=== PATIENT | male | born 1955 | race Caucasian/White ===

== ENCOUNTER 2019-09-15 07:30 | Outpatient (CLI) | payer MEDICARE, OTHER, SELFPAY ==
--- NOTE | 2019-09-15 07:45 | XR_ITS ---
WS: [id number] XR KUB [id number] REASON FOR EXAM: urolithiasis FINDINGS: Stones in both kidneys are again noted unchanged since previous exam of 03/31/2019. The ureters show no definite areas suggestive of stones in the bladder was normal. XR/XR KUB [id number] IMPRESSION: Unchanged renal calculus bilaterally.
== END 2019-09-15 07:31 | disposition home or self-care (01) ==
PROVIDERS: Family Provider Registered Nurse; PCP Registered Nurse; Visit Provider Urology
DX: N20.1 Calculus of ureter (principal); N13.8 Other obstructive and reflux uropathy; N20.9 Urinary calculus, unspecified; N40.1 Benign prostatic hyperplasia with lower urinary tract symptoms; R86.9 Unspecified abnormal finding in specimens from male genital organs
CPT/HCPCS: 74018; 81001

== ENCOUNTER 2019-10-07 10:08 | Outpatient (CLI) | payer MEDICARE, OTHER, SELFPAY ==
--- NOTE | 2019-10-07 10:17 | XR_ITS ---
WS: [id number] ABDOMEN 1 VIEW(S) HISTORY: ureterolithiasis COMPARISON: Radiograph 09/15/2019 Normal bowel gas pattern. Bilateral renal calcifications are identified. Lobulated calcification upper pole RIGHT kidney measur es 5 mm. Additional 5 mm calcification lower pole LEFT kidney. No ureteral calcifications. Lumbar spondylosis. XR/XR KUB [id number] IMPRESSION: Bilateral nephrolithiasis. Similar to 09/15/2019.
== END 2019-10-07 10:09 | disposition home or self-care (01) ==
LOC: RAD 10:15
PROVIDERS: PCP Registered Nurse; Visit Provider Urology
DX: N20.1 Calculus of ureter (principal); N20.0 Calculus of kidney
CPT/HCPCS: 74018; 81001

== ENCOUNTER → 2019-11-11 07:44 | Outpatient (BNVA) | payer MEDICARE, OTHER, SELFPAY | PROVIDERS: PCP Registered Nurse; Visit Provider Nurse Practitioner | DX: G62.9 Polyneuropathy, unspecified (principal) | CPT/HCPCS: 99213 ==

== ENCOUNTER 2020-01-12 13:10 | Outpatient (CLI) | payer MEDICARE, OTHER, SELFPAY ==
--- NOTE | 2020-01-12 13:18 | XRR_ITS ---
PROCEDURE INFORMATION: Exam: XR Right Hip with Pelvis when Performed Exam date and time: 01/12/2020 1:40 PM Age: 64 years old Clinical indication: Hip pain; Right hip TECHNIQUE: Imaging protocol: XR Right hip with pelvis when performed. Views: 1 view. COMPARISON: CT Abdomen/Pelvis Renal [id number] 12/04/2018 7:12 AM FINDINGS: Bones/joints: Unremarkable. No acute fracture. Soft tissues: Unremarkable. XR/XR hip RT 2-3V wo/w pel* [id number] IMPRESSION: No acute findings.
== END 2020-01-12 13:11 | disposition home or self-care (01) ==
LOC: RAD 13:15
PROVIDERS: PCP Registered Nurse; Visit Provider Nurse Practitioner
DX: M25.551 Pain in right hip (principal)
CPT/HCPCS: 73502

== ENCOUNTER 2020-04-06 12:37 | Outpatient (CLI) | payer MEDICARE, OTHER, SELFPAY ==
--- NOTE | 2020-04-06 13:30 | XR_ITS ---
WS: [id number] XR KUB [id number] REASON FOR EXAM: UROLITHIASIS FINDINGS: Compared to the previous examination of 09/15/2019, the calculi in both kidneys are unchanged in size a nd location. Bowel gas pattern is unremarkable with no free air or retroperitoneal air. No new finding compared to the previous examination. XR/XR KUB [id number] IMPRESSION: Stable bilateral renal calculi.
== END 2020-04-06 12:38 | disposition home or self-care (01) ==
LOC: RAD 12:45
PROVIDERS: PCP Registered Nurse; Visit Provider Urology
DX: N20.9 Urinary calculus, unspecified (principal)
CPT/HCPCS: 74018; 81003

== ENCOUNTER 2020-05-27 19:22 | Emergency (ER) | payer MEDICARE, OTHER, SELFPAY ==
[2020-05-27 19:31] VITALS: BP 212/98; PULSE 61; RESP 18; TEMP 36.4; O2SAT 97; BMI 29.2
--- NOTE | 2020-05-27 19:55 | XRR_ITS ---
PROCEDURE INFORMATION: Exam: XR Chest, 1 View Exam date and time: 05/27/2020 8:08 PM Age: 65 years old Clinical indication: Chest pain; Radiating TECHNIQUE: Imaging protocol: XR of the chest Views: 1 view. COMPARISON: CR Chest 1 [place] [id number] 12/01/2017 7:08 PM FINDINGS: Lungs: The lungs are clear. Pleural space: Unremarkable. No pleural effusion. No pneumothorax. Heart/Mediastinum: Unremarkable. No cardiomegaly. Bones/joints: Unremarkable. XR/XR chest 1V portable [id number] IMPRESSION: No acute abnormality.
--- NOTE | 2020-05-27 20:01 | W.ED.CHESTPA ---
HPI - Chest Pain General: Chief Complaint: Chest Pain Stated Complaint: high bp & pulse, left arm pain, spiked around 5pm, Time Seen by Provider: 05/27/20 19:39 History of Present Illness: HPI narrative: This patient is a 65-year-old male presents today with pain in his left arm. This started around 5:00 while he was having a pleasant conversation with his daughter on the phone. Because of the pain in his arm he went and checked his blood pressure. It was quite elevated. He took several repeat measurements that were all over 200 systolic and over 100 diastolic. He was here one time before with that and tells me that he went into V. tach. He also has had a TIA. This high blood pressure frightened him and so he came to the ER. He still having some discomfort in his left arm but it is mostly resolved. He never had chest pain. He did have nausea and perhaps a slight headache with it. He never had any neurologic symptoms. He has never had a heart attack. He is followed by Dr. Perez for his blood pressure. He says that he was on amlodipine and metoprolol until about a month ago. Dr. Perez stopped the amlodipine. He denies any other unusual events in the past few days. He has not been ill. No changes in his diet. No other medication changes. MD complaint: other (Left arm and axillary pain) Onset (ago): hour(s) (3) Timing of current episode: constant Prior episodes: No Onset: during rest Pain radiation: left arm Severity: moderate Quality: aching Relieving factors: nothing Exacerbating factors: nothing Associated symptoms: Deny abdominal pain, dyspnea, fever(s), nausea or vomiting Review of Systems General: Reports: 10 or more systems reviewed and unremarkable except in HPI and below Const: Denies: fever(s), chills, fatigue or malaise Eyes: Denies: change in vision ENMT: Denies: odynophagia Card: Denies: chest pain or swelling of feet/ankles Resp: Denies: dyspnea, productive cough or non-productive cough GI: Denies: abdominal pain, nausea or vomiting : Denies: flank pain Musc: Denies: neck pain or back pain Skin/Breast: Denies: rash Neuro: Denies: headache(s), numbness in extremities or weakness in extremities Flaco/Lymph: Denies: easy bruising or easy bleeding PFSH ED PFSH: Medical History Bradycardia Erectile dysfunction Hypertension, accelerated Hypertrophy of prostate with urinary obstruction Memory loss Palpitation Peripheral neuropathy TIA (transient ischemic attack) Urolithiasis Surgical History History of ureter stent Hx of brain surgery Hx of cholecystectomy Hx of hernia repair Hx of lithotripsy Family History Mother , bone Cancer Hypertension Social History Smoking and tobacco status: never smoked Alcohol intake: unknown Adopted: No Caregiver/support person: No Lives independently: No Marital status: Current occupational status: retired History of recent travel: No Current gender identity: Male Physical Exam Const: COMMON NORMALS: no acute distress, patient oriented x3, no limitations and alert GENERAL APPEARANCE: cooperative and comfortable HENMT: HEAD & SCALP: normal to inspection FACE & SINUS: normal facial exam Eye: GENERAL EYE: appearance normal, both eyes and all related structures Neck/C-Spine: COMMON NORMALS: supple, no meningeal signs and no JVD Chest: COMMONS NORMALS: normal inspection of the chest Resp: COMMON NORMALS: normal respiratory effort, No use of accessory muscles and clear to auscultation bilaterally AUSCULTATION: clear to auscultation bilaterally Cardio: COMMON NORMALS: no JVD, regular rate, regular rhythm and No murmurs present (Cardio) RATE: regular rate RHYTHM: regular rhythm GI: COMMON NORMALS: Normal to inspection, nondistended, normoactive bowel sounds present, Soft to palpation and non-tender INSPECTION: Yes normal to inspection AUSCULTATION: Yes normoactive bowel sounds PALPATION: Yes Soft to palpation Back/Pelvis: COMMON NORMALS: thoracic and lumbar spine normal to inspection Extremity: COMMON NORMALS: normal to inspection Neuro: COMMON NORMALS: patient oriented x3, moves all extremities, no focal motor deficits and no sensory deficits noted SENSORIUM/ORIENTATION: Yes alert MENINGEAL SIGNS: Yes no meningeal signs Psych: COMMON NORMALS: mental status grossly normal, cooperative and normal affect Skin: COMMON NORMALS: no rashes or lesions noted and turgor normal GENERAL SKIN EXAM: no rashes or lesions noted and turgor normal Course ED course: Patient was comfortable while in the ER. I gave him a dose of labetalol and his blood pressure came down to 150s over 80s. He thinks that they took him off the amlodipine in the past because his blood pressure was getting too low. On my review of the notes it looks like maybe he was having some ankle swelling as well. He is comfortable with going back on the amlodipine until he is able to follow-up with Dr. Nathan. Troponin was negative. EKGs were negative. Exam and other labs are benign. I think he safe for discharge and outpatient follow-up. Vital Signs: Vital signs: Vital Signs Temperature 97.6 F 05/27/20 19:31 Pulse Rate 56 L 05/27/20 22:59 Respiratory Rate 18 05/27/20 22:59 Blood Pressure 158/87 05/27/20 22:59 Pulse Oximetry 97 05/27/20 22:59 MDM - Chest Pain Lab Data: Labs: Lab Results 05/27/20 05/27/20 05/27/20 Range/Units 20:07 20:07 20:07 WBC 7.9 (4.0-10.0) 10^3/ uL RBC 4.78 (4.1-5.3) 10^6/u L Hgb 14.6 (11.7-16.6) g/dL Hct 44.4 (42.0-52.0) % MCV 92.9 (80-94) fL MCH 30.5 (28.0-34.0) pg MCHC 32.9 (30.0-36.0) g/dL RDW 12.6 (12.1-15.1) % Plt Count 167 (130-400) 10^3/c mm MPV 10.0 (7.4-10.4) fL Neut % (Auto) 65.5 % Lymph % (Auto) 24.4 % Alcorn % (Auto) 7.0 % Eos % (Auto) 2.4 % Baso % (Auto) 0.4 % Neut # (Auto) 5.17 (1.8-7.7) 10^3/u L Lymph # (Auto) 1.9 (0.8-4.8) 10^3/u L Alcorn # (Auto) 0.6 (0.2-0.9) 10^3/u L Eos # (Auto) 0.2 (0.0-0.8) 10^3/u L Baso # (Auto) 0.0 (0.0-0.1) 10^3/u L Nucleated RBC % (a uto) 0 % Nucleated RBCs # 0.0 /100WBC Sodium 139 (136-145) mmol/L Potassium 4.2 (3.5-5.1) mmol/L Chloride 103 (98-107) mmol/L Carbon Dioxide 29 (22-29) mmol/L Anion Gap 11.2 (5-19) BUN 13 (8-23) mg/dL Creatinine 1.1 (0.7-1.2) mg/dL GFR Calculation 67.4 L (90-130) mL/min Glucose 125 H (65-115) mg/dL Calculated Osmolal ity 290 (285-295) mOsm/k g Calcium 9.8 (8.5-10.5) mg/dL Total Bilirubin 0.4 (0.15-1.2) mg/dL AST 16 (0-40) U/L ALT 24 (0-41) U/L Alkaline Phosphata se 115 (40-130) IU/L Troponin T Baselin e 6 (0-15) ng/L Troponin T 120 Min [place] (0-15) ng/L Delta Troponin T (0-10) ABS# NT-Pro-B Natriuret Pep 70 (0-125) pg/mL Total Protein 6.0 L (6.6-8.7) g/dL Albumin 3.9 (3.5-5.2) g/dL Globulin 2.1 (1.3-4.6) g/dL Urine Color (Yellow) Urine Appearance (CLEAR) Urine pH (5-7) Ur Specific Gravit y (1.005-1.030) Urine Protein (Negative) Urine Glucose (UA) (Normal) Urine Ketones (Negative) Urine Blood (Negative) Urine Nitrate (Negative) Urine Bilirubin (Negative) Urine Urobilinogen (Negative) mg/dL Ur Leukocyte Shu ase (Negative) Urine RBC (0-2) /hpf Urine WBC (0-5) /hpf Ur Squamous Epith Cells (0-5) /hpf Amorphous Sediment /hpf Urine Bacteria (NONE) /hpf 05/27/20 05/27/20 Range/Units 21:00 21:55 WBC (4.0-10.0) 10^3/ uL RBC (4.1-5.3) 10^6/u L Hgb (11.7-16.6) g/dL Hct (42.0-52.0) % MCV (80-94) fL MCH (28.0-34.0) pg MCHC (30.0-36.0) g/dL RDW (12.1-15.1) % Plt Count (130-400) 10^3/c mm MPV (7.4-10.4) fL Neut % (Auto) % Lymph % (Auto) % Alcorn % (Auto) % Eos % (Auto) % Baso % (Auto) % Neut # (Auto) (1.8-7.7) 10^3/u L Lymph # (Auto) (0.8-4.8) 10^3/u L Alcorn # (Auto) (0.2-0.9) 10^3/u L Eos # (Auto) (0.0-0.8) 10^3/u L Baso # (Auto) (0.0-0.1) 10^3/u L Nucleated RBC % (a uto) % Nucleated RBCs # /100WBC Sodium (136-145) mmol/L Potassium (3.5-5.1) mmol/L Chloride (98-107) mmol/L Carbon Dioxide (22-29) mmol/L Anion Gap (5-19) BUN (8-23) mg/dL Creatinine (0.7-1.2) mg/dL GFR Calculation (90-130) mL/min Glucose (65-115) mg/dL Calculated Osmolal ity (285-295) mOsm/k g Calcium (8.5-10.5) mg/dL Total Bilirubin (0.15-1.2) mg/dL AST (0-40) U/L ALT (0-41) U/L Alkaline Phosphata se (40-130) IU/L Troponin T Baselin e (0-15) ng/L Troponin T 120 Min [place] 6.20 (0-15) ng/L Delta Troponin T 0.20 (0-10) ABS# NT-Pro-B Natriuret Pep (0-125) pg/mL Total Protein (6.6-8.7) g/dL Albumin (3.5-5.2) g/dL Globulin (1.3-4.6) g/dL Urine Color Yellow (Yellow) Urine Appearance Sl cloudy A (CLEAR) Urine pH 7 (5-7) Ur Specific Gravit y 1.010 (1.005-1.030) Urine Protein Neg (Negative) Urine Glucose (UA) Norm (Normal) Urine Ketones Negative (Negative) Urine Blood Trace H (Negative) Urine Nitrate Negative (Negative) Urine Bilirubin Neg (Negative) Urine Urobilinogen Norm (Negative) mg/dL Ur Leukocyte Shu ase Negative (Negative) Urine RBC 0-4 H (0-2) /hpf Urine WBC 0-4 H (0-5) /hpf Ur Squamous Epith Cells 0-4 H (0-5) /hpf Amorphous Sediment 2+ /hpf Urine Bacteria 1+ H (NONE) /hpf Discharge Plan Discharge Patient Disposition: Home Clinical Impression: Hypertension, accelerated, Atypical chest pain Condition: Stable Prescriptions: New amlodipine 5 mg tablet 5 mg PO BID Qty: 60 RF: 0 No Action magnesium oxide 400 mg magnesium capsule 400 mg PO DAILY Qty: 90 RF: 3 atorvastatin 20 mg tablet 20 mg PO DAILY Qty: 90 RF: 3 Myrbetriq 25 mg tablet extended release 24 hr 25 mg PO DAILY Qty: 30 RF: 12 gabapentin 300 mg capsule 600 mg PO TID Qty: 180 RF: 11 naproxen 375 mg tablet 375 mg PO BID PRN (Reason: pain) Qty: 14 RF: 0 aspirin 325 mg tablet 325 mg PO DAILY 90 Days Qty: 90 RF: 3 metoprolol succinate 25 mg tablet extended release 24 hr 12.5 mg PO DAILY 90 Days Qty: 45 RF: 3 potassium citrate 10 mEq (1,080 mg) tablet extended release 10 meq PO BID Qty: 60 RF: 12 tamsulosin 0.4 mg capsule 0.4 mg PO BID Qty: 180 RF: 3 finasteride 5 mg tablet 5 mg PO DAILY Qty: 90 RF: 3 sildenafil 100 mg tablet See Rx Instructions .ROUTE .COMPLEX Qty: 20 RF: 3 allopurinol 100 mg tablet See Rx Instructions .ROUTE .COMPLEX Qty: 90 RF: 0 Discharge Orders: Discharge ED (Routine); Ordered 05/27/20 Ordered By: Marlin Kent Referrals: Vonda Perez MD [Physician] - Adelita Rod FNP [Primary Care Provider] - Discharge Diet: Usual diet Discharge Activity: Resume usual activity Patient Instructions: Hypertension (ED) Activity Restrictions/Additional Instructions: Start taking the amlodipine again as prescribed. Call Dr. Perez's office to let them know you were seen in the ED and given the new prescription. Return if chest pain, SOB, vomiting or any other new or concerning symptoms. Coding Level of Care Code ED Paleontological Helper for Chg Fwd Exam Comprehensive
[2020-05-27] MEDS: labetalol 5 mg/mL SDV 20mL 20 MG IVP (20:06)
[2020-05-27 20:20] LABS: Basophils % 0.4 %; Eosinophils # 0.2 10^3/uL (0.0-0.8); Eosinophils % 2.4 %; Hematocrit 44.4 % (42.0-52.0); Hemoglobin 14.6 g/dL (11.7-16.6); Lymphocytes # 1.9 10^3/uL (0.8-4.8); Lymphocytes % 24.4 %; Mean Corpuscular HGB Conc 32.9 g/dL (30.0-36.0); Mean Corpuscular Hemoglobin 30.5 pg (28.0-34.0); Mean Corpuscular Volume 92.9 fL (80-94); Monocytes # 0.6 10^3/uL (0.2-0.9); Neutrophils # 5.17 10^3/uL (1.8-7.7); Neutrophils % 65.5 %; Nucleated Red Blood Cells % 0 %; Platelet Count 167 10^3/cmm (130-400); Red Blood Count 4.78 10^6/uL (4.1-5.3); Red Cell Distribution Width 12.6 % (12.1-15.1); White Blood Count 7.9 10^3/uL (4.0-10.0)
[2020-05-27 20:22] VITALS: BP 152/99; PULSE 55; RESP 18; O2SAT 96
[2020-05-27 20:40] LABS: Troponin(5th) Baseline 6 ng/L (0-15)
[2020-05-27 20:49] LABS: Alanine Aminotransferase 24 U/L (0-41); Albumin Level 3.9 g/dL (3.5-5.2); Alkaline Phosphatase 115 IU/L (40-130); Aspartate Amino Transferase 16 U/L (0-40); Blood Urea Nitrogen 13 mg/dL (8-23); Calcium 9.8 mg/dL (8.5-10.5); Carbon Dioxide 29 mmol/L (22-29); Chloride 103 mmol/L (98-107); Globulin 2.1 g/dL (1.3-4.6); Glomerular Filtration Rate 67.4 mL/min (90-130); Glucose 125 mg/dL (65-115); NT Pro B Type Natriuretic Pept 70 pg/mL (0-125); Osmolality Calculated 290 mOsm/kg (285-295); Sodium 139 mmol/L (136-145); Total Bilirubin 0.4 mg/dL (0.15-1.2)
[2020-05-27 20:53] LABS: Anion Gap 11.2 (5-19); Potassium 4.2 mmol/L (3.5-5.1)
[2020-05-27 21:04] VITALS: BP 147/86; PULSE 57; RESP 17; O2SAT 97
[2020-05-27 21:27] LABS: Add Urine Microscopic? YES; Bilirubin Urine Neg (Negative); Blood Urine Trace (Negative); Glucose Urine UA Norm (Normal); Ketones Urine Negative (Negative); Leukocyte Esterase Urine Negative (Negative); Nitrate Urine Negative (Negative); Protein Urine Neg (Negative); Urine Color Yellow (Yellow); Urobilinogen Urine Norm (Negative); pH Urine 7 (5-7)
[2020-05-27 21:36] LABS: Add Urine Culture? No; Amorphous Sediment Urine 2+ /hpf; Bacteria Urine 1+ /hpf; RBC Urine 0-4 /hpf (0-2); Squamous Epithelial Cell Urine 0-4 /hpf (0-5); WBC Urine 0-4 /hpf (0-5)
--- NOTE | 2020-05-27 21:55 | ECG_ITS ---
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 Measurements Intervals [place] Rate: 52 P: 27 [place]: 198 QRS: 0 QRSD: 103 T: 8 QT: 427 QTc: 400 Interpretive Statements SINUS BRADYCARDIA MODERATE VOLTAGE CRITERIA FOR LVH, CONSIDER NORMAL VARIANT [MEETS CRITERIA IN ONE OF: R(aVL), S(V1), R(V5), R(V5/V6)+S(V1)] Compared to ECG 12/01/2017 19:32:57 No significant changes Electronically Signed On 05-29-2020 9:24:06 LEAD WELDER by Kobi Hassan M.D. [id number]
[2020-05-27 22:15] VITALS: BP 175/92; PULSE 51; RESP 17; O2SAT 96
[2020-05-27 22:59] VITALS: BP 158/87; PULSE 56; RESP 18; O2SAT 97
== END 2020-05-27 23:00 | disposition home or self-care (01) ==
PROVIDERS: Emergency Provider Emergency Medicine; PCP Registered Nurse
DX: I10 Essential (primary) hypertension (principal); R07.89 Other chest pain; Z79.82 Long term (current) use of aspirin; Z86.73 Personal history of transient ischemic attack (TIA), and cerebral infarction without residual deficits
CPT/HCPCS: 12345; 36415; 71045; 80053; 81001; 83880; 84484; 85025; 93005; 96374; 99282; 99284; J3490

== ENCOUNTER 2020-05-28 11:57 | Emergency (ER) | payer MEDICARE, OTHER, SELFPAY ==
[2020-05-28 12:01] VITALS: BP 152/88; PULSE 77; RESP 18; TEMP 36.5; O2SAT 95; BMI 29.2
--- NOTE | 2020-05-28 13:38 | XRR_ITS ---
PROCEDURE INFORMATION: Exam: XR Chest, 2 Views Exam date and time: 05/28/2020 1:39 PM Age: 65 years old Clinical indication: Dyspnea; Additional info: Cchest pain TECHNIQUE: Imaging protocol: XR of the chest Views: 2 views. COMPARISON: CR XR chest 1V portable [id number] 05/27/2020 8:05 PM FINDINGS: Lungs: Unremarkable. No consolidation. Pleural space: Unremarkable. No pleural effusion. No pneumothorax. Heart/Mediastinum: Unremarkable. No cardiomegaly. Bones/joints: Unremarkable. XR/XR chest 2V* [id number] IMPRESSION: No acute findings.
--- NOTE | 2020-05-28 13:38 | ECG_ITS ---
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 Measurements Intervals [place] Rate: 59 P: 6 [place]: 198 QRS: -6 QRSD: 114 T: -6 QT: 410 QTc: 407 Interpretive Statements SINUS BRADYCARDIA MODERATE INTRAVENTRICULAR CONDUCTION DELAY [110+ ms QRS DURATION] VOLTAGE CRITERIA FOR LVH [MEETS CRITERIA IN ONE OF: R(aVL), S(V1), R(V5), R(V5/V6)+S(V1)] Compared to ECG 05/27/2020 21:48:00 Intraventricular conduction delay now present Electronically Signed On 05-29-2020 9:18:01 BLADDER CHANGER by Kobi Hassan M.D. [id number]
--- NOTE | 2020-05-28 13:47 | CTR_ITS ---
PROCEDURE INFORMATION: Exam: CT Head Without Contrast Exam date and time: 05/28/2020 2:17 PM Age: 65 years old Clinical indication: Pain; Headache not specified; Prior surgery; Surgery date: 6+ months; Additional info: Headache, hypertensive urgency TECHNIQUE: Imaging protocol: Computed tomography of the head without contrast. Radiation optimization: All CT scans at this facility use at least one of these dose optimization techniques: automated exposure control; mA and/or kV adjustment per patient size (includes targeted exams where dose is matched to clinical indication); or iterative reconstruction. COMPARISON: CT head wo con* [id number] 12/08/2018 2:08 PM RADIATION DOSE METRICS: Total DLP (mGy-cm): 905.37 FINDINGS: Brain: Moderate white matter disease and volume loss are identified. There is no acute infarct or edema. No hemorrhage. Cerebral ventricles: No ventriculomegaly. Bones/joints: There has been a left frontal craniotomy. Paranasal sinuses: Visualized sinuses are unremarkable. No fluid levels. Mastoid air cells: Visualized mastoid air cells are well aerated. Soft tissues: Unremarkable. CT/CT head wo con* [id number] IMPRESSION: There are no acute concerning abnormalities. Radiation Dose CTDIVOL = (mGy): DLP = 905.37 (mGy-cm)
--- NOTE | 2020-05-28 13:51 | W.ED.GENADLT ---
HPI - General Adult General: Chief complaint: Headache Stated complaint: HIGH BP, HEADACHE, WAS HERE LAST NIGHT Time Seen by Provider: 05/28/20 12:12 Source: patient Mode of arrival: ambulatory Limitations: no limitations History of Present Illness: HPI narrative: The patient is a 65-year-old male who presents to the emergency department with complaints of elevated blood pressure. He was seen in this emergency department yesterday for similar things and was given intravenous labetalol to help control his blood pressure. When he woke up this morning the patient checked his blood pressure several times and he has ranged from 150s to 170s systolic and he was worried about this. He was started on amlodipine in addition to his prior blood pressure medicine last night. He endorses a headache and mild chest pain. No dizziness. He is worried about his blood pressure and so he is here for that. Associated symptoms: Reports chest pain and headache(s); Deny dyspnea, nausea, rash, palpitations or vomiting Review of Systems General: Reports: 10 or more systems reviewed and unremarkable except in HPI and below Const: Denies: fever(s), chills or body aches Eyes: Denies: change in vision or blurry vision ENMT: Denies: throat pain, enlarged tonsils, odynophagia, hoarseness, mouth pain or swelling of lips/tongue Card: Reports: chest pain; Denies: palpitations, irregular heart rhythm, edema or swelling of feet/ankles Resp: Denies: dyspnea, productive cough or non-productive cough GI: Denies: abdominal pain, nausea or vomiting : Denies: flank pain, dysuria, urinary frequency, urinary urgency or urinary hesitancy Musc: Denies: neck pain, back pain or extremity swelling Skin/Breast: Denies: rash, pruritus or erythema Neuro: Reports: headache(s); Denies: numbness in extremities or weakness in extremities Endo: Denies: polyuria, polydipsia or tired all the time PFSH ED PFSH: Medical History (Reviewed 05/28/20 @ 14:17 by Dick Anderson MD, [facility] – [place]) Bradycardia Erectile dysfunction Hypertension, accelerated Hypertrophy of prostate with urinary obstruction Memory loss Palpitation Peripheral neuropathy TIA (transient ischemic attack) Urolithiasis Surgical History (Reviewed 05/28/20 @ 14:17 by Dick Anderson MD, [facility] – [place]) History of ureter stent Hx of brain surgery Hx of cholecystectomy Hx of hernia repair Hx of lithotripsy Family History (Reviewed 05/28/20 @ 14:17 by Dick Anderson MD, [facility] – [place]) Mother , bone Cancer Hypertension Social History (Reviewed 05/28/20 @ 14:17 by Dick Anderson MD, [facility] – [place]) Smoking and tobacco status: never smoked Alcohol intake: unknown Adopted: No Caregiver/support person: No Lives independently: No Marital status: Current occupational status: retired History of recent travel: No Current gender identity: Male Physical Exam Const: COMMON NORMALS: no acute distress, average body habitus, patient oriented x3, no limitations, healthy appearing, alert and well nourished HENMT: COMMON NORMALS: normocephalic, atraumatic and moist oral mucous membranes HEAD & SCALP: normocephalic and atraumatic Neck/C-Spine: COMMON NORMALS: no meningeal signs and no JVD Resp: COMMON NORMALS: normal respiratory effort, No retractions, No use of accessory muscles, clear to auscultation bilaterally and percussion normal AUSCULTATION: clear to auscultation bilaterally PERCUSSION: percussion normal Cardio: COMMON NORMALS: no JVD, regular rate, regular rhythm, S1 normal heart sound present, S2 normal heart sound present, No gallops present (Cardio), No clicks present (Cardio), No murmurs present (Cardio), No rub (Cardio) and Peripheral pulses 2+ throughout RATE: regular rate RHYTHM: regular rhythm HEART SOUNDS: S1 normal heart sound present and S2 normal heart sound present PERIPHERAL PULSES: Peripheral pulses 2+ throughout GI: COMMON NORMALS: Normal to inspection, nondistended, normoactive bowel sounds present, Soft to palpation, non-tender, No hepatosplenomegaly present, no masses and no bruits PALPATION: Yes Soft to palpation and Yes No hepatosplenomegaly present Extremity: COMMON NORMALS: normal to inspection, full ROM, capillary refill normal, no calf tenderness and no pedal edema Neuro: COMMON NORMALS: patient oriented x3 SENSORIUM/ORIENTATION: Yes alert MENINGEAL SIGNS: Yes no meningeal signs Skin: COMMON NORMALS: no rashes or lesions noted, no wounds, turgor normal, no jaundice, no petechiae and no mottling GENERAL SKIN EXAM: no rashes or lesions noted and turgor normal Course Reevaluation(s): Reevaluation #1: Discussed his lab and imaging findings with him. Negative for acute findings. Blood pressure is 138/96 without intervention. I counseled him that unless his blood pressure is severely elevated we do not give medicines in the emergency department to bring down the blood pressure. He only restarted amlodipine last night so we will not make any medication changes. We will discharge him home with no new orders. He voiced understanding and is in agreement with the plan Time: 16:13 Vital Signs: Vital signs: Vital Signs Temperature 97.7 F 05/28/20 12:01 Pulse Rate 67 05/28/20 16:34 Respiratory Rate 20 H 05/28/20 15:15 Blood Pressure 138/96 05/28/20 15:15 Pulse Oximetry 97 05/28/20 15:15 MDM - General Adult MDM Narrative: Medical decision making narrative: 65-year-old male who came to the emergency department because of concerns for elevated blood pressure. His blood pressure was elevated here but only mildly so. There is no indication for acute lowering of his blood pressure as there is no evidence of endorgan damage, his blood pressure is not high enough on its own to warrant reduction in the emergency department. He was started on amlodipine yesterday in addition to other blood pressure medications that he was previously on. He is advised to check his blood pressure and to follow-up with his primary care provider. Medical Records: Attestation: I reviewed the patient's medical records. Lab Data: Attestation: I reviewed the patient's lab results. Labs: Lab Results 05/28/20 05/28/20 05/28/20 Range/Units 14:00 14:10 14:10 WBC 8.5 (4.0-10.0) 10^3/ uL RBC 4.88 (4.1-5.3) 10^6/u L Hgb 15.0 (11.7-16.6) g/dL Hct 45.7 (42.0-52.0) % MCV 93.6 (80-94) fL MCH 30.7 (28.0-34.0) pg MCHC 32.8 (30.0-36.0) g/dL RDW 12.7 (12.1-15.1) % Plt Count 172 (130-400) 10^3/c mm MPV 10.1 (7.4-10.4) fL Neut % (Auto) 68.8 % Lymph % (Auto) 21.7 % [place] % (Auto) 7.1 % Eos % (Auto) 1.5 % Baso % (Auto) 0.5 % Neut # (Auto) 5.82 (1.8-7.7) 10^3/u L Lymph # (Auto) 1.8 (0.8-4.8) 10^3/u L [place] # (Auto) 0.6 (0.2-0.9) 10^3/u L Eos # (Auto) 0.1 (0.0-0.8) 10^3/u L Baso # (Auto) 0.0 (0.0-0.1) 10^3/u L Nucleated RBC % (a uto) 0 % Nucleated RBCs # 0.0 /100WBC Sodium 140 (136-145) mmol/L Potassium 4.2 (3.5-5.1) mmol/L Chloride 104 (98-107) mmol/L Carbon Dioxide 29 (22-29) mmol/L Anion Gap 11.2 (5-19) BUN 10 (8-23) mg/dL Creatinine 1.0 (0.7-1.2) mg/dL GFR Calculation 75.2 L (90-130) mL/min Glucose 111 (65-115) mg/dL Calculated Osmolal ity 290 (285-295) mOsm/k g Calcium 9.5 (8.5-10.5) mg/dL Total Bilirubin 0.5 (0.15-1.2) mg/dL AST 15 (0-40) U/L ALT 24 (0-41) U/L Alkaline Phosphata se 121 (40-130) IU/L Troponin T Baselin e (0-15) ng/L C-Reactive Protein 2.9 (0.0-4.9) mg/L NT-Pro-B Natriuret Pep 60 (0-125) pg/mL Total Protein 6.3 L (6.6-8.7) g/dL Albumin 4.1 (3.5-5.2) g/dL Globulin 2.2 (1.3-4.6) g/dL Procalcitonin 0.09 (0-0.5) ng/mL TSH 1.73 (0.27-4.20) uIU/ mL Urine Color Yellow (Yellow) Urine Appearance Hazy A (CLEAR) Urine pH 8 H (5-7) Ur Specific Gravit y 1.010 (1.005-1.030) Urine Protein Neg (Negative) Urine Glucose (UA) Norm (Normal) Urine Ketones Negative (Negative) Urine Blood Neg (Negative) Urine Nitrate Negative (Negative) Urine Bilirubin Neg (Negative) Prot Sulfosalicyli c Acd Negative (Negative) Urine Urobilinogen Norm (Negative) mg/dL Ur Leukocyte Shu ase Negative (Negative) Urine RBC None (0-2) /hpf Urine WBC 0-4 H (0-5) /hpf Ur Squamous Epith Cells None (0-5) /hpf Amorphous Sediment 2+ /hpf Urine Bacteria Trace (NONE) /hpf Urine Mucus Trace /hpf 05/28/20 Range/Units 14:10 WBC (4.0-10.0) 10^3/ uL RBC (4.1-5.3) 10^6/u L Hgb (11.7-16.6) g/dL Hct (42.0-52.0) % MCV (80-94) fL MCH (28.0-34.0) pg MCHC (30.0-36.0) g/dL RDW (12.1-15.1) % Plt Count (130-400) 10^3/c mm MPV (7.4-10.4) fL Neut % (Auto) % Lymph % (Auto) % [place] % (Auto) % Eos % (Auto) % Baso % (Auto) % Neut # (Auto) (1.8-7.7) 10^3/u L Lymph # (Auto) (0.8-4.8) 10^3/u L [place] # (Auto) (0.2-0.9) 10^3/u L Eos # (Auto) (0.0-0.8) 10^3/u L Baso # (Auto) (0.0-0.1) 10^3/u L Nucleated RBC % (a uto) % Nucleated RBCs # /100WBC Sodium (136-145) mmol/L Potassium (3.5-5.1) mmol/L Chloride (98-107) mmol/L Carbon Dioxide (22-29) mmol/L Anion Gap (5-19) BUN (8-23) mg/dL Creatinine (0.7-1.2) mg/dL GFR Calculation (90-130) mL/min Glucose (65-115) mg/dL Calculated Osmolal ity (285-295) mOsm/k g Calcium (8.5-10.5) mg/dL Total Bilirubin (0.15-1.2) mg/dL AST (0-40) U/L ALT (0-41) U/L Alkaline Phosphata se (40-130) IU/L Troponin T Baselin e 7 (0-15) ng/L C-Reactive Protein (0.0-4.9) mg/L NT-Pro-B Natriuret Pep (0-125) pg/mL Total Protein (6.6-8.7) g/dL Albumin (3.5-5.2) g/dL Globulin (1.3-4.6) g/dL Procalcitonin (0-0.5) ng/mL TSH (0.27-4.20) uIU/ mL Urine Color (Yellow) Urine Appearance (CLEAR) Urine pH (5-7) Ur Specific Gravit y (1.005-1.030) Urine Protein (Negative) Urine Glucose (UA) (Normal) Urine Ketones (Negative) Urine Blood (Negative) Urine Nitrate (Negative) Urine Bilirubin (Negative) Prot Sulfosalicyli c Acd (Negative) Urine Urobilinogen (Negative) mg/dL Ur Leukocyte Shu ase (Negative) Urine RBC (0-2) /hpf Urine WBC (0-5) /hpf Ur Squamous Epith Cells (0-5) /hpf Amorphous Sediment /hpf Urine Bacteria (NONE) /hpf Urine Mucus /hpf Imaging Data^: CXR: Attestation: I personally reviewed and interpreted this imaging study as follows: Radiologist's impression: [address] [address] XRay Report Signed Patient: Henrry Lopes #: [id number] : 7Acct#:[id number] Age/Sex: 65 / MADM Date: 05/28/20 Loc: ERRoom/Bed: Attending Dr: Ordering Provider/Ordering MD: Dick Anderson MD, [facility] – [place] Date of Service: 05/28/20 Procedure(s): XR chest 2V* [id number] Accession Number(s): [id number] Report Number: [id number] PROCEDURE INFORMATION: Exam: XR Chest, 2 Views Exam date and time: 05/28/2020 1:39 PM Age: 65 years old Clinical indication: Dyspnea; Additional info: Cchest pain TECHNIQUE: Imaging protocol: XR of the chest Views: 2 views. COMPARISON: CR XR chest 1V portable [id number] 05/27/2020 8:05 PM FINDINGS: Lungs: Unremarkable. No consolidation. Pleural space: Unremarkable. No pleural effusion. No pneumothorax. Heart/Mediastinum: Unremarkable. No cardiomegaly. Bones/joints: Unremarkable. XR/XR chest 2V* [id number] IMPRESSION: No acute findings. Dictated By:Kala Inman MD Signed By:Kala Inman MDSigned Date/Time:05/28/20 1445 DD/ 1444 CT Head: Attestation: I personally reviewed and interpreted this imaging study as follows: Radiologist's impression: [address] [address] [address] Scan Report Signed Patient: Henrry Lopes #: [id number] : 1955cct#:[id number] Age/Sex: 65 / MADM Date: 05/28/20 Loc: ERRoom/Bed: Attending Dr: Ordering Provider/Ordering MD: Dick Anderson MD, [facility] – [place] Date of Service: 05/28/20 Procedure(s): CT head wo con* [id number] Accession Number(s): [id number] Report Number: [id number] PROCEDURE INFORMATION: Exam: CT Head Without Contrast Exam date and time: 05/28/2020 2:17 PM Age: 65 years old Clinical indication: Pain; Headache not specified; Prior surgery; Surgery date: 6+ months; Additional info: Headache, hypertensive urgency TECHNIQUE: Imaging protocol: Computed tomography of the head without contrast. Radiation optimization: All CT scans at this facility use at least one of these dose optimization techniques: automated exposure control; mA and/or kV adjustment per patient size (includes targeted exams where dose is matched to clinical indication); or iterative reconstruction. COMPARISON: CT head wo con* [id number] 12/08/2018 2:08 PM RADIATION DOSE METRICS: Total DLP (mGy-cm): 905.37 FINDINGS: Brain: Moderate white matter disease and volume loss are identified. There is no acute infarct or edema. No hemorrhage. Cerebral ventricles: No ventriculomegaly. Bones/joints: There has been a left frontal craniotomy. Paranasal sinuses: Visualized sinuses are unremarkable. No fluid levels. Mastoid air cells: Visualized mastoid air cells are well aerated. Soft tissues: Unremarkable. CT/CT head wo con* [id number] IMPRESSION: There are no acute concerning abnormalities. Radiation Dose CTDIVOL = (mGy): DLP = 905.37 (mGy-cm) Dictated By:Kala Inman MD Signed By:Kala Inmanigned Date/Time:05/28/201445 DD/ 1445 EKG Data^: EKG 1: Attestation: I personally reviewed and interpreted this EKG as follows: EKG interpretation date: 05/28/20 EKG interpretation time: 13:49 Prior EKG tracings: not available for review Interpretation: Sinus bradycardia. Heart rates 59 bpm. Q waves in lead I and aVL No ST change Computer generated interpretation: Chest X-Ray 05/28/20 13:38 IMPRESSION: No acute findings. Head CT 05/28/20 13:47 IMPRESSION: There are no acute concerning abnormalities. Radiation Dose CTDIVOL = (mGy): DLP = 905.37 (mGy-cm) EKG 2: Attestation: I personally reviewed and interpreted this EKG as follows: EKG interpretation date: 05/28/20 EKG interpretation time: 16:00 Prior EKG tracings: available for review Interpretation: Sinus rhythm. Heart rate 62 bpm. Q wave in leads I and aVL. No ST changes. Computer generated interpretation: Chest X-Ray 05/28/20 13:38 IMPRESSION: No acute findings. Head CT 05/28/20 13:47 IMPRESSION: There are no acute concerning abnormalities. Radiation Dose CTDIVOL = (mGy): DLP = 905.37 (mGy-cm) Discharge Plan Discharge Patient Disposition: Home Clinical Impression: Hypertension Qualifiers: Hypertension type: essential hypertension Qualified Code(s): I10 - Essential (primary) hypertension Condition: Stable Prescriptions: Continued naproxen 375 mg tablet 375 mg PO BID PRN (Reason: pain) Qty: 14 RF: 0 sildenafil 100 mg tablet See Rx Instructions .ROUTE .COMPLEX Qty: 20 RF: 3 atorvastatin 20 mg tablet 20 mg PO DAILY@0800 RF: 0 aspirin 325 mg tablet 325 mg PO DAILY@0800 RF: 0 amlodipine 5 mg tablet 5 mg PO BID@0800,2200 RF: 0 allopurinol 100 mg tablet 100 mg PO DAILY@0800 RF: 0 tamsulosin 0.4 mg capsule 0.4 mg PO BID@0800,2200 RF: 0 potassium citrate 10 mEq (1,080 mg) tablet extended release 10 meq PO BID@0800,2200 RF: 0 gabapentin 300 mg capsule 600 mg PO TID@08,12,22 RF: 0 metoprolol succinate 25 mg tablet extended release 24 hr 12.5 mg PO DAILY@0800 RF: 0 finasteride 5 mg tablet 5 mg PO DAILY@0800 RF: 0 magnesium oxide 400 mg magnesium capsule 400 mg PO DAILY@0800 RF: 0 olopatadine 0.1 % drops See Rx Instructions .ROUTE .COMPLEX RF: 0 Discharge Orders: Discharge ED (Routine); Ordered 05/28/20 Ordered By: Dick Anderson Referrals: Adelita Rod FNP [Primary Care Provider] - 1-3 days Discharge Diet: Low Salt and Low Cholesterol Discharge Activity: Increase activity as tolerated Patient Instructions: Heart Healthy Diet (ED), DASH Eating Plan (ED), Hypertension (ED) Activity Restrictions/Additional Instructions: Return for any new or worsening symptoms. Follow-up with your primary care provider within 3 days. Check your blood pressure 1-3 times every day and record it so your doctor can use this to monitor your control. Consume a low salt diet. Coding Level of Care Code ED Continuous Dryout Operator Helper for Chg Fwd Exam Comprehensive
[2020-05-28 14:15] VITALS: BP 188/111; PULSE 77; RESP 18; O2SAT 98
[2020-05-28 14:42] LABS: Basophils % 0.5 %; Eosinophils # 0.1 10^3/uL (0.0-0.8); Eosinophils % 1.5 %; Hematocrit 45.7 % (42.0-52.0); Lymphocytes # 1.8 10^3/uL (0.8-4.8); Lymphocytes % 21.7 %; Mean Corpuscular HGB Conc 32.8 g/dL (30.0-36.0); Mean Corpuscular Hemoglobin 30.7 pg (28.0-34.0); Mean Corpuscular Volume 93.6 fL (80-94); Mean Platelet Volume 10.1 fL (7.4-10.4); Monocytes # 0.6 10^3/uL (0.2-0.9); Monocytes % 7.1 %; Neutrophils # 5.82 10^3/uL (1.8-7.7); Neutrophils % 68.8 %; Nucleated Red Blood Cells % 0 %; Platelet Count 172 10^3/cmm (130-400); Red Blood Count 4.88 10^6/uL (4.1-5.3); Red Cell Distribution Width 12.7 % (12.1-15.1); White Blood Count 8.5 10^3/uL (4.0-10.0)
[2020-05-28 15:11] LABS: Troponin(5th) Baseline 7 ng/L (0-15)
[2020-05-28 15:12] LABS: Urine Appearance Hazy (CLEAR); Urine Color Yellow (Yellow); pH Urine 8 (5-7)
[2020-05-28 15:13] LABS: Add Urine Microscopic? YES; Bilirubin Urine Neg (Negative); Blood Urine Neg (Negative); Glucose Urine UA Norm (Normal); Ketones Urine Negative (Negative); Leukocyte Esterase Urine Negative (Negative); Nitrate Urine Negative (Negative); Protein Urine Neg (Negative); Sulfosalicylic Acid Urine Negative (Negative); Urobilinogen Urine Norm (Negative)
[2020-05-28 15:15] VITALS: BP 138/96; PULSE 67; RESP 20; O2SAT 97
[2020-05-28 15:18] LABS: NT Pro B Type Natriuretic Pept 60 pg/mL (0-125); Procalcitonin 0.09 ng/mL (0-0.5); Thyroid Stimulating Hormone 1.73 uIU/mL (0.27-4.20)
[2020-05-28 15:23] LABS: Amorphous Sediment Urine 2+ /hpf; Bacteria Urine TRACE /hpf; Mucus Urine TRACE /hpf; WBC Urine 0-4 /hpf (0-5)
[2020-05-28 15:24] LABS: Add Urine Culture? No
[2020-05-28 15:29] LABS: Alanine Aminotransferase 24 U/L (0-41); Albumin Level 4.1 g/dL (3.5-5.2); Alkaline Phosphatase 121 IU/L (40-130); Anion Gap 11.2 (5-19); Aspartate Amino Transferase 15 U/L (0-40); Blood Urea Nitrogen 10 mg/dL (8-23); C Reactive Protein 2.9 mg/L (0.0-4.9); Calcium 9.5 mg/dL (8.5-10.5); Carbon Dioxide 29 mmol/L (22-29); Chloride 104 mmol/L (98-107); Globulin 2.2 g/dL (1.3-4.6); Glomerular Filtration Rate 75.2 mL/min (90-130); Glucose 111 mg/dL (65-115); Osmolality Calculated 290 mOsm/kg (285-295); Potassium 4.2 mmol/L (3.5-5.1); Sodium 140 mmol/L (136-145); Total Bilirubin 0.5 mg/dL (0.15-1.2); Total Protein 6.3 g/dL (6.6-8.7)
--- NOTE | 2020-05-28 15:38 | ECG_ITS ---
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 Measurements Intervals [place] Rate: 62 P: 28 WA: 197 QRS: -2 QRSD: 100 T: 1 QT: 404 QTc: 412 Interpretive Statements SINUS RHYTHM VOLTAGE CRITERIA FOR LVH [MEETS CRITERIA IN ONE OF: R(aVL), S(V1), R(V5), R(V5/V6)+S(V1)] Compared to ECG 05/28/2020 13:48:37 Sinus bradycardia no longer present Intraventricular conduction delay no longer present Electronically Signed On 05-29-2020 20:29:33 LEGAL COMPLIANCE OFFICER by Kobi Hassan M.D. [id number]
[2020-05-28 16:00] VITALS: PULSE 67
[2020-05-28 16:34] VITALS: PULSE 67
== END 2020-05-28 16:35 | disposition home or self-care (01) ==
PROVIDERS: Emergency Provider Family Medicine; PCP Registered Nurse
DX: I10 Essential (primary) hypertension (principal); Z79.82 Long term (current) use of aspirin; Z86.73 Personal history of transient ischemic attack (TIA), and cerebral infarction without residual deficits
CPT/HCPCS: 12345; 70450; 71046; 80053; 81001; 83880; 84145; 84443; 84484; 85025; 86140; 93005; 99283; 99284

== ENCOUNTER → 2020-07-11 07:50 | Outpatient (BNVA) | payer MEDICARE, OTHER, SELFPAY | PROVIDERS: PCP Registered Nurse; Visit Provider Urology | DX: N39.41 Urge incontinence (principal) | CPT/HCPCS: 81003 ==

== ENCOUNTER 2020-07-22 11:10 | Outpatient (CLI) | payer MEDICARE, OTHER, SELFPAY ==
--- NOTE | 2020-07-22 11:16 | XR_ITS ---
WS: [id number] Left knee, 3 views, 07/22/2020 Clinical Data: M17.12 - Unilateral primary osteoarthritis, left knee Comparison: None. Findings: No fractures or dislocations are seen. The joint spaces are normal. The patella is intact. The soft t issues are unremarkable. XR/XR knee LT 3V* [id number] Impression: Negative left knee.
== END 2020-07-22 11:11 | disposition home or self-care (01) ==
PROVIDERS: PCP Registered Nurse; Visit Provider Registered Nurse
DX: M17.12 Unilateral primary osteoarthritis, left knee (principal)
CPT/HCPCS: 73562

== ENCOUNTER 2020-08-08 07:44 | Outpatient (RCR) | payer MEDICARE, OTHER, SELFPAY | END 2020-08-10 23:59 | disposition home or self-care (01) | LOC: SPT 07:44 | PROVIDERS: PCP Registered Nurse; Referring Provider Registered Nurse; Visit Provider Registered Nurse | DX: M76.52 Patellar tendinitis, left knee (principal) | CPT/HCPCS: 97110; 97161 ==

== ENCOUNTER 2020-08-11 06:00 | Outpatient (RCR) | payer MEDICARE, OTHER, SELFPAY | END 2020-09-09 23:59 | disposition home or self-care (01) | LOC: SPT 06:00 | PROVIDERS: PCP Registered Nurse; Referring Provider Registered Nurse; Visit Provider Registered Nurse | DX: M76.52 Patellar tendinitis, left knee (principal) | CPT/HCPCS: 97110 ==

== ENCOUNTER → 2020-09-06 08:26 | Outpatient (BNVA) | payer MEDICARE, OTHER, SELFPAY | PROVIDERS: PCP Registered Nurse; Visit Provider Specialist | DX: G62.9 Polyneuropathy, unspecified (principal); R20.0 Anesthesia of skin; R20.2 Paresthesia of skin | CPT/HCPCS: 36415; 82607; 82746; 84155; 84165; 84260; 84443; 85651; 86140; 86431; 99214 ==

== ENCOUNTER 2020-09-06 10:25 | Outpatient (CLI) | payer MEDICARE, OTHER, SELFPAY ==
[2020-09-06 12:15] LABS: C Reactive Protein 2.1 mg/L (0.0-4.9); Thyroid Stimulating Hormone 1.74 uIU/mL (0.27-4.20); Vitamin B12 878 pg/mL (232-1245)
[2020-09-06 12:30] LABS: Erythrocyte Sedimentation Rate 6 mm/hr (0-10)
[2020-09-06 13:22] LABS: Folate Level > 20.0 ng/mL (4.5-32.2)
[2020-09-07 09:03] LABS: PROTEIN, TOTAL 6.1 g/dL (6.1-8.1)
[2020-09-07 15:02] LABS: ALBUMIN 3.6 g/dL (3.8-4.8); ALPHA 1 GLOBULIN 0.3 g/dL (0.2-0.3); ALPHA 2 GLOBULIN 0.7 g/dL (0.5-0.9); BETA 1 GLOBULIN 0.4 g/dL (0.4-0.6); BETA 2 GLOBULIN 0.3 g/dL (0.2-0.5); GAMMA GLOBULIN 0.8 g/dL (0.8-1.7)
== END 2020-09-06 10:26 | disposition home or self-care (01) ==
PROVIDERS: Visit Provider Specialist
DX: G62.9 Polyneuropathy, unspecified (principal)
CPT/HCPCS: 36415; 82607; 82746; 84155; 84165; 84260; 84443; 85651; 86140; 86431

== ENCOUNTER → 2020-10-27 09:10 | Outpatient (BNVA) | payer MEDICARE, OTHER, SELFPAY | PROVIDERS: PCP Registered Nurse; Visit Provider Podiatrist Foot & Ankle Surgery | DX: L81.9 Disorder of pigmentation, unspecified (principal) | CPT/HCPCS: 88304 ==

== ENCOUNTER 2020-11-19 13:16 | Emergency (ER) | payer MEDICARE, OTHER, SELFPAY ==
[2020-11-19 13:33] VITALS: BP 137/71; PULSE 54; RESP 21; TEMP 36.9; O2SAT 98; BMI 29.2
--- NOTE | 2020-11-19 13:40 | ECG_ITS ---
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 Measurements Intervals [place] Rate: 63 P: 82 RI: 199 QRS: -5 QRSD: 100 T: 28 QT: 361 QTc: 371 Interpretive Statements SINUS RHYTHM WITH FREQUENT VENTRICULAR PREMATURE COMPLEXES Compared to ECG 05/28/2020 16:00:44 Ventricular premature complex(es) now present Left ventricular hypertrophy no longer present Electronically Signed On 11-20-2020 17:09:18 CDT by Zechariah Loza M.D. [id number]
--- NOTE | 2020-11-19 13:40 | XRR_ITS ---
PROCEDURE INFORMATION: Exam: XR Chest Exam date and time: 11/19/2020 1:40 PM Age: 65 years old Clinical indication: Pain; Chest pressure; Additional info: Chest pain TECHNIQUE: Imaging protocol: XR of the chest. Views: 1 view. COMPARISON: CR XR chest 2V* [id number] 05/28/2020 1:45 PM FINDINGS: Lungs: Unremarkable. No consolidation. Pleural spaces: Unremarkable. No pleural effusion. No pneumothorax. Heart/Mediastinum: Unremarkable. No cardiomegaly. Bones/joints: Unremarkable. XR/XR chest 1V portable [id number] IMPRESSION: No acute findings.
--- NOTE | 2020-11-19 13:52 | ED_ITS ---
HPI - Chest Pain General: Chief Complaint: Chest Pain Stated Complaint: slight CP, heart flutter, pulse abnormal Time Seen by Provider: 11/19/20 13:29 History of Present Illness: HPI narrative: 65-year-old male presents emergency room complaining of slight chest discomfort and irregular heartbeat. He has had this in the past as well. Is not been particularly short of breath did not have any chest discomfort now. Patient has had evaluation in the past for A. fib echo after he had a stroke that did not find any A. fib he is not currently on any anticoagulation. MD complaint: chest discomfort Onset (ago): day(s) Timing of current episode: episodic Onset: during rest Pain location: left chest Pain radiation: none Severity: mild Quality: tightness Relieving factors: nothing Exacerbating factors: nothing Associated symptoms: Deny abdominal pain, dyspnea, fever(s), nausea or vomiting Review of Systems Const: Denies: fever(s), chills, body aches, change in appetite, fatigue or malaise ENMT: Denies: throat pain, ear or mastoid pain, nasal discharge or nasal congestion Card: Denies: chest pain, edema, dyspnea on exertion or orthopnea Resp: Denies: dyspnea, productive cough or non-productive cough GI: Denies: abdominal pain, nausea, vomiting, hematemesis, coffee ground emesis, diarrhea, constipation, bloating, hematochezia or melena : Denies: flank pain, dysuria, urinary frequency or urinary urgency Skin/Breast: Denies: rash or pruritus PFSH ED PFSH: Medical History Bradycardia Erectile dysfunction Gastroesophageal reflux disease with esophagitis Hypertension, accelerated Hypertrophy of prostate with urinary obstruction Memory loss Obstructive sleep apnea Palpitation Peripheral neuropathy Polyneuropathy, peripheral sensorimotor axonal PTSD (post-traumatic stress disorder) TIA (transient ischemic attack) Urolithiasis Surgical History History of ureter stent Hx of brain surgery Hx of cholecystectomy Hx of hernia repair Hx of lithotripsy Family History Mother , bone Cancer Hypertension Social History (Reviewed 11/19/20 @ 14:01 by CODY Clemens Smoking and tobacco status: never smoked Alcohol intake: never Adopted: No Caregiver/support person: No Lives independently: No Marital status: Current occupational status: retired History of recent travel: No Current gender identity: Male Physical Exam Const: COMMON NORMALS: no acute distress GENERAL APPEARANCE: cooperative and comfortable ORIENTATION/CONSCIOUSNESS: Yes awake, Yes oriented to person, Yes oriented to place and Yes oriented to time HENMT: COMMON NORMALS: normocephalic, atraumatic and hearing grossly normal bilaterally HEAD & SCALP: normocephalic and atraumatic Neck/C-Spine: COMMON NORMALS: no JVD Resp: COMMON NORMALS: normal respiratory effort, No retractions, No use of accessory muscles and clear to auscultation bilaterally AUSCULTATION: clear to auscultation bilaterally Cardio: COMMON NORMALS: no JVD, regular rate, regular rhythm and No murmurs present (Cardio) RATE: regular rate RHYTHM: regular rhythm GI: COMMON NORMALS: Soft to palpation and No hepatosplenomegaly present AUSCULTATION: Yes normoactive bowel sounds PALPATION: Yes Soft to palpation, No Tenderness to palpation present (GI), No Guarding due to palpation present (GI) and Yes No hepatosplenomegaly present Extremity: COMMON NORMALS: normal to inspection, capillary refill normal, no clubbing, cyanosis or edema, no calf tenderness and no pedal edema Neuro: SENSORIUM/ORIENTATION: Yes oriented to person, Yes oriented to place and Yes oriented to time Skin: COMMON NORMALS: no rashes or lesions noted GENERAL SKIN EXAM: no rashes or lesions noted Course Vital Signs: Vital signs: Vital Signs Temperature 98.4 F 11/19/20 13:33 Pulse Rate 61 11/19/20 17:26 Respiratory Rate 18 11/19/20 17:26 Blood Pressure 112/78 11/19/20 17:26 Pulse Oximetry 97 11/19/20 17:26 MDM - Chest Pain MDM Narrative: Medical decision making narrative: Discussed at the bedside for an extended period of time discussing the work-up with the patient. He mentrussell lopez having several of these episodes while we were talking. These all corresponded with PVCs and noted at the bedside monitor there were some compensatory pauses as well that he had described a very seated. Reassurance given he is already taking aspirin. follow-up with Jac later this week. Lab Data: Labs: Lab Results 11/19/20 11/19/20 11/19/20 Range/Units 13:49 13:49 13:49 WBC Cancelled Corrected WBC Cancelled RBC Cancelled Hgb Cancelled Hct Cancelled MCV Cancelled MCH Cancelled MCHC Cancelled RDW Cancelled Plt Count Cancelled MPV Cancelled Gran % Cancelled Neut % (Auto) Cancelled Lymph % (Auto) Cancelled Cannon % (Auto) Cancelled Eos % (Auto) Cancelled Baso % (Auto) Cancelled Neut # (Auto) Cancelled Lymph # (Auto) Cancelled Cannon # (Auto) Cancelled Eos # (Auto) Cancelled Baso # (Auto) Cancelled Absolute Gran (aut o) Cancelled Nucleated RBC % (a uto) Cancelled Nucleated RBCs # Cancelled Sodium 141 (136-145) mmol/L Potassium 4.3 (3.5-5.1) mmol/L Chloride 104 (98-107) mmol/L Carbon Dioxide 26 (22-29) mmol/L Anion Gap 15.3 (5-19) BUN 9 (8-23) mg/dL Creatinine 1.1 (0.7-1.2) mg/dL GFR Calculation 67.4 L (90-130) mL/min Glucose 150 H (65-115) mg/dL Calculated Osmolal ity 294 (285-295) mOsm/k g Calcium 9.4 (8.5-10.5) mg/dL Total Bilirubin 0.5 (0.15-1.2) mg/dL AST 18 (0-40) U/L ALT 34 (0-41) U/L Alkaline Phosphata se 116 (40-130) IU/L Creatine Kinase 49 (39-308) U/L Troponin T Baselin e 6 (0-15) ng/L Troponin T 120 Min [place] (0-15) ng/L Delta Troponin T (0-10) ABS# Total Protein 6.1 L (6.6-8.7) g/dL Albumin 4.1 (3.5-5.2) g/dL Globulin 2.0 (1.3-4.6) g/dL Lipase 25 (13-60) U/L 11/19/20 11/19/20 Range/Units 14:39 15:52 WBC 8.3 Corrected WBC RBC 4.36 Hgb 13.6 Hct 40.8 L MCV 93.6 MCH 31.2 MCHC 33.3 RDW 12.5 Plt Count 160 MPV 9.5 Gran % Neut % (Auto) 69.4 Lymph % (Auto) 21.2 Cannon % (Auto) 6.8 Eos % (Auto) 1.9 Baso % (Auto) 0.5 Neut # (Auto) 5.75 Lymph # (Auto) 1.8 Cannon # (Auto) 0.6 Eos # (Auto) 0.2 Baso # (Auto) 0.0 Absolute Gran (aut o) Nucleated RBC % (a uto) 0 Nucleated RBCs # 0.0 Sodium (136-145) mmol/L Potassium (3.5-5.1) mmol/L Chloride (98-107) mmol/L Carbon Dioxide (22-29) mmol/L Anion Gap (5-19) BUN (8-23) mg/dL Creatinine (0.7-1.2) mg/dL GFR Calculation (90-130) mL/min Glucose (65-115) mg/dL Calculated Osmolal ity (285-295) mOsm/k g Calcium (8.5-10.5) mg/dL Total Bilirubin (0.15-1.2) mg/dL AST (0-40) U/L ALT (0-41) U/L Alkaline Phosphata se (40-130) IU/L Creatine Kinase (39-308) U/L Troponin T Baselin e (0-15) ng/L Troponin T 120 Min [place] 7.27 (0-15) ng/L Delta Troponin T 1.27 (0-10) ABS# Total Protein (6.6-8.7) g/dL Albumin (3.5-5.2) g/dL Globulin (1.3-4.6) g/dL Lipase (13-60) U/L Discharge Plan Discharge Patient Disposition: Home Clinical Impression: Palpitations Condition: Stable Prescriptions: No Action naproxen 375 mg tablet 375 mg PO BID PRN (Reason: pain) Qty: 14 RF: 0 (DME) custom molded accomadative orthotic See Rx Instructions .Route .MEDSUPPLY Qty: 1 RF: 0 (DME) Custom Molded Sole Supports See Rx Instructions .Route .MEDSUPPLY Qty: 1 RF: 0 sildenafil 100 mg tablet See Rx Instructions .ROUTE .COMPLEX Qty: 20 RF: 3 atorvastatin 20 mg tablet 20 mg PO BEDTIME RF: 0 aspirin 325 mg tablet 325 mg PO DAILY@0800 RF: 0 amlodipine 5 mg tablet See Rx Instructions .ROUTE .COMPLEX RF: 0 allopurinol 100 mg tablet 100 mg PO DAILY@0800 RF: 0 tamsulosin 0.4 mg capsule 0.4 mg PO BID@0800,2200 RF: 0 potassium citrate 10 mEq (1,080 mg) tablet extended release 10 meq PO BID@0800,2200 RF: 0 gabapentin 300 mg capsule 300 mg PO TID@08,, RF: 0 metoprolol succinate 25 mg tablet extended release 24 hr 12.5 mg PO DAILY@0800 RF: 0 finasteride 5 mg tablet 5 mg PO DAILY@0800 RF: 0 magnesium oxide 400 mg magnesium capsule 400 mg PO DAILY@0800 RF: 0 olopatadine 0.1 % drops See Rx Instructions .ROUTE .COMPLEX RF: 0 multivitamin Tablet 1 tab PO DAILY RF: 0 Tylenol Extra Strength 500 mg Tablet 1,000 mg PO PRN RF: 0 oxybutynin chloride 5 mg tablet extended release 24hr 5 mg PO QAM RF: 0 Refresh Classic (PF) 1.4-0.6 % dropperette 1 drp ophthalmic (eye) . 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
[2020-11-19 14:43] LABS: Basophils % 0.5 %; Eosinophils # 0.2 10^3/uL (0.0-0.8); Eosinophils % 1.9 %; Hematocrit 40.8 % (42.0-52.0); Hemoglobin 13.6 g/dL (11.7-16.6); Lymphocytes # 1.8 10^3/uL (0.8-4.8); Lymphocytes % 21.2 %; Mean Corpuscular HGB Conc 33.3 g/dL (30.0-36.0); Mean Corpuscular Hemoglobin 31.2 pg (28.0-34.0); Mean Corpuscular Volume 93.6 fL (80-94); Mean Platelet Volume 9.5 fL (7.4-10.4); Monocytes # 0.6 10^3/uL (0.2-0.9); Monocytes % 6.8 %; Neutrophils # 5.75 10^3/uL (1.8-7.7); Neutrophils % 69.4 %; Nucleated Red Blood Cells % 0 %; Platelet Count 160 10^3/cmm (130-400); Red Blood Count 4.36 10^6/uL (4.1-5.3); Red Cell Distribution Width 12.5 % (12.1-15.1); White Blood Count 8.3 10^3/uL (4.0-10.0)
--- NOTE | 2020-11-19 14:44 | PC.PHAR ---
pt states he takes care of his own medications-waiting for [facility] to [facility] list
[2020-11-19 14:45] VITALS: BP 107/67; PULSE 67; RESP 18; O2SAT 99
[2020-11-19 14:48] LABS: Alanine Aminotransferase 34 U/L (0-41); Albumin Level 4.1 g/dL (3.5-5.2); Alkaline Phosphatase 116 IU/L (40-130); Anion Gap 15.3 (5-19); Aspartate Amino Transferase 18 U/L (0-40); Blood Urea Nitrogen 9 mg/dL (8-23); Calcium 9.4 mg/dL (8.5-10.5); Carbon Dioxide 26 mmol/L (22-29); Chloride 104 mmol/L (98-107); Creatine Phosphokinase 49 U/L (39-308); Glomerular Filtration Rate 67.4 mL/min (90-130); Glucose 150 mg/dL (65-115); Lipase 25 U/L (13-60); Osmolality Calculated 294 mOsm/kg (285-295); Potassium 4.3 mmol/L (3.5-5.1); Sodium 141 mmol/L (136-145); Total Bilirubin 0.5 mg/dL (0.15-1.2); Total Protein 6.1 g/dL (6.6-8.7)
[2020-11-19 14:50] LABS: Troponin(5th) Baseline 6 ng/L (0-15)
--- NOTE | 2020-11-19 15:40 | ECG_ITS ---
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 Measurements Intervals [place] Rate: 56 P: 17 AK: 203 QRS: -5 QRSD: 92 T: 4 QT: 394 QTc: 381 Interpretive Statements SINUS BRADYCARDIA LOW QRS VOLTAGE IN PRECORDIAL LEADS [QRS DEFLECTION < 1.0 mV IN CHEST LEADS] Compared to ECG 11/19/2020 13:27:59 Low QRS voltage now present Sinus rhythm no longer present Ventricular premature complex(es) no longer present Electronically Signed On 11-20-2020 17:22:57 CDT by Zechariah Loza M.D. [id number]
[2020-11-19 16:13] LABS: Troponin 5 2HR 7.27 ng/L (0-15); Troponin 5 2HR Delta 1.27 ABS# (0-10)
[2020-11-19 17:25] VITALS: BP 113/76; PULSE 61; RESP 18; O2SAT 96
[2020-11-19 17:26] VITALS: BP 112/78; PULSE 61; RESP 18; O2SAT 97
== END 2020-11-19 18:24 | disposition home or self-care (01) ==
PROVIDERS: Emergency Provider Family Medicine; PCP Registered Nurse
DX: R00.2 Palpitations (principal)
CPT/HCPCS: 36415; 71045; 80053; 82550; 83690; 84484; 85025; 93005; 99283

== ENCOUNTER 2020-12-26 13:52 | Outpatient (CLI) | payer MEDICARE, OTHER, SELFPAY | END 2020-12-26 13:53 | disposition home or self-care (01) | LOC: SPT 13:53 | PROVIDERS: PCP Registered Nurse; Visit Provider Podiatrist Foot & Ankle Surgery | DX: Z46.89 Encounter for fitting and adjustment of other specified devices (principal); G62.9 Polyneuropathy, unspecified; M79.673 Pain in unspecified foot | CPT/HCPCS: L3030 ==

== ENCOUNTER 2021-01-10 09:45 | Outpatient (CLI) | payer MEDICARE, OTHER, SELFPAY ==
--- NOTE | 2021-01-10 10:15 | USCV_ITS ---
Brock Lopes Age: 65 Gender: M : 1955 Exam Date: 01/10/2021 10:10 Ordering Phys: Marisabel Jim Technologist: TIFFANY Exam Location: [facility] [place] Indication: CP BP: 132 / 74 HR: 55 Rhythm: Sinus Technical Quality: Adequate MEASUREMENTS (Male / Female) Normal Values 2D ECHO LV Diastolic Diameter PLAX 4.1 cm 4.2 - 5.9 / 3.9 - 5.3 cm LV Systolic Diameter PLAX 2.9 cm IVS Diastolic Thickness 0.9 cm 0.6 - 1.0 / 0.6 - 0.9 cm IVS Systolic Thickness 1.5 cm LVPW Diastolic Thickness 1.0 cm 0.6 - 1.0 / 0.6 - 0.9 cm LVPW Systolic Thickness 1.6 cm LVOT Diameter 2.1 cm LV Ejection Fraction 2D Teich 56.1 % LV Ejection Fraction MOD 2C 59.6 % LV Ejection Fraction 2C AL 59.7 % LA Diameter 4.0 cm LA Width 4.0 cm LA Height 5.0 cm RA Width 3.8 cm RA Height 5.1 cm Aorta at Sinotubular Diameter 3.4 cm DOPPLER AV Peak Velocity 141.0 cm/s LVOT Peak Velocity 93.0 cm/s AV Area Cont Eq vti 2.6 cm squared AV Area Cont Eq pk 2.3 cm squared MV Area PHT 5.0 cm squared Mitral E to A Ratio 1.1 MV E' Velocity 44.5 cm/s Mitral E to MV E' Ratio 9.2 Mitral E to LV E' Lateral Ratio 8.0 Mitral E to LV E' Septal Ratio 11.0 TR Peak Velocity 270.3 cm/s TR Peak Gradient 29.2 mmHg TV Peak E Velocity 80.0 cm/s Right Atrial Pressure 3.0 mmHg Pulmonary Artery Systolic Pressu 32.2 mmHg FINDINGS Left Ventricle Normal left ventricular size and systolic function, EF 60 %. No regional wall motion abnormalities. Right Ventricle The right ventricle is normal in size and function. Right Atrium The right atrium is normal in size. Left Atrium Left atrium, preserved with normal size Mitral Valve No gross abnormalities noted Aortic Valve Thickened aortic valve. Tricuspid Valve Trace tricuspid valve regurgitation. Pulmonic Valve Pulmonic valve not well visualized. Pericardium Normal pericardium without effusion. Aorta Normal ascending aorta dimension. CONCLUSIONS Normal left ventricular size and systolic function, EF 60 %. Thickened aortic valve. Trace tricuspid valve regurgitation. No regional wall motion abnormalities. Left atrium, upper limit of normal size. There is no pericardial effusion. There is no pericardial effusion. There are no intracardiac masses. Compared to the previous study from 12/09/2018, there may not be a significant change Dr Kobi Hassan MD FACC (Electronically Signed) Final Date: 10 January 2021 18:23 S
== END 2021-01-10 09:46 | disposition home or self-care (01) ==
PROVIDERS: PCP Registered Nurse; Visit Provider Nurse Practitioner Family
DX: R00.2 Palpitations (principal); R60.0 Localized edema; R07.9 Chest pain, unspecified; I08.2 Rheumatic disorders of both aortic and tricuspid valves
CPT/HCPCS: 93306

== ENCOUNTER 2021-01-11 07:31 | Outpatient (CLI) | payer MEDICARE, OTHER, SELFPAY ==
--- NOTE | 2021-01-11 09:15 | XR_ITS ---
WS: [id number] KUB, AP view, 01/11/2021 Clinical Data: UROLITHIASIS Comparison: KUB, 04/06/2020. Findings: No abnormal intraabdominal masses are seen. There is no dilatated small bowel or evidence of obstruct ion. There are small bilateral calcifications overlying both kidneys. There is a large amount of fecal mat erial in the sigmoid colon and rectum. XR/XR KUB [id number] Impression: No change in bilateral renal calculi.
== END 2021-01-11 07:32 | disposition home or self-care (01) ==
PROVIDERS: PCP Registered Nurse; Visit Provider Urology
DX: N20.0 Calculus of kidney (principal); N40.1 Benign prostatic hyperplasia with lower urinary tract symptoms; N13.8 Other obstructive and reflux uropathy
CPT/HCPCS: 74018; 81003

== ENCOUNTER 2021-01-20 06:45 | Outpatient (CLI) | payer MEDICARE, OTHER, SELFPAY ==
--- NOTE | 2021-01-20 07:00 | CTR_ITS ---
PROCEDURE INFORMATION: Exam: CT Abdomen And Pelvis Without Contrast Exam date and time: 01/20/2021 7:00 AM Age: 65 years old Clinical indication: Abdominal pain; Prior surgery; Additional info: Urolithiasis, CT protocol @ [facility] on 01/20/21 @ 0700. Appt to follow TECHNIQUE: Imaging protocol: Computed tomography of the abdomen and pelvis without contrast. Total images: 347 Radiation optimization: All CT scans at this facility use at least one of these dose optimization techniques: automated exposure control; mA and/or kV adjustment per patient size (includes targeted exams where dose is matched to clinical indication); or iterative reconstruction. COMPARISON: CT Abdomen/Pelvis Renal [id number] 12/04/2018 7:12 AM RADIATION DOSE METRICS: Total DLP (mGy-cm): 1805.27 FINDINGS: Liver: Normal. No mass. Gallbladder and bile ducts: Prior cholecystectomy noted. Pancreas: Normal. No ductal dilation. Spleen: Normal. No splenomegaly. Adrenal glands: Normal. No mass. Kidneys and ureters: Nonobstructive bilateral kidney stones measure as large as 8 mm. 3 cm Largest cyst within kidneys that have multiple renal cysts. These are incompletely evaluated due to no IV contrast. This finding is stable when compared to the prior exam. Stomach and bowel: Colonic diverticulosis is present without diverticulitis. Appendix: The appendix has a normal size and configuration. No periappendiceal inflammatory changes are detected. No appendicolith is seen. Intraperitoneal space: Unremarkable. No free air. No significant fluid collection. Vasculature: Mild atherosclerotic disease is evident. Incidental phleboliths noted. Lymph nodes: Unremarkable. No enlarged lymph nodes. Urinary bladder: No ureteral nor bladder calculi. Reproductive: Prostatomegaly noted. Bones/joints: Spinal degenerative changes are evident. Soft tissues: Unremarkable. CT/CT kidney stone 92440 IMPRESSION: 1. Nonobstructive bilateral kidney stones measure as large as 8 mm. 2. No ureteral nor bladder calculi. 3. No acute process identified. COMMENTS: Consistent with the [employer]'s Incidental Findings Committee white paper (J Am Rachana Radiol 2018): Any incidental renal lesion less than 1 cm or classified as too small to characterize, or any incidental cystic renal lesion characterized as simple-appearing, is likely benign. No follow-up imaging is recommended for these lesions per consensus recommendations based on imaging criteria. Radiation Dose CTDIVOL = (mGy): DLP = 1805.27 (mGy-cm)
== END 2021-01-20 06:46 | disposition home or self-care (01) ==
LOC: RAD 06:48
PROVIDERS: PCP Registered Nurse; Visit Provider Urology
DX: N20.0 Calculus of kidney (principal); R10.9 Unspecified abdominal pain
CPT/HCPCS: 74176; 81003

== ENCOUNTER → 2021-03-24 08:35 | Outpatient (BNVA) | payer MEDICARE, OTHER, SELFPAY | PROVIDERS: PCP Registered Nurse; Visit Provider Surgery | DX: Z20.822 Contact with and (suspected) exposure to COVID-19 (principal); Z11.52 Encounter for screening for COVID-19 | CPT/HCPCS: 87635 ==

== ENCOUNTER 2021-03-30 07:29 | Day surgery (SDC) | payer OTHER, SELFPAY ==
[2021-03-29 09:18] VITALS: BMI 29.2
--- NOTE | 2021-03-30 07:44 | ANES.PREANE2 ---
Pre-Anesthetic Assessment Pre-Anesthetic Assessment: Height/Weight: Height 1.8 m Weight 95.254 kg Preop Diagnosis: screening colonoscopy Proposed Procedure: Operation Date: 03/30/21 09:00 Proposed Procedures p Colonoscopy 08604 Z86.010(Not Applicable) - Doc Anaya MD Was Beta Viktor taken within 24 hours: Yes Was Clonidine taken within 24 hours: N/A Social: Social History: No alcohol and No tobacco Exam: Pre-Anes Outpt Exam: alert, oriented x 3, clear to auscultation bilaterally and regular rate & rhythm Airway: Submandibular: WNL Cervical ROM: WNL MP: 2 Dentition: Full CV/HEM: CV/HEM: Arrythmia (PVC's) and HTN Metabolic: Metabolic: Hyperlipidemia and Morbid obesity Musc/skel: Musc/skel: OA/DJD Neuropsych: Neuropsych: TIA Anesthetic Plan: ASA status: 3 Anesthesia: MAC Other: h/o aspiration with anesthesia Risk of > 500 ml blood loss (7ml/kg in children): No PFSH Anesthesia PFSH: Medical History Bradycardia Erectile dysfunction Gastroesophageal reflux disease with esophagitis Hypertension, accelerated Hypertrophy of prostate with urinary obstruction Memory loss Obstructive sleep apnea Polyneuropathy, peripheral sensorimotor axonal Psychiatric care PTSD (post-traumatic stress disorder) PVCs (premature ventricular contractions) TIA (transient ischemic attack) Urolithiasis Surgical History History of colonoscopy with polypectomy 10+yrs History of ureter stent Hx of brain surgery Hx of cholecystectomy Hx of hernia repair Hx of lithotripsy Family History Mother , bone Cancer Hypertension Social History Alcohol intake: never Adopted: No Caregiver/support person: No Lives independently: No Marital status: Current occupational status: retired History of recent travel: No Current gender identity: Male Data Anesthesia Cardiac Studies: Echocardiogram 01/10/21 Holter Monitor 06/07/20
[2021-03-30 07:50] VITALS: BP 112/87; PULSE 85; RESP 18; TEMP 36.4; O2SAT 97
[2021-03-30] MEDS: sodium chloride 0.9% 1,000 ML 30 ML IV (08:10)
--- NOTE | 2021-03-30 09:02 | W.PM.OPSFHP ---
Same Day Surgery H&P Indication for Procedure/HPI DATE OF PROCEDURE: March 30, 2021 CHIEF COMPLAINT/INDICATIONFOR SURGICAL PROCEDURE: colon polyps PREOP DIAGNOSIS: screening colonoscopy PLANNED PROCEDRUE: Operation Date: 03/30/21 09:00 Proposed Procedures p Colonoscopy 35284 Z86.010(Not Applicable) - Doc Anaya MD Medications/Allergies* Home Medications Medication Instructions Recorded Confirmed Type allopurinol 100 mg PO DAILY@0800 05/28/20 03/30/21 History amlodipine 5 mg PO QAM 05/28/20 03/30/21 History aspirin 325 mg PO DAILY@0800 05/28/20 03/30/21 History atorvastatin 20 mg PO BEDTIME 05/28/20 03/30/21 History finasteride 5 mg PO DAILY@0800 05/28/20 03/30/21 History magnesium oxide 400 mg PO DAILY@0800 05/28/20 03/30/21 History metoprolol succinate 12.5 mg PO DAILY@0800 05/28/20 03/30/21 History olopatadine 1 drp OPHTHALMIC (EYE) PRN PRN 05/28/20 03/30/21 History potassium citrate 10 meq PO BID@0800,2200 05/28/20 03/30/21 History tamsulosin 0.4 mg PO BID@0800,2200 05/28/20 03/30/21 History acetaminophen [Tylenol Extra 1,000 mg PO PRN 11/19/20 03/30/21 History Strength] carboxymethylcellulose sodium 1 drp OPHTHALMIC (EYE) BEDTIME 11/19/20 03/30/21 History [Refresh Celluvisc] multivitamin 1 tab PO DAILY 11/19/20 03/30/21 History oxybutynin chloride 5 mg PO QAM 11/19/20 03/30/21 History polyvinyl alcohol-povidon(PF) 1 drp OPHTHALMIC (EYE) . DIRECTED 11/19/20 03/29/21 History [Refresh Classic (PF)] gabapentin 300 mg capsule 600 mg PO TID@08,12,22 cap 12/20/20 03/30/21 History amlodipine 10 mg PO BEDTIME 03/29/21 03/30/21 History sildenafil 100 mg PO PRN PRN 03/30/21 03/30/21 History Allergies/Adverse Reactions Allergy/AdvReac Type Severity Reaction Status Date / Time morphine Allergy Unknown psychotic Verified 03/30/21 07:55 reaction Current Medications: Generic Name Dose Route Start Last Admin Trade Name Freq PRN Reason Stop Dose Admin Sodium Chloride 1,000 mls @ 30 mls/hr 03/30/21 07:45 03/30/21 08:10 Sodium Chloride 0.9% IV 03/31/21 07:44 30 mls/hr .Q24H CORNELL Administration Pertinent History/Comorbid Conditions* Medical History (Updated 01/31/21 @ 16:54 by Beryl Birmingham) Bradycardia Erectile dysfunction Gastroesophageal reflux disease with esophagitis Hypertension, accelerated Hypertrophy of prostate with urinary obstruction Memory loss Obstructive sleep apnea Polyneuropathy, peripheral sensorimotor axonal Psychiatric care PTSD (post-traumatic stress disorder) PVCs (premature ventricular contractions) TIA (transient ischemic attack) Urolithiasis Surgical History (Updated 12/20/20 @ 10:39 by Doc Anaya MD) History of colonoscopy with polypectomy 10+yrs History of ureter stent Hx of brain surgery Hx of cholecystectomy Hx of hernia repair Hx of lithotripsy Family History (Updated 06/25/19 @ 14:15 by Kathy Livingston RN) Mother, bone Cancer Mother Hypertension Mother Social History Alcohol intake: never Adopted: No Caregiver/support person: No Lives independently: No Marital status: Current occupational status: retired History of recent travel: No Current gender identity: Male Pertinent Exam Findings alert, oriented x 3 and regular rate & rhythm Recommendations Surgery/Procedure today Coding Level of Care Code 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
[2021-03-30 09:31] VITALS: BP 96/69; PULSE 56; RESP 16; TEMP 36.2; O2SAT 96
[2021-03-30 09:56] VITALS: BP 117/73; PULSE 51; RESP 18; O2SAT 96
--- NOTE | 2021-03-30 13:38 | ANE.PACU2 ---
Inpatient post-anesthesia follow up: Airway intact: Yes Vital signs: Temperature 97.2 F Pulse Rate 51 Respiratory Rate 18 Blood Pressure 117/73 Pulse Oximetry 96 Oxygen Delivery Me thod Room Air Oxygen Flow Rate Fraction of Inspir ed Oxygen Hydration adequate: Yes Nausea and vomiting: No Pain level: 1 Mental status: Baseline
== END 2021-03-30 10:10 | disposition home or self-care (01) ==
PROVIDERS: PCP Registered Nurse; Visit Provider Surgery
PROC: 0DJD8ZZ Inspection of Lower Intestinal Tract, Via Natural or Artificial Opening Endoscopic (ICD-10-PCS; CPT 45378; principal; 2021-03-30 09:00)
DX: Z12.11 Encounter for screening for malignant neoplasm of colon (principal); K57.30 Diverticulosis of large intestine without perforation or abscess without bleeding; D12.2 Benign neoplasm of ascending colon; K64.8 Other hemorrhoids; K21.00 Gastro-esophageal reflux disease with esophagitis, without bleeding; I10 Essential (primary) hypertension; Z79.82 Long term (current) use of aspirin; Z88.5 Allergy status to narcotic agent; Z86.73 Personal history of transient ischemic attack (TIA), and cerebral infarction without residual deficits; Z90.49 Acquired absence of other specified parts of digestive tract
CPT/HCPCS: 45380; 88305; 96360; 96361; J2704; J7030

== ENCOUNTER 2021-07-25 07:05 | Outpatient (CLI) | payer MEDICARE, OTHER, SELFPAY ==
--- NOTE | 2021-07-25 07:00 | XR_ITS ---
WS: [id number] KUB, AP view, 07/25/2021 Clinical Data: CALCULUS OF UPPER URINARY TRACT Comparison: KUB, 01/11/2021. Findings: No abnormal intraabdominal masses are seen. There is no dilatated small bowel or evidence of obstruct ion. There are bilateral renal calcifications unchanged. There are vascular calcifications in the pelvis. There is moderate degenerative change of the lumbar vertebral bodies. XR/XR KUB [id number] Impression: No change in bilateral renal calculi.
== END 2021-07-25 07:06 | disposition home or self-care (01) ==
LOC: RAD 07:06
PROVIDERS: PCP Registered Nurse; Visit Provider Urology
DX: N20.0 Calculus of kidney (principal)
CPT/HCPCS: 74018; 81003

== ENCOUNTER → 2021-09-05 07:51 | Outpatient (BNVA) | payer MEDICARE, OTHER, SELFPAY | PROVIDERS: PCP Registered Nurse; Visit Provider Specialist | DX: G62.9 Polyneuropathy, unspecified (principal) | CPT/HCPCS: 99213; 99214 ==

== ENCOUNTER → 2021-12-21 08:52 | Outpatient (BNVA) | payer MEDICARE, OTHER, SELFPAY | PROVIDERS: PCP Registered Nurse; Visit Provider Registered Nurse | DX: N39.0 Urinary tract infection, site not specified (principal); R10.13 Epigastric pain; N41.9 Inflammatory disease of prostate, unspecified; Z71.3 Dietary counseling and surveillance | CPT/HCPCS: 81000 ==

== ENCOUNTER 2022-01-03 09:47 | Outpatient (CLI) | payer MEDICARE, OTHER, SELFPAY ==
[2022-01-03 10:50] LABS: Prostate Specific AG Urology 1.88 ng/mL (0-4)
== END 2022-01-03 09:48 | disposition home or self-care (01) ==
LOC: LAB 09:51
PROVIDERS: PCP Registered Nurse; Visit Provider Urology
DX: R97.20 Elevated prostate specific antigen [PSA] (principal)
CPT/HCPCS: 84153

== ENCOUNTER 2022-01-09 11:42 | Outpatient (CLI) | payer OTHER, MEDICARE, SELFPAY ==
--- NOTE | 2022-01-09 12:00 | XR_ITS ---
WS: [id number] Exam: XR KUB [id number] Date/Time of Exam: 01/09/2022 12:08 PM Reason For Exam: STONES Comparison 07/25/2021. No bowel obstruction or free air. Multiple calcifications superimpose both kidneys and apparently rep resent known renal stones. No sign of organ enlargement. Degenerative changes and spondylosis the lum bar spine. XR/XR KUB [id number] IMPRESSION: 1. No acute abdominal process. 2. Multiple calcifications superimpose both kidneys and apparently represent kn own renal stones.
== END 2022-01-09 11:43 | disposition home or self-care (01) ==
LOC: RAD 11:45
PROVIDERS: PCP Registered Nurse; Visit Provider Urology
DX: N40.1 Benign prostatic hyperplasia with lower urinary tract symptoms (principal); N13.8 Other obstructive and reflux uropathy; N52.9 Male erectile dysfunction, unspecified
CPT/HCPCS: 74018; 81003; 99213

== ENCOUNTER → 2022-01-10 14:08 | Outpatient (BNVA) | payer OTHER, MEDICARE, SELFPAY | PROVIDERS: PCP Registered Nurse; Visit Provider Surgery | DX: R13.10 Dysphagia, unspecified (principal) | CPT/HCPCS: 99203; 99213 ==

== ENCOUNTER → 2022-01-23 07:56 | Outpatient (BNVA) | payer OTHER, SELFPAY | PROVIDERS: PCP Registered Nurse; Visit Provider Urology | DX: N40.1 Benign prostatic hyperplasia with lower urinary tract symptoms (principal); N13.8 Other obstructive and reflux uropathy; N52.9 Male erectile dysfunction, unspecified; N20.9 Urinary calculus, unspecified | CPT/HCPCS: 51741; 51798; 81003; 99213 ==

== ENCOUNTER 2022-01-26 09:18 | Outpatient (CLI) | payer OTHER, SELFPAY ==
--- NOTE | 2022-01-26 11:00 | FL_ITS ---
WS: [id number] Air-contrast upper GI series, 01/26/2022 Clinical Data: Hiatal hernia sticks in lower esophagus for 1 month, Comparison: None. Fluoroscopy time: 1min [id number] # of spot films: 13 Findings: The air and barium mixture flowed from the oropharynx into the hypopharynx. No aspiration or penetrat ion could be seen. Esophageal motility was normal and the upper two thirds. There was dysmotility in the lower third of the esophagus with minimal surface irregularity. There was minimal reflux present. The barium passed into the stomach which was well distended and showed no abnormalities. The fundus, body and right lower a normal. No extrinsic defects could be seen. The rugal pattern was normal. The re were no polyps, masses or erosions. The barium passed into the duodenal bulb which is free of ulce r. The duodenum filled normally. FL/FL upper GI series [id number] Impression: 1. Dysmotility of the of the distal third of the esophagus with minimal reflux. 2. Normal stomach and duodenal bulb.
== END 2022-01-26 09:19 | disposition home or self-care (01) ==
LOC: RAD 09:19
PROVIDERS: PCP Registered Nurse; Visit Provider Surgery
DX: R13.10 Dysphagia, unspecified (principal)
CPT/HCPCS: 74240

== ENCOUNTER → 2022-02-05 10:31 | Outpatient (BNVA) | payer OTHER, SELFPAY | PROVIDERS: PCP Registered Nurse; Visit Provider Urology | DX: N40.1 Benign prostatic hyperplasia with lower urinary tract symptoms (principal); N13.8 Other obstructive and reflux uropathy; N52.9 Male erectile dysfunction, unspecified; N20.9 Urinary calculus, unspecified | CPT/HCPCS: 81003 ==

== ENCOUNTER 2022-02-23 07:47 | Day surgery (SDC) | payer OTHER, MEDICARE, SELFPAY ==
[2022-02-22 08:43] VITALS: BMI 27.8
[2022-02-23 08:13] VITALS: BP 116/74; PULSE 63; RESP 18; TEMP 36.5; O2SAT 98
[2022-02-23] MEDS: sodium chloride 0.9% 1,000 ML 30 ML IV (08:32)
--- NOTE | 2022-02-23 09:28 | ANES.PREANE2 ---
Pre-Anesthetic Assessment Height/Weight: Height 1.8 m Weight 90.718 kg Temp Pulse Resp BP Pulse Ox O2 Del Method 97.7 F 63 18 116/74 98 02/23/22 08:13 02/23/22 08:13 02/23/22 08:13 02/23/22 08:13 02/23/22 08:13 02/23/22 08:13 Preop Diagnosis: Dysphagia Operation Date: 02/23/22 09:30 Proposed Procedures p EGD 29129,R13.10(Not Applicable) - Luis Bo MD Familial anesthetic complications: Aspirated and had TIA during a lithotripsy Was Beta Viktor taken within 24 hours: Yes Was Clonidine taken within 24 hours: N/A Last intake: Intake Last Liquid Date 02/22/22 Last Liquid Time 19:00 Last Solid Date 02/22/22 Last Solid Time 18:00 Social No alcohol and No tobacco Exam alert, oriented x 3, clear to auscultation bilaterally and regular rate & rhythm Airway Mallampati: Class II Dentition: full Pulmonary None reported moderate pulmonary HTN CV/HEM Arrythmia and Hypertension GI Gastroesophageal Reflux Disease Metabolic Hyperlipidemia Anesthetic Plan ASA status: 3 Anesthesia: MAC Risk of > 500 ml blood loss (7ml/kg in children): No Medications/Allergies Home Medications Medication Instructions Recorded Confirmed Last Taken Type naproxen 375 mg tablet 375 mg PO BID PRN pain #14 tabs 01/12/20 02/22/22 02/22/22 Rx allopurinol 100 mg tablet 100 mg PO DAILY@0800 05/28/20 02/22/22 03/29/21 History amlodipine 5 mg tablet 5 mg PO QAM 05/28/20 02/22/22 03/30/21 History 0500 atorvastatin 20 mg tablet 20 mg PO BEDTIME 05/28/20 02/22/22 02/22/22 History finasteride 5 mg tablet 5 mg PO DAILY@0800 05/28/20 02/22/22 02/22/22 History magnesium oxide 400 mg PO DAILY@0800 05/28/20 02/22/22 02/22/22 History metoprolol succinate 25 mg 12.5 mg PO DAILY@0800 05/28/20 02/22/22 02/23/22 05:00 History tablet,extended release 24 hr olopatadine 0.1 % eye drops 1 drp ophthalmic (eye) PRN PRN Dry 05/28/20 02/22/22 02/22/22 History Eye(S) potassium citrate 10 mEq (1,080 10 meq PO BID@0800,2200 05/28/20 02/22/22 02/22/22 History mg) tablet,extended release tamsulosin 0.4 mg capsule 0.4 mg PO BID@0800,2200 05/28/20 02/22/22 02/22/22 History custom molded accomadative #1 ea 10/19/20 01/23/22 Unknown Rx orthotic carboxymethylcellulose sodium 1 % 1 drp ophthalmic (eye) BEDTIME 11/19/20 02/22/22 02/22/22 History eye gel in a dropperette (Refresh Celluvisc) multivitamin 1 tab PO DAILY 11/19/20 02/22/22 02/22/22 History oxybutynin chloride 5 mg 5 mg PO QAM 11/19/20 02/22/22 02/22/22 History tablet,extended release 24 hr polyvinyl alcohol-povidone (PF) 1 drp ophthalmic (eye) . DIRECTED 11/19/20 02/22/22 02/22/22 History 1.4 %-0.6 % eye drops in a dropperette (Refresh Classic (PF)) Custom Molded Sole Supports #1 ea 12/01/20 01/23/22 Unknown Rx gabapentin 300 mg capsule 600 mg PO TID@08,12,22 12/20/20 02/22/22 02/22/22 History mirtazapine 15 mg tablet 7.5 mg PO .at bedtime #30 tabs 01/25/21 02/22/22 02/22/22 Rx amlodipine 5 mg tablet 10 mg PO BEDTIME 03/29/21 02/22/22 02/23/22 05:00 History pantoprazole 20 mg tablet,delayed 20 mg PO DAILY 90 days #180 tabs 12/21/21 02/22/22 02/22/22 Rx release sildenafil 100 mg tablet 100 mg PO PRN PRN Erectile 01/09/22 02/22/22 02/22/22 Rx Dysfunction #20 tabs alprostadil 10 mcg intracavernosal 10 mcg intra-cavernosal .prn #10 ea 01/24/22 02/22/22 Unknown Rx kit Allergies Allergy/AdvReac Type Severity Reaction Status Date / Time morphine Allergy Unknown psychotic Verified 01/23/22 08:04 reaction Current Medications Generic Name Dose Route Start Last Admin Trade Name Giselle PRN Reason Stop Dose Admin Sodium Chloride 1,000 mls @ 30 mls/hr 02/23/22 08:15 02/23/22 08:32 Sodium Chloride 0.9% IV 02/24/22 08:14 30 mls/hr .Q24H CORNELL Administration PFSH Anesthesia Medical History Bradycardia Erectile dysfunction Gastroesophageal reflux disease with esophagitis Hypertension, accelerated Hypertrophy of prostate with urinary obstruction Memory loss Obstructive sleep apnea Polyneuropathy, peripheral sensorimotor axonal Psychiatric care PTSD (post-traumatic stress disorder) PVCs (premature ventricular contractions) TIA (transient ischemic attack) Urolithiasis Surgical History History of colonoscopy with polypectomy (03/30/21) ascending colon polyp, diverticulosis History of ureter stent Hx of brain surgery Hx of cholecystectomy Hx of hernia repair Hx of lithotripsy Family History Mother , at age 82 Cancer bone Hypertension Father , at age 84 Lung disease Social History Smoking and tobacco status: never smoked Alcohol intake: never Adopted: No Caregiver/support person: No Lives independently: No Marital status: Current occupational status: retired History of recent travel: No Current gender identity: Male Data Anesthesia Cardiac Studies: Echocardiogram 01/10/21 Holter Monitor 06/07/20
--- NOTE | 2022-02-23 09:38 | P.HP_ITS ---
Same Day Surgery H&P Indication for Procedure/HPI DATE OF PROCEDURE: February 23, 2022 CHIEF COMPLAINT/INDICATIONFOR SURGICAL PROCEDURE: Difficulty in swallowing PREOP DIAGNOSIS: Dysphagia PLANNED PROCEDURE: Operation Date: 02/23/22 09:30 Proposed Procedures p EGD 63763,R13.10(Not Applicable) - Luis Bo MD 01/10/2022 This is a pleasant 66 years old gentleman with history of worsening dysphagia particularly to solid food Patient is referred to my practice with history of dysphagia.? Has been progressive in nature, history of stroke TIA which the patient attributed to aspiration during one of the anesthesia encounters for his kidney stones and subsequently got complicated with a stroke per his description, no history of esophageal trauma or neck radiation or neck cancer.? No history of dentures, personal or family history of esophageal cancer No associated symptoms pain, nausea, vomiting, hemoptysis or hematemesis. No previous speech pathology evaluation or endoscopies except back in 2017 undergone an EGD that showed small hiatal hernia otherwise unremarkable or swallow studies or previous esophageal dilations or esophageal surgery. 02/23/2022 Patient comes today for diagnostic EGD because history of dysphagia, he did undergo an upper GI study that did show: ? 1. Dysmotility of the of the distal third of the esophagus with minimal reflux. 2. Normal stomach and duodenal bulb. ROS All systems have been reviewed negative except as for the above or per problem list. Medications/Allergies* Home Medications Medication Instructions Recorded Confirmed Type allopurinol 100 mg tablet 100 mg PO DAILY@0800 05/28/20 02/22/22 History amlodipine 5 mg tablet 5 mg PO QAM 05/28/20 02/22/22 History atorvastatin 20 mg tablet 20 mg PO BEDTIME 05/28/20 02/22/22 History finasteride 5 mg tablet 5 mg PO DAILY@0800 05/28/20 02/22/22 History magnesium oxide 400 mg PO DAILY@0800 05/28/20 02/22/22 History metoprolol succinate 25 mg 12.5 mg PO DAILY@0800 05/28/20 02/22/22 History tablet,extended release 24 hr olopatadine 0.1 % eye drops 1 drp ophthalmic (eye) PRN PRN Dry 05/28/20 02/22/22 History Eye(S) potassium citrate 10 mEq (1,080 10 meq PO BID@0800,2200 05/28/20 02/22/22 History mg) tablet,extended release tamsulosin 0.4 mg capsule 0.4 mg PO BID@0800,2200 05/28/20 02/22/22 History carboxymethylcellulose sodium 1 % 1 drp ophthalmic (eye) BEDTIME 11/19/20 02/22/22 History eye gel in a dropperette (Refresh Celluvisc) multivitamin 1 tab PO DAILY 11/19/20 02/22/22 History oxybutynin chloride 5 mg 5 mg PO QAM 11/19/20 02/22/22 History tablet,extended release 24 hr polyvinyl alcohol-povidone (PF) 1 drp ophthalmic (eye) . DIRECTED 11/19/20 02/22/22 History 1.4 %-0.6 % eye drops in a dropperette (Refresh Classic (PF)) gabapentin 300 mg capsule 600 mg PO TID@08,,12/20/20 02/22/22 History amlodipine 5 mg tablet 10 mg PO BEDTIME 03/29/21 02/22/22 History Allergies/Adverse Reactions Allergy/AdvReac Type Severity Reaction Status Date / Time morphine Allergy Unknown psychotic Verified 02/23/22 09:40 reaction Current Medications: Generic Name Dose Route Start Last Admin Trade Name Freq PRN Reason Stop Dose Admin Sodium Chloride 1,000 mls @ 30 mls/hr 02/23/22 08:15 02/23/22 08:32 Sodium Chloride 0.9% IV 02/24/22 08:14 30 mls/hr .Q24H CORNELL Administration Pertinent History/Comorbid Conditions* Medical History (Updated 02/14/22 @ 06:00 by Daniel Ledezma MD) Bradycardia Erectile dysfunction Gastroesophageal reflux disease with esophagitis Hypertension, accelerated Hypertrophy of prostate with urinary obstruction Memory loss Obstructive sleep apnea Polyneuropathy, peripheral sensorimotor axonal Psychiatric care PTSD (post-traumatic stress disorder) PVCs (premature ventricular contractions) TIA (transient ischemic attack) Urolithiasis Surgical History (Updated 03/30/21 @ 09:34 by Doc Anaya MD) History of colonoscopy with polypectomy (03/30/21) ascending colon polyp, diverticulosis History of ureter stent Hx of brain surgery Hx of cholecystectomy Hx of hernia repair Hx of lithotripsy Family History (Updated 08/30/22 @ 13:14 by Marisabel Gomes LPN) Father, at age 84 Mother, at age 82 Lung disease Father Cancer Mother bone Hypertension Mother Social History Smoking and tobacco status: never smoked Alcohol intake: never Adopted: No Caregiver/support person: No Lives independently: No Marital status: Current occupational status: retired History of recent travel: No Current gender identity: Male Pertinent Exam Findings alert, oriented x 3, regular rate & rhythm and procedure specific exam findings (Abdominal exam nontender nondistended soft) Recommendations Surgery/Procedure today (EGD with possible biopsy) Coding Level of Care Code Acute Currency Examiner for [place]
[2022-02-23 10:33] VITALS: BP 104/73; PULSE 57; RESP 16; TEMP 36.2; O2SAT 94
[2022-02-23 10:38] VITALS: BP 107/70; PULSE 54; RESP 16; O2SAT 95
[2022-02-23 10:48] VITALS: BP 114/74; PULSE 57; RESP 18; O2SAT 95
--- NOTE | 2022-02-23 13:30 | ANE.PACU2 ---
Inpatient post-anesthesia follow up: Airway intact: Yes Vital signs: Temperature 97.2 F Pulse Rate 57 Respiratory Rate 18 Blood Pressure 114/74 Pulse Oximetry 95 Oxygen Delivery Me thod Room Air Oxygen Flow Rate 3 Fraction of Inspir ed Oxygen Hydration adequate: Yes Nausea and vomiting: No Pain level: 1 Mental status: Baseline
== END 2022-02-23 11:10 | disposition home or self-care (01) ==
PROVIDERS: PCP Registered Nurse; Visit Provider Surgery
PROC: 0DJ08ZZ Inspection of Upper Intestinal Tract, Via Natural or Artificial Opening Endoscopic (ICD-10-PCS; CPT 43235; principal; 2022-02-23 09:30)
DX: R13.10 Dysphagia, unspecified (principal); Z86.73 Personal history of transient ischemic attack (TIA), and cerebral infarction without residual deficits; K44.9 Diaphragmatic hernia without obstruction or gangrene; I10 Essential (primary) hypertension; G47.33 Obstructive sleep apnea (adult) (pediatric); K21.00 Gastro-esophageal reflux disease with esophagitis, without bleeding; K29.80 Duodenitis without bleeding; K29.70 Gastritis, unspecified, without bleeding; K21.9 Gastro-esophageal reflux disease without esophagitis
CPT/HCPCS: 43239; 88305; J2704; J7030

== ENCOUNTER → 2022-03-14 14:29 | Outpatient (BNVA) | payer MEDICARE, OTHER, SELFPAY | PROVIDERS: PCP Registered Nurse; Visit Provider Surgery | DX: Z09 Encounter for follow-up examination after completed treatment for conditions other than malignant neoplasm (principal); K20.90 Esophagitis, unspecified without bleeding; K29.90 Gastroduodenitis, unspecified, without bleeding | CPT/HCPCS: 99213 ==

== ENCOUNTER → 2022-03-22 07:09 | Outpatient (BNVA) | payer MEDICARE, OTHER, SELFPAY | PROVIDERS: PCP Registered Nurse; Visit Provider Urology | DX: N13.8 Other obstructive and reflux uropathy (principal); N40.1 Benign prostatic hyperplasia with lower urinary tract symptoms; N52.9 Male erectile dysfunction, unspecified | CPT/HCPCS: 99213 ==

== ENCOUNTER → 2022-04-12 13:33 | Outpatient (BNVA) | payer MEDICARE, OTHER, SELFPAY | PROVIDERS: PCP Registered Nurse; Visit Provider Nurse Practitioner Family | DX: N39.0 Urinary tract infection, site not specified (principal) | CPT/HCPCS: 81000 ==

== ENCOUNTER 2022-05-05 22:53 | Emergency (ER) | payer MEDICARE, OTHER, SELFPAY ==
--- NOTE | 2022-05-05 23:06 | XRR_ITS ---
PROCEDURE INFORMATION: Exam: XR Chest Exam date and time: 05/06/2022 12:38 AM Age: 66 years old Clinical indication: Shortness of breath; Additional info: SOB TECHNIQUE: Imaging protocol: Radiologic exam of the chest. Views: 1 view. COMPARISON: CR XR chest 1V portable [id number] 11/19/2020 2:01 PM FINDINGS: Lungs: Right lower lobe atelectasis versus minimal infiltrate. Pleural spaces: Unremarkable. No pleural effusion. No pneumothorax. Heart/Mediastinum: Cardiomegaly. Bones/joints: Unremarkable. XR/XR chest 1V portable [id number] IMPRESSION: 1. Right lower lobe atelectasis versus minimal infiltrate. 2. Cardiomegaly.
[2022-05-05 23:12] VITALS: BP 122/74; PULSE 73; RESP 18; TEMP 38.1; O2SAT 97; BMI 27.8
--- NOTE | 2022-05-05 23:56 | W.ED.GENADLT ---
HPI - General Adult General: Chief complaint: General Medical Stated complaint: + home covid test, SOB Time Seen by Provider: 05/05/22 23:39 History of Present Illness: 66-year-old male patient comes in today with complaints of fever and illness for the last 3 days. Patient took a home COVID test and was positive. Patient appears unwell but not toxic. Patient has had a history of prior COVID infections. Patient also has a history of hypertension, hyperlipidemia, BPH. Review of Systems Const: Reports: fever(s) Resp: Reports: non-productive cough PFSH ED PFSH: Medical History Bradycardia Erectile dysfunction Gastroesophageal reflux disease with esophagitis Hypertension, accelerated Hypertrophy of prostate with urinary obstruction Memory loss Obstructive sleep apnea Polyneuropathy, peripheral sensorimotor axonal Psychiatric care PTSD (post-traumatic stress disorder) PVCs (premature ventricular contractions) TIA (transient ischemic attack) Urolithiasis Surgical History History of colonoscopy with polypectomy (03/30/21) ascending colon polyp, diverticulosis History of ureter stent Hx of brain surgery Hx of cholecystectomy Hx of hernia repair Hx of lithotripsy Family History Mother , at age 82 Cancer bone Hypertension Father , at age 84 Lung disease Social History Smoking and tobacco status: never smoked Alcohol intake: never Adopted: No Caregiver/support person: No Lives independently: No Marital status: Current occupational status: retired History of recent travel: No Current gender identity: Male Physical Exam Const: COMMON NORMALS: alert HENMT: COMMON NORMALS: normocephalic and TM's normal bilaterally HEAD & SCALP: normocephalic TYMPANIC MEMBRANE: TM's normal bilaterally THROAT: posterior oropharynx normal Neck/C-Spine: COMMON NORMALS: full ROM Resp: COMMON NORMALS: normal respiratory effort and clear to auscultation bilaterally AUSCULTATION: clear to auscultation bilaterally Cardio: COMMON NORMALS: regular rate RATE: regular rate Extremity: COMMON NORMALS: full ROM Neuro: SENSORIUM/ORIENTATION: Yes alert Skin: COMMON NORMALS: turgor normal GENERAL SKIN EXAM: turgor normal Course Vital Signs: Vital signs: Vital Signs Temperature 100.6 F H 05/05/22 23:12 Pulse Rate 73 05/05/22 23:12 Respiratory Rate 18 05/05/22 23:12 Blood Pressure 122/74 05/05/22 23:12 Pulse Oximetry 97 05/05/22 23:12 Oxygen Delivery Me thod 05/05/22 23:12 MDM - General Adult Medical Decision Making 66-year-old male patient comes in today for complaints of cough and congestion. Lungs are clear. No edema is in the extremities. Vital signs note temperature of 100.6 but otherwise normal. Differential diagnosis COVID-19, pneumonia, dehydration. No signs of serious illness noted. Chest x-ray noted some mild atelectasis in the right middle lobe no definitive infiltrates. Reviewed recommendations for treatment for COVID-19 infection at this time. Discussed with the use of Paxlovid in which patient wanted treatment. Follow-up with primary care was recommended and red flags were discussed for need to return to the ER. Patient stated understanding agreed to plan. Discharge Plan Discharge Patient Disposition: Home Clinical Impression: COVID-19 Condition: Stable Prescriptions: New Paxlovid (EUA) 150-100 mg tablets,dose pack See Rx Instructions .ROUTE .COMPLEX Qty: 1 0RF Rx Instructions: take ONE 150 mg tablet of nirmatrelvir with ONE 100 mg tablet of ritonavir twice daily for 5 days, renal No Action alprostadil 10 mcg kit 10 mcg intra-cavernosal .prn Qty: 10 3RF Rx Instructions: Before injection must be trained by Dr. Ledezma ([facility]) custom molded accomadative orthotic See Rx Instructions .Route .MEDSUPPLY Qty: 1 0RF Rx Instructions: As directed mirtazapine 15 mg tablet 7.5 mg PO .at bedtime Qty: 30 0RF sildenafil 100 mg tablet 100 mg PO PRN PRN (Reason: Erectile Dysfunction) Qty: 20 12RF Rx Instructions: 1 TABLET, 1 hour before intercourse, take on empty stomach, no nitroglycerin.; gabapentin 300 mg capsule 600 mg PO TID@08,, Qty: 30 0RF ([facility]) Custom Molded Sole Supports See Rx Instructions .Route .MEDSUPPLY Qty: 1 0RF Rx Instructions: As directed atorvastatin 20 mg tablet 20 mg PO BEDTIME amlodipine 5 mg tablet 5 mg PO QAM Rx Instructions: 5mg po qam and 10mg po bedtime allopurinol 100 mg tablet 100 mg PO DAILY@0800 tamsulosin 0.4 mg capsule 0.4 mg PO BID@0800,2200 potassium citrate 10 mEq (1,080 mg) tablet extended release 10 meq PO BID@0800,2200 metoprolol succinate 25 mg tablet extended release 24 hr 12.5 mg PO DAILY@0800 finasteride 5 mg tablet 5 mg PO DAILY@0800 magnesium oxide 400 mg magnesium capsule 400 mg PO DAILY@0800 olopatadine 0.1 % drops 1 drp ophthalmic (eye) PRN PRN (Reason: Dry Eye(S)) Rx Instructions: use as directed prn multivitamin Tablet 1 tab PO DAILY oxybutynin chloride 5 mg tablet extended release 24hr 5 mg PO QAM Refresh Classic (PF) 1.4-0.6 % dropperette 1 drp ophthalmic (eye) . DIRECTED carboxymethylcellulose sodium [Refresh Celluvisc] 1 % dropperette,gel 1 drp ophthalmic (eye) BEDTIME amlodipine 5 mg tablet 10 mg PO BEDTIME Protonix 40 mg tablet,delayed release (DR/EC) 40 mg PO DAILY 30 Days Qty: 30 3RF Carafate 1 gram tablet 1 g PO TID 84 Days Qty: 252 2RF Discharge Orders: Discharge ED (Routine); Ordered 05/06/22 Ordered By: Nick Ferraro Referrals: Adelita Rod FNP [Primary Care Provider] - Discharge Diet: Usual diet Discharge Activity: Increase activity as tolerated Patient Instructions: COVID-19 (Coronavirus Disease 2019) (ED) Activity Restrictions/Additional Instructions: Home and rest. Drink plenty of fluids. Use acetaminophen and ibuprofen for pain or fever. Try to drink plenty of fluids in order to maintain hydration. Follow-up with primary care as needed. Return to ER for worsening symptoms such as inability to hold fluids down, increasing shortness of breath, severe chest pain, or new concerns. Coding Level of Care Code ED Pain Medicine Physician for [place] Fwd Exam Detailed
[2022-05-06] MEDS: acetaminophen 500 mg Tablet 1000 MG PO (01:11)
[2022-05-06] MEDS: dexamethasone 4 mg Tablet 10 MG PO (01:11)
== END 2022-05-06 01:13 | disposition home or self-care (01) ==
PROVIDERS: Emergency Provider Nurse Practitioner Family; PCP Registered Nurse
DX: U07.1 COVID-19 (principal); I10 Essential (primary) hypertension; Z86.73 Personal history of transient ischemic attack (TIA), and cerebral infarction without residual deficits
CPT/HCPCS: 71045; 99283; J8540

== ENCOUNTER → 2022-07-02 12:54 | Outpatient (BNVA) | payer MEDICARE, OTHER, SELFPAY | PROVIDERS: PCP Registered Nurse; Visit Provider Urology | DX: N40.1 Benign prostatic hyperplasia with lower urinary tract symptoms (principal); N13.8 Other obstructive and reflux uropathy; N52.9 Male erectile dysfunction, unspecified; N20.9 Urinary calculus, unspecified | CPT/HCPCS: 99213 ==

== ENCOUNTER 2022-08-29 13:17 | Outpatient (CLI) | payer MEDICARE, OTHER, SELFPAY ==
--- NOTE | 2022-08-29 13:20 | XR_ITS ---
WS: [id number] Right forearm, AP and lateral views, 08/29/2022 Clinical Data: right forearm pain Comparison: None. Findings: No fractures or dislocations are seen. The soft tissues are normal. The visualized right wrist and el bow show no obvious abnormalities. XR/XR forearm RT 2V [id number] Impression: Negative for fracture.
== END 2022-08-29 13:18 | disposition home or self-care (01) ==
LOC: RAD 13:20
PROVIDERS: PCP Registered Nurse; Visit Provider Emergency Medicine
DX: M79.631 Pain in right forearm (principal)
CPT/HCPCS: 73090

== ENCOUNTER → 2022-09-04 08:48 | Outpatient (BNVA) | payer MEDICARE, OTHER, SELFPAY | PROVIDERS: PCP Registered Nurse; Visit Provider Specialist | DX: G62.9 Polyneuropathy, unspecified (principal) | CPT/HCPCS: 99213 ==

== ENCOUNTER 2022-11-07 12:53 | Outpatient (CLI) | payer MEDICARE, OTHER, SELFPAY ==
--- NOTE | 2022-11-07 12:54 | XR_ITS ---
WS: [id number] Exam: XR KUB [id number] Date/Time of Exam: 11/07/2022 1:06 PM Reason For Exam: Urolithiasis No bowel obstruction or free air. No sign of organ enlargement. Regional bony elements are intact. Ca lcifications superimpose both kidneys and apparently represent known renal stones. Nonspecific bilate ral pelvic calcifications. Degenerative changes of the lumbar spine and mild dextroscoliosis. XR/XR KUB [id number] IMPRESSION: 1. No acute abdominal process. 2. Bilateral renal calculi.
== END 2022-11-07 12:54 | disposition home or self-care (01) ==
PROVIDERS: PCP Registered Nurse; Visit Provider Urology
DX: N20.0 Calculus of kidney (principal)
CPT/HCPCS: 74018

== ENCOUNTER 2022-11-12 15:58 | Emergency (ER) | payer OTHER, SELFPAY ==
[2022-11-12 16:16] VITALS: BP 109/73; PULSE 68; RESP 14; TEMP 36.4; O2SAT 96; BMI 30.7
--- NOTE | 2022-11-12 16:31 | ED_ITS ---
HPI - Extremity Problem General: Chief complaint: Extremity Injury, Upper Stated complaint: [facility] + bottom of [facility]ured lac is oozing Time Seen by Provider: 11/12/22 16:14 Source: patient Mode of arrival: ambulatory Limitations: no limitations History of Present Illness: 67-year-old male states that he had a laceration to his left index finger last Saturday [facility] states he had some slight erythema and oozing from the wound today [facility] not have a [facility] so he came here he denies any pain he denies any fevers he states he is just concerned it may be infected. Associated symptoms: Deny chest pain, fever(s) or rash Review of Systems Const: Denies: fever(s) or chills Eyes: Denies: eye discomfort ENMT: Denies: throat pain or dental pain Card: Denies: chest pain Resp: Denies: dyspnea GI: Denies: abdominal pain, nausea or vomiting Musc: Denies: neck pain or back pain Skin/Breast: Reports: erythema; Denies: rash Neuro: Denies: headache(s) PFSH ED PFSH: Medical History Bradycardia Erectile dysfunction Gastroesophageal reflux disease with esophagitis Hypertension, accelerated Hypertrophy of prostate with urinary obstruction Memory loss Obstructive sleep apnea Polyneuropathy, peripheral sensorimotor axonal PTSD (post-traumatic stress disorder) PVCs (premature ventricular contractions) TIA (transient ischemic attack) Urolithiasis Surgical History History of colonoscopy with polypectomy (03/30/21) ascending colon polyp, diverticulosis History of ureter stent Hx of brain surgery Hx of cholecystectomy Hx of hernia repair Hx of lithotripsy Family History Mother , at age 82 Cancer bone Hypertension Father , at age 84 Lung disease Social History Smoking and tobacco status: never smoked Alcohol intake: never Substance/Drug Use: unknown Adopted: No Caregiver/support person: No Lives independently: No Marital status: Current occupational status: retired Current gender identity: Male Physical Exam Const: COMMON NORMALS: no acute distress and patient oriented x3 HENMT: COMMON NORMALS: normocephalic and atraumatic HEAD & SCALP: normocephalic and atraumatic Eye: COMMON NORMALS: conjunctivae normal CONJUNCTIVA: Yes conjunctivae normal Neck/C-Spine: COMMON NORMALS: supple Chest: COMMONS NORMALS: normal inspection of the chest Resp: COMMON NORMALS: normal respiratory effort Cardio: COMMON NORMALS: regular rate and regular rhythm RATE: regular rate RHYTHM: regular rhythm GI: INSPECTION: Yes normal to inspection Extremity: OTHER: Sutures in place to left index finger of the dorsum of the finger no drainage at this time very minimal erythema he has full range of motion with no pain Neuro: COMMON NORMALS: patient oriented x3 Psych: COMMON NORMALS: mental status grossly normal Skin: COMMON NORMALS: no rashes or lesions noted GENERAL SKIN EXAM: no rashes or lesions noted Course Vital Signs: Vital signs: Vital Signs Temperature 97.5 F L 11/12/22 16:16 Pulse Rate 68 11/12/22 16:16 Respiratory Rate 14 11/12/22 16:16 Blood Pressure 109/73 11/12/22 16:16 Pulse Oximetry 96 11/12/22 16:16 Oxygen Delivery Me thod Room Air 11/12/22 16:16 MDM - Extremity (Nontraumatic) Medical Decision Making Patient presents with concerns of drainage from the laceration to his left index finger I do not see any drainage currently has some very mild erythema we will give him a dose of Rocephin and prescribe him Keflex he is to follow-up as scheduled Saturday for his suture removal return if worsening Discharge Plan Discharge Patient Disposition: Home Clinical Impression: Cellulitis Condition: Stable Prescriptions: New cephalexin 500 mg capsule 500 mg PO TID 7 Days Qty: 21 0RF No Action (DME) custom molded accomadative orthotic See Rx Instructions .Route .MEDSUPPLY Qty: 1 0RF Rx Instructions: As directed mirtazapine 15 mg tablet 7.5 mg PO .at bedtime Qty: 30 0RF sildenafil 100 mg tablet 100 mg PO PRN PRN (Reason: Erectile Dysfunction) Qty: 20 12RF Rx Instructions: 1 TABLET, 1 hour before intercourse, take on empty stomach, no nitroglycerin.; hydrocodone-acetaminophen 5-325 mg tablet 1 tab PO Q6H PRN (Reason: pain) 7 Days Qty: 28 0RF ibuprofen 600 mg tablet 600 mg PO Q8H PRN (Reason: pain) Qty: 60 0RF hydrocodone-acetaminophen 5-325 mg tablet 1 tab PO Q6H PRN ibuprofen 600 mg tablet 600 mg PO Q8H PRN prednisone 20 mg tablet 20 mg PO BID 5 Days Qty: 10 0RF albuterol sulfate 90 mcg/actuation HFA aerosol inhaler 2 inh inhalation Q4H PRN (Reason: shortness of breath or wheezing) Qty: 6.7 0RF (DME) Custom Molded Sole Supports See Rx Instructions .Route .MEDSUPPLY Qty: 1 0RF Rx Instructions: As directed gabapentin 300 mg capsule 600 mg PO QID 90 Days Qty: 720 3RF Rx Instructions: Take 2 caps four times daily. atorvastatin 20 mg tablet 20 mg PO BEDTIME amlodipine 5 mg tablet 5 mg PO QAM Rx Instructions: 5mg po qam and 10mg po bedtime allopurinol 100 mg tablet 100 mg PO DAILY@0800 tamsulosin 0.4 mg capsule 0.4 mg PO BID@0800,2200 potassium citrate 10 mEq (1,080 mg) tablet extended release 10 meq PO BID@0800,2200 metoprolol succinate 25 mg tablet extended release 24 hr 12.5 mg PO DAILY@0800 finasteride 5 mg tablet 5 mg PO DAILY@0800 magnesium oxide 400 mg magnesium capsule 400 mg PO DAILY@0800 olopatadine 0.1 % drops 1 drp ophthalmic (eye) PRN PRN (Reason: Dry Eye(S)) Rx Instructions: use as directed prn multivitamin Tablet 1 tab PO DAILY oxybutynin chloride 5 mg tablet extended release 24hr 5 mg PO QAM Refresh Classic (PF) 1.4-0.6 % dropperette 1 drp ophthalmic (eye) . DIRECTED carboxymethylcellulose sodium [Refresh Celluvisc] 1 % dropperette,gel 1 drp ophthalmic (eye) BEDTIME amlodipine 5 mg tablet 10 mg PO BEDTIME Protonix 40 mg tablet,delayed release (DR/EC) 40 mg PO DAILY 30 Days Qty: 30 3RF Carafate 1 gram tablet 1 g PO TID 84 Days Qty: 252 2RF Paxlovid (EUA) 150-100 mg tablets,dose pack See Rx Instructions .ROUTE .COMPLEX Qty: 1 0RF Rx Instructions: take ONE 150 mg tablet of nirmatrelvir with ONE 100 mg tablet of ritonavir twice daily for 5 days, renal Discharge Orders: Discharge ED (Routine); Ordered 11/12/22 Ordered By: Sonal Tenorio Referrals: Adelita Rod FNP [Primary Care Provider] - Discharge Diet: Advance as tolerated Discharge Activity: Resume usual activity Patient Instructions: Cellulitis (ED) Coding Level of Care Code ED Security Installer for [place]
[2022-11-12] MEDS: cefTRIAXone 1,000 MG in water for injection-sterile 2.1 ML 2.1 MG IM (16:43)
[2022-11-12 16:48] VITALS: BP 139/75; PULSE 51; RESP 16; O2SAT 96
== END 2022-11-12 17:20 | disposition home or self-care (01) ==
PROVIDERS: Emergency Provider Emergency Medicine; PCP Registered Nurse
DX: L03.012 Cellulitis of left finger (principal)
CPT/HCPCS: 96372; 99284; J0696

== ENCOUNTER 2022-12-12 11:45 | Outpatient (CLI) | payer OTHER, SELFPAY ==
--- NOTE | 2022-12-12 12:05 | MR_ITS ---
WS: [id number] MRI HEAD WITH CONTRAST TECHNIQUE: Sagittal T1, T2 axial, T2 axial FLAIR, axial susceptibility weighted imaging, axial diffus ion weighted images, and coronal T2 images were obtained. Pre and post-T1 axial and post T1 coronal i mages. ADC and FSPGR images. CLINICAL INFORMATION: TIA VS CVA/MEMORY LOSS COMPARISON: CT head May 28, 2020 FINDINGS: No evidence of restricted diffusion to suggest acute ischemia. Ventricular system and basal cisterns are patent. Susceptibly artifact overlying the LEFT frontal calvarium. Normal posterior fossa. Normal vascular flow voids at the skull base. No extra-axial fluid collections. No evidence of mass or mass effect. Mild polypoid mucosal thickening in the paranasal sinuses. Mild small vessel changes. Mild p arenchymal volume loss. No hemosiderin on susceptibly weighted images. Normal optic chiasm and pituitary infundibulum. Normal cavernous sinuses and Meckel's cave. Temporal lobes and hippocampal formations are normal in appeara nce. Normal posterior nasopharynx and parapharyngeal fat. Normal dural venous sinuses. No abnormal gadolinium enhancement. MR/MR head wo/w con [id number] IMPRESSION: 1. No evidence of restricted diffusion to suggest acute ischemia. 2. Mild small vessel changes with mild parenchymal volume loss. 3. Temporal lobes and hippocampal formations are normal in appearance. 4. No abnormal gadolinium enhancement. 5. No hemosiderin on the susceptibility images. 6. Mild polypoid mucosal thickening in the maxillary sinuses.
--- NOTE | 2022-12-12 12:05 | MR_ITS ---
WS: [id number] MRI LUMBAR SPINE NONCONTRAST TECHNIQUE: Sagittal T1, T2 and STIR imaging. Axial T1 and T2 imaging. CLINICAL INFORMATION: LUMBAR RADICULOPATHY COMPARISON: None. FINDINGS: Mild lumbar curve. No acute compression. No high-grade central canal stenosis. Disc space narrowing w orse L4-L5 and L5-S1. Endplate degenerative change at these levels. L1-L2: Normal. L2-L3: Mild annular bulging. Mild facet arthropathy. Spinal canal and foramen are patent. L3-L4: Mild annular bulging with slight narrowing of the LEFT subarticular recess. Mild LEFT foramina l narrowing. RIGHT foramen is patent. Mild facet arthropathy. Tiny annular fissure. L4-L5: Mild disc osteophyte complex with endplate ridging. Slight narrowing of the subarticular reces s bilaterally. Narrowing of the subarticular recess bilaterally with mild central canal stenosis. Mil d RIGHT foraminal narrowing. Mild facet arthropathy. L5-S1: Mild disc bulging with osteophytic ridging. Mild RIGHT and no significant LEFT foraminal narro wing. Mild facet arthropathy. Visualized pelvic bony structures: Normal. Paravertebral soft tissues: Normal. Incidental Tarlov cyst in the sacrum. Partially visualized enlarged prostate. MR/MR lumbar spine wo con* [id number] IMPRESSION: 1. Mild lumbar curve. No acute compression. No high-grade central canal stenos is. 2. Mild disc bulging L4-L5 with mild central canal stenosis and slight impinge ment on the subarticular recess bilaterally. Mild RIGHT L4-L5 foraminal narrowi ng. 3. Mild RIGHT L5-S1 foraminal narrowing. 4. Mild annular bulging L3-L4 with a small annular fissure and slight narrowin g of the LEFT greater than RIGHT subarticular recess. 5. Mild to moderate facet arthropathy L3-L4 and L4-L5.
--- NOTE | 2022-12-12 13:00 | USCV_ITS ---
Brock Lopes Age: 67 Gender: M : 1955 Exam Date: 12/12/2022 14:34 Ordering Phys: Aruna Pittman MD Technologist: EDEN Exam Location: [facility] [place] Indication: Stenosis Risk Factors: Previous Vascular Surgery: Right Brachial BP: / Left Brachial BP: / Right Left Velocity (cm/s) Spectral Plaque Velocity (cm/s) Spectral Plaque Syst/Diast Broadening Syst/Diast Broadening 55.90/ 17.10 Prox CCA 75.00 / 12.10 68.40/ 13.80 Mid CCA 79.70 / 17.80 60.50/ 21.00 Distal CCA 60.00 / 16.90 39.20/ 8.90 Prox ICA 48.60 / 15.10 63.60/ 26.90 Mid ICA 56.80 / 17.70 61.90/ 23.50 Distal ICA 25.20 / 10.40 85.40 ECA 88.40 0.93 ICA/CCA 0.71 Antegrade Vertebral Antegrade 47.00/ 16.20 cm/s 50.70/ 16.00 cm/s Tri Subclavian Tri 78.80 77.60 FINDINGS Comparison:. 12/09/18 No significant elevation of systolic or diastolic velocities. Waveforms are normal. Mild carotid atherosclerosis at the bifurcations. Antegrade vertebral arteries. CONCLUSIONS Bilateral ICA stenosis less than 50%. Dr. Perlita Fernandez DO (Electronically Signed) Final Date: 12 December 2022 15:00 S
[2022-12-12] MEDS: gadobenate dimeglumine 20 mL vial IV (14:19)
== END 2022-12-12 11:46 | disposition home or self-care (01) ==
PROVIDERS: PCP Registered Nurse; Visit Provider Family Medicine
DX: R41.3 Other amnesia (principal); M54.16 Radiculopathy, lumbar region; M51.37 Other intervertebral disc degeneration, lumbosacral region; M47.817 Spondylosis without myelopathy or radiculopathy, lumbosacral region; M48.07 Spinal stenosis, lumbosacral region; I65.23 Occlusion and stenosis of bilateral carotid arteries
CPT/HCPCS: 70553; 72148; 93880; A9577

== ENCOUNTER 2023-03-05 10:11 | Outpatient (CLI) | payer MEDICARE, OTHER, SELFPAY ==
--- NOTE | 2023-03-05 10:20 | XR_ITS ---
WS: [id number] Exam: XR KUB [id number] Date/Time of Exam: 03/05/2023 10:21 AM Reason For Exam: kidney stones Comparison 11/07/2022. No bowel obstruction or free air. Calcifications superimpose both kidneys and apparently represent kn own renal stones. No sign of organ enlargement. Degenerative change and mild dextroscoliosis of the l umbar spine. IMPRESSION: 1. No acute abdominal finding. 2. Bilateral renal calculi.
== END 2023-03-05 10:12 | disposition home or self-care (01) ==
PROVIDERS: PCP Registered Nurse; Visit Provider Nurse Practitioner Family
DX: N20.0 Calculus of kidney (principal)
CPT/HCPCS: 74018; 81000; J1885

== ENCOUNTER 2023-03-12 06:06 | Outpatient (CLI) | payer MEDICARE, OTHER, SELFPAY ==
--- NOTE | 2023-03-12 06:30 | CT_ITS ---
WS: [id number] CT ABDOMEN AND PELVIS NONCONTRAST HISTORY: N20.0 - Calculus of kidney, LEFT flank pain for 4 weeks. TECHNIQUE: Imaging performed through the abdomen and pelvis. Coronal and sagittal reformats are submi tted. All CT scans at [facility] use at least one of these dose optimization techniques: auto mated exposure control; mA and/or kV adjustment per patient size (includes targeted exams where dose is matched to clinical indication); or iterative reconstruction. DLP: 753.24 mGy.cm COMPARISON: 01/20/2021 Lower thorax: Lung bases are clear. Visualized heart is normal. No hiatal hernia. Liver: Liver is normal size. 10 mm low-attenuation mass in the LEFT lobe of the liver is most consist ent with a cyst. This was also noted on 01/20/2021. No bile duct dilatation. Gallbladder: Prior cholecystectomy. Pancreas: Normal size and attenuation. Normal pancreatic duct. No pancreatitis or mass. Spleen: Normal. Adrenal glands: Normal. No mass. Right kidney: Normal size kidney. Mild perinephric stranding. There are multiple nonobstructing renal calcifications. The largest calcification in the mid kidney measures 6.7 mm. No renal obstruction. N o ureteral obstruction. Exophytic mass from the lower pole measures 1.6 x 1.0 cm. Probably representi ng a cyst. This was also present on the prior study from 2020 without significant increase. Left kidney: Mild perinephric stranding. Very mild atrophy. Cortical medullary low-attenuation mass m id to upper kidney measures 2.2 x 2.4 cm. This is also been present on prior studies with only minima l increase in size. Hounsfield units are low. Several nonobstructing renal calcifications. The larges t in the lower pole measures 9 mm. No ureteral obstruction or calcification. Aorta: Mild atherosclerosis abdominal aorta with no aneurysm. No free fluid, intraperitoneal air or significant lymphadenopathy. GI tract: Stomach is distended with fluid. I dense material in the stomach is probably medicinal. No small bowel obstruction. There is moderate diffuse scattered diverticula throughout the colon. Increa sing diverticular burden towards the sigmoid. No evidence for acute diverticulitis. The appendix is n ormal. Abdominal wall: Negative. No hernia. Pelvis: No adenopathy. Small amount of free fluid in the pelvis. Moderately distended urinary bladder . There is diffuse wall thickening of the urinary bladder which may be due to chronic outlet obstruct ion. Prostate is enlarged and heterogeneous. Bladder wall thickening is similar to the prior study. Osseous structures: Moderate degenerative changes in the lower lumbar spine. IMPRESSION: 1. Bilateral nonobstructing renal calcifications. 2. Diffuse colonic diverticulosis without acute diverticulitis. 3. Stable cyst LEFT lobe of the liver. 4. Bilateral low-attenuation renal masses are most likely cysts. Present on the prior study from without significant increase in size. 5. Prior prior cholecystectomy. 6. Diffuse bladder wall thickening is probably due to outlet obstruction from the prostate gland issac ng enlarged. 7. No free fluid or adenopathy.
== END 2023-03-12 06:07 | disposition home or self-care (01) ==
LOC: RAD 06:06
PROVIDERS: PCP Registered Nurse; Visit Provider Registered Nurse
DX: N20.0 Calculus of kidney (principal); K57.90 Diverticulosis of intestine, part unspecified, without perforation or abscess without bleeding
CPT/HCPCS: 74176

== ENCOUNTER 2023-04-09 09:20 | Emergency (ER) | payer MEDICARE, OTHER, SELFPAY ==
[2023-04-09 09:33] VITALS: BP 116/75; PULSE 54; RESP 16; TEMP 36.4; O2SAT 97; BMI 33.0
--- NOTE | 2023-04-09 12:14 | ED_ITS ---
HPI - Eye Problem General: Chief complaint: Eye Problems Stated complaint: right eye irritation, pain Time Seen by Provider: 04/09/23 09:40 Source: patient Mode of arrival: ambulatory Limitations: no limitations History of Present Illness: Patient is a 67-year-old male who presents to ED today with a complaint of a red eye. He states this morning after he awoke he began noticing a scratchy/foreign body sensation to his eye. When he looked in the mirror he noticed his eye was red. He denies any known injury or trauma. Patient states he is having some minor discomfort but no severe pain. No headache, nausea, vomiting. He denies visual changes. chief complaint: eye pain and eye redness Onset (ago): hour(s) Onset description: awoke with symptoms Location: left eye Eye Symptoms: redness, pain and foreign body sensation Place: home Mechanism: none Severity: mild Associated symptoms: Reports no associated symptoms Related Data: Patient tetanus UTD: Yes Review of Systems Eyes: Reports: eye discomfort and eye redness; Denies: change in vision, blurry vision, blind spots, photophobia, eye discharge, yellow eyes, floaters or seeing flashes PFS ED PFSH: Medical History PVCs (premature ventricular contractions) Polyneuropathy, peripheral sensorimotor axonal PTSD (post-traumatic stress disorder) Gastroesophageal reflux disease with esophagitis Obstructive sleep apnea Bradycardia Memory loss Erectile dysfunction Hypertrophy of prostate with urinary obstruction Urolithiasis TIA (transient ischemic attack) Hypertension, accelerated Surgical History History of colonoscopy with polypectomy (03/30/21) ascending colon polyp, diverticulosis Hx of brain surgery History of ureter stent Hx of lithotripsy Hx of cholecystectomy Hx of hernia repair Family History Mother , at age 82 Cancer bone Hypertension Father , at age 84 Lung disease Social History Smoking and tobacco/nicotine status: never used tobacco/nicotine Alcohol intake: never Substance/Drug Use: unknown Adopted: No Caregiver/support person: No Lives independently: No Marital status: Current occupational status: retired Current gender identity: Male Physical Exam Const: COMMON NORMALS: no acute distress, patient oriented x3, no limitations, alert and well nourished Eye: COMMON NORMALS: Equal, round and reactive pupils present and EOMs intact bilaterally GENERAL EYE: normal light reflex VISUAL ACUITY: Yes acuity normal VISUAL MA: Yes other (no visual loss noted) ALIGNMENT: Yes alignment normal PERIORBITAL: periorbital findings normal EYELID: eyelids normal CONJUNCTIVA: Yes conjunctival abnormal positive left conjunctival injection SCLERA: sclerae normal CORNEA: Yes fluorescein used (very small linear abrasion around 5-6 o'clock) PUPIL: Yes Equal, round and reactive pupils present DIRECT OPHTHALMOSCOPY: Yes normal light reflex OTHER: small amount of mucopurulent drainage noted eye pressures-R eye 10, L eye 15 Neuro: COMMON NORMALS: patient oriented x3 SENSORIUM/ORIENTATION: Yes alert Course Vital Signs: Vital signs: Vital Signs Temperature 97.5 F L 04/09/23 09:33 Pulse Rate 54 L 04/09/23 09:33 Respiratory Rate 16 04/09/23 09:33 Blood Pressure 116/75 04/09/23 09:33 Pulse Oximetry 97 04/09/23 09:33 Oxygen Delivery Me thod Room Air 04/09/23 09:33 MDM - Eye Problem Medical Decision Making Patient will be treated with erythromycin ointment and recommend follow up with eye doctor if symptoms do not improve. Strict return to ED precautions given. Medical Records I reviewed the patient's medical records. No radiology studies performed this visit Discharge Plan Discharge Patient Disposition: Home Clinical Impression: Corneal abrasion Qualifiers: Encounter type: initial encounter Laterality: left Qualified Code(s): S05.02XA - Injury of conjunctiva and corneal abrasion without foreign body, left eye, initial encounter Condition: Stable Prescriptions: New erythromycin 5 mg/gram (0.5 %) ointment 1 applic ophthalmic (eye) Q4H 7 Days Qty: 1 0RF No Action (DME) custom molded accomadative orthotic See Rx Instructions .Route .MEDSUPPLY Qty: 1 0RF Rx Instructions: As directed mirtazapine 15 mg tablet 7.5 mg PO .at bedtime Qty: 30 0RF ibuprofen 600 mg tablet 600 mg PO Q8H PRN (Reason: pain) Qty: 60 0RF ibuprofen 600 mg tablet 600 mg PO Q8H PRN albuterol sulfate 90 mcg/actuation HFA aerosol inhaler 2 inh inhalation Q4H PRN (Reason: shortness of breath or wheezing) Qty: 6.7 0RF (DME) Custom Molded Sole Supports See Rx Instructions .Route .MEDSUPPLY Qty: 1 0RF Rx Instructions: As directed gabapentin 300 mg capsule 600 mg PO QID 90 Days Qty: 720 3RF Rx Instructions: Take 2 caps four times daily. sildenafil 100 mg tablet 100 mg PO PRN PRN (Reason: Erectile Dysfunction) Qty: 20 1RF Rx Instructions: 1 TABLET, 1 hour before intercourse, take on empty stomach, no n itroglycerin.; atorvastatin 20 mg tablet 20 mg PO BEDTIME amlodipine 5 mg tablet 5 mg PO QAM Rx Instructions: 5mg po qam and 10mg po bedtime allopurinol 100 mg tablet 100 mg PO DAILY@0800 tamsulosin 0.4 mg capsule 0.4 mg PO BID@0800,2200 potassium citrate 10 mEq (1,080 mg) tablet extended release 10 meq PO BID@0800,2200 metoprolol succinate 25 mg tablet extended release 24 hr 12.5 mg PO DAILY@0800 finasteride 5 mg tablet 5 mg PO DAILY@0800 magnesium oxide 400 mg magnesium capsule 400 mg PO DAILY@0800 olopatadine 0.1 % drops 1 drp ophthalmic (eye) PRN PRN (Reason: Dry Eye(S)) Rx Instructions: use as directed prn multivitamin Tablet 1 tab PO DAILY oxybutynin chloride 5 mg tablet extended release 24hr 5 mg PO QAM Refresh Classic (PF) 1.4-0.6 % dropperette 1 drp ophthalmic (eye) . DIRECTED carboxymethylcellulose sodium [Refresh Celluvisc] 1 % dropperette,gel 1 drp ophthalmic (eye) BEDTIME amlodipine 5 mg tablet 10 mg PO BEDTIME Protonix 40 mg tablet,delayed release (DR/EC) 40 mg PO DAILY 30 Days Qty: 30 3RF Carafate 1 gram tablet 1 g PO TID 84 Days Qty: 252 2RF Discharge Orders: Discharge ED (Routine); Ordered 04/09/23 Ordered By: Padmini Suarez Referrals: Adelita Rod, CONSTRUCTION SITE MANAGER [Primary Care Provider] - Activity Restrictions/Additional Instructions: As we discussed you need to follow-up with your eye doctor if symptoms do not begin improving over the next 48 hours. You need to return the emergency department for worsening eye pain, severe headache, visual change/visual loss, or any other concerns you may have. Coding Level of Care Code ED [employer]
[2023-04-09] MEDS: eye irrigation 30 mL Btl EYE-LEFT (12:44)
[2023-04-09] MEDS: fluorescein 1 mg Strip EYE-LEFT (12:44)
[2023-04-09] MEDS: tetracaine 0.5% Op Soln 4 mL Btl 1 DROP EYE-LEFT (12:44)
== END 2023-04-09 13:13 | disposition home or self-care (01) ==
PROVIDERS: Emergency Provider Physician Assistant; PCP Registered Nurse
DX: S05.02XA Injury of conjunctiva and corneal abrasion without foreign body, left eye, initial encounter (principal); Z86.73 Personal history of transient ischemic attack (TIA), and cerebral infarction without residual deficits; I10 Essential (primary) hypertension; X58.XXXA Exposure to other specified factors, initial encounter
CPT/HCPCS: 99283

== ENCOUNTER → 2023-09-01 19:03 | Outpatient (BNVA) | payer MEDICARE, OTHER, SELFPAY | PROVIDERS: PCP Registered Nurse; Visit Provider Nurse Practitioner | DX: R39.9 Unspecified symptoms and signs involving the genitourinary system (principal) | CPT/HCPCS: 81000 ==

== ENCOUNTER → 2023-09-03 09:26 | Outpatient (BNVA) | payer MEDICARE, OTHER, SELFPAY | PROVIDERS: PCP Registered Nurse; Visit Provider Specialist | DX: R11.0 Nausea (principal); M54.12 Radiculopathy, cervical region; G60.3 Idiopathic progressive neuropathy | CPT/HCPCS: 96372; 99214; 99215; J2405 ==

== ENCOUNTER 2023-09-17 06:50 | Outpatient (CLI) | payer MEDICARE, OTHER, SELFPAY ==
--- NOTE | 2023-09-17 07:15 | MR_ITS ---
WS: [id number] MR CERVICAL SPINE WO/W COMPARISON: None. HISTORY: M54.12 - Radiculopathy, cervical region TECHNIQUE: Sagittal T1, T2 and T2 inversion recovery; axial T2, T2 gradient and fiesta. Post gadolini um imaging with fat saturation technique. FINDINGS:Straightening of the normal cervical lordosis. No high grade central canal narrowing. Cord s ignal is normal. Moderate spondylitic changes. No abnormal gadolinium enhancement. C2-3: Mild facet arthropathy. Spinal canal and foramen are patent. C3-4: Mild disc osteophytic ridging. Moderate RIGHT and mild LEFT bony foraminal narrowing. Mild face t arthropathy. C4-5: Disc osteophyte complex with endplate ridging. Moderate bilateral bony foraminal narrowing. Mod erate facet arthropathy. Uncovertebral joint hypertrophy. C5-6: Disc osteophyte complex with endplate ridging. Moderate to severe LEFT bony foraminal narrowing . Mild facet arthropathy. C6-7: Mild disc bulging with slight effacement of the ventral thecal sac. Mild LEFT foraminal narrowi ng. C7-T1: Mild LEFT and no significant RIGHT foraminal narrowing. Spinal canal is patent. Incidental prominent paravertebral venous varicosities MR/MR cervical spine wo/w [id number] IMPRESSION: 1. Straightening of the normal cervical lordosis. No high-grade central canal narrowing. Cord signal is normal. 2. No abnormal gadolinium enhancement. 3. Moderate to severe LEFT C5-6 bony foraminal narrowing. 4. Otherwise moderate bony foraminal narrowing worse at RIGHT C3-4 and bilater al C4-5
[2023-09-17] MEDS: gadobenate dimeglumine 20 mL vial IV (07:41)
== END 2023-09-17 06:51 | disposition home or self-care (01) ==
LOC: RAD 06:50
PROVIDERS: PCP Registered Nurse; Visit Provider Specialist
DX: M54.12 Radiculopathy, cervical region (principal); M48.02 Spinal stenosis, cervical region
CPT/HCPCS: 72156; A9577

== ENCOUNTER → 2023-09-24 14:58 | Outpatient (BNVA) | payer OTHER, SELFPAY | PROVIDERS: PCP Registered Nurse; Referring Provider Family Medicine; Visit Provider Dermatology | DX: L82.1 Other seborrheic keratosis (principal); D22.5 Melanocytic nevi of trunk; L73.8 Other specified follicular disorders; L81.4 Other melanin hyperpigmentation; L72.0 Epidermal cyst; Z85.820 Personal history of malignant melanoma of skin | CPT/HCPCS: 11102; 99203 ==

== ENCOUNTER → 2023-10-16 12:46 | Outpatient (BNVA) | payer OTHER, SELFPAY | PROVIDERS: PCP Registered Nurse; Visit Provider Dermatology | DX: D03.59 Melanoma in situ of other part of trunk (principal) | CPT/HCPCS: 11603; 13101 ==

== ENCOUNTER → 2023-10-30 10:32 | Outpatient (BNVA) | payer OTHER, SELFPAY | PROVIDERS: PCP Registered Nurse; Visit Provider Dermatology | DX: L28.0 Lichen simplex chronicus (principal) | CPT/HCPCS: 99214 ==

== ENCOUNTER → 2023-12-03 09:05 | Outpatient (BNVA) | payer MEDICARE, OTHER, SELFPAY | PROVIDERS: PCP Registered Nurse; Visit Provider Specialist | DX: R11.0 Nausea (principal); M54.12 Radiculopathy, cervical region; G60.3 Idiopathic progressive neuropathy | CPT/HCPCS: 99214 ==

== ENCOUNTER 2024-01-05 02:10 | Emergency (ER) | payer MEDICARE, OTHER, SELFPAY ==
[2024-01-05] VITALS (8 sets, daily range): BP systolic 114–146; BP diastolic 72–81; PULSE 45–57; RESP 12–21; TEMP 36.3; O2SAT 92–96; BMI 27.2
--- NOTE | 2024-01-05 02:19 | XRR_ITS ---
PROCEDURE INFORMATION: Exam: XR Chest Exam date and time: 01/05/2024 2:22 AM Age: 68 years old Clinical indication: Chest pressure; Patient HX: C/O chest pain; Additional info: Cp TECHNIQUE: Imaging protocol: Radiologic exam of the chest. Views: 1 view. COMPARISON: CR (CHEST, ) 05/06/2022 12:38 AM FINDINGS: Lungs: No consolidation. Pleural spaces: Unremarkable. No pleural effusion. No pneumothorax. Heart/Mediastinum: Mild cardiomegaly. Bones/joints: No acute fracture. XR/XR chest 1V portable [id number] IMPRESSION: No acute findings.
--- NOTE | 2024-01-05 02:20 | ECG_ITS ---
[facility] Test Date: 2024-01-05 Pat Name: Brock Lopes Department: Room: Gender: Male [employer]: : 1955 Requested By: Rajinder Ziegler Order Number: [id number] Emmanuel MD: Kobi Hassan M.D. Measurements Intervals [place] Rate: 44 P: 43 [place]: 195 QRS: 19 QRSD: 97 T: 12 QT: 429 QTc: 367 Interpretive Statements SINUS BRADYCARDIA INTERPRETATION BASED ON A DEFAULT AGE OF 40 YEARS Compared to ECG 11/19/2020 15:32:03 No significant changes Electronically Signed On 01-05-2024 20:33:22 CDT by Kobi Hassan M.D. [email or web address]
[2024-01-05 02:39] LABS: Basophils % 0.3 %; Eosinophils # 0.1 10^3/uL (0.0-0.8); Eosinophils % 1.7 %; Hematocrit 41.4 % (37-53); Lymphocytes # 1.9 10^3/uL (0.8-4.8); Lymphocytes % 24.3 %; Mean Corpuscular HGB Conc 32.4 g/dL (30-55); Mean Corpuscular Hemoglobin 30.3 pg (27-33); Mean Corpuscular Volume 93.7 fl (82-101); Mean Platelet Volume 10.2 fL (7.4-10.4); Monocytes # 0.6 10^3/uL (0.2-0.9); Monocytes % 7.2 %; Neutrophils # 5.17 10^3/uL (1.8-7.7); Neutrophils % 66.1 %; Nucleated Red Blood Cells % 0 %; Platelet Count 191 10^3/cmm (157-399); Red Blood Count 4.42 10^6/uL (3.85-5.65); Red Cell Distribution Width 14.2 % (12.1-15.1); White Blood Count 7.81 10^3/uL (3.29-11.43)
[2024-01-05] MEDS: nitroglycerin 0.4 mg sublingual Tablet SUBLINGUAL (02:44)
[2024-01-05] MEDS: aspirin 325 mg Tablet PO (02:44)
[2024-01-05 02:53] LABS: Partial Thromboplastin Time 27.8 SECONDS (23.9-36.7)
[2024-01-05 03:00] LABS: Troponin(5th) Baseline < 6 ng/L (0-15)
[2024-01-05 03:07] LABS: Alanine Aminotransferase 24 U/L (0-41); Albumin Level 3.9 g/dL (3.5-5.2); Alkaline Phosphatase 140 U/L (40-130); Blood Urea Nitrogen 15 mg/dL (8-23); Calcium 9.2 mg/dL (8.5-10.5); Carbon Dioxide 24 mmol/L (22-29); Chloride 108 mmol/L (98-107); Creatinine Clr Calc Pharmacy 99.2004; Globulin 2.2 g/dL (1.3-4.6); Glomerular Filtration Rate 96.4 mL/min (90-130); Glucose 112 mg/dL (65-115); NT Pro B Type Natriuretic Pept 44 pg/mL (0-125); Osmolality Calculated 296 mOsm/kg (285-295); Sodium 142 mmol/L (136-145); Total Bilirubin 0.3 mg/dL (0.15-1.2); Total Protein 6.1 g/dL (6.6-8.7)
[2024-01-05 03:08] LABS: Anion Gap 14.6 (5-19); Aspartate Amino Transferase 18 U/L (0-40); Potassium 4.6 mmol/L (3.5-5.1)
[2024-01-05 03:12] LABS: Magnesium 2.1 mg/dL (1.7-2.3)
--- NOTE | 2024-01-05 04:01 | ED_ITS ---
HPI - Chest Pain 2 General: Chief Complaint: Chest Pain Stated Complaint: chest pressure Time Seen by Provider: 01/05/24 02:30 History of Present Illness: 68-year-old male with multiple medical p roblems, but no prior history of coronary disease. He does have a history of bradycardia, and esophagitis. He presents with chest pressure. He states that for the last 3 nights, he has had a somewhat irregular heartbeat, feels the irregular heartbeat/palpitations, and tonight developed chest pressure that did not go away on its own. It is somewhat improved now, but the pressure remains. It is centralized to his chest. He is not overly short of breath. No increase in leg swelling. No vomiting. No fever. He denies cough. Related Data Home Medications Medication Instructions Recorded Confirmed allopurinol 100 mg tablet 100 mg PO DAILY@0800 05/28/20 12/03/23 amlodipine 5 mg tablet 5 mg PO QAM 05/28/20 12/03/23 atorvastatin 20 mg tablet 20 mg PO BEDTIME 05/28/20 12/03/23 finasteride 5 mg tablet 5 mg PO DAILY@0800 05/28/20 12/03/23 magnesium oxide 400 mg PO DAILY@0800 05/28/20 12/03/23 metoprolol succinate 25 mg 12.5 mg PO DAILY@0800 05/28/20 12/03/23 tablet,extended release 24 hr olopatadine 0.1 % eye drops 1 drp ophthalmic (eye) PRN PRN Dry 05/28/20 12/03/23 Eye(S) potassium citrate 10 mEq (1,080 10 meq PO BID@0800,2200 05/28/20 12/03/23 mg) tablet,extended release tamsulosin 0.4 mg capsule 0.4 mg PO BID@0800,2200 05/28/20 12/03/23 carboxymethylcellulose sodium 1 % 1 drp ophthalmic (eye) BEDTIME 11/19/20 12/03/23 eye gel in a dropperette (Refresh Celluvisc) multivitamin 1 tab PO DAILY 11/19/20 12/03/23 oxybutynin chloride 5 mg 5 mg PO QAM 11/19/20 12/03/23 tablet,extended release 24 hr polyvinyl alcohol-povidone (PF) 1 drp ophthalmic (eye) . DIRECTED 11/19/20 12/03/23 1.4 %-0.6 % eye drops in a dropperette (Refresh Classic (PF)) amlodipine 5 mg tablet 10 mg PO BEDTIME 03/29/21 12/03/23 ibuprofen 600 mg tablet 600 mg PO Q8H PRN 09/05/22 12/03/23 losartan 25 mg tablet 25 mg PO DAILY 12/03/23 12/03/23 Previous Rx's Medication Instructions Recorded custom molded accomadative #1 ea 10/19/20 orthotic Custom Molded Sole Supports #1 ea 12/01/20 mirtazapine 15 mg tablet 7.5 mg (1/2 x 15 mg) PO .at 01/25/21 bedtime #30 tabs pantoprazole 40 mg tablet,delayed 40 mg PO DAILY 30 days #30 tabs 02/23/22 release (Protonix) sucralfate 1 gram tablet (Carafate) 1 g PO TID 12 weeks #252 tabs 02/23/22 albuterol sulfate 90 mcg/actuation 2 inh inhalation Q4H PRN shortness 05/13/22 aerosol inhaler of breath or wheezing #6.7 grams ibuprofen 600 mg tablet 600 mg PO Q8H PRN pain #60 tabs 08/29/22 sildenafil 100 mg tablet 100 mg PO PRN PRN Erectile 05/22/23 Dysfunction #30 tabs ondansetron 8 mg disintegrating 8 mg PO Q8H PRN nausea and 08/02/23 tablet vomiting 5 days #15 tabs gabapentin 300 mg capsule 600 mg (2 x 300 mg) PO QID 90 days 09/09/23 #720 caps Allergies Allergy/AdvReac Type Severity Reaction Status Date / Time morphine Allergy Unknown psychotic Verified 12/03/23 09:08 reaction PFSH ED 2 PFSH: Medical History PVCs (premature ventricular contractions) Polyneuropathy, peripheral sensorimotor axonal PTSD (post-traumatic stress disorder) Gastroesophageal reflux disease with esophagitis Obstructive sleep apnea Bradycardia Memory loss Erectile dysfunction Hypertrophy of prostate with urinary obstruction Urolithiasis TIA (transient ischemic attack) Hypertension, accelerated Surgical History History of colonoscopy with polypectomy (03/30/21) ascending colon polyp, diverticulosis Hx of brain surgery History of ureter stent Hx of lithotripsy Hx of cholecystectomy Hx of hernia repair Family History Mother , at age 82 Cancer bone Hypertension Father , at age 84 Lung disease Social History Smoking and tobacco/nicotine status: never used tobacco/nicotine Alcohol intake: never Substance/Drug Use: unknown Adopted: No Caregiver/support person: No Lives independently: No Marital status: Current occupational status: retired Current gender identity: Male Physical Exam 2 Const: COMMON NORMALS: no acute distress GENERAL APPEARANCE: frail appearing (mildly) ORIENTATION/CONSCIOUSNESS: Yes awake HENMT: COMMON NORMALS: normocephalic and atraumatic HEAD & SCALP: n ormocephalic and atraumatic MOUTH: moist mucous membranes abnormal Details: parched (mildly) Eye: COMMON NORMALS: EOMs intact bilaterally Neck/C-Spine: GENERAL: Yes trachea midline Chest: COMMONS NORMALS: normal palpation of entire chest wall Resp: COMMON NORMALS: normal respiratory effort, No use of accessory muscles and percussion normal EFFORT & INSPECTION: Yes symmetric chest movement P ERCUSSION: percussion normal Cardio: RATE: bradycardic RHYTHM: abnormal rhythm with ectopic beats GI: COMMON NORMALS: Normal to inspection, nondistended, normoactive bowel sounds present and Soft to palpation PALPATION: Yes Soft to palpation Extremity: GENERAL: Yes edema (Minimal) Course 2 Vital Signs: Vital signs: Vital Signs Temperature 97.4 F L 01/05/24 02:16 Pulse Rate 53 L 01/05/24 05:20 Respiratory Rate 17 01/05/24 05:20 Blood Pressure 130/80 01/05/24 05:20 Pulse Oximetry 96 01/05/24 05:20 Oxygen Delivery Me thod Room Air 01/05/24 02:26 MDM - Chest Pain Medical Decision Making Patient is bradycardic. As low as 38. Appears to be sinus. Frequent PVCs. He is feeling these symptomatically. Nitroglycerin relieves pressure. His EKG here timed 02: 16 reveals sinus bradycardia with a normal axis. Intervals are normal. Rate is 45. No ST wave changes are present. CBC is normal. BMP is not remarkable. Chest is nonacute. 2-hour delta troponin is 1.5. Magnesium is normal. Symptomatically he is improved. I wanted to keep this gentleman in observation on the monitor given the significant bradycardia. 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 He was counseled on risks of going home. He still wishes to go. He will be allowed discharge. He knows to return for any return of symptoms or any other concerns. Lab Data 01/05/24 02:24 01/05/24 02:24 Radiology Impressions Chest X-Ray 01/05/24 02:19 IMPRESSION: No acute findings. Laboratory Results WBC 7.81 10^3/uL (3.29-11.43) 01/05/24 02:24 RBC 4.42 10^6/uL (3.85-5.65) 01/05/24 02:24 Hgb 13.40 g/dL (11.27-16.99) 01/05/24 02:24 Hct 41.4 % (37-53) 01/05/24 02:24 MCV 93.7 fl (82-101) 01/05/24 02:24 MCH 30.3 pg (27-33) 01/05/24 02:24 MCHC 32.4 g/dL (30-55) 01/05/24 02:24 RDW 14.2 % (12.1-15.1) 01/05/24 02:24 Plt Count 191 10^3/cmm (157-399) 01/05/24 02:24 MPV 10.2 fL (7.4-10.4) 01/05/24 02:24 Neut % (Auto) 66.1 % 01/05/24 02:24 Lymph % (Auto) 24.3 % 01/05/24 02:24 Hitchcock % (Auto) 7.2 % 01/05/24 02:24 Eos % (Auto) 1.7 % 01/05/24 02:24 Baso % (Auto) 0.3 % 01/05/24 02:24 Neut # (Auto) 5.17 10^3/uL (1.8-7.7) 08/25/24 02:24 Lymph # (Auto) 1.9 10^3/uL (0.8-4.8) 01/05/24 02:24 Hitchcock # (Auto) 0.6 10^3/uL (0.2-0.9) 01/05/24 02:24 Eos # (Auto) 0.1 10^3/uL (0.0-0.8) 01/05/24 02:24 Baso # (Auto) 0.0 10^3/uL (0.0-0.1) 01/05/24 02:24 Nucleated RBC % (auto) 0 % 01/05/24 02:24 Nucleated RBCs # 0.0 /100WBC 01/05/24 02:24 PT 12.40 SECONDS (12.1-14.9) 01/05/24 02:24 INR 0.90 (0.8-1.2) 01/05/24 02:24 APTT 27.8 SECONDS (23.9-36.7) 01/05/24 02:24 Sodium 142 mmol/L (136-145) 01/05/24 02:24 Potassium 4.6 mmol/L (3.5-5.1) 01/05/24 02:24 Chloride 108 mmol/L (98-107) H 01/05/24 02:24 Carbon Dioxide 24 mmol/L (22-29) 01/05/24 02:24 Anion Gap 14.6 (5-19) 01/05/24 02:24 BUN 15 mg/dL (8-23) 01/05/24 02:24 Creatinine 0.8 mg/dL (0.7-1.2) 01/05/24 02:24 GFR Calculation 96.4 mL/min (90-130) 01/05/24 02:24 Glucose 112 mg/dL (65-115) 01/05/24 02:24 Calculated Osmolality 296 mOsm/kg (285-295) H 01/05/24 02:24 Calcium 9.2 mg/dL (8.5-10.5) 01/05/24 02:24 Magnesium 2.1 mg/dL (1.7-2.3) 01/05/24 02:24 Total Bilirubin 0.3 mg/dL (0.15-1.2) 01/05/24 02:24 AST 18 U/L (0-40) 01/05/24 02:24 ALT 24 U/L (0-41) 01/05/24 02:24 Alkaline Phosphatase 140 U/L (40-130) H 01/05/24 02:24 Troponin T Baseline < 6 ng/L (0-15) 01/05/24 02:24 Troponin T 120 Minute 7.51 ng/L (0-15) 01/05/24 04:13 Delta Troponin T 1.48498 ABS# (0-10) 01/05/24 04:13 NT-Pro-B Natriuret Pep 44 pg/mL (0-125) 01/05/24 02:24 Total Protein 6.1 g/dL (6.6-8.7) L 01/05/24 02:24 Albumin 3.9 g/dL (3.5-5.2) 01/05/24 02:24 Globulin 2.2 g/dL (1.3-4.6) 01/05/24 02:24 All radiology interpretation(s) finalized by discharge Discharge Plan Discharge Patient Disposition: Home Clinical Impression: Bradycardia, Chest pain, PVCs (premature ventricular contractions) Condition: Stable Prescriptions: No Action (DME) custom molded accomadative orthotic See Rx Instructions .Route .MEDSUPPLY Qty: 1 0RF Rx Instructions: As directed mirtazapine 15 mg tablet 7.5 mg PO .at bedtime Qty: 30 0RF ibuprofen 600 mg tablet 600 mg PO Q8H PRN (Reason: pain) Qty: 60 0RF ibuprofen 600 mg tablet 600 mg PO Q8H PRN ondansetron 8 mg tablet,disintegrating 8 mg PO Q8H PRN (Reason: nausea and vomiting) 5 Days Qty: 15 0RF albuterol sulfate 90 mcg/actuation HFA aerosol inhaler 2 inh inhalation Q4H PRN (Reason: shortness of breath or wheezing) Qty: 6.7 0RF losartan 25 mg tablet 25 mg PO DAILY (DME) Custom Molded Sole Supports See Rx Instructions .Route .MEDSUPPLY Qty: 1 0RF Rx Instructions: As directed sildenafil 100 mg tablet 100 mg PO PRN PRN (Reason: Erectile Dysfunction) Qty: 30 1RF Rx Instructions: 1 TABLET, 1 hour before intercourse, take on empty stomach, no nitroglycerin.; gabapentin 300 mg capsule 600 mg PO QID 90 Days Qty: 720 3RF Rx Instructions: Take 2 caps four times daily. atorvastatin 20 mg tablet 20 mg PO BEDTIME amlodipine 5 mg tablet 5 mg PO QAM Rx Instructions: 5mg po qam and 10mg po bedtime allopurinol 100 mg tablet 100 mg PO DAILY@0800 tamsulosin 0.4 mg capsule 0.4 mg PO BID@0800,2200 potassium citrate 10 mEq (1,080 mg) tablet extended release 10 meq PO BID@0800,2200 metoprolol succinate 25 mg tablet extended release 24 hr 12.5 mg PO DAILY@0800 finasteride 5 mg tablet 5 mg PO DAILY@0800 magnesium oxide 400 mg magnesium capsule 400 mg PO DAILY@0800 olopatadine 0.1 % drops 1 drp ophthalmic (eye) PRN PRN (Reason: Dry Eye(S)) Rx Instructions: use as directed prn multivitamin Tablet 1 tab PO DAILY oxybutynin chloride 5 mg tablet extended release 24hr 5 mg PO QAM Refresh Classic (PF) 1.4-0.6 % dropperette 1 drp ophthalmic (eye) . DIRECTED carboxymethylcellulose sodium [Refresh Celluvisc] 1 % dropperette,gel 1 drp ophthalmic (eye) BEDTIME amlodipine 5 mg tablet 10 mg PO BEDTIME Protonix 40 mg tablet,delayed release (DR/EC) 40 mg PO DAILY 30 Days Qty: 30 3RF Carafate 1 gram tablet 1 g PO TID 84 Days Qty: 252 2RF Discharge Orders: Discharge ED (Routine); Ordered 01/05/24 Ordered By: Rajinder Ahn Referrals: Vonda Perez MD [Physician] - 1-3 days Adelita Rod FNP [Primary Care Provider] - Patient Instructions: Chest Pain (ED), Bradycardia (ED), Premature Ventricular Contractions (ED), Opioid Safety, Pain Management Activity Restrictions/Additional Instructions: Return for any return of or worsening chest pressure, shortness of breath, syncope or passing out, mental status changes, any other concerning symptoms. Call your cardiology doctor on Saturday for a follow-up appointment. Do not take any rate lowering drugs such as metoprolol. Coding Level of Care Code ED Tax Accounting Assistant for [place]
[2024-01-05 04:45] LABS: Troponin 5 2HR 7.51 ng/L (0-15); Troponin 5 2HR Delta 1.51001 ABS# (0-10)
== END 2024-01-05 05:23 | disposition home or self-care (01) ==
PROVIDERS: Emergency Provider Emergency Medicine; PCP Registered Nurse
DX: R07.9 Chest pain, unspecified (principal); R00.1 Bradycardia, unspecified; I49.3 Ventricular premature depolarization; Z86.73 Personal history of transient ischemic attack (TIA), and cerebral infarction without residual deficits; I10 Essential (primary) hypertension
CPT/HCPCS: 36415; 71045; 80053; 83735; 83880; 84484; 85025; 85610; 85730; 93005; 99285

== ENCOUNTER → 2024-01-16 12:29 | Outpatient (BNVA) | payer MEDICARE, OTHER, SELFPAY | PROVIDERS: PCP Registered Nurse; Visit Provider Internal Medicine Cardiovascular Disease | DX: R07.9 Chest pain, unspecified (principal); I49.8 Other specified cardiac arrhythmias; I49.3 Ventricular premature depolarization | CPT/HCPCS: 93005; 99213 ==

== ENCOUNTER → 2024-05-15 08:57 | Outpatient (BNVA) | payer MEDICARE, OTHER, SELFPAY | PROVIDERS: PCP Registered Nurse; Visit Provider Nurse Practitioner Family | DX: S50.911A Unspecified superficial injury of right forearm, initial encounter (principal); X58.XXXA Exposure to other specified factors, initial encounter; L82.1 Other seborrheic keratosis; L81.4 Other melanin hyperpigmentation; L57.8 Other skin changes due to chronic exposure to nonionizing radiation; Z85.820 Personal history of malignant melanoma of skin; Z08 Encounter for follow-up examination after completed treatment for malignant neoplasm; Z85.828 Personal history of other malignant neoplasm of skin; L82.0 Inflamed seborrheic keratosis; Z78.9 Other specified health status; R20.8 Other disturbances of skin sensation; D48.5 Neoplasm of uncertain behavior of skin; L57.0 Actinic keratosis | CPT/HCPCS: 11102; 17000; 17110; 99213 ==

== ENCOUNTER → 2024-06-12 08:46 | Outpatient (BNVA) | payer MEDICARE, OTHER, SELFPAY | PROVIDERS: PCP Registered Nurse; Visit Provider Nurse Practitioner Family | DX: S50.911A Unspecified superficial injury of right forearm, initial encounter (principal); X58.XXXA Exposure to other specified factors, initial encounter; L81.4 Other melanin hyperpigmentation; Z85.820 Personal history of malignant melanoma of skin; Z08 Encounter for follow-up examination after completed treatment for malignant neoplasm; Z85.828 Personal history of other malignant neoplasm of skin; L82.0 Inflamed seborrheic keratosis; R20.8 Other disturbances of skin sensation; Z78.9 Other specified health status; B07.8 Other viral warts; D48.5 Neoplasm of uncertain behavior of skin; L57.0 Actinic keratosis | CPT/HCPCS: 11102; 17000; 17110; 99213 ==

== ENCOUNTER → 2024-07-31 08:07 | Outpatient (BNVA) | payer MEDICARE, OTHER, SELFPAY | PROVIDERS: PCP Registered Nurse; Visit Provider Nurse Practitioner Family | DX: I10 Essential (primary) hypertension (principal); I49.3 Ventricular premature depolarization; R00.1 Bradycardia, unspecified | CPT/HCPCS: 99213 ==

== ENCOUNTER → 2024-09-03 08:08 | Outpatient (BNVA) | payer MEDICARE, OTHER, SELFPAY | PROVIDERS: PCP Registered Nurse; Visit Provider Specialist | DX: M54.12 Radiculopathy, cervical region (principal); G60.3 Idiopathic progressive neuropathy | CPT/HCPCS: 99213 ==

== ENCOUNTER 2024-09-14 07:01 | Outpatient (CLI) | payer MEDICARE, OTHER, SELFPAY ==
--- NOTE | 2024-09-14 07:15 | MR_ITS ---
WS: [id number] MRI CERVICAL SPINE WITH AND WITHOUT CONTRAST. COMPARISON: 09/17/2023 Multiplanar, multisequence imaging is performed with and without contrast. Postcontrast imaging MultiHance 20 mL. Mild increase in the cervical lordosis. Signal within the cord is normal. Moderate spondylitic changes. No abnormal enhancement within the cord of the vertebral bodies. Hemangioma C5. Most significant degenerative disc disease at C4-5. C2-3: No stenosis. Mild facet arthritis. C3-4: Mild osteophytic ridging. Moderate RIGHT and mild LEFT foraminal stenosis predominantly due to osteophytes and mild central stenosis. Mild bilateral facet arthritis. C4-5: Disc osteophyte complex with osteophytic ridging. Moderate bilateral foraminal stenosis due to osteophytes and moderate facet arthritis. Moderate central stenosis. Similar to the prior study. C5-6: Disc osteophyte complex with osteophytic ridging. Moderate to severe LEFT foraminal stenosis due to osteophytes. Bilateral facet joint arthritis. There is moderate central and mild RIGHT foraminal stenosis. C6-7: Mild diffuse osteophytic ridging and mild facet arthritis. Minimal LEFT foraminal narrowing. C7-T1: No central stenosis. Mild disc bulging. Mild bilateral foraminal stenosis due to osteophytes. Craniocervical junction is normal. No abnormality noted at the skull base. No adenopathy. Mild cervical varicosities reidentified. MR/MR cervical spine wo/w [id number] IMPRESSION: 1. No cord or cervical vertebral body enhancement. No mass. 2. Cervical spondylosis very similar to the study of 09/17/2023. Multiple levels of stenosis. 3. C5-6: Moderate central with moderate to severe LEFT foraminal stenosis and mild RIGHT foraminal stenosis, unchanged. 4. Moderate RIGHT foraminal stenosis at C3-4. 5. C4-5: Moderate central stenosis with moderate bilateral foraminal stenosis, no change. 6. Very mild foraminal stenosis at C7-T1 and on the LEFT at C6-7.
[2024-09-14] MEDS: gadobenate dimeglumine 20 mL vial IV (08:11)
== END 2024-09-14 07:02 | disposition home or self-care (01) ==
PROVIDERS: PCP Registered Nurse; Visit Provider Specialist
DX: M54.12 Radiculopathy, cervical region (principal); M47.892 Other spondylosis, cervical region; M48.02 Spinal stenosis, cervical region; M48.05 Spinal stenosis, thoracolumbar region; R93.7 Abnormal findings on diagnostic imaging of other parts of musculoskeletal system; D18.09 Hemangioma of other sites; M50.321 Other cervical disc degeneration at C4-C5 level; M25.78 Osteophyte, vertebrae; M50.33 Other cervical disc degeneration, cervicothoracic region
CPT/HCPCS: 72156; A9577

== ENCOUNTER → 2024-10-09 08:03 | Outpatient (BNVA) | payer MEDICARE, OTHER, SELFPAY | PROVIDERS: PCP Registered Nurse; Visit Provider Nurse Practitioner Family | DX: L81.4 Other melanin hyperpigmentation (principal); L82.1 Other seborrheic keratosis; L57.8 Other skin changes due to chronic exposure to nonionizing radiation; X32.XXXA Exposure to sunlight, initial encounter; L73.8 Other specified follicular disorders; Z85.820 Personal history of malignant melanoma of skin; Z08 Encounter for follow-up examination after completed treatment for malignant neoplasm; Z85.828 Personal history of other malignant neoplasm of skin; L57.0 Actinic keratosis | CPT/HCPCS: 17000; 99213 ==

== ENCOUNTER 2024-11-27 20:24 | Emergency (ER) | payer MEDICARE, OTHER, SELFPAY ==
--- OUTSIDE RECORDS SUMMARY | 2003-05-12 19:00 | XMS_ITS | Continuity of Care Document ---
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 Architect Name Role Phone [facility] Unavailable Unavailable Problems Problem Status Onset Date Problem Type Date of Resolution Comments Source Central serous chorioretinopathy (disorder) Active Condition Allergies, Adverse Reactions, Alerts Substance Category Reaction Severity Reaction type Status Date Reported Comments Source morphine Assertion Drug allergy Active [facility] Encounters Location Location Details Encounter Type Encounter Number Reason For Visit Attending Provider ADM Date DC Date Status Source EYE EYE OUTPATIENT [id number] 4 MONTH OCT Cruz Rolo Fabian [facility]
--- OUTSIDE RECORDS SUMMARY | 2024-03-19 03:53 | XMS_ITS | Encounter Summary ---
Author Name [facility] [place] [facility] [place] [facility] [place] Address [address] [place] [address] Care Team Providers Care Patrol Guard Name Role Phone ATA RAMON Primary Care Provider Unavailabl e Insurance Providers: All historical and current Section Date Range: From patient's date of to the date document was created. This section includes the names of all active insurance providers for the patient. Insurance Provider Type of Coverage Plan Name Start of Policy Coverage End of Policy Coverage Group Number Member ID Insurance Provider's Telephone Number Policy Gallegos's Name Patient's Relationship to Policy Gallegos AETNA [facility] VISION AETNA VISIO N May 13, 2018 [id number] [phone] GRETTA CARUSO RY PATIENT AETNA VISION VISION AETNA VISIO N May 13, 2018 [id number] GRETTA CARUSO RY PATIENT [employer] [facility] RE DODA May 13, 2017 DODA [id number] GRETTA CARUSO RY PATIENT MEDICARE (WNR) MEDICARE (M) PART A May 13, 2021 PART A [id number] GRETTA CARUSO RY PATIENT MEDICARE (WNR) MEDICARE (M) PART B May 13, 2021 PART B [id number] HUITT,LAR RY PATIENT MEDICARE (WNR) MEDICARE (M) PART A Jun 13, 2016 PART A [id number] HUITT,LAR RY PATIENT MEDICARE (WNR) MEDICARE (M) PART B Jun 13, 2016 PART B [id number] HUITT,LAR RY PATIENT MEDICARE (WNR) MEDICARE (M) PART A Jun 13, 2016 PART A [id number] HUITT,LAR RY PATIENT MEDICARE (WNR) MEDICARE (M) PART B Jun 13, 2016 PART B [id number] HUITT,LAR RY PATIENT FOR LIFE TRICA RE FOR LIFE May 13, 2017 FOR LIFE [id number] HUITT,LAR RY PATIENT -FO R-LIFE TRICA RE FOR LIFE WNR May 13, 2017 FOR LIFE [id number] [phone] HUITT,LAR RY PATIENT -FO R-LIFE TRICA RE FOR LIFE May 13, 2017 TFL [id number] [phone] HUITT,LAR RY PATIENT Selected Encounter This section includes the information on record at [place] for the Encounter. Date/Time Encounter Type Encounter Description Reason Pro vider Source Mar 19, 2024 08:53 AM Outpatient Encounter ADMIN PAT ACTIVTIES (MASNONCT) I[facility] Encounter Template Text not used by [place] Plan of Treatment: Future Appointments (+ 6 months) and Future Tests (+/- 45 days) The Plan of Treatment section includes future care activities for the patient from all [place] treatmentfacilities. This section includes future appointments and future orders which are active, pending or scheduled. Future Appointments This section includes appointments that were scheduled to occur 6 months from the date of the Encounter, up to a maximum of 20 appointments. The data comes from all [place] treatment facilities. Appointment Date/Time Appointment Type Appointme nt Facility Name Mar 24, 2024 02:00 PM AMBULATORY - MEDICINE [facility] Mar 31, 2024 02:00 PM AMBUL[facility]ORY - MEDICINE [facility] May 12, 2024 02:00 PM [facility] - MEDICINE [facility] May 19, 2024 02:00 PM [facility] [facility] May 26, 2024 02:00 PM [facility] Jun 09, 2024 09:00 AM [facility] [place] [facility] Jun 09, 2024 02:00 PM [facility] Jun 16, 2024 02:00 PM [facility] Jun 23, 2024 02:00 PM [facility] Jun 30, 2024 02:00 PM [facility] Jul 07, 2024 02:00 PM [facility] Jul 14, 2024 02:00 PM [facility] Jul 21, 2024 02:00 PM [facility] Jul 28, 2024 02:00 PM [facility] Aug 04, 2024 02:00 PM [facility] Aug 11, 2024 02:00 PM [facility] Aug 25, 2024 02:00 PM [facility] Sep 01, 2024 02:00 PM [facility] Sep 08, 2024 02:00 PM [facility] September 15, 2024 02:00 PM [facility] Social History: Smoking Status (Most current) and Tobacco Use (All prior to encounter date) This section includes the most current, and the historical, smoking and tobacco- related health factors from the [place] facility where the Encounter took place. Current Smoking Status This section includes the most current smoking, or tobacco-related health factor, from the [place] facility where the Encounter took place. Date/Time Current Smoking Status Comment Facil ity Nov 18, 2023 10:30 AM VA-TOBACCO NEVER USED [facility] Tobacco Use History This section includes a history of the smoking, or tobacco-related health factors, that were collected on or before the date of the Encounter. The data comes from the [place] facility where the Encounter took place. Date/Time Smoking Status/Tobacco Use Comment F acility Nov 05, 2022 01:00 PM VA-TOBACCO NEVER USED [facility] Sep 04, 2021 03:00 PM VA-TOBACCO NEVER USED [facility] Feb 26, 2020 08:31 AM VA-TOBACCO NEVER USED [facility] Encounter Notes: All associated encounter notes This section contains the clinical notes associated to the Encounter. Date/Time Encounter Note(s) Provider Source Mar 19, 2024 08:53 AM GENERAL MEDICINE N OTE: LOCAL TITLE: General Note PB STANDARD TITLE: GENERAL MEDICINE NOTE DATE OF NOTE: MAR 19, 2024@08:53 ENTRY DATE: MAR 19, 2024@08:53:20 AUTHOR: GÉNESIS RUIZ EXP COSIGNER: URGENCY: STATUS: COMPLETED Eye Care At-Risk Screen - L,N,PH,U: Patient identified to be at risk for the following eye condition(s): MACULAR DEGENERATION: Macular Degeneration Risk Factors Information: Reminder Term: VA-AMD RISK FACTORS Encounter Diagnosis: 11/18/2023@10:30 H35.30 (ICD-10-CM) Unspecified Macular Degeneration rank: SECONDARY Prov. Narr. - History of macular degeneration ([facility] [id number]) Action: No Referral Ordered: Eye exam completed elsewhere by an Senior Electrical Designer or Char Filter Tank Tender Exam Information: Date: March 06, 2024 Findings/Comment is blind-not a candidate for inhouse tele eye exam Location: [facility] Mera Barillas /cindi/ GÉNESIS RUIZ Telehealth Clinical Leather Leveler Signed: 03/19/2024 08:55 GÉNESIS RUIZ [facility]
--- OUTSIDE RECORDS SUMMARY | 2024-06-23 10:00 | XMS_ITS ---
Author Organization [facility] Address [address] [place] [address] Care Team Providers Care Hvac Lead Name Role Phone Adelita Rod Primary Care Provider JORGE LUIS Johnson Unavailable [phone] Daniel Ledezma Unavailable Unavailable REASON FOR VISIT L ESWL @ MAIN OR Encounters Encounter Location Date Provider Diagnosis [facility] [address] [facility] [place] [address] 06/23/2024 JORGE LUIS PA Plan Of Treatment Next Appt Details Provider Name:JORGE LUIS LEON Jefe, 12/21/2024 04:10:00 PM, [address] [place], [address], Progress Notes * Brock LOPES EDOB:1955 (69 yo M)Acc No.[id number]:06/23/2024 Patient: Scott Brock ISABEL Provider: Bradley PA MD :1955 A ge:69 Y S ex:Male Date:06/23/2024 Address:[address] [place] [address] Pcp:Adelita Rod * Billing Information: * Visit Code: * Procedure Codes: * Electronic signature of AUST IN MD THIERNO on 11/27/2024 at 08:36 PM CDT Sign off status: Pending * Provider: Bradley PA MD Date: 0 06/23/2024 Generated for Inder ennis/Isma/Юлия on: 0 11/27/2024 08:36 PM CDT
--- OUTSIDE RECORDS SUMMARY | 2024-08-04 09:00 | XMS_ITS | Encounter Summary ---
Author Name [facility] [place] [facility] [place] Address [address] [place] [address] Care Team Providers Care Patient Placement Coordinator Name Role Phone ARUNA PITTMAN Primary Care Provider Unavailabl e Insurance Providers: [...] Name Patient's Relationship to Policy Gallegos AETNA [facility] VISION AETNA VISIO N May 13, 2018 [id number] [phone] GRETTA CARUSO RY PATIENT AETNA VISION VISION AETNA VISIO N May 13, 2018 [id number] GRETTA CARUSO RY PATIENT [employer] TRICA RE DOD[place] May 13, 2017 DODA [id number] [phone] GRETTA CARUSO RY PATIENT MEDICARE (WNR) MEDICARE (M) PART A May 13, 2021 PART A [id number] [phone] GRETTA CARUSO RY PATIENT MEDICARE (WNR) MEDICARE (M) PART B May 13, 2021 PART B [id number] HUITT,LAR RY PATIENT MEDICARE (WNR) MEDICARE (M) PART A Jun 13, 2016 PART A [id number] HUITT,LAR RY PATIENT MEDICARE (WNR) MEDICARE (M) PART B Jun 13, 2016 PART B [id number] [phone] HUITT,LAR RY PATIENT MEDICARE (WNR) MEDICARE (M) PART A Jun 13, 2016 PART A [id number] [phone] HUITT,LAR RY PATIENT MEDICARE (WNR) MEDICARE (M) PART B Jun 13, 2016 PART B [id number] HUITT,LAR RY PATIENT FOR LIFE TRICA RE FOR LIFE May 13, 2017 FOR LIFE [id number] [phone] HUITT,LAR RY PATIENT -FO R-LIFE TRICA RE FOR LIFE WNR May 13, 2017 FOR LIFE [id number] [phone] HUITT,LAR RY PATIENT -FO R-LIFE TRICA RE FOR LIFE May 13, 2017 TFL [id number] [phone] HUITT,LAR RY PATIENT Selected Encounter This section includes the information on record at [place] for the Encounter. Date/Time Encounter Type Encounter Description Reason Provider Source Aug 04, 2024 02:00 PM ACUP 1/> WO ESTIM 1ST 15 MIN PRIMARY CARE/MEDICINE ICD-10-CM M54.2 Cervicalgia ARUNA PITTMAN Charli Encounter Template Text not used by [place] Assessments - Encounter Diagnoses This section includes the primary and secondary diagnoses documented for the Encounter. Date/Time Primary/Secondary Diagnosis Diagnosis Name Provider Source Aug 04, 2024 03:55 PM PRIMARY Cervicalgia [facility] PITTM[facility] Aug 04, 2024 03:55 PM SECONDARY Low back pain, unspecified [facility] Plan of Treatment: Future Appointments (+ 6 months) and Future Tests (+/- 45 days) The Plan of Treatment section includes future care activities for the patient from all VA treatmentfacilities. This section includes future appointments and future orders which are active, pending or scheduled. Future Appointments This section includes appointments that were scheduled to occur 6 months from the date of the Encounter, up to a maximum of 20 appointments. The data comes from all [place] treatment facilities. Appointment Date/Time Appointment Type Appointme nt Facility Name Aug 11, 2024 02:00 PM [facility] Aug 25, 2024 02:00 PM [facility] Sep 01, 2024 02:00 PM [facility] Sep 08, 2024 02:00 PM [facility] September 15, 2024 02:00 PM [facility] September 22, 2024 02:00 PM [facility] Oct 27, 2024 02:00 PM [facility] Nov 09, 2024 08:20 AM [facility] Nov 10, 2024 02:00 PM [facility] Nov 16, 2024 09:00 AM [facility] Dec 17, 2024 01:50 PM [facility] [place] [facility] Social History: Smoking Status (Most current) and Tobacco Use (All prior to encounter date) This section includes the most current, and the historical, smoking and tobacco- related health factors from the VA facility where the Encounter took place. Current Smoking Status This section includes the most current smoking, or tobacco-related health factor, from the VA facility where the Encounter took place. Date/Time Current Smoking Status Comment Facil ity Nov 18, 2023 10:30 AM VA-TOBACCO NEVER USED [facility] Tobacco Use History This section includes a history of the smoking, or tobacco-related health factors, that were collected on or before the date of the Encounter. The data comes from the [place] facility where the Encounter took place. Date/Time Smoking Status/Tobacco Use Comment F acility Nov 05, 2022 01:00 PM VA-TOBACCO [facility] USED [facility] Sep 04, 2021 03:00 PM VA-TOBACCO NEVER USED [facility] Feb 26, 2020 08:31 AM VA-TOBACCO NEVER USED [facility] Encounter Notes: All associated encounter notes This section contains the clinical notes associated to the Encounter. Date/Time Encounter Note(s) Provider Source Aug 04, 2024 03:45 PM [facility] NOTE: LOCAL TITLE: [facility] ACUPUNCTURE NOTE STANDARD TITLE: [facility] NOTE DATE OF NOTE: AUG 04, 2024@15:45 ENTRY DATE: AUG 04, 2024@15:45:50 AUTHOR: ARUNA PITTMAN COSIGNER: URGENCY: STATUS: COMPLETED Follow up visit [place] Acupuncture was the only treatment given. Patient was evaluated and agreed to receive [place] Acupuncture (BFA). Patient was evaluated and agreed to receive [place] Acupuncture Protocol (BFA) for the following pain condition(s): Comment: neck and back Pre BFA Pain Numeric Rating Scale of site with highest pain: 6 The patient was asked the following questions: During the past 24 hours, how much has your pain interfered with your usual activity? 7 During the past 24 hours, how much has your pain interfered with your usual sleep? 6 During the past 24 hours, how much has the pain affected your usual mood? 7 During the past 24 hours, how much has pain contributed to your stress? 7 Oral informed consent obtained for BFA. Procedure: Ear was prepped with alcohol Needle type: Adhesive press tacks 0.9mm The following points were placed: All 10 points in both ears Complications: Patient tolerated well, without any complications. Post treatment Numeric Pain Rating Scale: 40% overall improvement Standard [id number] time for application of BFA protocol is 15 minutes. No electrical stimulation was used. Face to face time spent durin gthis procedure in the delivery of BFA was 15 minutes. The patient was provided with the following post BFA instructions: -Continue normal activities and avoid over exertion for the initial 6-12 hours after a treatment. Avoid alcohol for 12 hours after treatment. -You may bathe or shower with the needles in place, but be careful not to pull the needles when cleaning or drying the ear. -If you experience new or continued redness, swelling or pain, remove the needles or return to clinic for evaluation and/or needle removal. -You may experience drowsiness, lightheadedness, or euphoria during the treatment or within 30 minutes of treatment. -Do not have an MRI scan with the needles in place (If you need to have an MRI, please remove needles prior to scan). -Continue to take all prescription medication according to your provider's instructions. -After three days, remove all needles. You may have small stud needles (ASP needles) covered by an adhesive bandage, or needles that are attached to the adhesive bandage (press tack needles). ASP needles may be removed by gripping them with your fingernails or tweezers. Rock the needles back and forth to remove. Press tack needles may be removed by peeling off the tape that holds the needle in place. -[place] must be placed in a sharps container or household container that meets sharps disposal guidelines. Household container must be: a. made of a puncture-resistant material; b. able to close with a tight-fitting, puncture resistant lid, without sharps being able to come out; c. stand upright and be stable during use; d. leak-resistant; e. properly labeled (sharps - biohazard); and f. disposed of according to community guidelines, if available. -Please keep all regularly scheduled follow-up visits. Return sooner should your condition worsen. Future visit dates/details: norbert /cindi/ Aruna Pittman MD [facility] Primary Care Signed: 08/04/2024 15:55 ARUNA PITTMAN [facility]
--- OUTSIDE RECORDS SUMMARY | 2024-09-22 09:00 | XMS_ITS | Encounter Summary ---
Author Name [facility] [place] Address [address] [place] [address] Care Team Providers Care Survey Researcher Name Role Phone ARUNA PITTMAN Primary Care [...] Relationship to Policy Gallegos AETNA [facility] VISION AETNA VISIO N May 13, 2018 [id number] [phone] GRETTA CARUSO RY PATIENT AETNA VISION VISION AETNA VISIO N May 13, 2018 [id number] [phone] GRETTA CARUSO RY PATIENT [employer] TRICA RE DODA May 13, 2017 DODA [id number] GRETTA CARUSO RY PATIENT MEDICARE (WNR) MEDICARE (M) PART A May 13, 2021 PART A [id number] GRETTA CARUSO RY PATIENT MEDICARE (WNR) MEDICARE (M) PART B May 13, 2021 PART B [id number] [phone] HUITT,LAR RY PATIENT MEDICARE (WNR) MEDICARE (M) PART A Jun 13, 2016 PART A [id number] HUITT,LAR RY PATIENT MEDICARE (WNR) MEDICARE (M) PART B Jun 13, 2016 PART B [id number] [phone] HUITT,LAR RY PATIENT MEDICARE (WNR) MEDICARE (M) PART A Jun 13, 2016 PART A [id number] [phone] HUITT,LAR RY PATIENT MEDICARE (WNR) MEDICARE (M) PART B Jun 13, 2016 PART B [id number] [phone] HUITT,LAR RY PATIENT FOR LIFE TRICA RE FOR LIFE May 13, 2017 FOR LIFE [id number] [phone] HUITT,LAR RY PATIENT -FO R-LIFE TRICA RE FOR LIFE WNR May 13, 2017 FOR LIFE [id number] [phone] HUITT,LAR RY PATIENT -FO R-LIFE TRICA RE FOR LIFE May 13, 2017 TFL [id number] [phone] HUITT,LAR RY PATIENT Selected Encounter This section includes the information on record at [place] for the Encounter. Date/Time Encounter Type Encounter Description Reason Provider Source September 22, 2024 02:00 PM ACUP 1/> WO ESTIM 1ST 15 MIN PRIMARY CARE/MEDICINE ICD-10-CM M54.2 Cervicalgia ARUNA PITTMAN Charli Encounter Template Text not used by [place] Assessments - Encounter Diagnoses This section includes the primary and secondary diagnoses documented for the Encounter. Date/Time Primary/Secondary Diagnosis Diagnosis Name Provider Source September 22, 2024 03:58 PM PRIMARY Cervicalgia [facility] September 22, 2024 03:58 PM SECONDARY Low back pain, unspecified ARUNA [...] 20 appointments. The data comes from all [place] treatment facilities. Appointment Date/Time Appointment Type Appointme nt Facility Name Oct 27, 2024 02:00 PM [facility] Nov 09, 2024 08:20 AM [facility] Nov 10, 2024 02:00 PM [facility] Nov 16, 2024 09:00 AM [facility] Dec 17, 2024 01:50 PM [facility] [place] [facility] Social History: Smoking Status (Most current) and Tobacco Use (All prior to encounter date) This section includes the most current, and the historical, smoking and tobacco- related health factors from the [place] facility where the Encounter took place. Current Smoking Status This section includes the most current smoking, or tobacco-related health factor, from the [facility] facility where the Encounter took place. Date/Time Current Smoking Status Comment Facil ity Nov 18, 2023 10:30 AM VA-TOBACCO NEVER USED [facility] Tobacco Use History This section includes a history of the smoking, or tobacco-related health factors, that were collected on or before the date of the Encounter. The data comes from the [place] facility where the Encounter took place. Date/Time Smoking Status/Tobacco Use Comment F acility Nov 05, 2022 01:00 PM VA-TOBACCO NEVER USED [facility] Sep 04, 2021 03:00 PM VA-TOBACCO NEVER USED [facility] Feb 26, 2020 08:31 AM VA-TOBACCO NEVER USED [facility] Encounter Notes: All associated encounter notes This section contains the clinical notes associated to the Encounter. Date/Time Encounter Note(s) Provider Source September 22, 2024 03:57 PM [facility] NOTE: LOCAL TITLE: [place] ACUPUNCTURE NOTE STANDARD TITLE: [facility] NOTE DATE OF NOTE: SEPTEMBER 22, 2024@15:57 ENTRY DATE: SEPTEMBER 22, 2024@15:57:44 AUTHOR: ARUNA PITTMAN COSIGNER: URGENCY: STATUS: COMPLETED Follow up visit [place] Acupuncture was the only treatment given. Patient was evaluated and agreed to receive [place] Acupuncture (BFA). Patient was evaluated and agreed to receive [place] Acupuncture Protocol (BFA) for the following pain condition(s): Comment: neck and back Pre BFA Pain Numeric Rating Scale of site with highest pain: 6 The patient was asked the following questions: During the past 24 hours, how much has your pain interfered with your usual activity? 5 During the past 24 hours, how much has your pain interfered with your usual sleep? 6 During the past 24 hours, how much has the pain affected your usual mood? 7 During the past 24 hours, how much has pain contributed to your stress? 6 Oral informed consent obtained for BFA. Procedure: Ear was prepped with alcohol Needle type: Adhesive press tacks 0.9mm The following points were placed: All 10 points in both ears Complications: Patient tolerated well, without any complications. Post treatment Numeric Pain Rating Scale: 50% overall improvement Standard [id number] time for application of BFA protocol is [...] tape that holds the needle in place. -[place] must be placed in a sharps container [...] should your condition worsen. Future visit dates/details: prn /cindi/ Aruna Pittman MD [facility] Primary Care Signed: 09/22/2024 15:58 ARUNA PITTMAN [facility] September 22, 2024 02:06 PM NURSING PROGRESS N OTE: LOCAL TITLE: NURSING NOTE PB STANDARD TITLE: NURSING PROGRESS NOTE DATE OF NOTE: SEPTEMBER 22, 2024@14:06 ENTRY DATE: SEPTEMBER 22, 2024@14:06:29 AUTHOR: MERCEDES RAMIREZ COSIGNER: URGENCY: STATUS: COMPLETED Talked to the about the following requests for the following medications from providers the is seeing outside the [facility] without [facility] referral. Let the know that Dr. Pittman would need to see him and discuss these medications during his November PCP visit and she would decide at that time. The voiced understanding. The [place] has not been referred to Neurology through the [place] and was referred to Dr. Myles Slade in [place] at the 's request, there has not been a referral to [place]. The has been seeing both of these provider with non-VA insurance. -------- Check with patient to see if the prescription for eRx Drug: ropinirole 1 mg tablet is new from Dr. Matute as I do not see it on his list. His consult with Dr. Matute is not current they will need to send in an RFS for continuation of care I did refill his gabapentin. /cindi/ Aruna Pittman MD [facility] Primary Care Signed: 09/03/2024 15:49 ---- 09/18/2024 ADDENDUM STATUS: COMPLETED This [facility] talked to the concerning the medication that Red Slade sent to the [place]. Veterans consult for Dermatology is for [facility]. The [place] [facility], but that he has been going to [facility] for years and recently went to them for his annual appointment and they sent in a prescription. This [facility] advised the [place] that without an active consult the [place] pharmacy will not fill medications from an outside provider. is requesting to know if a consult could be placed for [facility]. I advised the [place] that I would alert the Care Team to his request. -- /cindi/ Mercedes Ramirez RN,BSN [place] Signed: 09/22/2024 14:19 MERCEDES RAMIREZ [facility]
--- OUTSIDE RECORDS SUMMARY | 2024-11-16 04:00 | XMS_ITS | Encounter Summary ---
Author Name [facility] [place] [facility] [place] Address [address] [place] [address] Care Team Providers [address] Glassware Replacer Name Role Phone ARUNA RAMON Primary Care Provider Unavailabl e Insurance [...] Name Patient's Relationship to Policy Gallegos AETNA [facility] VISION AETNA VISIO N May 13, 2018 [id number] [phone] GRETTA CARUSO RY PATIENT AETNA VISION VISION AETNA VISIO N May 13, 2018 [id number] GRETTA CARUSO RY PATIENT [employer] TRICA RE DODA May 13, 2017 DODA [id number] GRETTA CARUSO RY PATIENT MEDICARE (WNR) MEDICARE (M) PART A May 13, 2021 PART A [id number] GRETTA CARUSO RY PATIENT MEDICARE (WNR) MEDICARE (M) PART B May 13, 2021 PART B [id number] HUITT,LAR RY PATIENT MEDICARE (WNR) MEDICARE (M) PART A Jun 13, 2016 PART A [id number] [phone] HUITT,LAR RY PATIENT MEDICARE (WNR) MEDICARE (M) PART B Jun 13, 2016 PART B [id number] [phone] HUITT,LAR RY PATIENT MEDICARE (WNR) MEDICARE (M) PART A Jun 13, 2016 PART A [id number] HUITT,LAR RY PATIENT MEDICARE (WNR) MEDICARE (M) PART B Jun 13, 2016 PART B [id number] [phone] HUITT,LAR RY PATIENT FOR LIFE TRICA RE FOR LIFE May 13, 2017 FOR LIFE [id number] HUITT,LAR RY PATIENT -FO R-LIFE TRICA RE FOR LIFE WNR May 13, 2017 FOR LIFE [id number] [phone] HUITT,LAR RY PATIENT -FO R-LIFE TRICA RE FOR LIFE May 13, 2017 TFL [id number] [phone] HUITT,LAR RY PATIENT Selected Encounter This section includes the information on record at [place] for the Encounter. Date/Time Encounter Type Encounter Description Reason Provider Source Nov 16, 2024 09:00 AM OFFICE O/P EST MOD 30 MIN PRIMARY CARE/MEDICINE ICD-10-CM I10 Essential (primary) hypertension RISA RAMON Encounter Template Text not used by [place] Assessments - Encounter Diagnoses This section includes the primary and secondary diagnoses documented for the Encounter. Date/Time Primary/Secondary Diagnosis Diagnosis Name Provider Source Nov 16, 2024 09:52 AM PRIMARY Essential (primary) hypertension ARUNA RAMON [facility] Nov 16, 2024 09:52 AM SECONDARY Benign prostatic hyperplasia without lower urinry tract symp ARUNA RAMON [facility] Nov 16, 2024 09:52 AM SECONDARY Cervicalgia ARUNA RAMON [facility] Nov 16, 2024 09:52 AM SECONDARY Contact with and exposure to other hazardous substances ARUNA RAMON [facility] Nov 16, 2024 09:52 AM SECONDARY Elevated prostate specific antigen [PSA] YENNYARUNA TREVINO [facility] Nov 16, 2024 09:52 AM SECONDARY Gastro-esophageal reflux disease without esophagitis YENNYARUNA TREVINO [facility] Nov 16, 2024 09:52 AM SECONDARY Gout, unspecified YENNYARUNA TREVINOS [facility] Nov 16, 2024 09:52 AM SECONDARY Hyperlipidemia, unspecified [facility] Nov 16, 2024 09:52 AM SECONDARY Low back pain, unspecified YENNY,ARUNA [facility] Nov 16, 2024 09:52 AM SECONDARY Male erectile dysfunction, unspecified YENNYARUNAS MO [facility] Nov 16, 2024 09:52 AM SECONDARY Neuromuscular dysfunction of bladder, unspecified YENNYARUNA TREVINOS [facility] Nov 16, 2024 09:52 AM SECONDARY Polyneuropathy, unspecified YENNYARUNAS MO [facility] Nov 16, 2024 09:52 AM SECONDARY Polyp of colon YENNYARUNA TREVINOS [facility] Nov 16, 2024 09:52 AM SECONDARY Transient cerebral ischemic attack, unspecified YENNYARUNA TREVINOS [facility] Nov 16, 2024 09:52 AM SECONDARY Unspecified macular degeneration YENNYARUNA TREVINO [facility] Nov 16, 2024 09:52 AM SECONDARY Unspecified urinary incontinence YENNYARUNA TREVINOS [facility] Plan of Treatment: Future Appointments (+ 6 months) and Future Tests (+/- 45 days) The Plan of Treatment section includes future care activities for the patient from all [place] treatmentfacilities. This section includes future appointments and future orders which are active, pending or scheduled. Future Appointments This section includes appointments that were scheduled to occur 6 months from the date of the Encounter, up to a maximum of 20 appointments. The data comes from all [place] treatment facilities. Appointment Date/Time Appointment Type Appointme nt Facility Name Dec 17, 2024 01:50 PM AMBULATORY - MEDICINE [facility] Active, Pending, and Scheduled Orders This section includes a listing of several types of active, pending, and scheduled orders, including clinic medications orders, diagnostic test orders, procedure orders and consult orders; where the start date of the order is 45 days before the date of the Encounter or 45 days after the date of theEncounter. The data comes from all [place] treatment facilities. Test Date/Time Test Type Test Details Facility Name Nov 16, 2024 09:47 AM Consult Order [facility] [id number] Cons Inspector [employer] [facility] Nov 16, 2024 09:47 AM Consult Order [facility] [id number] Cons Inspector [facility] Nov 16, 2024 09:54 AM Consult Order [facility]-PHYSICAL [facility]ERAPY [id number] Cons Inspector [facility] Nov 24, 2024 12:50 PM Consult Order PROSTHETIC S REQUEST - OUTPT [id number] Cons Inspector [facility] Nov 27, 2024 03:07 PM Consult Order [facility]-UROLOGY PB [id number] Cons Inspector [employer] Choice [place] [facility] Lab Results: +/- 30 days of the encounter This section includes the Chemistry and Hematology Lab Results on record with [place] for the patient. Radiology Reports and Pathology Reports are provided separately, in subsequent sections. Lab Results This section contains the Chemistry/Hematology Results that were resulted 30 days before or 30 daysafter the date of the Encounter. Date/Time Source Result Type Result - Unit Interpretation Reference Range Specimen Type Comment Nov 09, 2024 08:05 AM [facility] PROST. SPECIFIC AG.(PB-STL) SERUM Specimen Ty pe: SERUM No comment entered. Ordering Provider: ARUNA RAMON Report Released Date/Time: Nov 18, 2023 11:44 AM Reporting Lab: [place] [facility] [address] [place] [address] Performing Lab: [place] [facility] [address] [place] [address] PROST. SPECIFIC AG.(PB-STL) 1.40 ng/mL 0 -4 Nov 09, 2024 08:05 AM [facility] HGA1C BLOOD Specimen Type: BLOOD No comment entered. Ordering Provider: ARUNA RAMON Report Released Date/Time: Nov 18, 2023 11:44 AM Reporting Lab: [place] [facility] [address] [place] [address] Performing Lab: [place] [facility] [address] [place] [address] HGA1C 6.2 H 4.0-6.0 Nov 09, 2024 08:05 AM [facility] TSH (MA-PB) SERUM Specimen Typ e: SERUM No comment entered. Ordering Provider: ARUNA RAMON Report Released Date/Time: Nov 18, 2023 11:44 AM Reporting Lab: [place] [facility] [address] [place] [address] Performing Lab: [place] [facility] [address] [place] [address] TSH 1.324 u[IU]/mL 0.47-5 Nov 09, 2024 08:05 AM [facility] CHOLESTEROL PANEL (PB) PLASMA Specimen Type: P LASMA No comment entered. Ordering Provider: ARUNA RAMON Report Released Date/Time: Nov 18, 2023 11:44 AM Reporting Lab: [place] [facility] [address] [place] [address] Performing Lab: [place] [facility] [address] [place] [address] CHOLESTEROL 140 mg/dL 0-200 TRIGLYCERIDE 227 mg/dL H 0-150 CALCULATED LDL 57.2 mg/dL HDL(New) 37.4 mg/dL L >40 HDL % OF TOTAL CHOLESTEROL (PB) 26.7 >25 Nov 09, 2024 08:05 AM [facility] COMPREHENSIVE METABOLIC PANEL PLASMA Specimen Type: PLASMA No comment entered. Ordering Provider: ARUNA RAMON Report Released Date/Time: Nov 18, 2023 11:44 AM Reporting Lab: [place] [facility] [address] [place] [address] Performing Lab: [place] [facility] [address] [place] [address] CREATININE 1.00 mg/dL 0.7-1.3 UREA NITROGEN 9 mg/dL 9-25 GLUCOSE 93 mg/dL 72-99 SODIUM 145 meq/L 136-145 POTASSIUM 4.7 meq/L 3.5-5 CHLORIDE 111 meq/L H 98-107 CARBON DIOXIDE 27 meq/L 22-31 CALCIUM 9.5 mg/dL 8.4-10.4 PROTEIN 6.4 g/dL 6-8.6 ALBUMIN 4.0 g/dL 3.4-5 TOTAL BILIRUBIN 0.4 mg/dL 0.2-1.2 ALKALINE PHOSPHATASE 98 U/L 40-150 AST/SGOT 18 U/L 5-34 ALT/SGPT 25 U/L 8-40 EGFR (CKD-EPI 2020) 82 Nov 09, 2024 08:05 AM [facility] CBC BLOOD Specimen Type: BLOOD No comment entered. Ordering Provider: ARUNA RAMON Report Released Date/Time: Nov 18, 2023 11:44 AM Reporting Lab: [place] [facility] [address] [facility] [address] Performing Lab: [place] [facility] [address] [address] [address] WBC 6.6 10*3/uL 3.6-11.2 RBC 4.70 10*6/uL 4.10-5.70 HGB 13.8 g/dL 13.1-16.8 HCT 43.6 38.2-48.4 MCV 92.8 fL 80.0-100.0 MCH 29.4 pg 27.0-34.0 MCHC 31.7 g/dL L 33.0-36.0 PLT 161 10*3/uL 150-400 MPV 10.9 fL 7.5-11.2 RDW 14.2 11.8-15.1 LYMPHOCYTES, AUTO % 23.1 MONOCYTES, AUTO % 7.5 NEUTROPHILS, AUTO % 65.7 EOSINOPHILS, AUTO % 3.1 BASOPHILS, AUTO % 0.3 LYMPHOCYTES, ABSOLUTE 1.51 10*3/uL 0.77- 4.50 MONOCYTES, ABSOLUTE 0.49 10*3/uL 0.19-0. 8 NEUTROPHILS, ABSOLUTE 4.31 10*3/uL 2.10- 8.00 EOSINOPHILS, ABSOLUTE 0.20 10*3/uL 0.00- 0.60 BASOPHILS, ABSOLUTE 0.02 10*3/uL 0.00-0. 20 IMMATURE GRANS, AUTO % 0.3 IMMATURE GRANS, AUTO ABS 0.02 10*3/uL 0. 00-0.05 Vital Signs: All taken on the encounter date This section contains inpatient and outpatient Vital Signs collected on the date of the Encounter. Date/Time Temperature Pulse Blood Pressure Respiratory Rate SP02 Pain Height Weight Body Mass Index Source Nov 16, 2024 09:22 AM 56 /min 150/86 mm[Hg] 97 % [facility] Nov 16, 2024 09:20 AM 98.5 F 56 /min 155/87 mm[Hg] 1 /min 97 % 6 71.0 in 236.1 lb 33 [facility] Social History: Smoking Status (Most current) and Tobacco Use (All prior to encounter date) This section includes the most current, and the historical, smoking and tobacco- related health factors from the [place] facility where the Encounter took place. Current Smoking Status This section includes the most current smoking, or tobacco-related health factor, from the [place] facility where the Encounter took place. Date/Time Current Smoking Status Comment Facil ity Nov 18, 2023 10:30 AM VA-TOBACCO NEVER USED [facility] Tobacco Use History This section includes a history of the smoking, or tobacco-related health factors, that were collected on or before the date of the Encounter. The data comes from the [place] facility where the Encounter took place. Date/Time [...] the Encounter. Date/Time Encounter Note(s) Provider Source Nov 16, 2024 09:52 AM [facility] NOTE: LOCAL TITLE: [place] ACUPUNCTURE NOTE STANDARD TITLE: [facility] NOTE DATE OF NOTE: NOV 16, 2024@09:52 ENTRY DATE: NOV 16, 2024@09:53:03 AUTHOR: ARUNA RAMON EXP COSIGNER: URGENCY: STATUS: COMPLETED Follow up visit Veazie Acupuncture was the only treatment given. Patient was evaluated and agreed to receive Veazie Acupuncture (BFA). Patient was evaluated and agreed to receive Veazie Acupuncture Protocol (BFA) for the following pain condition(s): Comment: neck and back Pre BFA Pain Numeric Rating Scale of site with highest pain: 6 The patient was asked the following questions: During the past 24 hours, how much has your pain interfered with your usual activity? 6 During the past 24 hours, how much has your pain interfered with your usual sleep? 5 During the past 24 hours, how much has the pain affected your usual mood? 5 During the past 24 hours, how much has pain contributed to your stress? 6 Oral informed consent obtained for BFA. Procedure: Ear was prepped with alcohol Needle type: Adhesive press tacks 0.9mm The following points were placed: All 10 points in both ears Complications: Patient tolerated well, without any complications. Post treatment Numeric Pain Rating Scale: 40% overall improvement Standard [id number] time for application of BFA protocol is [...] tape that holds the needle in place. -Truxton must be placed in a sharps container [...] worsen. Future visit dates/details: norbert /cindi/ Aruna Ramon MD [facility] Primary Care Signed: 11/16/2024 09:53 ARUNA RAMON [facility] Nov 16, 2024 09:24 AM PRIMARY CARE PROGR ESS NOTE: LOCAL TITLE: PRIMARY CARE CLINIC PROGRESS NOTE PB STANDARD TITLE: PRIMARY CARE PROGRESS NOTE DATE OF NOTE: NOV 16, 2024@09:24 ENTRY DATE: NOV 16, 2024@09:24:52 AUTHOR: ARUNA RAMON EXP COSIGNER: URGENCY: STATUS: COMPLETED SUBJECTIVE: CLARICE CARUSO is a 69 years old MALE. HPI: Presents to the clinic today for a periodic health maintenance visit. Last seen November 18, 2019 for He reports having increased issues with his neuropathy and balance. He notices especially in the shower decreased balance and has to grab onto something. In the last year he has been diagnosed with 2 different melan[address] Fierro [address] Boyer he has emir and both of them following up for the different lesions. He would like to get back into see Dr. Mcleod chiropractor who he has seen before[facility]. He has not been monitoring his blood pressure at home Non-VA Primary Care Provider Bryan Rod, SEWING MACHINE OPERATOR Specialty Services Cardiology, Dr. Mejia Ophthalmology, Evangelista (Jason, Mera, Harry) Urology, Dr. Edmond Anaya, colonoscopy Neurology, Dr. Matute FAMILY HISTORY: Father of COPD. Had Heart Disease. Mother of Bone Cancer. Had Heart Disease. 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 OVERSEAS STATIONS/DEPLOYMENTS: [place] MAJOR ACCIDENTS OR INJURIES WHILE ON ACTIVE DUTY: SURGICAL HISTORY: Cholecystectomy Kidney Stone Removal Hemangioma Brain Removed Melanoma x2 chest and Problem List 1) HTN - Hypertension 2) Gout 3) BPH - benign prostatic hyperplasia 4) Erectile dysfunction 5) History of macular degeneration 6) Urinary incontinence 7) Polyp of colon 8) TIA - Transient ischaemic attack 9) Chronic back pain 10) Neck pain 11) Hyperlipidemia ([facility] [id number]) 12) Elevated PSA 13) GERD - Gastro-Esophageal Reflux Disease ([facility] [id number]) 14) Neuropathy (nerve damage) 15) Neurogenic bladder 16) Exposure to potentially hazardous substance 17) Malignant melanoma 18) Proptosis 19) Kidney stone Active Outpatient Medications (including Supplies): Active Outpatient Medications Status 1) ALLOPURINOL 300MG TAB TAKE ONE TABLET BY MOUTH ONCE A DAY . ACTIVE TAKE WITH PLENTY OF WATER. Indication: FOR GOUT 2) AMLODIPINE BESYLATE 10MG TAB TAKE ONE TABLET BY MOUTH EVERY ACTIVE MORNING Indication: FOR HIGH BLOOD PRESSURE 3) ATORVASTATIN CALCIUM 80MG TAB TAKE ONE-HALF TABLET BY MOUTH ACTIVE EVERY EVENING TO LOWER CHOLESTEROL 4) FINASTERIDE 5MG TAB TAKE ONE TABLET BY MOUTH ONCE A DAY FOR ACTIVE PROSTATE. SWALLOW WHOLE, DO NOT CRUSH, SPLIT, OR CHEW. 5) GABAPENTIN 300MG CAP TAKE THREE CAPSULES BY MOUTH THREE ACTIVE TIMES A DAY FOR PAIN Indication: FOR NERVE PAIN 6) LOSARTAN 100MG TAB TAKE ONE-HALF TABLET BY MOUTH AT BEDTIME ACTIVE Indication: FOR HIGH BLOOD PRESSURE 7) MOXIFLOXACIN (EQV-VIGAMOX) 0.5% OPH SOLN INSTILL 1 DROP IN ACTIVE LEFT EYE DIRECTED STARTING AT NOON THE DAY BEFORE SURGERY, INSTILL 1 DROP IN LEFT EYE EVERY 2 HOURS UNTIL BED AND 1 DROP THE MORNING OF SURGERY. 8) PANTOPRAZOLE NA 40MG EC TAB TAKE ONE TABLET BY MOUTH EVERY ACTIVE MORNING BEFORE A MEAL TAKE 30 MINUTES BEFORE MEAL(S) Indication: FOR GASTROESOPHAGEAL REFLUX DISEASE 9) POTASSIUM CITRATE 10MEQ SA TAB TAKE ONE TABLET BY MOUTH ACTIVE TWICE A DAY FOR KIDNEY STONES. SWALLOW WHOLE, DO NOT CUT, CRUSH, CHEW, OR DISSOLVE. 10) PREDNISOLONE ACETATE 1% OPH SUSP INSTILL 1 DROP IN LEFT EYE ACTIVE FOUR TIMES A DAY STARTING THE DAY AFTER SURGERY 11) SILDENAFIL CITRATE 100MG TAB TAKE ONE TABLET BY MOUTH ONE ACTIVE HOUR PRIOR TO SEXUAL ACTIVITY NEEDED - LIMIT 6 DOSES PER 30 DAYS Indication: FOR ERECTILE DYSFUNCTION 12) TAMSULOSIN HCL 0.4MG CAP TAKE ONE CAPSULE BY MOUTH TWICE A ACTIVE DAY APPROXIMATELY 30 MINUTES AFTER THE SAME MEAL EACH DAY (FOR PROSTATE) Active Non-VA Medications Status 1) Non-VA ASPIRIN 325MG EC TAB 325MG BY MOUTH ONCE A DAY ACTIVE 2) Non-VA MULTIVITAMIN CAP/TAB 1 TABLET BY MOUTH ONCE A DAY ACTIVE 3) Non-VA NAPROXEN 375MG TAB 375MG BY MOUTH TWICE DAILY ACTIVE NEEDED 4) Non-VA SILDENAFIL CITRATE 100MG TAB 100MG BY MOUTH EVERY ACTIVE WEEK NEEDED 16 Total Medications Allergies: MORPHINE, ARICEPT Review of Systems: as per HPI and Systemic: Denies fatigue, fever, chills, or weight loss CV: Denies chest pain, palpitations Pulmonary: Denies hemoptysis, Shortness of breath, dyspnea on exertion GI: Denies constipation, bloody stools, diarrhea, indigestion, or n/v Ext: Denies any swelling Neuro: Denies slurred speech or dizziness Skin: Denies abnormal lesions; denies any new rashes PSYCH: Denies SI/HI; denies nightmares OBJECTIVE: Vital Signs Temperature: 98.5 F [36.9 C] (11/16/2024 09:20) Respiratory Rate: 1 (11/16/2024 09:20) Pulse Rate: 56 (11/16/2024 09:22) Blood Pressure: 150/86 (11/16/2024 09:22) HT: 71.0 in [180.3 cm] (11/16/2024 09:20) WT: 236.1 lb [107.09 kg] (11/16/2024 09:20) BMI: 33.0 97% (11/16/2024 09:22) Physical Exam General: NAD noted, A&Ox3, pleasant, appears stated age HEENT: NCAT, TM's clear, nares and oropharynx clear Neck: Supple with normal active ROM, without any lymphadenopathy Heart: RRR, no murmur, clicks, or rub Resp: Lungs CTA bilaterally, respirations even and unlabored Ext: No clubbing, cyanosis, edema or obvious deformity Skin: Warm, pink, and dry, no rashes Neuro: Grossly intact Psych: Affect normal, answers questions appropriately throughout visit A/P: ASSESSMENT and PLAN Health Maintenance: Labs reviewed with patient and printout given to patient. Discussed preventative health to include diet and exercise as well as immunizations. HTN -suboptimal controll on amlodipine and losartan; we will increase his losartan to 100 mg daily Gout -controlled on on allopurinol BPH/elevated PSA - on finasteride and tamsulosin; followed by urology Urinary incontinence/Neurogenic bladder- controlled on oxybutynin Erectile dysfunction- Viagra prn, followed by Dr. Pruitt History of macular degeneration- followed by ophthalmology H/O Colon polyps- no polyps on colonoscopy 06/2021, + diverticula perf in 07/2023 and having colonocsocpy on 11/27; at [facility] Hyperlipidemia- on atorvastatin Hypokalemia- on KCL Peripheral neuropathy- on gabapentin to 900mg TID. Will set him up for physical therapy to help with his balance and get him some grab bars for his shower for safety issues Chronic neck and back- dong better with BFA; will get him into [facility] TIA (vs CVA) -stable Cataract bilateral- followed by Dr. Jain Kidney stone-followed by Dr. Pruitt getting set up for lithotripsy melanoma on chest- recently removed; followed by dermatology GERD- controlled on Protonix Prediabetes-discussed lab results with an A1c of 6.2 encouraged to improve diet and increase activity with weight loss Exposure to potentially hazardous substance Stable. Discussed medications with patient; med rec completed. Continue current regimen as prescribed by PCP and specialists. RTC as needed if developing any new or worsening symptoms. Please notify PACT with medication changes or for orders coordination as needed if seen by a specialist in the future. Will f/u with patient once updated labs / imaging / testing received; otherwise f/u as listed below. Follow-up: 12 months with fasting labs prior to appointment and/or as needed. Discussed with patient that in the event of community imaging / testing being ordered in the future, once the imaging / testing has been completed, please notify PACT of completion at outside facility if not called with results within 1 week by a [facility] PACT member; this is due to intermittent lapses in notification of imaging completion within CPR[facility]. All questions answered; agrees to plan of care. Follow up as listed above, annually, and as needed. Keep all appointments. Medications Reconciled. See AVS given to Raymond. Time spent 30 minutes. /es/ Aruna Ramon MD [facility] Primary Care Signed: 11/16/2024 09:52 ARUNA RAMON [facility] Nov 16, 2024 09:09 AM PRIMARY CARE KERRI MORA NOTE: LOCAL TITLE: PRIMARY CARE NURSING PROGRESS NOTE (TEXT) NURSING P STANDARD TITLE: PRIMARY CARE NURSING NOTE DATE OF NOTE: NOV 16, 2024@09:09 ENTRY DATE: NOV 16, 2024@09:09:44 AUTHOR: COLLETTE RAMIREZ COSIGNER: URGENCY: STATUS: COMPLETED Established Patient CLARICE CARUSO IS A 69 YEAR OLD MALE BEING SEEN IN CLINIC NOV 16, 2024. = = REASON FOR VISIT: the is here for his annual exam, reports issues with balance maybe related to my Neuropathy getting worse. Are you receiving care any where other than the [facility]? Yes, List: [facility] out of [place], last seen about 8 months ago. HEALTH AND SURGICAL HISTORY: Does patient report using home oxygen? No CURRENT ACTIVE MEDICATIONS FOR REVIEW: If the list for review does not include a component, then it was not applicable to this patient. Allergies/ADRs (Tool #5) FACILITY ALLERGY/ADR -------- CLNCL/HLTH FRANNY REPT EFF [id number] MORPHINE [facility] Med. Reconciliation (Tool #1) INCLUDED IN THIS LIST: Alphabetical list of active outpatient prescriptions dispensed from this DE (local) and dispensed from another DE or DoD facility (remote) as well as inpatient orders (local pending and active), local clinic medications, locally documented non-VA medications, and local prescriptions that have or been discontinued in the past 90 days. Non-VA Meds Last Documented On: Nov 30, 2020 NOTE The display of VA prescriptions dispensed from another DE or [facility] facility (remote) is limited to active outpatient prescription entries matched to National Drug File at the originating site and may not include some items such as investigational drugs, compounds, etc. NOT INCLUDED IN THIS LIST: Medications self-entered by the patient into personal health records (i.e. [facility]) are NOT included in this list. Non-VA medications documented outside this DE, remote inpatient orders (regardless of status) and remote clinic medications are NOT included in this list. The patient and provider must always discuss medications the patient is taking, regardless of where the medication was dispensed or obtained. OUTPT ALLOPURINOL 300MG TAB (Status = Discontinued) TAKE ONE TABLET BY MOUTH ONCE A DAY FOR GOUT. TAKE WITH PLENTY OF WATER. Rx# [id number] Last Released: 06/29/24 Qty/Days Supply: Rx Expiration Date: 09/03/24 Refills Remainin Indication: FOR GOUT OUTPT ALLOPURINOL 300MG TAB (Status = Active) TAKE ONE TABLET BY MOUTH ONCE A DAY FOR GOUT. TAKE WITH PLENTY OF WATER. Rx# [id number] Last Released: 09/09/24 Qty/Days Supply: 90 Rx Expiration Date: 09/04/25 Refills Remainin Indication: FOR GOUT OUTPT AMLODIPINE BESYLATE 10MG TAB (Status = Active) TAKE ONE TABLET BY MOUTH EVERY MORNING FOR HIGH BLOOD PRESSURE Rx# [id number] Last Released: 10/13/24 Qty/Days Supply: 90/90 Rx Expiration Date: 11/22/24 Refills Remainin Indication: FOR HIGH BLOOD PRESSURE Non-VA ASPIRIN 325MG EC TAB TAKE ONE TABLET BY MOUTH ONCE A DAY OUTPT ATORVASTATIN CALCIUM 80MG TAB (Status = Discontinued) TAKE ONE-HALF TABLET BY MOUTH EVERY EVENING TO LOWER CHOLESTEROL Rx# [id number] Last Released: 06/25/24 Qty/Days Supply: 45/90 Rx Expiration Date: 09/03/24 Refills Remainin OUTPT ATORVASTATIN CALCIUM 80MG TAB (Status = Active) TAKE ONE-HALF TABLET BY MOUTH EVERY EVENING TO LOWER CHOLESTEROL Rx# [id number] Last Released: 09/07/24 Qty/Days Supply: 45/90 Rx Expiration Date: 09/04/25 Refills Remainin OUTPT FINASTERIDE 5MG TAB (Status = Active) TAKE ONE TABLET BY MOUTH ONCE A DAY FOR PROSTATE. SWALLOW WHOLE, DO NOT CRUSH, SPLIT, OR CHEW. Rx# [id number] Last Released: 10/13/24 Qty/Days Supply: 90/90 Rx Expiration Date: 03/19/25 Refills Remainin OUTPT GABAPENTIN 300MG CAP (Status = Discontinued) TAKE THREE CAPSULES BY MOUTH THREE TIMES A DAY FOR PAIN Rx# [id number] Last Released: 07/01/24 Qty/Days Supply: 810/90 Rx Expiration Date: 09/03/24 Refills Remainin Indication: FOR NERVE PAIN OUTPT GABAPENTIN 300MG CAP (Status = Active) TAKE THREE CAPSULES BY MOUTH THREE TIMES A DAY FOR PAIN Rx# [id number] Last Released: 09/10/24 Qty/Days Supply: 810/90 Rx Expiration Date: 09/04/25 Refills Remainin Indication: FOR NERVE PAIN OUTPT LOSARTAN 100MG TAB (Status = Discontinued) TAKE ONE-HALF TABLET BY MOUTH AT BEDTIME FOR HIGH BLOOD PRESSURE Rx# [id number] Last Released: 07/28/24 Qty/Days Supply: 45/90 Rx Expiration Date: 11/22/24 Refills Remainin Indication: FOR HIGH BLOOD PRESSURE OUTPT LOSARTAN 100MG TAB (Status = Active) TAKE ONE-HALF TABLET BY MOUTH AT BEDTIME FOR HIGH BLOOD PRESSURE Rx# [id number] Last Released: 10/26/24 Qty/Days Supply: Rx Expiration Date: 09/04/25 Refills Remainin Indication: FOR HIGH BLOOD PRESSURE OUTPT MOXIFLOXACIN (EQV-VIGAMOX) 0.5% OPH SOLN (Status = Active) INSTILL 1 DROP IN LEFT EYE DIRECTED STARTING AT NOON THE DAY BEFORE SURGERY, INSTILL 1 DROP IN LEFT EYE EVERY 2 HOURS UNTIL BED AND 1 DROP THE MORNING OF SURGERY. Rx# [id number] Last Released: 07/01/24 Qty/Days Supply: 08/09 Rx Expiration Date: 03/07/25 Refills Remainin Non-VA MULTIVITAMIN CAP/TAB TAKE ONE TABLET BY MOUTH ONCE A DAY Non-VA NAPROXEN 375MG TAB TAKE ONE TABLET BY MOUTH TWICE A DAY NEEDED OUTPT OXYBUTYNIN CHLORIDE 5MG SA TAB (Status = ) TAKE ONE TABLET BY MOUTH ONCE A DAY FOR BLADDER. SWALLOW WHOLE, DO NOT CRUSH OR CHEW. Rx# [id number] Last Released: 10/13/24 Qty/Days Supply: Rx Expiration Date: 11/01/24 Refills Remainin OUTPT PANTOPRAZOLE NA 40MG EC TAB (Status = Active) TAKE ONE TABLET BY MOUTH EVERY MORNING BEFORE A MEAL TAKE 30 MINUTES BEFORE MEAL(S) Rx# [id number] Last Released: 10/13/24 Qty/Days Supply: Rx Expiration Date: 06/25/25 Refills Remainin Indication: FOR GASTROESOPHAGEAL REFLUX DISEASE OUTPT POTASSIUM CITRATE 10MEQ SA TAB (Status = Active) TAKE ONE TABLET BY MOUTH TWICE A DAY FOR KIDNEY STONES. SWALLOW WHOLE, DO NOT CUT, CRUSH, CHEW, OR DISSOLVE. Rx# [id number] Last Released: 10/13/24 Qty/Days Supply: Rx Expiration Date: 03/19/25 Refills Remainin OUTPT PREDNISOLONE ACETATE 1% OPH SUSP (Status = Active) INSTILL 1 DROP IN LEFT EYE FOUR TIMES A DAY STARTING THE DAY AFTER SURGERY Rx# [id number] Last Released: 07/01/24 Qty/Days Supply: 10/09 Rx Expiration Date: 03/07/25 Refills Remainin Non-VA SILDENAFIL CITRATE 100MG TAB TAKE ONE TABLET BY MOUTH QW-(OPT) NEEDED Patient wants to buy from Non-VA pharmacy. OUTPT SILDENAFIL CITRATE 100MG TAB (Status = Discontinued) TAKE ONE TABLET BY MOUTH ONE HOUR PRIOR TO SEXUAL ACTIVITY FOR ERECTILE DYSFUNCTION NEEDED - LIMIT 6 DOSES PER 30 DAYS Rx# [id number] Last Released: 07/02/24 Qty/Days Supply: Rx Expiration Date: 10/28/24 Refills Remainin Indication: FOR ERECTILE DYSFUNCTION OUTPT SILDENAFIL CITRATE 100MG TAB (Status = Active) TAKE ONE TABLET BY MOUTH ONE HOUR PRIOR TO SEXUAL ACTIVITY FOR ERECTILE DYSFUNCTION NEEDED - LIMIT 6 DOSES PER 30 DAYS Rx# [id number] Last Released: 10/13/24 Qty/Days Supply: Rx Expiration Date: 01/10/25 Refills Remainin Indication: FOR ERECTILE DYSFUNCTION OUTPT TAMSULOSIN HCL 0.4MG CAP (Status = Active) TAKE ONE CAPSULE BY MOUTH TWICE A DAY APPROXIMATELY 30 MINUTES AFTER THE SAME MEAL EACH DAY (FOR PROSTATE) Rx# [id number] Last Released: 10/13/24 Qty/Days Supply: Rx Expiration Date: 06/25/25 Refills Remainin SUPPLIES PHARMACY TERMS AND POSSIBLE PATIENT ACTIONS INPT = DE inpatient order IV = DE intravenous medication OUTPT = DE outpatient prescription PHARMACY POSSIBLE PATIENT TERMS EXPLANATION ACTIONS -------- ---- ACTIVE A prescription that can be If you have refills, filled at the local VA pharmacy. you may request a refill of this prescription from your VA pharmacy. CLINIC A medication you received during If you have questions a visit to a VA clinic or about this medication emergency department. contact your VA healthcare team. DISCONTINUED A prescription your provider has Contact your VA stopped. It is no longer healthcare team if you available to be sent to you or need more of this picked up at the VA pharmacy medication. window. A prescription which is too old Contact your VA to fill. This does not refer to healthcare team if you the expiration date of the need more of this medication in the container. medication. NON-VA A medication that came from If this medication someplace other than a VA information is pharmacy. This may be a incorrect or out of prescription from either the VA date, please tell your or non VA providers that was VA healthcare team. filled outside the VA. Or, it may be an tfmy-wcg-mfwmenq (OTC), herbal, dietary supplements or sample medication. ON HOLD An active prescription that will Contact your VA not be filled until pharmacy pharmacy when you need resolves the issue. more of this medication. PARKED An active prescription that will Contact your VA not be filled until the patient pharmacy when you need requests it. this medication. PENDING This prescription order has been If you have been sent to the pharmacy for review instructed to start and is not ready yet. this medication now, contact your VA pharmacy. SUSPENDED An active prescription that is Contact your [place] not scheduled to be filled yet. pharmacy if you need You should receive it before this medication now. you run out. Medication list reviewed with Patient Patient/Caregiver reports taking meds other than as directed/ordered: The is not using his eye drops IS PATIENT TAKING ANY OVER THE COUNTER MEDICATIONS, SUCH VITAMINS OR HERBAL SUPPLEMENTS, INCLUDING ANY MEDICATIONS PRESCRIBED BY ANOTHER PHYSICIAN? No Does patient have any new allergies to report since last visit? NO VITALS: TEMPERATURE: 98.6 F [37.0 C] (11/18/2023 10:40) BP: 100/65 (11/18/2023 10:40) RESP: 19 (08/07/2023 10:49) PULSE: 61 (11/18/2023 10:40) HT: 71 in [180.3 cm] (08/07/2023 10:49) WT: 224.7 lb [101.92 kg] (08/07/2023 10:49) BMI: 31.4 PAIN ASSESSMENT: (Most Recent Pain Score in Vitals Package: 4 (08/07/2023 10:49) ) The patient indicated that they and their close contacts have not traveled outside of the [place] in the past 21 days. The patient reports the following symptoms: No symptoms present The patient is not immunocompromised. The patient does not report having a history of Multi Drug Resistant Organism (MDRO) within the last five years. The patient does not report having been exposed to measles, chickenpox, or zoster in last 30 days. STRESS: Thank you for your service. Now let us serve you. At the [facility], we strive to provide you with exceptional health care that improves your health and well-being. Are you feeling sad, empty, or depressed? No Do you need to talk about things in your life that worry you or cause you stress? No Do you need to talk about personal problems, family problems, alcohol use, drug use, or mental or emotional illness? No SUICIDE SCREENING: The patient was asked, Over the past two weeks, how often have you been bothered by thoughts that you would be better off or of hurting yourself in some way? Not At All SPIRITUAL ASSESSMENT: Are there pentecostalism practices or spiritual concerns you want the film process operator, your physician, and other health care team members to immediately know about? No Patient advised to call the clinic for any concerns, questions, or symptoms. Patient and/or caregiver verbalized understanding of plan of care. Suicide Screen - V: C-SSRS Screening [place] Suicide Severity Rating Scale (C-SSRS) screener 1. Over the past month, have you wished you were or wished you could go to sleep and not wake up? No 2. Over the past month, have you had any actual thoughts of killing yourself? No 3. Over the past month, have you been thinking about how you might do this? Response not required due to responses to other questions. 4. Over the past month, have you had these thoughts and had some intention of acting on them? Response not required due to responses to other questions. 5. Over the past month, have you started to work out or worked out the details of how to kill yourself? Response not required due to responses to other questions. 6. If yes, at any time in the past month did you intend to carry out this plan? Response not required due to responses to other questions. 7. In your lifetime, have you ever done anything, started to do anything, or prepared to do anything to end your life (for example, collected pills, obtained a gun, gave away valuables, went to the roof but didn't jump)? No 8. If YES, was this within the past 3 months? Response not required due to responses to other questions. Depression Screening - V: Perform PHQ-2 A PHQ-2 screen was performed. The score was 0 which is a negative screen for depression. Over the past two weeks, how often have you been bothered by the following problems? 1. Little interest or pleasure in doing things Not at all 2. Feeling down, depressed, or hopeless Not at all RHS Screen - VS: RHS Screen Session Format: Face to Face Environmental Check Upon inquiry, the individual reports that the environment is safe to proceed. Informed Consent to Screen and Document The individual consents to proceed with screening. The individual consents to documentation of responses. PRIMARY SCREEN: In the past 12 months, how often did a current or former intimate partner (e.g., boyfriend, girlfriend, , , sexual partner): 1. Scream or curse at you Never 2. Insult or talk down to you Never 3. Threaten you with harm Never 4. Physically hurt you Never 5. Force or pressure you to have sexual contact against your will, or when you were unable to say no Never The HITS tool (items 1-4 above) is [place] copyright protected by Ortiz Ayala MD, and the user has full rights to use it throughout the [place] system. PRIMARY SCREEN RESULT: The Primary Screen is NEGATIVE. The individual answered never to all forms of IPV above (i.e., answered never to all 5 items) The individual accepts education and/or resources: Other: EDUCATION: Other: not needed Per [facility] Directive 1605.06, wristband documentation: Patient wristband was removed and destroyed by (staff name) Kishore Ramirez RN and placed in the designated [employer] bin. /es/ Collette Ramirez RN,BSN [place], [place] Signed: 11/24/2024 08:40 COLLETTE RAMIREZ
--- OUTSIDE RECORDS SUMMARY | 2024-11-24 05:31 | XMS_ITS | Encounter Summary ---
Author Name [facility] [facility] [facility] [place] Address [address] [place] [address] Care Team Providers Care Reproductive Surgeon Name Role Phone ATA RAMON Primary Care [...] Name Patient's Relationship to Policy Gallegos AETNA [facility] VISION AETNA VISIO N May 13, 2018 [id number] [phone] GRETTA CARUSO RY PATIENT AETNA VISION VISION AETNA VISIO N May 13, 2018 [id number] [phone] GRETTA CARUSO RY PATIENT [employer] TRICA RE DODA May 13, 2017 DODA [id number] [phone] GRETTA CARUSO RY PATIENT MEDICARE (WNR) MEDICARE (M) PART A May 13, 2021 PART A [id number] GRETTA CARUSO RY PATIENT MEDICARE (WNR) MEDICARE (M) PART B May 13, 2021 PART B [id number] [phone] HUITT,LAR RY PATIENT MEDICARE (WNR) MEDICARE (M) PART B Jun 13, 2016 PART B [id number] HUITT,LAR RY PATIENT MEDICARE (WNR) MEDICARE (M) PART A Jun 13, 2016 PART A [id number] [phone] HUITT,LAR RY PATIENT MEDICARE (WNR) MEDICARE (M) PART B Jun 13, 2016 PART B [id number] [phone] HUITT,LAR RY PATIENT MEDICARE (WNR) MEDICARE (M) PART A Jun 13, 2016 PART A [id number] HUITT,LAR RY PATIENT FOR LIFE TRICA RE FOR LIFE May 13, 2017 FOR LIFE [id number] HUITT,LAR RY PATIENT -FO R-LIFE TRICA RE FOR LIFE WNR May 13, 2017 FOR LIFE [id number] [phone] HUITT,LAR RY PATIENT -FO R-LIFE TRICA RE FOR LIFE May 13, 2017 TFL [id number] [phone] HUITT,LAR RY PATIENT Selected Encounter This section includes the information on record at [place] for the Encounter. Date/Time Encounter Type Encounter Description Reason Pro vider Source Nov 24, 2024 10:31 AM Outpatient Encounter COMMUNITY CARE CONSULT IHE Encounter Template Text not used by [place] Plan of Treatment: Future Appointments (+ 6 months) and Future Tests (+/- 45 days) The Plan of Treatment section includes future care activities for the patient from all [place] treatmentfacilities. This section includes future appointments and future orders which are active, pending or scheduled. Future Appointments This section includes appointments that were scheduled to occur 6 months from the date of the Encounter, up to a maximum of 20 appointments. The data comes from all [place] treatment facilities. Appointment Date/Time Appointment Type Appointme nt Facility Name Dec 17, 2024 01:50 PM AMBULATORY - MEDICINE [facility] Active, Pending, and Scheduled Orders This section includes a listing of several types of active, pending, and scheduled orders, including clinic medications orders, diagnostic test orders, procedure orders and consult orders; where the start date of the order is 45 days before the date of the Encounter or 45 days after the date of theEncounter. The data comes from all [place] treatment facilities. Test Date/Time Test Type Test Details Facility Name Nov 16, 2024 09:47 AM Consult Order [facility]-CHIROPRACTIC [id number] Cons Battery [facility] [place] [facility] Nov 16, 2024 09:47 AM Consult Order [facility]-DERMATOLOGY [id number] Cons Battery [facility] Nov 16, 2024 09:54 AM Consult Order [facility]-PHYSICAL THERAPY [id number] Cons Battery [facility] Nov 24, 2024 12:50 PM Consult Order PROSTHETIC S REQUEST - OUTPT [id number] Cons Battery Vent [facility] [place] [facility] Nov 27, 2024 03:07 PM Consult Order [facility]-UROLOGY PB [id number] Cons Battery Vent Plug [facility] [facility] Lab Results: +/- 30 days of the encounter This section includes the Chemistry and Hematology Lab Results on record with [place] for the patient. Radiology Reports and Pathology Reports are provided separately, in subsequent sections. Lab Results This section contains the Chemistry/Hematology Results that were resulted 30 days before or 30 daysafter the date of the Encounter. Date/Time Source Result Type Result - Unit Interpretation Reference Range Specimen Type Comment Nov 09, 2024 08:05 AM [facility] PROST. SPECIFIC AG.(PB-STL) SERUM Specimen Ty pe: SERUM No comment entered. Ordering Provider: ATA RAMON Report Released Date/Time: Nov 18, 2023 11:44 AM Reporting Lab: [place] [facility] [address] [place] [id number] Performing Lab: [place] [facility] [address] [place] [id number] PROST. SPECIFIC AG.(PB-STL) 1.40 ng/mL 0 -4 Nov 09, 2024 08:05 AM [facility] HGA1C BLOOD Specimen Type: BLOOD No comment entered. Ordering Provider: ATA RAMON Report Released Date/Time: Nov 18, 2023 11:44 AM Reporting Lab: [place] [facility] [address] [place] [id number] Performing Lab: [place] [facility] [address] [place] [id number] HGA1C 6.2 H 4.0-6.0 Nov 09, 2024 08:05 AM [facility] TSH (MA-PB) SERUM Specimen Typ e: SERUM No comment entered. Ordering Provider: ATA RAMON Report Released Date/Time: Nov 18, 2023 11:44 AM Reporting Lab: [place] [facility] [address] [place] [id number] Performing Lab: [place] [facility] [address] [place] [id number] TSH 1.324 u[IU]/mL 0.47-5 Nov 09, 2024 08:05 AM [facility] CHOLESTEROL PANEL (PB) PLASMA Specimen Type: P LASMA No comment entered. Ordering Provider: ATA RAMON Report Released Date/Time: Nov 18, 2023 11:44 AM Reporting Lab: [place] [facility] [address] [place] [id number] Performing Lab: [place] [facility] [address] [place] [id number] CHOLESTEROL 140 mg/dL 0-200 TRIGLYCERIDE 227 mg/dL H 0-150 CALCULATED LDL 57.2 mg/dL HDL(New) 37.4 mg/dL L >40 HDL % OF TOTAL CHOLESTEROL (PB) 26.7 >25 Nov 09, 2024 08:05 AM [facility] COMPREHENSIVE METABOLIC PANEL PLASMA Specimen Type: PLASMA No comment entered. Ordering Provider: ATA RAMON Report Released Date/Time: Nov 18, 2023 11:44 AM Reporting Lab: [place] [facility] [address] [place] [id number] Performing Lab: [place] [facility] [address] [place] [id number] CREATININE 1.00 mg/dL 0.7-1.3 UREA NITROGEN 9 [...] 2020) 82 Nov 09, 2024 08:05 AM [facility] CBC BLOOD Specimen Type: BLOOD No comment entered. Ordering Provider: ATA RAMON Report Released Date/Time: Nov 18, 2023 11:44 AM Reporting Lab: [place] [facility] [facility] [address] [facility] [phone] Performing Lab: [facility] [facility] [facility] [address] [facility] [phone] WBC 6.6 10*3/uL 3.6-11.2 RBC 4.70 10*6/uL [...] GRANS, AUTO ABS 0.02 10*3/uL 0. 00-0.05 Encounter Notes: All associated encounter notes This section contains the clinical notes associated to the Encounter. Date/Time Encounter Note(s) Provider Source Nov 24, 2024 10:31 AM LETTERS: LOCAL TITLE: COMMUNITY CARE-REFERRAL PB (AUTO-PRINT) STANDARD TITLE: LETTERS DATE OF NOTE: NOV 24, 2024@10:31:39 ENTRY DATE: NOV 24, 2024@10:31:39 AUTHOR: MALLORY BERG COSIGNER: URGENCY: STATUS: COMPLETED Brock Augustin [address] [place], [place] [address] Dear BROCK CARUSO, Your VA provider has referred you to a provider within the community for care. Your medical care for DERMATOLOGY has been authorized with the Community Care Provider listed below. DO NOT REPORT TO THE [facility] Provider info: An appointment has been scheduled for you on: Dec 17, 2024 01:50 PM Office Name: [facility] Address: [address] [place] [address] Address: [place] [address] Auth #: [id number] Referral Issue Date: 11/19/24 Expiration Date: 06/15/25 If you are unable to keep this appointment or the appointment is no longer needed, please contact the community provider above for notification/rescheduling and then call the [facility] Community Care Office at [phone] ext [phone]. If you need additional care/services not mentioned above, please contact your primary care provider for a new referral. Co-Payments: If you are required to pay a VA co-payment, you will be billed by the VA for each authorized visit that you attend. However, you are NOT REQUIRED to make co-payments to a Community Provider. Prescriptions: Your community provider may write a prescription related to the authorized care. If there is an immediate need for your prescriptions from your community care visit, you may be able to get up to a 14-day fill of your prescription at your own expense for the cost of the medication, and may seek reimbursement from the VA. If you require more than a 14-day supply or if the prescribed medication is not immediately needed, your community provider will send a prescription to a VA pharmacy so that the VA can provide you with your routine medication. In-network locations can be found at https://www.va.gov/find-loc ations/ Medical Devices: Your community provider may recommend that medical devices, adapted equipment, or other items be provided for the treatment or rehabilitation of your medical condition. Veterans are generally required to obtain these items through the Prosthetics and Sensory Aids Service (PSAS) in your referring facility. Emergency/Inpatient Services: You, your community provider, or your family must provide notification within 72hr or ER visit and/or admission by [phone]. Thank you for the opportunity to serve you and for your service to our great nation! MALLORY Novak [facility] Care in the Community [address] [facility] [id number] MALLORY BERG [facility]
--- OUTSIDE RECORDS SUMMARY | 2024-11-27 09:49 | XMS_ITS | Encounter Summary ---
Author Name [facility] [place] Organization [facility] [place] Address [address] [place] [address] Care Team Providers Care Clinical Analyst Name Role Phone ATA RAMON Primary Care [...] Name Patient's Relationship to Policy Gallegos AETNA [facility] VISION AETNA VISIO N May 13, 2018 [id number] [phone] GRETTA CARUSO RY PATIENT AETNA VISION VISION AETNA VISIO N May 13, 2018 [id number] [phone] GRETTA CARUSO RY PATIENT [employer] TRICA RE DODA May 13, 2017 DODA [id number] [phone] GRETTA CARUSO RY PATIENT MEDICARE (WNR) MEDICARE (M) PART A May 13, 2021 PART A [id number] GRETTA CARUSO RY PATIENT MEDICARE (WNR) MEDICARE (M) PART B May 13, 2021 PART B [id number] HUITT,LAR RY PATIENT MEDICARE (WNR) MEDICARE (M) PART B Jun 13, 2016 PART B [id number] HUITT,LAR RY PATIENT MEDICARE (WNR) MEDICARE (M) PART A Jun 13, 2016 PART A [id number] HUITT,LAR RY PATIENT MEDICARE (WNR) MEDICARE (M) PART B Jun 13, 2016 PART B [id number] HUITT,LAR RY PATIENT MEDICARE (WNR) MEDICARE (M) PART A Jun 13, 2016 PART A [id number] [phone] HUITT,LAR RY PATIENT FOR LIFE TRICA RE FOR LIFE May 13, 2017 FOR LIFE [id number] HUITT,LAR RY PATIENT -FO R-LIFE TRICA RE FOR LIFE WNR May 13, 2017 FOR LIFE [id number] [phone] HUITT,LAR RY PATIENT -FO R-LIFE TRICA RE FOR LIFE May 13, 2017 TFL [id number] [phone] HUITT,LAR RY PATIENT Selected Encounter This section includes the information on record at [place] for the Encounter. Date/Time Encounter Type Encounter Description Reason Provider Source Nov 27, 2024 02:49 PM Outpatient Encounter COMMUNITY CARE CONSULT STEFANI JAVIER Encounter Template Text not used by [place] Plan of Treatment: Future Appointments (+ 6 [...] 01:50 PM AMBULATORY - MEDICINE [facility] Active, Pending, and Scheduled Orders This section [...] AM Consult Order COMMUNITY CARE-CHIROPRACTIC [id number] Cons Finisher Hand's Choice [facility] Nov 16, 2024 09:47 AM Consult Order [facility]-DERMATOLOGY [id number] Cons Finisher Hand's Choice [facility] Nov 16, 2024 09:54 AM Consult Order [facility]-PHYSICAL THERAPY [id number] Cons Finisher Hand's Choice [facility] Nov 24, 2024 12:50 PM Consult Order PROSTHETIC S REQUEST - OUTPT [id number] Cons Finisher Hand's Choice [facility] Nov 27, 2024 03:07 PM Consult Order [facility]-UROLOGY PB [id number] Cons Finisher Hand's Choice [place] [facility] Lab Results: +/- 30 days of [...] Type Comment Nov 09, 2024 08:05 AM [facility] PR[facility]. SPECIFIC AG.(PB-STL) SERUM Specimen Ty pe: SERUM No comment entered. Ordering Provider: ATA RAMON Report Released Date/Time: Nov 18, 2023 11:44 AM Reporting Lab: [place] [facility] [address] [place] [address] Performing Lab: [place] [facility] [address] [place] [address] PROST. SPECIFIC AG.(PB-STL) 1.40 ng/mL 0 -4 Nov 09, 2024 08:05 AM [facility] HGA1C BLOOD Specimen Type: BLOOD No comment entered. Ordering Provider: ATA RAMON Report Released Date/Time: Nov 18, 2023 11:44 AM Reporting Lab: [place] [facility] [address] [place] [address] Performing Lab: [place] [facility] [address] [place] [address] HGA1C 6.2 H 4.0-6.0 Nov 09, 2024 08:05 AM [facility] COMPREHENSIVE METABOLIC PANEL PLASMA Specimen Type: PLASMA No comment entered. Ordering Provider: ATA RAMON Report Released Date/Time: Nov 18, 2023 11:44 AM Reporting Lab: [place] [facility] [address] [place] [address] Performing Lab: [place] [facility] [address] [place] [address] CREATININE 1.00 mg/dL 0.7-1.3 UREA NITROGEN 9 [...] 2020) 82 Nov 09, 2024 08:05 AM [facility] CHOLESTEROL PANEL (PB) PLASMA Specimen Type: P LASMA No comment entered. Ordering Provider: ATA RAMON Report Released Date/Time: Nov 18, 2023 11:44 AM Reporting Lab: [place] [facility] [address] [place] [address] Performing Lab: [place] [facility] [address] [place] [address] CHOLESTEROL 140 mg/dL 0-200 TRIGLYCERIDE 227 mg/dL H 0-150 CALCULATED LDL 57.2 mg/dL HDL(New) 37.4 mg/dL L >40 HDL % OF TOTAL CHOLESTEROL (PB) 26.7 >25 Nov 09, 2024 08:05 AM [facility] CBC BLOOD Specimen Type: BLOOD No comment entered. Ordering Provider: ATA RAMON Report Released Date/Time: Nov 18, 2023 11:44 AM Reporting Lab: [place] [facility] [address] [place] [address] Performing Lab: [place] [facility] [address] [place] [facility] WBC 6.6 10*3/uL 3.6-11.2 RBC 4.70 10*6/uL [...] GRANS, AUTO ABS 0.02 10*3/uL 0. 00-0.05 Nov 09, 2024 08:05 AM [facility] TSH (MA-PB) SERUM Specimen Typ e: SERUM No comment entered. Ordering Provider: ATA RAMON Report Released Date/Time: Nov 18, 2023 11:44 AM Reporting Lab: [place] [facility] [address] [place] [address] Performing Lab: [place] [facility] [address] [place] [facility] TSH 1.324 u[IU]/mL 0.47-5 Encounter Notes: All associated encounter notes This section contains the clinical notes associated to the Encounter. Date/Time Encounter Note(s) Provider Source Nov 27, 2024 02:59 PM LETTERS: LOCAL TITLE: COMMUNITY CARE-REQUEST FOR SERVICES (RFS) LETTER PB STANDARD TITLE: LETTERS DATE OF NOTE: NOV 27, 2024@14:59 ENTRY DATE: NOV 27, 2024@14:59:22 AUTHOR: STEFANI JAVIER COSIGNER: URGENCY: STATUS: COMPLETED [facility] [address] [address] P: [phone] Option 1 F: [phone] Dear Provider, Information: Patient Name: CLARICE CARUSO Date of : May [facility]. Request will be reviewed for services offered within the [place] before approving services to community provider. If approved for community services,the authorization will be faxed to the appropriate office. Should you have question, please contact Stefani Javier RN, BSN, [employer] Binder at [phone] ext: [phone] Sincerely, [facility] STEFANI Johnson [facility] Nov 27, 2024 02:49 PM NONVA NOTE: LOCAL TITLE: COMMUNITY CARE-REQUEST FOR SERVICE NOTE PB STANDARD TITLE: NONVA NOTE DATE OF NOTE: NOV 27, 2024@14:49 ENTRY DATE: NOV 27, 2024@14:49:15 AUTHOR: STEFANI JAVIER EXP COSIGNER: URGENCY: STATUS: COMPLETED Request for Services (RFS) documentation has been sent for scanning to [facility] Community Care Consult: COMMUNITY CARE-Urology Consult Number: [id number] Authorization Number: Date sent to scanning: Nov A Request for Service (RFS) form [id number] has been received which includes the following: Care Requested:RFS from [facility] for continuation of care appt 12/21/24 @ 4:10. DX:N40.1,N20.0,Z71.89. Date [facility] received request:Nov Date service required (PID):Dec Requesting Community Provider Information: [facility] [address] [facility] [address] [place] [address] P: [phone] Option 1 F: [phone] Rony Pruitt /cindi/ GULSHAN SchmittN, RN [facility], [employer] Binder, JJPVAMC Signed: 11/27/2024 14:55 STEFANI JAVIER [facility]
--- OUTSIDE RECORDS SUMMARY | 2024-11-27 20:35 | XMS_ITS | Continuity of Care Document ---
Author Name [facility] Organization [facility] Care Team Providers Care Tmd Teacher Assistant Name Role Phone [facility] Unavailable Unavailable Problems Combined list of problems from Department of Defense and Veterans Affairs facilities. It does not include entries that were removed or entered in error. Problem Status Onset Date Problem Type Date of Resolution Comments Source Low back pain, unspecified Active 11/27/19 25 Diagnosis [facility] Sensorineural hearing loss, bilateral Active 02/03/20 16 Condition DoD Abnormal auditory function study Active Condition [facility] Arcus senilis Active Condition [facility] Pinguecula Active Condition [facility] Bilateral tinnitus Active Condition 007 5C[facility] Chronic allergic conjunctivitis Active Condition [facility] Presbyopia Active Condition DoD Sensorineural hearing loss, bilateral Active Condition [facility] Tinnitus, bilateral Active Condition DoD Other chronic allergic conjunctivitis Active Condition DoD Squamous blepharitis unspecified eye, unspecified eyelid Active Condition DoD Meibomian gland dysfunction of unspecified eye, unspecified eyelid Active Condition DoD Age-related nuclear cataract, bilateral Active Condition DoD Retinal hemorrhage, right eye Active Condition DoD Hypermetropia, bilateral Active Condition DoD CENTRAL SEROUS RETINOPATHY LEFT EYE Active Condition DoD CATARACT Active Condition DoD DRY EYE SYNDROME Active Condition DoD DIASTASIS OF MUSCLE Active Condition DoD Outpatient Physician Consultation Active Condition DoD visit for: issue repeat prescription for medication Inactive Condition DoD visit for: administrative purpose Inactive Condition DoD NEPHROLITHIASIS Active Condition DoD DERMATOPHYTOSIS NAILS ONYCHOMYCOSIS Active Condition DoD SEBORRHEIC KERATOSIS Inactive Condition DoD GOUT Active Condition DoD HYPERTENSION (SYSTEMIC) Active Condition DoD PRESBYOPIA Active Condition DoD ASTIGMATISM Inactive Condition DoD REFRACTIVE ERROR - HYPERMETROPIA Active Condition DoD MACULAR DEGENERATION EXUDATIVE Active Condition DoD BPH - benign prostatic hyperplasia Active Condition [facility] Chronic [facility] pain Active [facility] Elevated PSA Active Condition [facility] Erectile dysfunction Active Condition [facility] Exposure to potentially hazardous substance Active Condition [facility] GERD - Gastro-Esophageal Reflux Disease ([facility] [id number]) Active Condition Nov 19, 2022 Entered By: ATA RAMON Comment: EGD 02/2022 with gastritis, esphogitis and duodenitis [place] [facility] Gout Active Condition [place] [facility] History of macular degeneration Active Condition Jan 09, 2023 Entered By: ATA RAMON Comment: carotid US 12/2022 unremarkable [place] [facility] HTN - Hypertension Active Condition [place] [facility] Hyperlipidemia ([facility] [id number]) Active Condition [place] [facility] Kidney stone Active Condition [place] [facility] Malignant melanoma Active Condition J ul 2023 Entered By: ATA RAMON Comment: chest [place] [facility] Neck pain Active Condition [place] [facility] Neurogenic bladder Active Condition [place] [facility] Neuropathy (nerve damage) Active Condition [place] [facility] Polyp of colon Active Condition [place] [facility] Prediabetes Active Condition [place] [facility] Proptosis Active Condition Feb 25 24 Entered By: ATA RAMON Comment: Bilateral status post surgery 01/2024 [place] [facility] TIA - Transient ischaemic attack Active Condition [place] [facility] Urinary incontinence Active Condition [place] [facility] Diagnosis: ICD-10-CM I10 Essential (primary) hypertension Active Diagnosis [facility] Diagnosis: ICD-10-CM M54.50 Low back pain, unspecified Active Diagnosis [facility] Diagnosis: ICD-10-CM M54.2 Cervicalgia Active Diagnosis [facility] Diagnosis: ICD-10-CM 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 [facility] Diagnosis: ICD-10-CM H54.40 Blindness, one eye, unspecified eye Active Diagnosis [place] [facility] Diagnosis: ICD-10-CM H54.50 Low vision, one eye, unspecified eye Active Diagnosis [place] [facility] Diagnosis: ICD-10-CM K57.32 Dvtrcli of lg int w/o perforation or abscess w/o bleeding Active Diagnosis [facility] Diagnosis: ICD-10-CM R53.81 Other malaise Active Diagnosis [facility] Diagnosis: ICD-10-CM G62.9 Polyneuropathy, unspecified Active Diagnosis [facility] Medications Combined list of outpatient medications from Department of Defense and Veterans Affairs facilities.Medications provided include 1) outpatient medications from the last 15 months, and 2) patient-reported medications. Medication Details Route Status Patient Instructions Prescription Expires Prescription Number Last Dispense Date Ordering Provider Order Date Order Qty Source acetaminoph en 325 mg oral tablet 1-2 tab(s), Oral, every 6 hr, PRN pain or fever, X 7 days, # 24 tab(s), 0 total refill(s ), Acute, 12/03/24 12:15:00 PM CDT, Pharmacy : [facility] Oral (given by mouth) Ordered 12/03/2024 5 2024 24.0 0075A-[facility] Allopurinol (Alloprim) Tablet 300 mg Oral TAKE ONE TABLET BY MOUTH ONCE A DAY FOR GOUT. TAKE WITH PLENTY OF WATER. 09/03/2024 [id number] 4 ATA RAMON 2023 90 [facility] allopurinol 100 mg oral tablet allopuri nol 100 mg oral tablet Start Date: 11/03/19 Status: Ordered Repeat number: 1 Ordered 2020 No Facilit y Access allopurinol 100 mg oral tablet allopuri nol 100 mg oral tablet Start Date: 08/07/19 Status: Ordered Repeat number: 1 Ordered 2020 No Facilit y Access allopurinol 100 mg oral tablet allopuri nol 100 mg oral tablet Start Date: 04/14/19 Status: Ordered Repeat number: 1 Ordered 2020 No Facilit y Access ALLOPURINOL 300MG TAB TAKE ONE TABLET BY MOUTH ONCE A DAY FOR GOUT. TAKE WITH PLENTY OF WATER. ORAL ACTIVE 09/04/2025 [id number] 5 ATA RAMON 2024 90 [facility] ALLOPURINOL 300MG TAB TAKE ONE TABLET BY MOUTH ONCE A DAY FOR GOUT. TAKE WITH PLENTY OF WATER. ORAL DISCONT INUED 09/03/2024 [id number] [facility], ATA [address] [place] [address] CB ALLOPURINOL 300MG TAB TAKE ONE TABLET BY MOUTH ONCE A DAY FOR GOUT. TAKE WITH PLENTY OF WATER. ORAL DISCONT INUED 09/03/2024 [id number] 4 [facility], ATA 2023 90 [facility] amLODIPine (U/D) 5 MG ORAL TAB TAKE ONE TABLET BY MOUTH EVERY MORNING AND TAKE TWO TABLETS EVERY EVENING FOR HEART/BL OOD PRESSURE 09/03/2024 [id number] 4 [facility] 2023 270 [facility] [place] amLODIPine 2.5 mg oral tablet amLODIPi ne 2.5 mg oral tablet Start Date: 06/12/19 Status: Ordered Repeat number: 1 Ordered 2020 No Facilit y Access amLODIPine 2.5 mg oral tablet amLODIPi ne 2.5 mg oral tablet Start Date: 08/13/19 Status: Ordered Repeat number: 1 Ordered 2020 No Facilit y Access amLODIPine 2.5 mg oral tablet amLODIPi ne 2.5 mg oral tablet Start Date: 10/08/19 Status: Ordered Repeat number: 1 Ordered 2020 No Facilit y Access amLODIPine 5 mg oral tablet amLODIPi ne 5 mg oral tablet Start Date: 03/05/20 Status: Ordered Repeat number: 1 Ordered 2020 No Facilit y Access amLODIPine 5 mg oral tablet amLODIPi ne 5 mg oral tablet Start Date: 09/24/19 Status: Ordered Repeat number: 1 Ordered 2020 No Facilit y Access amLODIPine 5 mg oral tablet amLODIPi ne 5 mg oral tablet Start Date: 11/07/19 Status: Ordered Repeat number: 1 Ordered 2020 No Facilit y Access amLODIPine 5 mg oral tablet amLODIPi ne 5 mg oral tablet Start Date: 01/08/20 Status: Ordered Repeat number: 1 Ordered 2020 No Facilit y Access AMLODIPINE BESYLATE (amlodipine besylate), 10 MG, TABLET, ORAL, [facility], 1000 ea. BOTTLE Active [id number] 2023 90 [facility] Facilit y AMLODIPINE BESYLATE 10MG TAB TAKE ONE TABLET BY MOUTH EVERY MORNING FOR HIGH BLOOD PRESSURE ORAL 11/22/2024 [id number] ATA RAMON 2023 90 [facility] AMLODIPINE BESYLATE 5MG TAB TAKE ONE TABLET BY MOUTH EVERY MORNING AND TAKE TWO TABLETS EVERY EVENING FOR HEART/BL OOD PRESSURE ORAL DISCONT INUED (EDIT) 09/03/2024 [id number] 4 ATA RAMON 2023 270 [facility] AMOX TR-POTASSIU M CLAVULANATE (AMOXICILLI N/POTASSIUM CLAV), 875-125 MG, TABLET, ORAL, [facility], 100 ea. BOTTLE Active [id number] 2023 14 Pharmac y [facility] Facilit y AMOXICILLIN (AMOXICILLI N), 500 MG, CAPSULE, ORAL, [employer] [facility], 500 ea. BOTTLE Active [id number] 2023 21 Pharmac y [facility] Facilit y amoxicillin 500 mg oral capsule 0 total refill(s ) Ordered 2020 No Facilit y Access ASPIRIN 325MG TAB,EC TAKE ONE TABLET BY MOUTH ONCE A DAY ORAL ACTIVE MONICA GARZA 2019 [facility] atorvastati n (U/D) 80 MG ORAL TAB TAKE ONE-HALF TABLET BY MOUTH EVERY EVENING TO LOWER CHOLESTE ROL 09/03/2024 [id number] ATA RAMON 2023 45 [facility] ATORVASTATI N CA 80MG TAB TAKE ONE-HALF TABLET BY MOUTH EVERY EVENING TO LOWER CHOLESTE ROL ORAL ACTIVE 09/04/2025 [id number] 5 ATA RAMON 2024 45 [facility] ATORVASTATI N CA 80MG TAB TAKE ONE-HALF TABLET BY MOUTH EVERY EVENING TO LOWER CHOLESTE ROL ORAL DISCONT INUED 09/03/2024 [id number] ATA RAMON 2023 45 [facility] ATORVASTATI N CA 80MG TAB TAKE ONE-HALF TABLET BY MOUTH EVERY EVENING TO LOWER CHOLESTE ROL ORAL DISCONT INUED 09/03/2024 [id number] 4 [facility] 2023 45 [facility] ciclopirox 0.77% topical cream ciclopir ox 0.77% topical cream Start Date: 10/28/19 Status: Ordered Repeat number: 1 Ordered 2020 No Facilit y Access CIPROFLOXAC IN HCL (ciprofloxa shankar HCl), 500 MG, TABLET, ORAL, [facility], 100 ea. BOTTLE Active [id number] 2023 14 Pharmac y [facility] Facilit y cyclobenzap rine 10 mg oral tablet 1 tab(s), Oral, TID, PRN spasm, Do not drive, use alcohol, or perform activiti es where concentr ation is required within 8 hours of taking this medicati on., # 9 tab(s), 0 total refill(s ), Acute, Pharmacy : [facility] Oral (given by mouth) Ordered 11/28/2024 5 2024 9.0 0075A-G [facility] DONEPEZIL HCL 10MG TAB TAKE ONE-HALF TABLET BY MOUTH AT BEDTIME FOR ALZHEIME R DISEASE (JUST BEFORE BEDTIME) ORAL DISCONT INUED BY PROVIDE R 10/28/2024 [id number] 4 [facility] [address] [place], [place] [address]OC Donepezil Hydrochlori de (Aricept Starter Pack) Tablet 10 mg Oral TAKE ONE-HALF TABLET BY MOUTH AT BEDTIME FOR ALZHEIME R DISEASE (JUST BEFORE BEDTIME) 10/28/2024 [id number] 4 [facility] 2023 45 [facility] Edex 10 mcg inj-kit [2cart/kit] See Rx Instruct ions, # 3 EA, 0 total refill(s ), Hard Stop Complet ed 01/24/20232022 3.0 Ambulat ory Pharmac y Edex 10 mcg inj-kit [6cart/kit] See Rx Instruct ions, 0, # 3 EA, 3 total refill(s ), Hard Stop Discont inued 09/05/2022 3 2022 3.0 Ambulat ory Pharmac y FINASTERIDE 5 MG ORAL TAB TAKE ONE TABLET BY MOUTH ONCE A DAY FOR PROSTATE . SWALLOW WHOLE, DO NOT CRUSH, SPLIT, OR CHEW. 05/10/2024 [id number] 4 YENNYATA 2023 90 [facility] n finasteride 5 mg oral tablet finaster jeri 5 mg oral tablet Start Date: 03/05/20 Status: Ordered Repeat number: 1 Ordered 2020 No Facilit y Access finasteride 5 mg oral tablet finaster jeri 5 mg oral tablet Start Date: 09/30/19 Status: Ordered Repeat number: 1 Ordered 2020 No Facilit y Access FINASTERIDE 5MG TAB TAKE ONE TABLET BY MOUTH ONCE A DAY FOR PROSTATE . SWALLOW WHOLE, DO NOT CRUSH, SPLIT, OR CHEW. ORAL ACTIVE 03/19/2025 [id number] 5 [facility] [address] [place] [address] FINASTERIDE 5MG TAB TAKE ONE TABLET BY MOUTH ONCE A DAY FOR PROSTATE . SWALLOW WHOLE, DO NOT CRUSH, SPLIT, OR CHEW. ORAL DISCONT INUED 05/10/2024 [id number] 4 [facility]NYATA 2022 90 [facility] FLOMAX (BRAND) 0.4 MG ORAL CAP TAKE ONE CAPSULE BY MOUTH TWICE A DAY APPROXIM ATELY 30 MINUTES AFTER THE SAME MEAL EACH DAY (FOR PROSTATE ) 11/01/2024 [id number] 4 [facility] TREVINO 2023 180 [facility] Divis[facility] n FLOMAX (BRAND) 0.4 MG ORAL CAP TAKE ONE CAPSULE BY MOUTH TWICE A DAY APPROXIM ATELY 30 MINUTES AFTER THE SAME MEAL EACH DAY (FOR PROSTATE ) Discont inued 01/30/2024 [id number] ATA RAMON 2023 180 [facility] n GABAPENTIN (U/D) 300 MG ORAL CAP TAKE THREE CAPSULES BY MOUTH THREE TIMES A DAY FOR PAIN 09/03/2024 [id number] 4 ATA RAMON 2023 810 [facility] n gabapentin 300 mg oral capsule gabapent in 300 mg oral capsule Start Date: 11/12/19 Status: Ordered Repeat number: 1 Ordered 2020 No Facilit y Access gabapentin 300 mg oral capsule gabapent in 300 mg oral capsule Start Date: 01/11/20 Status: Ordered Repeat number: 1 Ordered 2020 No Facilit y Access gabapentin 300 mg oral capsule gabapent in 300 mg oral capsule Start Date: 02/04/20 Status: Ordered Repeat number: 1 Ordered 2020 No Facilit y Access GABAPENTIN 300MG CAP TAKE THREE CAPSULES BY MOUTH THREE TIMES A DAY FOR PAIN ORAL ACTIVE 09/04/2025 [id number] 5 AT[facility] RAMON [address] [place] [address] CBOC GABAPENTIN 300MG CAP TAKE THREE CAPSULES BY MOUTH THREE TIMES A DAY FOR PAIN ORAL DISCONT INUED 09/03/2024 [id number] 5 ATA RAMON [address] [place] [address] CBOC HYDROCODONE -ACETAMINOP HEN (HYDROCODON E/ACETAMINO PHEN), 5MG-325MG, TABLET, ORAL, [facility] PH, 50 HYDROCOD ONE-ACET AMINOPHE N (HYDROCO DONE/MARTINE TAMINOPH EN), 5MG-325M G, TABLET, ORAL, [facility] R[facility]T PH, 50 Start Date: 03/19/19 Status: Ordered Repeat number: 1 Ordered 2020 No Facilit y Access IRX: Sildenafil 100 mg/Placebo Tablet Oral TAKE ONE TABLET BY MOUTH ONE HOUR PRIOR TO SEXUAL ACTIVITY FOR ERECTILE DYSFUNCT ION NEEDED - LIMIT 6 DOSES PER 30 DAYS 10/28/2024 [id number] ATA RAMON 2023 18 [facility] Divisio n LOSARTAN 50MG TAB TAKE ONE-HALF TABLET BY MOUTH ONCE A DAY FOR HIGH BLOOD PRESSURE ORAL DISCONT INUED (EDIT) 11/18/2024 [id number] 4 [facility] [address] [place] [address] CBOC LOSARTAN POTASSIUM (losartan potassium), 25 MG, TABLET, ORAL, [facility], 1000 ea. BOTTLE Active [id number] 2023 30 Pharmac y [facility] Facilit y LOSARTAN POTASSIUM (losartan potassium), 25 MG, TABLET, ORAL, [employer]AR[facility], 1000 ea. BOTTLE Active [id number] 2023 90 Pharmac y [facility] Facilit y LOSARTAN POTASSIUM 100MG TAB TAKE ONE TABLET BY MOUTH AT BEDTIME FOR HIGH BLOOD PRESSURE ORAL ACTIVE 11/17/2025 [id number] 5 [facility], [facility] [address] [place] [address] CBOC LOSARTAN POTASSIUM 100MG TAB TAKE ONE-HALF TABLET BY MOUTH AT BEDTIME FOR HIGH BLOOD PRESSURE ORAL DISCONT INUED (EDIT) 09/04/2025 [id number] 5 [facility] [address] [place] [address] CBOC [place]AN POTASSIUM 100MG TAB TAKE ONE-HALF TABLET BY MOUTH AT BEDTIME FOR HIGH BLOOD PRESSURE ORAL DISCONT INUED 11/22/2024 [id number] [facility] [address] [place] [address] CBOC magnesium oxide 400 mg (240 mg elemental magnesium) oral tablet magnesiu m oxide 400 mg (240 mg elementa l magnesiu m) oral tablet Start Date: 03/28/20 Status: Ordered Repeat number: 1 Ordered 2020 No Facilit y Access metoprolol succ (U/D) 25 MG ORAL TB24 TAKE ONE-HALF TABLET BY MOUTH ONCE A DAY FOR HEART/BL OOD PRESSURE . SWALLOW WHOLE, DO NOT CRUSH OR CHEW (TABLETS MAY BE CUT IN HALF). 11/01/2024 [id number] 4 [facility] [address] [place] [address] metoprolol succ (U/D) 25 MG ORAL TB24 TAKE ONE-HALF TABLET BY MOUTH ONCE A DAY FOR HEART/BL OOD PRESSURE . SWALLOW WHOLE, DO NOT CRUSH OR CHEW (TABLETS MAY BE CUT IN HALF). Discont inued 01/30/2024 [id number] 4 [facility] 2023 45 [facility] n metoprolol succinate 25 mg oral tablet, extended release metoprol ol succinat e 25 mg oral tablet, extended release Start Date: 05/29/20 Status: Ordered Repeat number: 1 Ordered 2020 No Facilit y Access metoprolol succinate 25 mg oral tablet, extended release metoprol ol succinat e 25 mg oral tablet, extended release Start Date: 09/04/19 Status: Ordered Repeat number: 1 Ordered 2020 No Facilit y Access metoprolol succinate 25 mg oral tablet, extended release metoprol ol succinat e 25 mg oral tablet, extended release Start Date: 12/03/19 Status: Ordered Repeat number: 1 Ordered 2020 No Facilit y Access METOPROLOL SUCCINATE 25MG TAB,SA TAKE ONE-HALF TABLET BY MOUTH ONCE A DAY FOR HEART/BL OOD PRESSURE . SWALLOW WHOLE, DO NOT CRUSH OR CHEW (TABLETS MAY BE CUT IN HALF). ORAL DISCONT INUED BY PROVIDE R 11/01/2024 [id number] 4 [facility] 25MG TAB,SA TAKE ONE-HALF TABLET BY MOUTH ONCE A DAY FOR HEART/BL OOD PRESSURE . SWALLOW WHOLE, DO NOT CRUSH OR CHEW (TABLETS MAY BE CUT IN HALF). ORAL DISCONT INUED 01/30/2024 [id number] 4 [facility] 2022 45 [facility] CB MOXIFLOXACI N HCL (EQV-VIGAMO X) 0.5% SOLN,OPH INSTILL 1 DROP IN LEFT EYE DIRECTED STARTING AT NOON THE DAY BEFORE SURGERY, INSTILL 1 DROP IN LEFT EYE EVERY 2 HOURS UNTIL BED AND 1 DROP THE MORNING OF SURGERY. OPHTHA LMIC ACTIVE 03/07/2025 [id number] 5 [facility] P 2023 3 [place] [facility] MOXIFLOXACI N HCL (EQV-VIGAMO X) 0.5% SOLN,OPH INSTILL 1 DROP IN RIGHT EYE DIRECTED STARTING AT NOON THE DAY BEFORE SURGERY, INSTILL 1 DROP INTO RIGHT EYE EVERY 2 HOURS UNTIL BED AND 1 DROP MORNING OF SURGERY. OPHTHA LMIC DISCONT INUED 02/10/2025 [id number] 4 [facility] 2023 3 [place] [facility] MULTIVITAMI NS CAP/TAB TAKE ONE TABLET BY MOUTH ONCE A DAY ORAL ACTIVE MONICA GARZA LLIAM R 2019 [facility] naproxen 375 mg oral tablet naproxen 375 mg oral tablet Start Date: 01/13/20 Status: Ordered Repeat number: 1 Ordered 2020 No Facilit y Access NAPROXEN 375MG TAB TAKE ONE TABLET BY MOUTH TWICE A DAY NEEDED ORAL ACTIVE MONICA GARZA LLIAM R 2019 [facility] naproxen 500 mg oral tablet 1 tab(s), Oral, BID, with food, X 7 days, # 14 tab(s), 0 total refill(s ), Acute, 12/03/24 12:15:00 PM CDT, Pharmacy : [facility] Oral (given by mouth) Ordered 12/03/2024 5 2024 14.0 [facility]75[facility] olopatadine 0.1% ophthalmic solution 1 drop(s), Eye-Both , BID, # 5 mL, 5 total refill(s ), Acute, Pharmacy : [facility] Both eyes Complet ed 07/12/2022 2 2022 5.0 [facility] olopatadine 0.1% ophthalmic solution olopatad ine 0.1% ophthalm ic solution Start Date: 04/27/20 Status: Ordered Repeat number: 1 Ordered 2020 No Facilit y Access oxybutynin 5 mg/24 hours oral tablet, extended release oxybutyn in 5 mg/24 hours oral tablet, extended release Start Date: 04/10/20 Status: Ordered Repeat number: 1 Ordered 2020 No Facilit y Access OXYBUTYNIN CHLORIDE, 5 MG, TAB OSM 24, ORAL TAKE ONE TABLET BY MOUTH ONCE A DAY FOR BLADDER. SWALLOW WHOLE, DO NOT CRUSH OR CHEW. 11/01/2024 [id number] 4 [facility] [address] [place] [address] Divisio n OXYBUTYNIN CHLORIDE, 5 MG, TAB OSM 24, ORAL TAKE ONE TABLET BY MOUTH ONCE A DAY FOR BLADDER. SWALLOW WHOLE, DO NOT CRUSH OR CHEW. Discont inued 01/30/2024 [id number] 4 [facility] [address] [place] [address] Divisio n OXYBUTYNIN CL 5MG TAB,SA TAKE ONE TABLET BY MOUTH ONCE A DAY FOR BLADDER. SWALLOW WHOLE, DO NOT CRUSH OR CHEW. ORAL DISCONT INUED 01/30/2024 [id number] 4 [facility] [address] [place] [address] OXYBUTYNIN CL 5MG TAB,SA TAKE ONE TABLET BY MOUTH ONCE A DAY FOR BLADDER. SWALLOW WHOLE, DO NOT CRUSH OR CHEW. ORAL 11/01/2024 [id number] 5 [facility] [address] [place] [address] PANTOPRAZOL E (U/D) 40 MG ORAL TBEC TAKE ONE TABLET BY MOUTH EVERY MORNING BEFORE A MEAL TAKE 30 MINUTES BEFORE MEAL(S) 09/04/2024 [id number] 4 [facility] [address] [place] [address] Divisio n pantoprazol e EC 40 mg tablet 40 mg, Oral, Daily, # 30 EA, 3 total refill(s ), Hard Stop Oral (given by mouth) Complet ed 02/23/2023 3 2022 30.0 Ambulat ory Pharmac y PANTOPRAZOL E NA 40MG TAB,EC TAKE ONE TABLET BY MOUTH EVERY MORNING BEFORE A MEAL TAKE 30 MINUTES BEFORE MEAL(S) ORAL ACTIVE 06/25/2025 [id number] 5 [facility] [address] [place] [address] CBOC PANTOPRAZOL E NA 40MG TAB,EC TAKE ONE TABLET BY MOUTH EVERY MORNING BEFORE A MEAL TAKE 30 MINUTES BEFORE MEAL(S) ORAL DISCONT INUED 09/04/2024 [id number] 4 [facility] [address] [place] [address] CBOC PANTOPRAZOL E NA 40MG TAB,EC TAKE ONE TABLET BY MOUTH EVERY MORNING BEFORE A MEAL TAKE 30 MINUTES BEFORE MEAL(S) ORAL DISCONT INUED 09/04/2024 [id number] 4 [facility] [address] [place] [address] CBOC POTASSIUM CIT 10 MEQ (1,080 MG) PO TBER TAKE ONE TABLET BY MOUTH TWICE A DAY FOR KIDNEY STONES. SWALLOW WHOLE, DO NOT CUT, CRUSH, CHEW, OR DISSOLVE . 05/10/2024 [id number] 4 [facility] 2023 200 [facility] Divisio n potassium citrate 10 mEq oral tablet, extended release potassiu m citrate 10 mEq oral tablet, extended release Start Date: 09/15/19 Status: Ordered Repeat number: 1 Ordered 2020 No Facilit y Access potassium citrate 10 mEq oral tablet, extended release potassiu m citrate 10 mEq oral tablet, extended release Start Date: 03/05/20 Status: Ordered Repeat number: 1 Ordered 2020 No Facilit y Access potassium citrate 10 mEq oral tablet, extended release potassiu m citrate 10 mEq oral tablet, extended release Start Date: 10/14/19 Status: Ordered Repeat number: 1 Ordered 2020 No Facilit y Access potassium citrate 10 mEq oral tablet, extended release potassiu m citrate 10 mEq oral tablet, extended release Start Date: 11/12/19 Status: Ordered Repeat number: 1 Ordered 2020 No Facilit y Access potassium citrate 10 mEq oral tablet, extended release potassiu m citrate 10 mEq oral tablet, extended release Start Date: 01/11/20 Status: Ordered Repeat number: 1 Ordered 2020 No Facilit y Access potassium citrate 10 mEq oral tablet, extended release potassiu m citrate 10 mEq oral tablet, extended release Start Date: 02/04/20 Status: Ordered Repeat number: 1 Ordered 2020 No Facilit y Access potassium citrate 10 mEq oral tablet, extended release potisidoro m citrate 10 mEq oral tablet, extended release Start Date: 02/04/20 Status: Ordered Repeat number: 1 Ordered 2020 No Facilit y Access POTASSIUM CITRATE 10MEQ TAB,SA TAKE ONE TABLET BY MOUTH TWICE A DAY FOR KIDNEY STONES. SWALLOW WHOLE, DO NOT CUT, CRUSH, CHEW, OR DISSOLVE . ORAL ACTIVE 03/19/2025 [id number] 5 [facility], ATA 2023 200 [facility] POTASSIUM CITRATE 10MEQ TAB,SA TAKE ONE TABLET BY MOUTH TWICE A DAY FOR KIDNEY STONES. SWALLOW WHOLE, DO NOT CUT, CRUSH, CHEW, OR DISSOLVE . ORAL DISCONT INUED 05/10/2024 [id number] 4 [facility], ATA 2022 200 [facility] CB PREDNISOLON E ACETATE 1% SUSP,OPH INSTILL 1 DROP IN LEFT EYE FOUR TIMES A DAY STARTING THE DAY AFTER SURGERY OPHTHA LMIC ACTIVE 03/07/2025 [id number] TER[facility] ABRAHAM P 2023 5 [place] [facility] PREDNISOLON E ACETATE 1% SUSP,OPH INSTILL 1 DROP IN RIGHT EYE FOUR TIMES A DAY START THE DAY AFTER SURGERY. OPHTHA LMIC DISCONT INUED 02/10/2025 [id number] TER[facility] ABRAHAM P 2023 5 [place] [facility] [facility] Refresh Eye-Both , 0 total refill(s ), Maintena nce Both eyes Ordered 2021 [id number] Refresh Plus ophthalmic solution 1 drop(s), Eye-Both , QID, PRN dry eyes, # 70 EA, 11 total refill(s ), Maintena nce, Pharmacy : [facility] Both eyes Ordered 2 2021 70.0 [id number] [employer] [facility] sildenafil 100 mg oral tablet sildenaf il 100 mg oral tablet Start Date: 09/30/19 Status: Ordered Repeat number: 1 Ordered 2020 No Facilit y Access sildenafil 100 mg tablet See Instruct ions, # 20 EA, 1 total refill(s ), Hard Stop Complet ed 02/28/20242023 20.0 Ambulat ory Pharmac y sildenafil 100 mg tablet See Rx Instruct ions, # 20 EA, 5 total refill(s ), Hard Stop Complet ed 01/09/20232022 20.0 Ambulat ory Pharmac y sildenafil 100 mg tablet See Rx Instruct ions, # 18 EA, 12 total refill(s ), Hard Stop Complet ed 12/21/2022 2022 18.0 Ambulat ory Pharmac y sildenafil 100 mg tablet See Instruct ions, 0, # 30 EA, 1 total refill(s ), Hard Stop Complet ed 05/21/20242024 30.0 Ambulat ory Pharmac y SILDENAFIL CITRATE 100MG TAB TAKE ONE TABLET BY MOUTH ONE HOUR PRIOR TO SEXUAL ACTIVITY FOR ERECTILE DYSFUNCT ION NEEDED - LIMIT 6 DOSES PER 30 DAYS ORAL ACTIVE 01/10/2025 [id number] ANDREW RAMONMY [address] [place] [address] CBOC SILDENAFIL CITRATE 100MG TAB TAKE ONE TABLET BY MOUTH ONE HOUR PRIOR TO SEXUAL ACTIVITY FOR ERECTILE DYSFUNCT ION NEEDED - LIMIT 6 DOSES PER 30 DAYS ORAL DISCONT INUED 10/28/2024 [id number] ATA RAMON 2023 18 [facility] SILDENAFIL CITRATE 100MG TAB TAKE ONE TABLET BY MOUTH QW-(OPT) PRN ORAL ACTIVE ATA RAMON 2020 [facility] sucralfate 1 g tablet 1 g, Oral, TID, EA, 2 total refill(s ), Hard Stop Oral (given by mouth) Complet ed 02/23/20232022 Ambulat ory Pharmac y tamsulosin 0.4 mg oral capsule tamsulos in 0.4 mg oral capsule Start Date: 02/04/20 Status: Ordered Repeat number: 1 Ordered 2020 No Facilit y Access tamsulosin 0.4 mg oral capsule tamsulos in 0.4 mg oral capsule Start Date: 09/15/19 Status: Ordered Repeat number: 1 Ordered 2020 No Facilit y Access TAMSULOSIN HCL 0.4MG CAP TAKE ONE CAPSULE BY MOUTH TWICE A DAY APPROXIM ATELY 30 MINUTES AFTER THE SAME MEAL EACH DAY (FOR PROSTATE ) ORAL ACTIVE 06/25/2025 [id number] 5 YENNY, ATA 2024 180 [facility] TAMSULOSIN HCL 0.4MG CAP TAKE ONE CAPSULE BY MOUTH TWICE A DAY APPROXIM ATELY 30 MINUTES AFTER THE SAME MEAL EACH DAY (FOR PROSTATE ) ORAL DISCONT INUED 11/01/2024 [id number] 4 YENNY, ATA 2023 180 [place] [facility] TAMSULOSIN HCL 0.4MG CAP TAKE ONE CAPSULE BY MOUTH TWICE A DAY APPROXIM ATELY 30 MINUTES AFTER THE SAME MEAL EACH DAY (FOR PROSTATE ) ORAL DISCONT INUED 01/30/2024 [id number] 4 YENNY, ATA 2023 180 [facility] Xiidra 5% eye drops UD [60EA] See Instruct ions, # 60 EA, 11 total refill(s ), Hard Stop Complet ed 01/10/20242023 60.0 Ambulat ory Pharmac y Allergies, Adverse Reactions, Alerts Combined list of allergies from Department of Defense and Veterans Affairs facilities. It does not include entries that were removed or entered in error. Substance Category Reaction Severity Reaction type Status Date Reported Comments Source ARICEPT Propensity to adverse reactions to drug (finding) Nightmares MODERATE active 4 [facility] MORPHINE Drug allergy (disorder) Unknown active 1 [facility] MORPHINE Drug allergy (disorder) Insomnia, Psychosis active 0 [facility] morphine Propensity to adverse reactions to substance Unknown, Psychosis Active 0 Unknown [facility] MORPHINE Propensity to adverse reactions to drug (finding) Insomnia, Psychotic disorder active 0 [facility] Immunizations Combined list of available immunizations from the Department of Defense and Veterans Affairs facilities. Immunization Series Date Given Administered By Site Reaction Lot Number CVX Code Drug Cadd Drafter Status Comments Source COVID-19 (MODERNA), MRNA, LNP-S, PF, 50 MCG/0.5 ML (AGES 12+ YEARS) 1 2022 ANKUR MATTA LEFT DELTO ID [id number] 312 complet ed [facility] INFLUENZA, HIGH-DOSE, QUADRIVALENT 2022 YAMILE SAMAYOA Manisha LEFT DELTO ID [id number] 197 complet ed [facility] AT [facility] PNEUMOCOCCAL CONJUGATE PCV20, POLYSACCHARID E [id number] CONJUGATE, ADJUVANT, PF 1 2022 216 complet ed HISTORICA L INFORMATI ON - FROM OTHER REGISTRY, [facility] COVID-19 (PFIZER), MRNA, LNP-S, BIVALENT, PF, 30 MCG/0.3 ML DOSE 3 2022 300 complet ed HISTORICA L INFORMATI ON - FROM OTHER REGISTRY, [facility] INFLUENZA, INJECTABLE, QUADRIVALENT, PRESERVATIVE FREE 2021 150 complet ed [facility] COVID-19 (MODERNA), MRNA, LNP-S, PF, 100 MCG/0.5ML DOSE OR 50 MCG/0.25ML DOSE 4 2021 207 complet ed MOD; [id number]; 2 [facility] ZOSTER RECOMBINANT 2 2021 187 complet ed HISTORICA L INFORMATI ON - FROM OTHER REGISTRY, [facility] COVID-19 (PFIZER), MRNA, LNP-S, PF, 30 MCG/0.3 ML DOSE 3 2020 208 complet ed [facility] INFLUENZA, INJECTABLE, QUADRIVALENT, PRESERVATIVE FREE 2 2020 150 complet ed HISTORICA L INFORMATI ON - FROM OTHER REGISTRY, [facility] COVID-19 (PFIZER), MRNA, LNP-S, PF, 30 MCG/0.3 ML DOSE 2 2020 208 complet ed [facility] COVID-19 (PFIZER), MRNA, LNP-S, PF, 30 MCG/0.3 ML DOSE [address] [facility] INFLUENZA, INJECTABLE, QUADRIVALENT, PRESERVATIVE FREE 2019 150 complet ed [facility] ZOSTER RECOMBINANT 1 2019 187 complet ed [facility] TDAP 2019 115 complet ed [facility] t [facility] TDAP 1 2019 115 complet ed HISTORICA L INFORMATI ON - FROM OTHER REGISTRY, [facility] INFLUENZA, INJECTABLE, QUADRIVALENT, PRESERVATIVE FREE 1 2018 150 complet ed HISTORICA L INFORMATI ON - FROM OTHER REGISTRY, [facility] Results Combined list of recent chemistry, hematology and other laboratory results from Department of Defense and Veterans Affairs, ranging from 15 months to all on record, depending upon the facility. Order Name Results Value Reference Range Date Interpretation Specimen Comments Source PROST. SPECIFIC AG.(PB-STL) PROSTATE SPECIFIC AG [MASS/VOLUME] IN SERUM OR PLASMA 1.40 ng/mL 0 - 4 11/09 Specimen Type: SERUM No comment entered. Ordering Provider: ATA RAMON Report Released Date/Time : Nov 18, 2023 11:44 AM Reporting Lab: [place] [facility] [address] [place] [address] Performin g Lab: [place] [facility] [address] [place] [address] [place] [address] CBOC HGA1C HEMOGLOBIN A1C/HEMOGLOBI N.TOTAL IN BLOOD 6.2 4.0 - 6.0 11/09 H Specimen Type: BLOOD No comment entered. Ordering Provider: ATA RAMON Report Released Date/Time : Nov 18, 2023 11:44 AM Reporting Lab: [place] [facility] [address] [place] [address] Performin g Lab: [place] [facility] [address] [place] [address] [place] [address] CBOC TSH (MA-PB) THYROTROPIN [UNITS/VOLUME ] IN SERUM OR PLASMA 1.324 u[IU]/ mL 0.47 - 5 11/09 Specimen Type: SERUM No comment entered. Ordering Provider: ATA RAMON Report Released Date/Time : Nov 18, 2023 11:44 AM Reporting Lab: [place] [facility] [address] [place] [address] Performin g Lab: [place] [facility] [address] [place] [address] 8 [facility] CHOLESTEROL PANEL (PB) CHOLESTEROL [MASS/VOLUME] IN SERUM OR PLASMA 140 mg/dL 0 - 200 11/09 Specimen Type: PLASMA No comment entered. Ordering Provider: ATA RAMON Report Released Date/Time : Nov 18, 2023 11:44 AM Reporting Lab: [place] [facility] [address] [place] [address] Performin g Lab: [place] [facility] [address] [place] [address] 8 [facility] CHOLESTEROL PANEL (PB) TRIGLYCERIDE [MASS/VOLUME] IN SERUM OR PLASMA 227 mg/dL 0 - 150 11/09 H Specimen Type: PLASMA No comment entered. Ordering Provider: ATA RAMON Report Released Date/Time : Nov 18, 2023 11:44 AM Reporting Lab: [place] [facility] [address] [place] [address] 8 Performin g Lab: [place] [facility] [address] [place] [address] [facility] CHOLESTEROL PANEL (PB) CHOLESTEROL IN LDL [MASS/VOLUME] IN SERUM OR PLASMA BY CALCULATION 57.2 mg/dL 11/09 Specimen Type: PLASMA No comment entered. Ordering Provider: ATA RAMON Report Released Date/Time : Nov 18, 2023 11:44 AM Reporting Lab: [place] [facility] [address] [place] [address] 8 Performin g Lab: [place] [facility] [address] [place] [address] 8 [facility] CHOLESTEROL PANEL (PB) CHOLESTEROL IN HDL [MASS/VOLUME] IN SERUM OR PLASMA 37.4 mg/dL 40 11/09 L Specimen Type: PLASMA No comment entered. Ordering Provider: ATA RAMON Report Released Date/Time : Nov 18, 2023 11:44 AM Reporting Lab: [place] [facility] [address] [place] [address] 8 Performin g Lab: [place] [facility] [address] [place] [address] 8 [facility] CHOLESTEROL PANEL (PB) CHOLESTEROL IN HDL/CHOLESTER OL.TOTAL [MASS RATIO] IN SERUM OR PLASMA 26.7 25 11/09 Specimen Type: PLASMA No comment entered. Ordering Provider: ATA RAMON Report Released Date/Time : Nov 18, 2023 11:44 AM Reporting Lab: [place] [facility] [address] [place] [address] Performin g Lab: [place] [facility] [address] [place] [address] 8 [facility] COMPREHENSI VE METABOLIC PANEL CREATININE [MASS/VOLUME] IN SERUM OR PLASMA 1.00 mg/dL 0.7 - 1.3 11/09 Specimen Type: PLASMA No comment entered. Ordering Provider: ATA RAMON Report Released Date/Time : Nov 18, 2023 11:44 AM Reporting Lab: [place] [facility] [address] [place] [address] 8 Performin g Lab: [place] [facility] [address] [place] [address] 8 [facility] COMPREHENSI VE METABOLIC PANEL UREA NITROGEN [MASS/VOLUME] IN SERUM OR PLASMA 9 mg/dL 9 - 25 11/09 Specimen Type: PLASMA No comment entered. Ordering Provider: ATA RAMON Report Released Date/Time : Nov 18, 2023 11:44 AM Reporting Lab: [place] [facility] [address] [place] [address] 8 Performin g Lab: [place] [facility] [address] [place] [address] 8 [facility] COMPREHENSI VE METABOLIC PANEL GLUCOSE [MASS/VOLUME] IN SERUM OR PLASMA 93 mg/dL 72 - 99 11/09 Specimen Type: PLASMA No comment entered. Ordering Provider: ATA RAMON Report Released Date/Time : Nov 18, 2023 11:44 AM Reporting Lab: [place] [facility] [address] [place] [address] 8 Performin g Lab: [place] [facility] [address] [place] [address] [place] [facility] COMPREHENSI VE METABOLIC PANEL SODIUM [MOLES/VOLUME ] IN SERUM OR PLASMA 145 meq/L 136 - 145 11/09 Specimen Type: PLASMA No comment entered. Ordering Provider: ATA RAMON Report Released Date/Time : Nov 18, 2023 11:44 AM Reporting Lab: [place] [facility] [address] [place] [address] 8 Performin g Lab: [place] [facility] [address] [place] [address] 8 [place] [facility] COMPREHENSI VE METABOLIC PANEL POTASSIUM [MOLES/VOLUME ] IN SERUM OR PLASMA 4.7 meq/L 3.5 - 5 11/09 Specimen Type: PLASMA No comment entered. Ordering Provider: ATA RAMON Report Released Date/Time : Nov 18, 2023 11:44 AM Reporting Lab: [place] [facility] [address] [place] [address] 8 Performin g Lab: [place] [facility] [address] [place] [address] 8 [place] [place] [facility] COMPREHENSI VE METABOLIC PANEL CHLORIDE [MOLES/VOLUME ] IN SERUM OR PLASMA 111 meq/L 98 - 107 11/09 H Specimen Type: PLASMA No comment entered. Ordering Provider: ATA RAMON Report Released Date/Time : Nov 18, 2023 11:44 AM Reporting Lab: [place] [facility] [address] [place] [address] 8 Performin g Lab: [place] [facility] [address] [place] [address] [place] [facility] COMPREHENSI VE METABOLIC PANEL CARBON DIOXIDE, TOTAL [MOLES/VOLUME ] IN SERUM OR PLASMA 27 meq/L 22 - 31 11/09 Specimen Type: PLASMA No comment entered. Ordering Provider: ATA RAMON Report Released Date/Time : Nov 18, 2023 11:44 AM Reporting Lab: [place] [facility] [address] [place] [address] 8 Performin g Lab: [place] [facility] [address] [place] [address] 8 [facility] COMPREHENSI VE METABOLIC PANEL CALCIUM [MASS/VOLUME] IN SERUM OR PLASMA 9.5 mg/dL 8.4 - 10.4 11/09 Specimen Type: PLASMA No comment entered. Ordering Provider: ATA RAMON Report Released Date/Time : Nov 18, 2023 11:44 AM Reporting Lab: [place] [facility] [address] [place] [address] 8 Performin g Lab: [place] [facility] [address] [place] [address] 8 [facility] COMPREHENSI VE METABOLIC PANEL PROTEIN [MASS/VOLUME] IN SERUM OR PLASMA 6.4 g/dL 6 - 8.6 11/09 Specimen Type: PLASMA No comment entered. Ordering Provider: ATA RAMON Report Released Date/Time : Nov 18, 2023 11:44 AM Reporting Lab: [place] [facility] [address] [place] [address] 8 Performin g Lab: [place] [facility] [address] [place] [address] 8 [facility] COMPREHENSI VE METABOLIC PANEL ALBUMIN [MASS/VOLUME] IN SERUM OR PLASMA 4.0 g/dL 3.4 - 5 11/09 Specimen Type: PLASMA No comment entered. Ordering Provider: ATA RAMON Report Released Date/Time : Nov 18, 2023 11:44 AM Reporting Lab: [place] [facility] [address] [place] [address] 8 Performin g Lab: [place] [facility] [address] [place] [address] 8 [facility] COMPREHENSI VE METABOLIC PANEL BILIRUBIN.TOT AL [MASS/VOLUME] IN SERUM OR PLASMA 0.4 mg/dL 0.2 - 1.2 11/09 Specimen Type: PLASMA No comment entered. Ordering Provider: ATA RAMON Report Released Date/Time : Nov 18, 2023 11:44 AM Reporting Lab: [place] [facility] [address] [place] [address] Performin g Lab: [place] [facility] [address] [place] [address] 8 [facility] COMPREHENSI VE METABOLIC PANEL ALKALINE PHOSPHATASE [ENZYMATIC ACTIVITY/VOLU ME] IN SERUM OR PLASMA 98 U/L 40 - 150 11/09 Specimen Type: PLASMA No comment entered. Ordering Provider: ATA RAMON Report Released Date/Time : Nov 18, 2023 11:44 AM Reporting Lab: [place] [facility] [address] [place] [address] Performin g Lab: [place] [facility] [address] [place] [address] 8 [facility] COMPREHENSI VE METABOLIC PANEL ASPARTATE AMINOTRANSFER ASE [ENZYMATIC ACTIVITY/VOLU ME] IN SERUM OR PLASMA 18 U/L 5 - 34 11/09 Specimen Type: PLASMA No comment entered. Ordering Provider: ATA RAMON Report Released Date/Time : Nov 18, 2023 11:44 AM Reporting Lab: [place] [facility] [address] [place] [address] Performin g Lab: [place] [facility] [address] [place] [address] 8 [facility] COMPREHENSI VE METABOLIC PANEL ALANINE AMINOTRANSFER ASE [ENZYMATIC ACTIVITY/VOLU ME] IN SERUM OR PLASMA 25 U/L 8 - 40 11/09 Specimen Type: PLASMA No comment entered. Ordering Provider: ATA RAMON Report Released Date/Time : Nov 18, 2023 11:44 AM Reporting Lab: [place] [facility] [address] [place] [address] 8 Performin g Lab: [place] [facility] [address] [place] [address] 8 [facility] COMPREHENSI VE METABOLIC PANEL GLOMERULAR FILTRATION RATE/1.73 SQ M.PREDICTED [VOLUME RATE/AREA] IN SERUM, PLASMA OR BLOOD BY CREATININE-BA SED FORMULA (CKD-EPI 2020) 82 11/09 Specimen Type: PLASMA No comment entered. Ordering Provider: ATA RAMON Report Released Date/Time : Nov 18, 2023 11:44 AM Reporting Lab: [place] [facility] [address] [place] [address] Performin g Lab: [place] [facility] [address] [place] [address] [facility] CBC LEUKOCYTES [#/VOLUME] IN BLOOD BY AUTOMATED COUNT 6.6 10*3/u L 3.6 - 11.2 11/09 Specimen Type: BLOOD No comment entered. Ordering Provider: ATA RAMON Report Released Date/Time : Nov 18, 2023 11:44 AM Reporting Lab: [place] [facility] [address] [place] [address] Performin g Lab: [place] [facility] [address] [place] [address] 8 [facility] CBC ERYTHROCYTES [#/VOLUME] IN BLOOD BY AUTOMATED COUNT 4.70 10*6/u L 4.10 - 5.70 11/09 Specimen Type: BLOOD No comment entered. Ordering Provider: ATA RAMON Report Released Date/Time : Nov 18, 2023 11:44 AM Reporting Lab: [place] [facility] [address] [place] [address] Performin g Lab: [place] [facility] [address] [place] [address] [facility] CBC HEMOGLOBIN [MASS/VOLUME] IN BLOOD 13.8 g/dL 13.1 - 16.8 11/09 Specimen Type: BLOOD No comment entered. Ordering Provider: ATA RAMON Report Released Date/Time : Nov 18, 2023 11:44 AM Reporting Lab: [place] [facility] [address] [place] [address] 8 Performin g Lab: [place] [facility] [address] [place] [address] [facility] CBC HEMATOCRIT [VOLUME FRACTION] OF BLOOD 43.6 38.2 - 48.4 11/09 Specimen Type: BLOOD No comment entered. Ordering Provider: ATA RAMON Report Released Date/Time : Nov 18, 2023 11:44 AM Reporting Lab: [place] [facility] [address] [place] [address] Performin g Lab: [place] [facility] [address] [place] [address] 8 [facility] CBC MCV [ENTITIC VOLUME] BY AUTOMATED COUNT 92.8 fL 80.0 - 100.0 11/09 Specimen Type: BLOOD No comment entered. Ordering Provider: ATA RAMON Report Released Date/Time : Nov 18, 2023 11:44 AM Reporting Lab: [place] [facility] [address] [place] [address] 8 Performin g Lab: [place] [facility] [address] [place] [address] 8 [facility] CBC MCH [ENTITIC MASS] BY AUTOMATED COUNT 29.4 pg 27.0 - 34.0 11/09 Specimen Type: BLOOD No comment entered. Ordering Provider: ATA RAMON Report Released Date/Time : Nov 18, 2023 11:44 AM Reporting Lab: [place] [facility] [address] [place] [address] 8 Performin g Lab: [place] [facility] [address] [place] [address] 8 [facility] CBC MCHC [MASS/VOLUME] BY AUTOMATED COUNT 31.7 g/dL 33.0 - 36.0 11/09 L Specimen Type: BLOOD No comment entered. Ordering Provider: ATA RAMON Report Released Date/Time : Nov 18, 2023 11:44 AM Reporting Lab: [place] [facility] [address] [place] [address] Performin g Lab: [place] [facility] [address] [place] [address] [facility] CBC PLATELETS [#/VOLUME] IN BLOOD BY AUTOMATED COUNT 161 10*3/u L 150 - 400 11/09 Specimen Type: BLOOD No comment entered. Ordering Provider: ATA RAMON Report Released Date/Time : Nov 18, 2023 11:44 AM Reporting Lab: [place] [facility] [address] [place] [address] Performin g Lab: [place] [facility] [address] [place] [address] 8 [facility] CBC PLATELET MEAN VOLUME [ENTITIC VOLUME] IN BLOOD BY AUTOMATED COUNT 10.9 fL 7.5 - 11.2 11/09 Specimen Type: BLOOD No comment entered. Ordering Provider: ATA RAMON Report Released Date/Time : Nov 18, 2023 11:44 AM Reporting Lab: [place] [facility] [address] [place] [address] 8 Performin g Lab: [place] [facility] [address] [place] [address] [facility] CBC ERYTHROCYTE DISTRIBUTION WIDTH [RATIO] BY AUTOMATED COUNT 14.2 11.8 - 15.1 11/09 Specimen Type: BLOOD No comment entered. Ordering Provider: ATA RAMON Report Released Date/Time : Nov 18, 2023 11:44 AM Reporting Lab: [place] [facility] [address] [place] [address] Performin g Lab: [place] [facility] [address] [place] [address] 8 [facility] CBC LYMPHOCYTES/1 00 LEUKOCYTES IN BLOOD BY AUTOMATED COUNT 23.1 11/09 Specimen Type: BLOOD No comment entered. Ordering Provider: ATA RAMON Report Released Date/Time : Nov 18, 2023 11:44 AM Reporting Lab: [place] [facility] [address] [place] [address] Performin g Lab: [place] [facility] [address] [place] [address] 8 [facility] CBC MONOCYTES/100 LEUKOCYTES IN BLOOD BY AUTOMATED COUNT 7.5 11/09 Specimen Type: BLOOD No comment entered. Ordering Provider: ATA RAMON Report Released Date/Time : Nov 18, 2023 11:44 AM Reporting Lab: [place] [facility] [address] [place] [address] 8 Performin g Lab: [place] [facility] [address] [place] [address] 8 [facility] CBC NEUTROPHILS/1 00 LEUKOCYTES IN BLOOD BY AUTOMATED COUNT 65.7 11/09 Specimen Type: BLOOD No comment entered. Ordering Provider: ATA RAMON Report Released Date/Time : Nov 18, 2023 11:44 AM Reporting Lab: [place] [facility] [address] [place] [address] 8 Performin g Lab: [place] [facility] [address] [place] [address] 8 [facility] CBC EOSINOPHILS/1 00 LEUKOCYTES IN BLOOD BY AUTOMATED COUNT 3.1 11/09 Specimen Type: BLOOD No comment entered. Ordering Provider: ATA RAMON Report Released Date/Time : Nov 18, 2023 11:44 AM Reporting Lab: [place] [facility] [address] [place] [address] 8 Performin g Lab: [place] [facility] [address] [place] [address] [facility] CBC BASOPHILS/100 LEUKOCYTES IN BLOOD BY AUTOMATED COUNT 0.3 11/09 Specimen Type: BLOOD No comment entered. Ordering Provider: ATA RAMON Report Released Date/Time : Nov 18, 2023 11:44 AM Reporting Lab: [place] [facility] [address] [place] [address] Performin g Lab: [place] [facility] [address] [place] [address] [facility] CBC LYMPHOCYTES [#/VOLUME] IN BLOOD BY AUTOMATED COUNT 1.51 10*3/u L 0.77 - 4.50 11/09 Specimen Type: BLOOD No comment entered. Ordering Provider: ATA RAMON Report Released Date/Time : Nov 18, 2023 11:44 AM Reporting Lab: [place] [facility] [address] [place] [address] Performin g Lab[place] [facility] [address] [place] [address] [facility] CBC MONOCYTES [#/VOLUME] IN BLOOD BY AUTOMATED COUNT 0.49 10*3/u L 0.19 - 0.8 11/09 Specimen Type: BLOOD No comment entered. Ordering Provider: ATA RAMON Report Released Date/Time : Nov 18, 2023 11:44 AM Reporting Lab: [place] [facility] [address] [place] [address] Performin g Lab: [place] [facility] [address] [place] [address] [facility] CBC NEUTROPHILS [#/VOLUME] IN BLOOD BY AUTOMATED COUNT 4.31 10*3/u L 2.10 - 8.00 11/09 Specimen Type: BLOOD No comment entered. Ordering Provider: ATA RAMON Report Released Date/Time : Nov 18, 2023 11:44 AM Reporting Lab: [place] [facility] [address] [place] [address] Performin g Lab: [place] [facility] [address] [place] [address] [facility] CBC EOSINOPHILS [#/VOLUME] IN BLOOD BY AUTOMATED COUNT 0.20 10*3/u L 0.00 - 0.60 11/09 Specimen Type: BLOOD No comment entered. Ordering Provider: ATA RAMON Report Released Date/Time : Nov 18, 2023 11:44 AM Reporting Lab: [place] [facility] [address] [place] [address] Performin g Lab: [place] [facility] [address] [place] [address] [facility] CBC BASOPHILS [#/VOLUME] IN BLOOD BY AUTOMATED COUNT 0.02 10*3/u L 0.00 - 0.20 11/09 Specimen Type: BLOOD No comment entered. Ordering Provider: ATA RAMON Report Released Date/Time : Nov 18, 2023 11:44 AM Reporting Lab: [place] [facility] [address] [place] [address] Performin g Lab: [place] [facility] [address] [place] [address] [facility] CBC IMMATURE GRANULOCYTES/ 100 LEUKOCYTES IN BLOOD BY AUTOMATED COUNT 0.3 11/09 Specimen Type: BLOOD No comment entered. Ordering Provider: ATA RAMON Report Released Date/Time : Nov 18, 2023 11:44 AM Reporting Lab: [place] [facility] [address] [place] [address] Performin g Lab: [place] [facility] [address] [place] [address] [facility] CBC IMMATURE GRANULOCYTES [#/VOLUME] IN BLOOD BY AUTOMATED COUNT 0.02 10*3/u L 0.00 - 0.05 11/09 Specimen Type: BLOOD No comment entered. Ordering Provider: ATA RAMON Report Released Date/Time : Nov 18, 2023 11:44 AM Reporting Lab: [place] [facility] [address] [place] [address] 8 Performin g Lab: [place] [facility] [address] [place] [address] [facility] HGA1C HEMOGLOBIN A1C/HEMOGLOBI N.TOTAL IN BLOOD 5.6 4.0 - 6.0 11/14 Specimen Type: BLOOD No comment entered. Ordering Provider: ATA RAMON Report Released Date/Time : Nov 05, 2022 01:31 PM Reporting Lab: [place] [facility] [address] [place] [address] Performin g Lab: [place] [facility] [address] [place] [address] [facility] TSH (MA-PB) THYROTROPIN [UNITS/VOLUME ] IN SERUM OR PLASMA 0.929 u[IU]/ mL 0.47 - 5 11/14 Specimen Type: SERUM No comment entered. Ordering Provider: ATA RAMON Report Released Date/Time : Nov 05, 2022 01:31 PM Reporting Lab: [place] [facility] [address] [place] [address] Performin g Lab: [place] [facility] [address] [place] [address] [facility] COMPREHENSI VE METABOLIC PANEL CREATININE [MASS/VOLUME] IN SERUM OR PLASMA 1.10 mg/dL 0.7 - 1.3 11/14 Specimen Type: PLASMA No comment entered. Ordering Provider: ATA RAMON Report Released Date/Time : Nov 05, 2022 01:31 PM Reporting Lab: [place] [facility] [address] [place] [address] Performin g Lab: [place] [facility] [address] [place] [address] [facility] COMPREHENSI VE METABOLIC PANEL UREA NITROGEN [MASS/VOLUME] IN SERUM OR PLASMA 15 mg/dL 9 - 25 11/14 Specimen Type: PLASMA No comment entered. Ordering Provider: ATA RAMON Report Released Date/Time : Nov 05, 2022 01:31 PM Reporting Lab: [place] [facility] [address] [place] [address] Performin g Lab: [place] [facility] [address] [place] [address] [facility] COMPREHENSI VE METABOLIC PANEL GLUCOSE [MASS/VOLUME] IN SERUM OR PLASMA 87 mg/dL 72 - 99 11/14 Specimen Type: PLASMA No comment entered. Ordering Provider: ATA RAMON Report Released Date/Time : Nov 05, 2022 01:31 PM Reporting Lab: [place] [facility] [address] [place] [address] Performin g Lab: [place] [facility] [address] [place] [address] [facility] COMPREHENSI VE METABOLIC PANEL SODIUM [MOLES/VOLUME ] IN SERUM OR PLASMA 140 meq/L 136 - 145 11/14 Specimen Type: PLASMA No comment entered. Ordering Provider: ATA RAMON Report Released Date/Time : Nov 05, 2022 01:31 PM Reporting Lab: [place] [facility] [address] [place] [address] 8 Performin g Lab: [place] [facility] [address] [place] [address] [facility] COMPREHENSI VE METABOLIC PANEL POTASSIUM [MOLES/VOLUME ] IN SERUM OR PLASMA 4.4 meq/L 3.5 - 5 11/14 Specimen Type: PLASMA No comment entered. Ordering Provider: ATA RAMON Report Released Date/Time : Nov 05, 2022 01:31 PM Reporting Lab: [place] [facility] [address] [place] [address] Performin g Lab: [place] [facility] [address] [place] [address] [facility] COMPREHENSI VE METABOLIC PANEL CHLORIDE [MOLES/VOLUME ] IN SERUM OR PLASMA 107 meq/L 98 - 107 11/14 Specimen Type: PLASMA No comment entered. Ordering Provider: ATA RAMON Report Released Date/Time : Nov 05, 2022 01:31 PM Reporting Lab: [place] [facility] [address] [place] [address] Performin g Lab: [place] [facility] [address] [place] [address] [facility] COMPREHENSI VE METABOLIC PANEL CARBON DIOXIDE, TOTAL [MOLES/VOLUME ] IN SERUM OR PLASMA 27 meq/L 22 - 31 11/14 Specimen Type: PLASMA No comment entered. Ordering Provider: ATA RAMON Report Released Date/Time : Nov 05, 2022 01:31 PM Reporting Lab: [place] [facility] [address] [place] [address] Performin g Lab: [place] [facility] [address] [place] [address] [facility] COMPREHENSI VE METABOLIC PANEL CALCIUM [MASS/VOLUME] IN SERUM OR PLASMA 9.4 mg/dL 8.4 - 10.4 11/14 Specimen Type: PLASMA No comment entered. Ordering Provider: ATA RAMON Report Released Date/Time : Nov 05, 2022 01:31 PM Reporting Lab: [place] [facility] [address] [place] [address] Performin g Lab: [place] [facility] [address] [place] [address] [facility] COMPREHENSI VE METABOLIC PANEL PROTEIN [MASS/VOLUME] IN SERUM OR PLASMA 6.0 g/dL 6 - 8.6 11/14 Specimen Type: PLASMA No comment entered. Ordering Provider: ATA RAMON Report Released Date/Time : Nov 05, 2022 01:31 PM Reporting Lab: [place] [facility] [address] [place] [address] 8 Performin g Lab: [place] [facility] [address] [place] [address] [facility] COMPREHENSI VE METABOLIC PANEL ALBUMIN [MASS/VOLUME] IN SERUM OR PLASMA 3.7 g/dL 3.4 - 5 11/14 Specimen Type: PLASMA No comment entered. Ordering Provider: ATA RAMON Report Released Date/Time : Nov 05, 2022 01:31 PM Reporting Lab: [place] [facility] [address] [place] [address] 8 Performin g Lab: [place] [facility] [address] [place] [address] 8 [facility] COMPREHENSI VE METABOLIC PANEL BILIRUBIN.TOT AL [MASS/VOLUME] IN SERUM OR PLASMA 0.7 mg/dL 0.2 - 1.2 11/14 Specimen Type: PLASMA No comment entered. Ordering Provider: ATA RAMON Report Released Date/Time : Nov 05, 2022 01:31 PM Reporting Lab: [place] [facility] [address] [place] [address] Performin g Lab: [place] [facility] [address] [place] [address] [facility] COMPREHENSI VE METABOLIC PANEL ALKALINE PHOSPHATASE [ENZYMATIC ACTIVITY/VOLU ME] IN SERUM OR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 Comprehensive Care Ophthalmological New Patient Start Comprehensive Care 54912 013 CALOS TAVAREZ Spectacles Services Fitting Bifocals (Not For Aphakia) Spectacles Services Fitting Bifocals (Not For Aphakia) 64178 013 LUIS CARLOS [place] Ophthalmological New Patient Start Comprehensive Care Ophthalmological New Patient Start Comprehensive Care 56549 013 LUIS CARLOS [place] Determination Of Refractive State Determination Of Refractive State 76057 013 LUIS CARLOS [place] Cystoscopy With Insertion Of Ureteral Stent Right Cystoscopy With Insertion Of Ureteral Stent Right 83581 011 MARINE LYNN Training And Self-Care Skills Training And Self-Care Skills 89734 011 MARINE LYNN [facility] Fundus Photography Fundus Photography 47715 30/06 011 PRASHANTH STALEY Scanning Computerized Ophthalmic Diagnostic Imaging Retina Scanning Computerized Ophthalmic Diagnostic Imaging Retina 71140 011 PRASHANTH STALEY Ophthalmological Prior Patient Start Comprehensive Care Ophthalmological Prior Patient Start Comprehensive Care 21146 011 PRASHANTH STALEY Intravitreal Injection Of A Pharmacologic Agent Intravitreal Injection Of A Pharmacologic Agent 75028 011 PRASHANTH STALEY Postoperative Visit, Without Charge Postoperative Visit, Without Charge 94163 011 PRASHANTH STALEY Determination Of Refractive State Determination Of Refractive State 82793 011 CHARLA CABRERA Spectacles Services Fitting Bifocals (Not For Aphakia) Spectacles Services Fitting Bifocals (Not For Aphakia) 74573 011 CHARLA CABRERA Ophthalmological Prior Patient Start Comprehensive Care Ophthalmological Prior Patient Start Comprehensive Care 15499 011 PRASHANTH STALEY Intravitreal Injection Of A Pharmacologic Agent Intravitreal Injection Of A Pharmacologic Agent 59773 011 PRASHANTH STALEY Fluorescein Angiography With Fundus Photography Fluorescein Angiography With Fundus Photography 13854 011 REBEKA PRASHANTH Jefe [facility] Fundoscopic Exam Extensive Initial Exam Fundoscopic Exam Extensive Initial Exam 60020 011 REBEKA PRASHANTH Jefe oSlis Ophthalmological New Patient Start Comprehensive Care Ophthalmological New Patient Start Comprehensive Care 32220 011 REBEKA PRASHANTH [place] [facility] Ophthalmological New Patient Start Comprehensive Care Ophthalmological New Patient Start Comprehensive Care 36842 [facility] OROZCO [facility] Determination Of Refractive State Determination Of Refractive State 08520 [facility]JESSI[facility]ERESSA DUFF [facility] Spectacles Services Fitting Bifocals (Not For Aphakia) Spectacles Services Fitting Bifocals (Not For Aphakia) 76655 JONNATHANTERESSA DUFF [facility] Scanning Computerized Ophthalmic Diagnostic Imaging Retina Scanning Computerized Ophthalmic Diagnostic Imaging Retina 10620 [facility] Fundus Photography Fundus Photography 02289 [facility] OROZCO [facility] Comprehensive Audiometry Comprehensive Audiometry 87757 [facility] Tympanometry With Reflex Threshold Measurements Tympanometry With Reflex Threshold Measurements 55911 [facility] CARP[facility] Dr.-Supervised Services Provision Of Educational Supplies -Supervised Services Provision Of Educational Supplies 39575 RUFINO PEREZ CYSTOURETHROSCOPY, WITH INSERTION OF INDWELLING URETERAL STENT (EG, JIMENEZ OR DOUBLE-J TYPE) [facility] INFUSION, NORMAL SALINE SOLUTION , 1000 CC [facility] INFUSION, NORMAL SALINE SOLUTION , 1000 CC [facility] SELF-CARE/HOME MANAGMENT TRAIN (EG,ACT OF DAILY LIVING (ADL) &COMPENSAT TRAIN,MEAL PREPARATION,SAFETY PROCS,AND INSTRUCT IN USE OF ASST TECHNOLOGY DEV/ADPT EQUIP) DIR ONE-ON-ONE CONT,EA 15 MINUTES [facility] FUNDUS PHOTOGRAPHY WITH INTERPRETATION AND REPORT [facility] INFUSION, NORMAL SALINE SOLUTION , 1000 CC [facility] POSTOPERATIVE FOLLOW-UP VISIT, NORMALLY INCLUDED IN THE SURGICAL PACKAGE, INDICATE THAT EVALUATION & MANAGEMENT SERVICE WAS PERFORMED DURING A POSTOPERATIVE PERIOD REASON RELATED ORIGINAL PROCEDURE [facility] DETERMINATION OF REFRACTIVE STATE [facility] OPHTHALMOLOGICAL SERVICES: MEDICAL EXAMINATION AND EVALUATION, WITH INITIATION OR CONTINUATION OF DIAGNOSTIC AND TREATMENT PROGRAM; COMPREHENSIVE, ESTABLISHED PATIENT, 1 OR MORE VISITS DoD OPHTHALMOLOGICAL SERVICES: MEDICAL EXAMINATION AND EVALUATION, WITH INITIATION OR CONTINUATION OF DIAGNOSTIC AND TREATMENT PROGRAM; COMPREHENSIVE, ESTABLISHED PATIENT, 1 OR MORE VISITS DoD FUNDUS PHOTOGRAPHY WITH INTERPRETATION AND REPORT [facility] EDUCATIONAL SUPPLIES, SUCH BOOKS, TAPES, AND PAMPHLETS, FOR THE PATIENT'S EDUCATION AT COST TO PHYSICIAN OR OTHER QUALIFIED HEALTH CLOUD PHYSICIST DoD FUNDUS PHOTOGRAPHY WITH INTERPRETATION AND REPORT DoD INJECTION(S); SINGLE OR MULTIPLE TRIGGER POINT(S), 1 OR 2 MUSCLE(S) [facility] DETERMINATION OF REFRACTIVE STATE [facility] OPHTHALMOSCOPY, EXTENDED, WITH RETINAL DRAWING (EG, FOR RETINAL DETACHMENT, MELANOMA), WITH MEDICAL DIAGNOSTIC EVALUATION; SUBSEQUENT [facility] TYMPANOMETRY AND REFLEX THRESHOLD MEASUREMENTS [facility] OPHTHALMOLOGICAL SERVICES: MEDICAL EXAMINATION AND EVALUATION, WITH INITIATION OR CONTINUATION OF DIAGNOSTIC AND TREATMENT PROGRAM; COMPREHENSIVE, ESTABLISHED PATIENT, 1 OR MORE VISITS 016 DoD OPHTHALMOLOGICAL SERVICES: MEDICAL EXAMINATION AND EVALUATION, WITH INITIATION OR CONTINUATION OF DIAGNOSTIC AND TREATMENT PROGRAM; COMPREHENSIVE, ESTABLISHED PATIENT, 1 OR MORE VISITS DoD OPHTHALMOLOGICAL SERVICES: MEDICAL EXAMINATION AND EVALUATION, WITH INITIATION OR CONTINUATION OF DIAGNOSTIC AND TREATMENT PROGRAM; COMPREHENSIVE, ESTABLISHED PATIENT, 1 OR MORE VISITS [facility] SCANNING COMPUTERIZED OPHTHALMIC DIAGNOSTIC IMAGING, POSTERIOR SEGMENT, WITH INTERPRETATION AND REPORT, UNILATERAL OR BILATERAL; RETINA 014 [facility] SCANNING COMPUTERIZED OPHTHALMIC DIAGNOSTIC IMAGING, POSTERIOR SEGMENT, WITH INTERPRETATION AND REPORT, UNILATERAL OR BILATERAL; RETINA DoD OPHTHALMOSCOPY, EXTENDED, WITH RETINAL DRAWING (EG, FOR RETINAL DETACHMENT, MELANOMA), WITH INTERPRETATION AND REPORT; INITIAL [facility] DETERMINATION OF REFRACTIVE STATE [facility] TETANUS AND DIPHTHERIA TOXOIDS (TD) ADSORBED WHEN ADMINISTERED TO INDIVIDUALS 7 YEARS OR OLDER, FOR INTRAMUSCULAR USE [facility] ELECTROCARDIOGRAM, ROUTINE ECG WITH AT LEAST 12 LEADS; WITH INTERPRETATION AND REPORT [facility] Social History Combined list of available smoking, tobacco, and other social history from [facility] Defense and [facility] facilities. Social History Type Response Date Comment [facility] e Tobacco smoking status [place] [facility] NEVER USED 11/18/2023 [facility] History of tobacco use [facility]-TOBACCO NEVER USED 11/05/2022 [facility] History of tobacco use [facility]-TOBACCO NEVER USED 09/04/2021 [facility] Sex Representation Male (finding) 06/17/2020 Un known Organization History of tobacco use [facility] NEVER [facility]2020 [facility] [facility] Tobacco Never-cigarette user Cigarette use:. Never-other tobacco user (not cigarettes) Other Tobacco use:. Ambulatory Pharmacy Sexual Orientation Ambula tory Pharmacy Gender identity Ambulator y Pharmacy This section is an empty social history section. DoD Assessment and Plan Combined list of future care activities from Department of Defense and Veterans Affairs facilities (e.g., assessment and plan notes, appointments, orders, and referrals). Additional future care activities may be listed in the Plan of Care section. Result Assessment and Plan Date Source Assessment and Plan Extracted from:Title : Acute Exam - Refraction Author: HARLEY LYNCH, OD Date: 07/14/21 1. 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 Educated pt about findings. Pt to order eyewear e ligible for a t this time. Filled out [employer] Official Vision Examination Form, which requested that I attest the examinee is corrected or uncorrected to 20/20 in each eye. Pt only corrected to 20/20 OD, BCVA 20/40 OS. 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 Monitor 1 year or sooner prn with comprehensive eye examination. ? Ordered: Fitting Spectacles Xcpt Aphakia Bifocal [id number]; 07/12/2021 ? Determination Refractive State [id number]; 07/12/2021 2. C hronic allergic conjunctivitis M ild p apillary response OU. Pt symptomatic with i tching and watering_ e yes. Start O lopatadine 1 gtt OU BID prn for itching and allergic reaction. Pt may use cold compress on both eyes to help with any pain or irritation. Also recommend refrigerated P reservative-free Refresh plus1 gtt OU a s needed u p to every hour for additional comfort. E ducated pt about findings. Monitor 12 months or sooner prn. Ordered: Ophthalmological Medical Xm&[place] [id number]; 07/12/2021 3. P inguecula E ducated pt about findings and causative etiologies to include UV sun exposure and dryness of the eyes. Educated pt about findings and the correlation of an unstable tear film and possible associated symptoms of transient blur, glare, dryness, and discomfort. Recommended ATs 1gtt OU QID or additionally up to every hour prn for dryness. Recommend UV protected sunglasses when outside. Monitor prn. Ordered: Ophthalmological Medical Xm&[place] [id number]; 07/12/2021 4. 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 Educated pt about findings and possible relation to high cholesterol. Recommended pt continue c are with PCM for routine laboratory work prn. Pt verbally understood. Monitor annually or sooner prn. Ordered: Ophthalmological Medical Xm&[place] [id number]; 07/12/2021 11/28/2024 [id number] Plan of Care List of future care activities from Department of Veterans Affairs facilities. Additional future care activities may be listed in the Assessment and Plan section. Date/Time Care Activity Care Activity Detail Facili ty 12/17/2024 AMBULATORY - MEDICINE AMBULATORY - MEDICI [facility] Functional Status Combined list of recent functional and cognitive assessments recorded at Department of Defense and Veterans Affairs (VA).VA Functional Thurston Measurement (FIM) Scale: 1 = Total Assistance (Subject = 0% +), 2 = Maximal Assistance (Subject = 25% +), 3 = Moderate Assistance (Subject = 50% +), 4 = Minimal Assistance (Subject = 75% +), 5 = Supervision, 6 = Modified Thurston (Device), 7 = Complete Thurston (Timely, Safely). Assessment Date/Time Source Assessment Type Assessment Skill Assessment Score Assessment Details No data available for this section
--- OUTSIDE RECORDS SUMMARY | 2024-11-27 20:36 | XMS_ITS | Encounter Summary ---
Author Organization [facility] Address [address] [place] [address] Care Team Providers Care Windows Server Engineer Name Role Phone NABILA Calero Sr., Michael Dave Primary Care Pro vider Encounter Details Date Type Department Care Team (Late st Contact Info) Description 11/25/2024 External Device Data [facility] ABSTRACTION Provider, Abstract NO ADDRESS ON FILE Social History Tobacco Use Types Packs/Day Years Used Date Smoking Tobacco: Former Cigarettes Q uit: 07/17/1977 Smokeless Tobacco: Never Alcohol Use Standard Drinks/Week Comments No 0 (1 standard drink = 0.6 oz pur e alcohol) Sex and Gender Information Value Date Recorded Sex Assigned at Not on file 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
--- OUTSIDE RECORDS SUMMARY | 2024-11-27 20:36 | XMS_ITS | Encounter Summary ---
Author Organization [facility] Address 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
--- OUTSIDE RECORDS SUMMARY | 2024-11-27 20:37 | XMS_ITS | Encounter Summary ---
Author Organization [facility] Address [address] [place] [address] Care Team Providers Care Account Retention Representative Name Role Phone Galilea Starr, NABILA, Wilfred Bass Primary Care Pro vider Encounter Details Date Type Department Care Team (Late st Contact Info) Description 01/11/2009 Ancillary Orders [facility] Cardiology- [place] [address] [place] [address] Norberto Maurer MD [address] [address] [place] [id number] Palpitations; Chest Pain Social History Tobacco Use Types Packs/Day Years Used Date Smoking Tobacco: Never Assessed Sex and Gender Information Value Date Recorded Sex Assigned at Not on file 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 Gender Identity Not on file Sexual Orientation Not on file documented as of this encounter Plan of Treatment Scheduled Orders Name Type Priority Associated Diagnoses Orde r Schedule ECHO PRE TEST Echocardiogram Routine Palpitations Chest Pain 1 Occurrences starting 01/11/2009 until 01/11/2010 documented as of this encounter Results * ECHO PRE TEST (01/11/2009 4:21 PM CDT) us Norberto Maurer MD ORDERABLES Final Resul [facility] documented in this encounter Visit Diagnoses Diagnosis Palpitations Chest pain Chest pain, unspecified documented in this encounter Care Teams Account Retention Representative Relationship Specialty Start Date End Date Galilea Starr, NABILA Gaxiola [address] [place], [place] [address] PCP - General NURSE PRACTITIONER 07/17/13 documented as of this encounter
--- OUTSIDE RECORDS SUMMARY | 2024-11-27 20:37 | XMS_ITS | Encounter Summary ---
Author Organization [facility] Address [address] [place] [address] Care Team Providers Care Digital Camera Technician Name Role Phone NABILA Calero Sr., Michael Dave Primary Care Pro vider Encounter Details Date Type Department Care Team (Late st Contact Info) Description 01/22/2001 Outpatient Historical [facility] Social History Tobacco Use Types Packs/Day Years Used Date Smoking Tobacco: Never Assessed Sex and Gender Information Value Date Recorded Sex Assigned at Not on file Legal Sex Male 6:14 AM ROW BOSS Gender Identity Not on file Sexual Orientation Not on file documented as of this encounter Plan of Treatment Not on file documented as of this encounter Visit Diagnoses Not on filedocumented in this encounter Care Teams Digital Camera Technician Relationship Specialty Start Date End Date Wilfred Calero Sr., FNP [address] [place] [address] PCP - General NURSE PRACTITIONER 07/17/13 documented as of this encounter
--- OUTSIDE RECORDS SUMMARY | 2024-11-27 20:37 | XMS_ITS | Encounter Summary ---
Author Organization [facility] Address [address] [place] [address] Care Team Providers Care Dumper Bailer Operator Name Role Phone NABILA Calero Sr., Wilfred Bass Primary Care Pro vider Encounter Details Date Type Department Care Team (Late st Contact Info) Description 07/04/2000 Outpatient Historical [facility] [place] [address] [place] [address] [address] [place] [address] Michael Gomes MD [address] [place] [address] Social History Tobacco Use Types Packs/Day Years Used Date Smoking Tobacco: Never Assessed Sex and Gender Information Value Date Recorded Sex Assigned at Not on file 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
--- OUTSIDE RECORDS SUMMARY | 2024-11-27 20:37 | XMS_ITS | Encounter Summary ---
Author Organization [facility] Address 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
--- OUTSIDE RECORDS SUMMARY | 2024-11-27 20:37 | XMS_ITS | Encounter Summary ---
Author Organization [email or web address] Address 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
--- OUTSIDE RECORDS SUMMARY | 2024-11-27 20:37 | XMS_ITS | Encounter Summary ---
Author Organization [facility] Address 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
--- OUTSIDE RECORDS SUMMARY | 2024-11-27 20:37 | XMS_ITS | Encounter Summary ---
Author Organization [facility] Address [address] [place] [address] Care Team Providers Care Reel Blade Bender Furnace Tender Name Role Phone NABILA Calero Sr., Wilfred Bass Primary Care Pro vider Encounter Details Date Type Department Care Team (Late st Contact Info) Description 08/20/[address] 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
--- OUTSIDE RECORDS SUMMARY | 2024-11-27 20:37 | XMS_ITS | Encounter Summary ---
Author Organization [facility] Address 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
--- OUTSIDE RECORDS SUMMARY | 2024-11-27 20:37 | XMS_ITS | Encounter Summary ---
Author Organization [facility] Address 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
--- OUTSIDE RECORDS SUMMARY | 2024-11-27 20:37 | XMS_ITS | Encounter Summary ---
Author Organization [facility] Address [address] [place] [address] Care Team Providers Care Emergency Service Worker Name Role Phone NABILA Calero Sr., Michael Dave Primary Care Pro vider Encounter Details Date Type Department Care Team (Late st Contact Info) Description 07/16/2000 Outpatient Historical [facility] Social History Tobacco Use Types Packs/Day Years Used Date Smoking Tobacco: Never Assessed Sex and Gender Information Value Date Recorded Sex Assigned at Not on file Legal Sex Male 6:14 AM CASH CHECKER Gender Identity Not on file Sexual Orientation Not on file documented as of this encounter Plan of Treatment Not on file documented as of this encounter Visit Diagnoses Not on filedocumented in this encounter Care Teams Emergency Service Worker Relationship Specialty Start Date End Date Wilfred Calero Sr., FNP [address] [place] [address] PCP - General NURSE PRACTITIONER 07/17/13 documented as of this encounter
--- OUTSIDE RECORDS SUMMARY | 2024-11-27 20:37 | XMS_ITS | Clinical Summary ---
Author Organization [facility] Address [address] [place] [address] Phone Care Team Providers Care Linseed Oil Boiler Name Role Phone Galilea Starr, NABILA, Wilfred Bass Primary Care Pro vider Allergies Active Allergy Reactions Criticality Noted Date Comments Morphine Hallucination Low 07/17/2013 Medications allopurinol (ZYLOPRIM) 300 mg Oral Tab Take 300 mg by mouth daily. Active metoprolol tartrate (LOPRESSOR) 25 mg tablet Take 25 mg by mouth 2 times daily. Active diltiazem CD 24 hour (CARDIZEM CD) 180 mg capsule Take 180 mg by mouth 2 times daily. 01/26/2009 Active azithromycin (ZITHROMAX Z-BARBARA) 250 mg tablet Take 2 tabs the first day and 1 tab days 2-5 1 Package 0 07/17/2013 Active chlorpheniramine -HYDROcodone (TUSSIONEX) 8-10 mg/5 mL Suspension, Sust. Release 12HR Take 5 mL by mouth every 12 hours as needed for Cough. 120 mL None 07/17/2013 Active febuxostat (ULORIC) 40 mg Tablet Take by mouth daily. Active amlodipine besylate (AMLODIPINE ORAL) Take by mouth. Active Active Problems Problem Noted Date Diagnosed Date Mitral valve disorders(424.0) 01/26/2009 Palpitations 01/06/2009 Other chest pain 01/06/2009 Essential hypertension, benign 01/06/2009 Social History Tobacco Use Types Packs/Day Years Used Date Smoking Tobacco: Former Cigarettes 1 1 0 07/17/1976 - 07/17/1977 Smokeless Tobacco: Never Alcohol Use Standard Drinks/Week Comments No 0 (1 standard drink = 0.6 oz pur e alcohol) Sex and Gender Information Value Date Recorded Sex Assigned at Not on file Legal Sex Male 7:23 AM ITALIAN LECTURER Gender Identity Not on file Sexual Orientation Not on file Occupation Industry Job Start Date Job End Date Not on file Not on file Not on file Not on file Last Filed Vital Signs Vital Sign Reading Time Taken Comments Blood Pressure 130/58 07/02/2018 11:47 PM ITALIAN LECTURER Pulse 68 07/17/2013 10:43 AM ITALIAN LECTURER Temperature 36.3 C (97.3 F) 07/02/2018 11:47 PM ITALIAN LECTURER Respiratory Rate 13 07/02/2018 11:47 PM ITALIAN LECTURER Oxygen Saturation 98% 07/02/2018 11:47 PM ITALIAN LECTURER Inhaled Oxygen Concentration - - Weight 102.1 kg (225 lb) 07/02/2018 9:00 PM ITALIAN LECTURER Height 180.3 cm (5' 11 ) 07/02/2018 9:00 PM ITALIAN LECTURER Body Mass Index 31.38 07/02/2018 9:00 PM ITALIAN LECTURER Plan of Treatment Health Maintenance Due Date Last Done Comments DTAP/TDAP/TD VACCINES (1 - Tdap) 1975 COLORECTAL SCREENING 2001 Colorectal Cancer Screening 2001 FIT-DNA Q 3 years 2001 FIT/FOBT Q 1 year 2001 Flex Sig/CT Colonography Q 5 years 2001 PNEUMOCOCCAL VACCINE 50+ YEARS (1 of 1 - PCV) 05/20/19 07 ZOSTER VACCINE (1 of 2) 2006 INFLUENZA VACCINE (#1) 2024 RSV VACCINE (60+ or ) (1 - 1-dose 75+ series) 2031 Insurance [employer] MEDICARE PART A AND B Care Teams Linseed Oil Boiler Relationship Specialty Start Date End Date Galilea Starr, NABILA Gaxiola [address] [place], [place] [address] PCP - General NURSE PRACTITIONER 07/17/13
--- OUTSIDE RECORDS SUMMARY | 2024-11-27 20:37 | XMS_ITS | Encounter Summary ---
Author Organization [facility] Address 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
--- OUTSIDE RECORDS SUMMARY | 2024-11-27 20:37 | XMS_ITS | Encounter Summary ---
Author Organization [facility] Address 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
--- OUTSIDE RECORDS SUMMARY | 2024-11-27 20:37 | XMS_ITS | Encounter Summary ---
Author Organization [facility] Address 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
--- OUTSIDE RECORDS SUMMARY | 2024-11-27 20:37 | XMS_ITS | Encounter Summary ---
Author Organization [facility] Address [address] Attn: Epic Prelude ADT [place] [address] Care Team Providers Care Sheet Metal Shop Foreman Name Role Phone NABILA Calero Sr., Michael Dave Primary Care Pro vider Encounter Details Date Type Department Care Team (Late st Contact Info) Description 04/27/1998 Outpatient Historical Social History Tobacco Use Types Packs/Day Years Used Date Smoking Tobacco: Never Assessed Sex and Gender Information Value Date Recorded Sex Assigned at Not on file Legal Sex Male 6:14 AM WOOD ROOM SUPERVISOR Gender Identity Not on file Sexual Orientation Not on file documented as of this encounter Plan of Treatment Not on file documented as of this encounter Visit Diagnoses Not on filedocumented in this encounter Care Teams Sheet Metal Shop Foreman Relationship Specialty Start Date End Date Wilfred Calero Sr., FNP [address] [place] [address] PCP - General NURSE PRACTITIONER 07/17/13 documented as of this encounter
--- OUTSIDE RECORDS SUMMARY | 2024-11-27 20:37 | XMS_ITS | Encounter Summary ---
Author Organization [employer] [facility] Address [address] [place] [address] Care Team Providers Care Blade Operator Name Role Phone NABILA Calero Sr., Wilfred Bass Primary Care Pro vider Encounter Details Date Type Department Care Team (Late st Contact Info) Description 08/01/1998 Outpatient Historical [facility] Ian Edouard MD [address] [place] [address] Pain in joint, ankle and foot (Primary Dx) Social History Tobacco Use Types Packs/Day Years Used Date Smoking Tobacco: Never Assessed Sex and Gender Information Value Date Recorded Sex Assigned at Not on file Legal Sex Male 6:14 AM ORDER BOOKER Gender Identity Not on file Sexual Orientation Not on file documented as of this encounter Plan of Treatment Not on file documented as of this encounter Visit Diagnoses Diagnosis Pain in joint, ankle and foot- Primary documented in this encounter Care Teams Blade Operator Relationship Specialty Start Date End Date Wilfred Calero Sr., FNP [address] [place] [address] PCP - General NURSE PRACTITIONER 07/17/13 documented as of this encounter
--- OUTSIDE RECORDS SUMMARY | 2024-11-27 20:37 | XMS_ITS | Encounter Summary ---
Author Organization [facility] Address [address] [place] [address] Care Team Providers Care Time Clock Repairer Name Role Phone NABILA Calero Sr., Wilfred Bass Primary Care Pro vider Encounter Details Date Type Department Care Team (Late st Contact Info) Description 04/27/2003 Outpatient Historical [facility] [place] [address] [place] [address] [address] [place] [address] Michael Gomes MD [address] [place] [address] Social History Tobacco Use Types Packs/Day Years Used Date Smoking Tobacco: Never Assessed Sex and Gender Information Value Date Recorded Sex Assigned at Not on file Legal Sex Male 6:14 AM SALES ASSOCIATE FISHING Gender Identity Not on file Sexual Orientation Not on file documented as of this encounter Plan of Treatment Not on file documented as of this encounter Visit Diagnoses Not on filedocumented in this encounter Care Teams Time Clock Repairer Relationship Specialty Start Date End Date Wilfred Calero Sr., FNP [address] [place] [address] PCP - General NURSE PRACTITIONER 07/17/13 documented as of this encounter
--- OUTSIDE RECORDS SUMMARY | 2024-11-27 20:37 | XMS_ITS | Encounter Summary ---
Author Organization [facility] Address [address] [place] [address] Care Team Providers Care Crimping Press Operator Name Role Phone NABILA Calero Sr., Michael Dave Primary Care Pro vider Encounter Details Date Type Department Care Team (Late st Contact Info) Description 05/09/2001 Outpatient Historical [facility] Medicine [address] [place] [address] Baljit Logan MD NO ADDRESS ON FILE Social History Tobacco Use Types Packs/Day Years Used Date Smoking Tobacco: Never Assessed Sex and Gender Information Value Date Recorded Sex Assigned at Not on file Legal Sex Male 6:14 AM SKIN FORMER Gender Identity Not on file Sexual Orientation Not on file documented as of this encounter Plan of Treatment Not on file documented as of this encounter Visit Diagnoses Not on filedocumented in this encounter Care Teams Crimping Press Operator Relationship Specialty Start Date End Date Wilfred Calero Sr., FNP [address] [place] [address] PCP - General NURSE PRACTITIONER 07/17/13 documented as of this encounter
--- OUTSIDE RECORDS SUMMARY | 2024-11-27 20:37 | XMS_ITS | Encounter Summary ---
Author Organization [facility] Address [address] [place] [address] Care Team Providers Care Lift Supervisor Name Role Phone NABILA Calero Sr., Wilfred Bass Primary Care Pro vider Encounter Details Date Type Department Care Team (Late st Contact Info) Description 03/30/2004 Outpatient Historical [facility] Medicine [address] [place] [address] Rhonda Shirley MD [address] [place] [address] Social History Tobacco Use Types Packs/Day Years Used Date Smoking Tobacco: Never Assessed Sex and Gender Information Value Date Recorded Sex Assigned at Not on file Legal Sex Male 6:14 AM MODEL MAKER FIBERGLASS Gender Identity Not on file Sexual Orientation Not on file documented as of this encounter Plan of Treatment Not on file documented as of this encounter Visit Diagnoses Not on filedocumented in this encounter Care Teams Lift Supervisor Relationship Specialty Start Date End Date Wilfred Calero Sr., FNP [address] [place] [address] PCP - General NURSE PRACTITIONER 07/17/13 documented as of this encounter
--- OUTSIDE RECORDS SUMMARY | 2024-11-27 20:37 | XMS_ITS | Encounter Summary ---
Author Organization [facility] Address [address] [place] [address] Care Team Providers Care Work Order Detailer Name Role Phone NABILA Calero Sr., Michael Dave Primary Care Pro vider Encounter Details Date Type Department Care Team (Late st Contact Info) Description 04/20/1999 Outpatient Historical [address] [place] [address] [place] Matt Social History Tobacco Use Types Packs/Day Years Used Date Smoking Tobacco: Never Assessed Sex and Gender Information Value Date Recorded Sex Assigned at Not on file Legal Sex Male 6:14 AM COMPOUND FILLER Gender Identity Not on file Sexual Orientation Not on file documented as of this encounter Plan of Treatment Not on file documented as of this encounter Visit Diagnoses Not on filedocumented in this encounter Care Teams Work Order Detailer Relationship Specialty Start Date End Date Wilfred Calero Sr., FNP [address] [place] [address] PCP - General NURSE PRACTITIONER 07/17/13 documented as of this encounter
--- OUTSIDE RECORDS SUMMARY | 2024-11-27 20:37 | XMS_ITS | Encounter Summary ---
Author Organization [facility] Address [address] [place] [address] Care Team Providers Care Steam Hammer Operator Name Role Phone NABILA Calero Sr., Michael Dave Primary Care Pro vider Encounter Details Date Type Department Care Team (Late st Contact Info) Description 08/10/1999 Outpatient Historical [facility] Social History Tobacco Use Types Packs/Day Years Used Date Smoking Tobacco: Never Assessed Sex and Gender Information Value Date Recorded Sex Assigned at Not on file Legal Sex Male 6:14 AM FOUNDRY SUPERVISOR Gender Identity Not on file Sexual Orientation Not on file documented as of this encounter Plan of Treatment Not on file documented as of this encounter Visit Diagnoses Not on filedocumented in this encounter Care Teams Steam Hammer Operator Relationship Specialty Start Date End Date Wilfred Calero Sr., FNP [address] [place] [address] PCP - General NURSE PRACTITIONER 07/17/13 documented as of this encounter
--- OUTSIDE RECORDS SUMMARY | 2024-11-27 20:37 | XMS_ITS | Encounter Summary ---
Author Organization [facility] Address [address] [place] [address] Care Team Providers Care Health Plan Manager Name Role Phone NABILA Calero Sr., Wilfred Bass Primary Care Pro vider Encounter Details Date Type Department Care Team (Late st Contact Info) Description 06/16/2004 Outpatient Historical [facility] Medicine [address] [place] [address] Rhonda [place] MD [address] [place] [address] Social History Tobacco Use Types Packs/Day Years Used Date Smoking Tobacco: Never Assessed Sex and Gender Information Value Date Recorded Sex Assigned at Not on file Legal Sex Male 6:14 AM TECHNICAL SERVICE REPRESENTATIVE Gender Identity Not on file Sexual Orientation Not on file documented as of this encounter Plan of Treatment Not on file documented as of this encounter Visit Diagnoses Not on filedocumented in this encounter Care Teams Health Plan Manager Relationship Specialty Start Date End Date Wilfred Calero Sr., FNP [address] [place] [address] PCP - General NURSE PRACTITIONER 07/17/13 documented as of this encounter
--- OUTSIDE RECORDS SUMMARY | 2024-11-27 20:37 | XMS_ITS | Encounter Summary ---
Author Organization [facility] Address [address] [place] [address] Care Team Providers Care Papier Mache Molder Name Role Phone NABILA Calero Sr., Michael Dave Primary Care Pro vider Encounter Details Date Type Department Care Team (Latest Contact Info) Description 07/09/2000 Outpatient Historical [facility] Michael Gomes MD [address] [place] [address] Sprain of lumbar region (Primary Dx) Social History Tobacco Use Types Packs/Day Years Used Date Smoking Tobacco: Never Assessed Sex and Gender Information Value Date Recorded Sex Assigned at Not on file Legal Sex Male 6:14 AM COTTON ROLL 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
--- OUTSIDE RECORDS SUMMARY | 2024-11-27 20:37 | XMS_ITS | Encounter Summary ---
Author Organization [facility] Address [address] [place] [address] Care Team Providers Care Silk Screener Name Role Phone NABILA Calero Sr., Michael Dave Primary Care Pro vider Encounter Details Date Type Department Care Team (Late st Contact Info) Description 04/23/2002 Outpatient Historical [facility] Medicine [address] [place] [address] Baljit Logan MD NO ADDRESS ON FILE Social History Tobacco Use Types Packs/Day Years Used Date Smoking Tobacco: Never Assessed Sex and Gender Information Value Date Recorded Sex Assigned at Not on file Legal Sex Male 6:14 AM BED WORKER Gender Identity Not on file Sexual Orientation Not on file documented as of this encounter Plan of Treatment Not on file documented as of this encounter Visit Diagnoses Not on filedocumented in this encounter Care Teams Silk Screener Relationship Specialty Start Date End Date Wilfred Calero Sr., FNP [address] [place] [address] PCP - General NURSE PRACTITIONER 07/17/13 documented as of this encounter
--- OUTSIDE RECORDS SUMMARY | 2024-11-27 20:37 | XMS_ITS | Patient Health Record ---
Author Organization [facility] Address [address] [place] [address] Care Team Providers Care Pole Lift Operator Name Role Phone Adelita Rod Primary Care Provider Unavaila Rosemary Arriaga Unavailable [phone] Daniel Ledezma Unavailable Unavailable Allergies Allergen (clinical drug ingredient) Drug/Non Drug Allergy documented on EMR Reaction Allergy Type Onset Date Status morphine morphine Unknown Drug Allergy Active Reason For Referral No Information Medications Medication SIG (Take, Route, Fr equency, Duration) Notes Start Date End Date Status Atorvastatin Calcium Active Magnesium Active Allopurinol Active Finasteride Active amLODIPine Benzoate Active Metoprolol Succinate Active oxyBUTYnin Active Gabapentin Active Pantoprazole Sodium Active Tamsulosin HCl Activ e Social History Tobacco Use: Social History Observation Description Date Details (start date - stop date) Never Smoker NA - NA Social History Tobacco Use: Social Info Question Answer Notes xTobacco Use/Smoking Are you a nonsmoker Problems Problem Type SNOMED Code ICD Code Onset Dates Problem Status W/U Status Risk Notes Problem Obstructive uropathy (5666695) Other obstructive and reflux uropathy (N13.8) Active confirmed Problem Calculus of kidney (29232204) Calculus of kidney (N20.0) Active confirmed Problem Lower urinary tract symptoms due to benign prostatic hypertrophy (85425628149961) Benign prostatic hyperplasia with lower urinary tract symptoms (N40.1) Active confirmed Problem Benign prostatic hypertrophy with outflow obstruction (942963720) BPH loc w urin obs/LUTS (N40.1) Active confirmed Problem Kidney mass (770244632) Mass of kidney (N28.89) Active confirmed Problem Carious exposure of pulp (114412168) Dental caries extending into pulp (521.03) 2006 Active confirmed [id number] Problem Hypertriglyceridem ia (496030753) Hypertriglycerid emia (272.1) 2006 Active confirmed [id number] Problem 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 confirmed [id number] Problem Seborrheic keratosis (800295559) Seborrheic keratosis (702.19) 2006 Active confirmed [id number] Problem Essential hypertension (45715743) Essential primary hypertension (I10) Active confirmed [id number] nomed Description:E ssential hypertension Problem Onychomycosis caused by dermatophyte (373717007) Nail fungus (110.1) 2006 Problem resolved confirmed [id number] Problem Swelling of limb (01294435) Hand swelling (729.81) 2006 Problem resolved confirmed [id number] Problem General examination of patient (613969407) Annual physical (V70.0) 2006 Problem resolved confirmed [id number] Plan Of Treatment Pending Test Test Name Order Date Abdomen [id number] 07/10/2022 Insurance Providers Payer Name Payer Address Payer Phone Subscriber Number Group Number Insured Name Patient Relationship to Insured Coverage Start Date Coverage End Date [place] [address] [place] [phone] [id number] Brock Lopes Self - patient is the insured for Life Secondary to Medicare [address] [place] [address] [id number] Brock Lopes Self - patient is the insured Medical (General) History Medical History History ICD Code mangioma removed in 1983 Measles, Mumps, Chicken Pox Bladder Infections Hernia High Blood Pressure Stroke TIA Surgical History Surgery Date(Month/Year) Umbilical Hernia 2017
--- OUTSIDE RECORDS SUMMARY | 2024-11-27 20:37 | XMS_ITS | Encounter Summary ---
Author Organization [employer] Address 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
--- OUTSIDE RECORDS SUMMARY | 2024-11-27 20:37 | XMS_ITS | Encounter Summary ---
Author Organization [facility] Address [address] [place] [address] Care Team Providers Care Beamster Name Role Phone NABILA Calero Sr., Michael Dave Primary Care Pro vider Encounter Details Date Type Department Care Team (Latest Contact Info) Description 08/10/[address] 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
--- OUTSIDE RECORDS SUMMARY | 2024-11-27 20:37 | XMS_ITS | Encounter Summary ---
Author Organization Address [address] [place] [address] Care Team Providers Care Stranding Machine Operator Helper Name Role Phone NABILA Calero Sr., Michael Dave Primary Care Pro vider Encounter Details Date Type Department Care Team (Late st Contact Info) Description 03/30/1999 Outpatient Historical [facility] Medicine [place] [address] [facility] [facility] [place] [address] Ian Edouard MD [address] [place] [address] Social History Tobacco Use Types Packs/Day Years Used Date Smoking Tobacco: Never Assessed Sex and Gender Information Value Date Recorded Sex Assigned at Not on file 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
--- OUTSIDE RECORDS SUMMARY | 2024-11-27 20:37 | XMS_ITS | Encounter Summary ---
Author Organization [facility] Address 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
--- OUTSIDE RECORDS SUMMARY | 2024-11-27 20:37 | XMS_ITS | Encounter Summary ---
Author Organization [employer] [facility] Address 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
--- OUTSIDE RECORDS SUMMARY | 2024-11-27 20:38 | XMS_ITS | Patient Health Record ---
Author Organization [facility], [facility] Address [address] [place] [address] Care Team Providers Care Licensed Funeral Director Name Role Phone Adelita Rod Primary Care Provider Carey METZJORGE LUIS FOLEY Unavailable [phone] Daniel Ledezma Unavailable Unavailable Staceylisa Ricardo Unavailable [phone] Allergies Allergen (clinical drug ingredient) Drug/Non Drug Allergy documented on EMR Reaction Allergy Type Onset Date Status morphine morphine feeling of impending doom Drug Allergy Active Results Component Value Reference Range Notes CULTURE, URINE, ROUTINE (395 ) Reviewed date:03/29/2024 04:14:18 AM Interpretation: Performing Lab:[facility] SMITH-[id number] Samaria [id number] Joyce Riojas MD Notes/Report: FASTING: NO CULTURE, URINE, ROUTINE SEE NOTE CULTURE, URINE, ROUTINE Micro Number: [id number] Test Status: Final Specimen Source: Not given Specimen Quality: Adequate Result: No Growth NO COLLECTION DATE RECEIVED. WE HAVE USED THE DATE THE SPECIMEN WAS RECEIVED BY THIS LABORATORY THE COLLECTION DATE. IF THIS IS INCORRECT, PLEASE CONTACT CLIENT SERVICES. PHONE NUMBER: [phone] CLIENT EDUCATION TRACKING Reviewed date:06/03/2024 12:21:42 PM Interpretation: Performing Lab:Brit [id number] Venkata VallesTyveqlJH[address] Joyce Riojas MD Notes/Report: FASTING: NO CLIENT EDUCATION TRACKING The Requisition we received did not include a [employer] account number. To prevent delays in testing and processing of your orders please provide the following information with every order submitted: [facility] account number and account name Client address Client phone and fax number NPI number of ordering physician along with the physician name. Basic Metabolic Panel Reviewed date:03/30/2024 11:44:34 AM Interpretation: Performing Lab: Notes/Report: Testing performed at [facility], [address] [place] [address] [place] [address]. CLIA ID#: [id number] S-guyjlc-h-benzoquinone imine (NAPQI) is a metabolite of acetaminophen, NAPQI concentrations of apparoximately 10 mg/L correlation to toxic levels of acetaminophen demonstrates a greater than or equil to 10% change in results. NAPQI concentrations greater than this may lead to falsely depressed results for patient samples. Calculation performed from GFR calculator provided by the National [employer]. Glomerular Filtration rate(GRF) is the best overall index of kidney function. Normal GFR varies according to age,sex, body size, and declines with age. The National Kidney Foundation recommends using the CKD-EPI Creatinine Equation(2020) to estimate GFR. Testing performed at: [address] [place] [address] CLIA ID [id number] Use of this assay is not recommended for patients undergoing treatment with phenindione, due to the potential for falsely depressed results. Sodium 143 136-145 MMOL/L Potassium 4.5 3.5-5.1 MMOL/L Chloride 110 98-107 MMOL/L CO2 28.7 20.0-31.0 MMOL/L Glucose Serum 86 71-110 MG/DL BUN 13 7-21 MG/DL Creat .90 .57-1.17 MG/DL GFR 93.2 Anion Gap 9 5-15 BUN/Creat Ratio 14.4 12.0-20.0 % Calcium 10.0 8.7-10.4 MG/DL Osmo Serum,Calculated 295 280-300 MOSM/KG CBC w/ Auto Diff Reviewed date:03/30/2024 11:44:32 AM Interpretation: Performing Lab: Notes/Report: Testing performed at: [address] [place] [address] CLIA ID [id number] WBC 8.0 4.5-11.0 X10'3 RBC 4.48 4.50-5.90 X10'6 Hgb 13.0 13.5-17.5 G/DL Hct 41.1 41.0-53.0 % MCV 91.7 80.0-100.0 FL MCH 29.0 27.0-31.0 PG MCHC 31.6 31.0-37.0 G/DL Platelet 167 150-400 X10'3 RDW-SD 46.9 35.0-49.0 FL RDW-CV 13.7 12.2-15.6 % MPV 10.1 9.2-12.0 FL Neutro Auto% 64.2 40.0-70.0 % Lymph Auto% 25.0 22.0-44.0 % [place] Auto% 7.7 3.0-7.0 % Eos Auto% 2.5 2.0-4.0 % Baso Auto% 0.2 0.0-1.0 % Imm Gran% .4 .0-.4 % Neutro Abs 5.15 .80-7.70 Absolute Neutrophil Count 5150 Lymph Abs 2.01 .10-4.10 [place] Abs .62 .20-1.00 Eos Abs .20 .00-.40 Baso Abs .02 .00-.20 Imm Gran Abs .03 .00-.10 NRBC# .00 .00-.20 NRBC% .00 .00-.20 /100 int act WBC's Urinalysis, Routine Reviewed date:03/25/2024 08:46:51 AM Interpretation: Performing Lab: Notes/Report: Urine-Color yellow Appearance clear Glucose - Bilirubin - Ketones - Specific Latexo 1.010 Occult Blood - pH 7.5 Urine Protein - Urobilinogen,Semi-Qn - Nitrite, Urine - WBC Esterase - Urinalysis, Routine Reviewed date:01/10/2024 10:46:57 AM Interpretation: Performing Lab: Notes/Report: Urine-Color dark red Appearance cloudy Glucose - Bilirubin - Ketones - Specific Latexo 1.025 Occult Blood 3+ pH 6.0 Urine Protein - Urobilinogen,Semi-Qn - Nitrite, Urine - WBC Esterase 2+ Stone Analysis (Calculi) Reviewed date:01/10/2024 10:47:18 AM Interpretation: Performing Lab: Notes/Report: Calculi Mass 38 Calculi Description See Note Specimen consists of numerous kwok calculi fragments. The total weight is 38 mg. Calculi Composition See Note Calculi composed primarily of: 60% calcium oxalate monohydrate, 10% calcium oxalate dihydrate, and 30% calcium phosphate (hydroxy- and carbonate- apatite). INTERPRETIVE INFORMATION: Calculi (Stone) analysis Calculi are the products of physiological processes that yield crystalline compounds in a matrix of biological compounds and blood. Matrix components are not reported. The clinically significant crystalline components identified in calculi specimens are reported. Gross description may not be consistent with composition determined by FTIR analysis. Performed By: [facility] [address] [place] [address] Oncology Consultant: Jairo Sandhu MD, PhD CLIA Number: [id number] Testing performed at: [address] [place] [address] CLIA ID [id number] CLIENT EDUCATION TRACKING Reviewed date:03/27/2024 04:04:31 PM Interpretation: Performing Lab:[facility][id number] Miguel [facility], YojckiRV[address] Joyce Riojas MD Notes/Report: FASTING: NO CLIENT EDUCATION TRACKING The Requisition we received did not include a [employer] account number. To prevent delays in testing and processing of your orders please provide the following information with every order submitted: [facility] account number and account name Client address Client phone and fax number NPI number of ordering physician along with the physician name. CBC w/ Auto Diff Reviewed date:06/02/2024 05:00:50 PM Interpretation: Performing Lab: Notes/Report: Testing performed at: [address] [place] [address] CLIA ID [id number] WBC 7.7 4.5-11.0 X10'3 RBC 4.80 4.50-5.90 X10'6 Hgb 13.6 13.5-17.5 G/DL Hct 44.2 41.0-53.0 % MCV 92.1 80.0-100.0 FL MCH 28.3 27.0-31.0 PG MCHC 30.8 31.0-37.0 G/DL Platelet 150 150-400 X10'3 RDW-SD 49.1 35.0-49.0 FL RDW-CV 14.6 12.2-15.6 % MPV 10.3 9.2-12.0 FL Neutro Auto% 66.0 40.0-70.0 % Lymph Auto% 22.6 22.0-44.0 % [place] Auto% 8.0 3.0-7.0 % Eos Auto% 2.7 2.0-4.0 % Baso Auto% 0.3 0.0-1.0 % Imm Gran% .4 .0-.4 % Neutro Abs 5.10 .80-7.70 Absolute Neutrophil Count 5100 Lymph Abs 1.75 .10-4.10 [place] Abs .62 .20-1.00 Eos Abs .21 .00-.40 Baso Abs .02 .00-.20 Imm Gran Abs .03 .00-.10 NRBC# .00 .00-.20 NRBC% .00 .00-.20 /100 int act WBC's Basic Metabolic Panel Reviewed date:06/02/2024 05:00:50 PM Interpretation: Performing Lab: Notes/Report: Testing performed at [facility], [address] [place] [address] [place] [address]. CLIA ID#: [id number] A-ffhbyk-b-benzoquinone imine (NAPQI) is a metabolite of acetaminophen, NAPQI concentrations of apparoximately 10 mg/L correlation to toxic levels of acetaminophen demonstrates a greater than or equil to 10% change in results. NAPQI concentrations greater than this may lead to falsely depressed results for patient samples. Calculation performed from GFR calculator provided by the National Kidney Foundation. Glomerular Filtration rate(GRF) is the best overall index of kidney function. Normal GFR varies according to age,sex, body size, and declines with age. The National Kidney Foundation recommends using the CKD-EPI Creatinine Equation(2020) to estimate GFR. Testing performed at: [address] [place] [address] CLIA ID [id number] Use of this assay is not recommended for patients undergoing treatment with phenindione, due to the potential for falsely depressed results. Sodium 143 136-145 MMOL/L Potassium 4.4 3.5-5.1 MMOL/L Chloride 106 98-107 MMOL/L CO2 29.6 20.0-31.0 MMOL/L Glucose Serum 95 71-110 MG/DL BUN 18 7-21 MG/DL Creat .92 .57-1.17 MG/DL GFR 90.2 Anion Gap 12 5-15 BUN/Creat Ratio 19.6 12.0-20.0 % Calcium 10.1 8.7-10.4 MG/DL Osmo Serum,Calculated 298 280-300 MOSM/KG US Renal--[id number] Reviewed date:01/10/2024 10:45:43 AM Interpretation: Performing Lab: Notes/Report: See Below For Report US Renal Read See Below For Report zzzRetrograde Urography Reviewed date:01/10/2024 10:47:18 AM Interpretation: Performing Lab: Notes/Report: See Below For Report Retrograde Urography Read See Below For Report zzzChest 1V Reviewed date:01/10/2024 10:47:18 AM Interpretation: Performing Lab: Notes/Report: See Below For Report Chest 1V Read See Below For Report CULTURE, URINE, ROUTINE (395 ) Reviewed date:06/04/2024 08:08:16 AM Interpretation: Performing Lab:KS, [facility]-[id number] Miguel Degroot, [id number] Joyce Riojas MD Notes/Report: FASTING: NO CULTURE, URINE, ROUTINE SEE NOTE Micro Number: [id number] Test Status: Final Specimen Source: Urine Specimen Quality: Adequate Result: Mixed genital gerald isolated. These superficial bacteria are not indicative of a urinary tract infection. No further organism identification is warranted on this specimen. If clinically indicated, recollect clean-catch, mid-stream urine and transfer immediately to Urine Culture Transport Tube. CULTURE, URINE, ROUTINE Urinalysis, Routine Reviewed date:06/02/2024 09:02:06 AM Interpretation: Performing Lab: Notes/Report: Urine-Color yellow Appearance milky Glucose - Bilirubin - Ketones - Specific Latexo 1.015 Occult Blood - pH 8.0 Urine Protein +- Urobilinogen,Semi-Qn - Nitrite, Urine - WBC Esterase - Reason For Referral No Information Medications Medication SIG (Take, Route, Frequency, Duration) Notes Start Date End Date Status Gabapentin Active Atorvastatin Calcium Active oxyBUTYnin Active Phentolamine-Alpros tadil Trimix Not-Taking Losartan Potassium 25 MG 1 tablet Orally Once a day Active Metoprolol Succinate *Reorder from [employer] for eRx and Interaction Alerts* Not-Taking Allopurinol Active amLODIPine Benzoate Active Magnesium Active Pantoprazole Sodium Active Tamsulosin HCl Activ e Finasteride Active Social History Tobacco Use: Social History Observation Description Date Details (start date - stop date) Never Smoker NA - NA Tobacco Control (Standard) Question Answer Notes Tobacco use: Nonsmoker Problems Problem Type SNOMED Code ICD Code Onset Dates Problem Status W/U Status Risk Notes Problem 58153162 Essential (primary) hypertension (I10) Active confirmed Problem 789405078 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) Active confirmed Problem 319095429 Benign prostatic hyperplasia with lower urinary tract symptoms (N40.1) Active confirmed Problem 057938078 Mass of kidney (N28.89) Active confirmed Problem Counseling (576440614) Surgical counseling visit (Z71.89) Active confirmed Problem Nephrolithiasis (41444847) Nephrolithiasis (N20.0) Active confirmed Problem Anxiety about health (819824403) Anxiety about health (F41.8) Active confirmed Problem Calculus of kidney and ureter (127197023) Calculus of kidney and ureter (N20.2) Active confirmed Problem 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, acquired, 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) Active confirmed Problem Kidney stone (98806339) Left renal stone (N20.0) Active confirmed Problem 364714851 BPH loc w urin obs/LUTS (N40.1) Active confirmed Problem 609740701 Dental caries extending into pulp (521.03) 2006 Active confirmed Sami-107410- Problem 628885616 Hypertriglycerid em ia (272.1) 2006 Active confirmed Sami-752974- Problem 12993900 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 Active confirmed Sami-751636- Problem 800305599 Seborrheic keratosis (702.19) 2006 Active confirmed Sami-320200- Problem 94605257 Essential primar y hypertension (I10) Active confirmed Sami-30014 73-S nomed Description:E ssential hypertension Problem 701333001 Nail fungus (110.1) 2006 Problem resolved confirmed Sami-556395- Problem 26675570 Hand swelling (729.81) 2006 Problem resolved confirmed Sami-584857- Problem 998875145 Annual physical (V70.0) 2006 Problem resolved confirmed [id number]- Vital Signs Heart Rate 64 /min 06/02/2024 Blood pressure diastolic 91 mm Hg 06/02/2024 Weight-kg 95.26 kg 07/13/2024 Height 71 in 07/13/2024 Blood pressure systolic 163 mm Hg 06/02/2024 Weight 210 lbs 07/13/2024 BMI 29.29 kg/m2 07/13/2024 Encounters Encounter Location Date Provider Diagnosis [facility], [facility] [address] [place] [address] 12/04/2023 [facility], [facility] [address] [place] [address] 06/23/2024 [facility], [facility] [address] [place] [address] 12/16/2023 JORGE LUIS METZER Benign prostatic hyperplasia with lower urinary tract symptoms N40.1 ; Calculus of kidney and ureter N20.2 ; Surgical counseling visit Z71.89 ; Hydronephrosis of right kidney N13.30 ; Right flank pain R10.9 ; Urinary urgency R39.15 ; Renal cysts, acquired, bilateral N28.1 and Foreign body in ureter T19.8XXA [facility], [facility] [address] [place] [address] 02/10/2024 JORGE LUIS PA Benign prostatic hyperplasia with lower urinary tract symptoms N40.1 ; Left renal stone N20.0 ; Surgical counseling visit Z71.89 ; Urinary urgency R39.15 and Renal cysts, acquired, bilateral N28.1 [facility], [facility] [address] [place] [address] 03/25/2024 Ricardo Pevril Benign prostatic hyperplasia with lower urinary tract symptoms N40.1 ; Left renal stone N20.0 ; Surgical counseling visit Z71.89 ; Urinary urgency R39.15 ; Renal cysts, acquired, bilateral N28.1 and Burning with urination R30.0 [facility], [facility] [address] [place] [address] 06/02/2024 Ricardo Pevril Benign prostatic hyperplasia with lower urinary tract symptoms N40.1 ; Left renal stone N20.0 ; Surgical counseling visit Z71.89 ; Urinary urgency R39.15 ; Renal cysts, acquired, bilateral N28.1 and Burning with urination R30.0 [facility] [address] [place] [address] 07/13/2024 [facility] Benign prostatic hyperplasia with lower urinary tract symptoms N40.1 ; Left renal stone N20.0 ; Surgical counseling visit Z71.89 ; Urinary urgency R39.15 ; Renal cysts, acquired, bilateral N28.1 and Burning with urination R30.0 [facility] [address] [place] [address] 12/03/2023 JORGE LUIS PA [facility] [address] [place] [address] 12/18/2023 JORGE LUIS PA Nephrolithiasis N20. 0 [facility] [address] [place] [address] 03/13/2024 JORGE LUIS PA [facility] [address] [place] [address] 03/25/2024 JORGE LUIS PA Preop testing Z01.81 8 and Essential (primary) hypertension I10 [facility] [address] [place] [address] 04/06/2024 JORGE LUIS PA [facility] [address] [place] [address] 04/07/2024 JORGE LUIS PA [facility] [address] [place] [address] 04/14/2024 JORGE LUIS PA [facility] [address] [place] [address] 05/26/2024 JORGE LUIS PA [facility] [address] [place] [address] 06/02/2024 JORGE LUIS PA Preop testing Z01.81 8 and Essential (primary) hypertension I10 [facility] [address] [place] [address] 06/23/2024 JORGE LUIS PA [facility] [address] [place] [address] 11/18/2024 JORGE LUIS METZER Assessments Encounter Date Diagnosis (ICD Code) Assessment Notes Treatment Notes Treatment Clinical Notes Section Notes 03/25/2024 Benign prostatic hyperplasia with lower urinary tract symptoms (ICD-10 - N40.1) 68 yo male s/p R URS on 12/03. He has an 11.5mm left renal stone as seen on previous imaging.. Discussed L ESWL. Explained how procedure is performed along with R/B/A and post operative care. Pt elects to do L ESWL and will be schedule next available. Presurgical paper work hand given to patient and discussed page by page. RTC post op or sooner with any concern. All questions that were asked, were answered. UA will be sent for [facility] culture. Plan: -Scheduled for L ESWL at [facility] 07/13/2024 Benign prostatic hyperplasia with lower urinary tract symptoms (ICD-10 - N40.1) 69 yo male s/p R URS on 12/03. He has an 11.5mm left renal stone as seen on previous imaging. Discussed L ESWL. I explained how procedure was performed along with risks/benefits/a lternatives and postprocedural expectations. Schedule next available L ESWL, RTC post op. Plan: Schedule L ESWL at main OR due to previous anesthesia concerns -RTC post op I, Esperanza Isidro, Scrisabel, am scribing for, and in the presence of, Dr. Pa. I, Dr. Jorge Luis Pa, personally performed the services prescribed in this documentation, as scribed by Esperanza Isidro, in my presence, and it is both accurate and complete. 06/02/2024 Benign prostatic hyperplasia with lower urinary tract symptoms (ICD-10 - N40.1) 68 yo male s/p R URS on 12/03. He has an 11.5mm left renal stone as seen on previous imaging.. Discussed L ESWL. Explained how procedure is performed along with R/B/A and post operative care. Pt elects to do L ESWL and will be schedule next available. Presurgical paper work hand given to patient and discussed page by page. RTC post op or sooner with any concern. All questions that were asked, were answered. UA will be sent for [facility] culture. Plan: -Scheduled for L ESWL at [facility] vs [facility] 02/10/2024 Benign prostatic hyperplasia with lower urinary tract symptoms (ICD-10 - N40.1) 68 yo male s/p R URS on 12/03. He has an 11.5mm left renal stone. Discussed L ESWL vs L URS. Explained how procedure is performed along with R/B/A and post operative care. Pt elects to do L ESWL and will be schedule next available. RTC post op or sooner with any concern Plan: -Schedule for L ESWL at [facility] -RTC post op -RTC or call sooner with any concerns IEsperanza Scribe, am scribing for, and in the presence of, Dr. Pa. I, Dr. Jorge Luis Pa, personally performed the services prescribed in this documentation, as scribed by Esperanza Isidro, in my presence, and it is both accurate and complete. 02/10/2024 Left renal stone (ICD-10 - N20.0) 68 yo male s/p R URS on 12/03. He has an 11.5mm left renal stone. Discussed L ESWL vs L URS. Explained how procedure is performed along with R/B/A and post operative care. Pt elects to do L ESWL and will be schedule next available. RTC post op or sooner with any concern Plan: -Schedule for L ESWL at [facility] -RTC post op -RTC or call sooner with any concerns IEsperanza Scribe, am scribing for, and in the presence of, Dr. Pa. I, Dr. Jorge Luis Pa, personally performed the services prescribed in this documentation, as scribed by Esperanza Isidro, in my presence, and it is both accurate and complete. 12/18/2023 Nephrolithiasis (ICD-10 - N20.0) 12/16/2023 Benign prostatic hyperplasia with lower urinary tract symptoms (ICD-10 - N40.1) 68 yo male s/p R URS 12/03. R stent removed today. Plan: -RTC in 6-8 weeks with KUB and TERESO -Pt wants L renal stones treated -RTC or call sooner with any concerns IEsperanza Scribe, am scribing for, and in the presence of, Dr. Pa. I, Dr. Jorge Luis Pa, personally performed the services prescribed in this documentation, as scribed by Esperanza Isidro, in my presence, and it is both accurate and complete. 12/16/2023 Calculus of kidney and ureter (ICD-10 - N20.2) 68 yo male s/p R URS 12/03. R stent removed today. Plan: -RTC in 6-8 weeks with [facility] and TERESO -Pt wants L renal stones treated -RTC or call sooner with any concerns I, Laurita Mortonibe, am scribing for, and in the presence of, Dr. Pa. I, Dr. Jorge Luis Pa, personally performed the services prescribed in this documentation, as scribed by Esperanza Isidro, in my presence, and it is both accurate and complete. 06/02/2024 Preop testing (ICD-10 - Z01.818) 03/25/2024 Preop testing (ICD-10 - Z01.818) 03/25/2024 Essential (primary) hypertension (ICD-10 - I10) 06/02/2024 Essential (primary) hypertension (ICD-10 - I10) 12/16/2023 Surgical counseling visit (ICD-10 - Z71.89) 68 yo male s/p R URS 12/03. R stent removed today. Plan: -RTC in 6-8 weeks with KUB and TERESO -Pt wants L renal stones treated -RTC or call sooner with any concerns I, Maria Fernanda Morton, am scribing for, and in the presence of, Dr. Pa. I, Dr. Jorge Luis Pa, personally performed the services prescribed in this documentation, as scribed by Esperanza Isidro, in my presence, and it is both accurate and complete. 07/13/2024 Left renal stone (ICD-10 - N20.0) 69 yo male s/p R URS on 12/03. He has an 11.5mm left renal stone as seen on previous imaging. Discussed L ESWL. I explained how procedure was performed along with risks/benefits/a lternatives and postprocedural expectations. Schedule next available L ESWL, RTC post op. Plan: Schedule L ESWL at main OR due to previous anesthesia concerns -RTC post op I, Stormy Kapelski, Scribe, am scribing for, and in the presence of, Dr. Pa. I, Dr. Jorge Luis Pa, personally performed the services prescribed in this documentation, as scribed by Esperanza Isidro, in my presence, and it is both accurate and complete. 06/02/2024 Left renal stone (ICD-10 - N20.0) 68 yo male s/p R URS on 12/03. He has an 11.5mm left renal stone as seen on previous imaging.. Discussed L ESWL. Explained how procedure is performed along with R/B/A and post operative care. Pt elects to do L ESWL and will be schedule next available. Presurgical paper work hand given to patient and discussed page by page. RTC post op or sooner with any concern. All questions that were asked, were answered. UA will be sent for [facility] culture. Plan: -Scheduled for L ESWL at [facility] 02/10/2024 Surgical counseling visit (ICD-10 - Z71.89) 68 yo male s/p R URS on 12/03. He has an 11.5mm left renal stone. Discussed L ESWL vs L URS. Explained how procedure is performed along with R/B/A and post operative care. Pt elects to do L ESWL and will be schedule next available. RTC post op or sooner with any concern Plan: -Schedule for L ESWL at [facility] -RTC post op -RTC or call sooner with any concerns IEsperanza Scribe, am scribing for, and in the presence of, Dr. Pa. I, Dr. Jorge Luis Pa, personally performed the services prescribed in this documentation, as scribed by Esperanza Isidro, in my presence, and it is both accurate and complete. 03/25/2024 Left renal stone (ICD-10 - N20.0) 68 yo male s/p R URS on 12/03. He has an 11.5mm left renal stone as seen on previous imaging.. Discussed L ESWL. Explained how procedure is performed along with R/B/A and post operative care. Pt elects to do L ESWL and will be schedule next available. Presurgical paper work hand given to patient and discussed page by page. RTC post op or sooner with any concern. All questions that were asked, were answered. UA will be sent for [facility] culture. Plan: -Scheduled for L [facility] at [facility] 03/25/2024 Surgical counseling visit (ICD-10 - Z71.89) 68 yo male s/p R URS on 12/03. He has an 11.5mm left renal stone as seen on previous imaging.. Discussed L ESWL. Explained how procedure is performed along with R/B/A and post operative care. Pt elects to do L ESWL and will be schedule next available. Presurgical paper work hand given to patient and discussed page by page. RTC post op or sooner with any concern. All questions that were asked, were answered. UA will be sent for quest culture. Plan: -Scheduled for L ESWL at [facility] vs [facility] 03/25/2024 Urinary urgency (ICD-10 - R39.15) 68 yo male s/p R URS on 12/03. He has an 11.5mm left renal stone as seen on previous imaging.. Discussed L ESWL. Explained how procedure is performed along with R/B/A and post operative care. Pt elects to do L ESWL and will be schedule next available. Presurgical paper work hand given to patient and discussed page by page. RTC post op or sooner with any concern. All questions that were asked, were answered. UA will be sent for quest culture. Plan: -Scheduled for L ESWL at [facility] vs [facility] 07/13/2024 Surgical counseling visit (ICD-10 - Z71.89) 69 yo male s/p R URS on 12/03. He has an 11.5mm left renal stone as seen on previous imaging. Discussed L ESWL. I explained how procedure was performed along with risks/benefits/a lternatives and postprocedural expectations. Schedule next available L ESWL, RTC post op. Plan: Schedule L ESWL at main OR due to previous anesthesia concerns -RTC post op I, Maria Fernanda Morton, am scribing for, and in the presence of, Dr. Pa. I, Dr. Jorge Luis Pa, personally performed the services prescribed in this documentation, as scribed by Esperanza Isidro, in my presence, and it is both accurate and complete. 02/10/2024 Urinary urgency (ICD-10 - R39.15) 68 yo male s/p R URS on 12/03. He has an 11.5mm left renal stone. Discussed L ESWL vs L URS. Explained how procedure is performed along with R/B/A and post operative care. Pt elects to do L ESWL and will be schedule next available. RTC post op or sooner with any concern Plan: -Schedule for L ESWL at [facility] vs [facility] -RTC post op -RTC or call sooner with any concerns Esperanza Real Scribe, am scribing for, and in the presence of, Dr. Pa. I, Dr. Jorge Luis Pa, personally performed the services prescribed in this documentation, as scribed by Esperanza Isidro, in my presence, and it is both accurate and complete. 06/02/2024 Surgical counseling visit (ICD-10 - Z71.89) 68 yo male s/p R URS on 12/03. He has an 11.5mm left renal stone as seen on previous imaging.. Discussed L ESWL. Explained how procedure is performed along with R/B/A and post operative care. Pt elects to do L ESWL and will be schedule next available. Presurgical paper work hand given to patient and discussed page by page. RTC post op or sooner with any concern. All questions that were asked, were answered. UA will be sent for quest culture. Plan: -Scheduled for L ESWL at [facility] vs [facility] 12/16/2023 Hydronephrosis of right kidney (ICD-10 - N13.30) 68 yo male s/p R URS 12/03. R stent removed today. Plan: -RTC in 6-8 weeks with KUB and TERESO -Pt wants L renal stones treated -RTC or call sooner with any concerns I, Maria Fernanda Morton, am scribing for, and in the presence of, Dr. Pa. I, Dr. Jorge Luis Pa, personally performed the services prescribed in this documentation, as scribed by Esperanza Isidro, in my presence, and it is both accurate and complete. 12/16/2023 Right flank pain (ICD-10 - R10.9) 68 yo male s/p R URS 12/03. R stent removed today. Plan: -RTC in 6-8 weeks with KUB and TERESO -Pt wants L renal stones treated -RTC or call sooner with any concerns IEsperanza Scribe, am scribing for, and in the presence of, Dr. Pa. I, Dr. Jorge Luis Pa, personally performed the services prescribed in this documentation, as scribed by Esperanza Isidro, in my presence, and it is both accurate and complete. 06/02/2024 Urinary urgency (ICD-10 - R39.15) 68 yo male s/p R URS on 12/03. He has an 11.5mm left renal stone as seen on previous imaging.. Discussed L ESWL. Explained how procedure is performed along with R/B/A and post operative care. Pt elects to do L ESWL and will be schedule next available. Presurgical paper work hand given to patient and discussed page by page. RTC post op or sooner with any concern. All questions that were asked, were answered. UA will be sent for quest culture. Plan: -Scheduled for L E[facility] at [facility] vs [facility] 02/10/2024 Renal cysts, acquired, bilateral (ICD-10 - N28.1) 68 yo male s/p R URS on 12/03. He has an 11.5mm left renal stone. Discussed L ESWL vs L URS. Explained how procedure is performed along with R/B/A and post operative care. Pt elects to do L ESWL and will be schedule next available. RTC post op or sooner with any concern Plan: -Schedule for L [facility] at [facility] vs [facility] -RTC post op -RTC or call sooner with any concerns IEsperanza Scribe, am scribing for, and in the presence of, Dr. Pa. I, Dr. Jorge Luis Pa, personally performed the services prescribed in this documentation, as scribed by Esperanza Isidro, in my presence, and it is both accurate and complete. 07/13/2024 Urinary urgency (ICD-10 - R39.15) 69 yo male s/p R URS on 12/03. He has an 11.5mm left renal stone as seen on previous imaging. Discussed L ESWL. I explained how procedure was performed along with risks/benefits/a lternatives and postprocedural expectations. Schedule next available L ESWL, RTC post op. Plan: Schedule L ESWL at main OR due to previous anesthesia concerns -RTC post op I, Esperanza Isidro, Scribe, am scribing for, and in the presence of, Dr. Pa. I, Dr. Jorge Luis Pa, personally performed the services prescribed in this documentation, as scribed by Esperanza Isidro, in my presence, and it is both accurate and complete. 03/25/2024 Renal cysts, acquired, bilateral (ICD-10 - N28.1) 68 yo male s/p R URS on 12/03. He has an 11.5mm left renal stone as seen on previous imaging.. Discussed L ESWL. Explained how procedure is performed along with R/B/A and post operative care. Pt elects to do L ESWL and will be schedule next available. Presurgical paper work hand given to patient and discussed page by page. RTC post op or sooner with any concern. All questions that were asked, were answered. UA will be sent for quest culture. Plan: -Scheduled for L E[facility] at [facility] vs [facility] 03/25/2024 Burning with urination (ICD-10 - R30.0) 68 yo male s/p R URS on 12/03. He has an 11.5mm left renal stone as seen on previous imaging.. Discussed L ESWL. Explained how procedure is performed along with R/B/A and post operative care. Pt elects to do L ESWL and will be schedule next available. Presurgical paper work hand given to patient and discussed page by page. RTC post op or sooner with any concern. All questions that were asked, were answered. UA will be sent for quest culture. Plan: -Scheduled for L E[facility] at [facility] vs [facility] 07/13/2024 Renal cysts, acquired, bilateral (ICD-10 - N28.1) 69 yo male s/p R URS on 12/03. He has an 11.5mm left renal stone as seen on previous imaging. Discussed L ESWL. I explained how procedure was performed along with risks/benefits/a lternatives and postprocedural expectations. Schedule next available L ESWL, RTC post op. Plan: Schedule L ESWL at main OR due to previous anesthesia concerns -RTC post op I, Maria Fernanda Mortno am scribing for, and in the presence of, Dr. Pa. I, Dr. Jorge Luis Pa, personally performed the services prescribed in this documentation, as scribed by Esperanza Isidro, in my presence, and it is both accurate and complete. 06/02/2024 Renal cysts, acquired, bilateral (ICD-10 - N28.1) 68 yo male s/p R URS on 12/03. He has an 11.5mm left renal stone as seen on previous imaging.. Discussed L ESWL. Explained how procedure is performed along with R/B/A and post operative care. Pt elects to do L ESWL and will be schedule next available. Presurgical paper work hand given to patient and discussed page by page. RTC post op or sooner with any concern. All questions that were asked, were answered. UA will be sent for quest culture. Plan: -Scheduled for L [facility] at [facility] vs [facility] 12/16/2023 Urinary urgency (ICD-10 - R39.15) 68 yo male s/p R URS 12/03. R stent removed today. Plan: -RTC in 6-8 weeks with KUB and TERESO -Pt wants L renal stones treated -RTC or call sooner with any concerns I, Maria Fernanda Morton am scribing for, and in the presence of, Dr. Pa. I, Dr. Jorge Luis Pa, personally performed the services prescribed in this documentation, as scribed by Esperanza Isidro, in my presence, and it is both accurate and complete. 12/16/2023 Renal cysts, acquired, bilateral (ICD-10 - N28.1) 68 yo male s/p R URS 12/03. R stent removed today. Plan: -RTC in 6-8 weeks with KUB and TERESO -Pt wants L renal stones treated -RTC or call sooner with any concerns I, Stormy Kapelski, Scribe, am scribing for, and in the presence of, Dr. Pa. I, Dr. Jorge Luis Pa, personally performed the services prescribed in this documentation, as scribed by Esperanza Isidro, in my presence, and it is both accurate and complete. 07/13/2024 Burning with urination (ICD-10 - R30.0) 69 yo male s/p R URS on 12/03. He has an 11.5mm left renal stone as seen on previous imaging. Discussed L ESWL. I explained how procedure was performed along with risks/benefits/a lternatives and postprocedural expectations. Schedule next available L ESWL, RTC post op. Plan: Schedule L ESWL at main OR due to previous anesthesia concerns -RTC post op I, Maria Fernanda Morton am scribing for, and in the presence of, Dr. Pa. I, Dr. Jorge Luis Pa, personally performed the services prescribed in this documentation, as scribed by Esperanza Isidro, in my presence, and it is both accurate and complete. 06/02/2024 Burning with urination (ICD-10 - R30.0) 68 yo male s/p R URS on 12/03. He has an 11.5mm left renal stone as seen on previous imaging.. Discussed L ESWL. Explained how procedure is performed along with R/B/A and post operative care. Pt elects to do L ESWL and will be schedule next available. Presurgical paper work hand given to patient and discussed page by page. RTC post op or sooner with any concern. All questions that were asked, were answered. UA will be sent for quest culture. Plan: -Scheduled for L E[facility] at [facility] vs [facility] 12/16/2023 Foreign body in ureter (ICD-10 - T19.8XXA) 68 yo male s/p R URS 12/03. R stent removed today. Plan: -RTC in 6-8 weeks with KUB and TERESO -Pt wants L renal stones treated -RTC or call sooner with any concerns Esperanza Real Scribe am scribing for, and in the presence of, Dr. Pa. I, Dr. Jorge Luis Pa, personally performed the services prescribed in this documentation, as scribed by Esperanza Isidro, in my presence, and it is both accurate and complete. 12/16/2023 Other 1. Discussed the possibility of ureteral spasm following stent removal and the need for hydration and analgesic support as well as the fact that it should resolve in the next 24-48 hours. 2. Next follow up in 6 weeks with a KUB and renal ultrasound for residual calcifications or hydronephrosis respectively. 68 yo male s/p R URS 12/03. R stent removed today. Plan: -RTC in 6-8 weeks with KUB and TERESO -Pt wants L renal stones treated -RTC or call sooner with any concerns I, Esperanza Isidro, Scribe, am scribing for, and in the presence of, Dr. Pa. I, Dr. Jorge Luis Pa, personally performed the services prescribed in this documentation, as scribed by Esperanza Isidro, in my presence, and it is both accurate and complete. Plan Of Treatment Pending Test Test Name Order Date KUB, X-Ray: Abdomen, Kidney, Urete r, bladder 12/18/2023 UA Without Micro-Auto [id number] 11/09/2022 Abdomen [id number] 07/10/2022 CULTURE, URINE, ROUTINE (395) 06/02/2024 Bladder Scan 06/10/2023 Electrocardiogram, 12 Lead Tracing-[id number] 03/25/2024 Electrocardiogram, 12 Lead Tracing-[id number] 06/02/2024 Renal w/bladder--[id number] 12/18/2023 Future Test Test Name Order Date Abdomen [id number] 11/09/2022 Next Appt Details Provider Name:JORGE LUIS Mayberry, 12/21/2024 04:10:00 PM, [address] [place], [id number], Insurance Providers Payer Name Payer Address Payer Phone Subscriber Number Group Number Insured Name Patient Relationship to Insured Coverage Start Date Coverage End Date [employer] [address] [place]LE[place] CUMMINGS [id number] [phone] [id number] Brock Lopes Self - patient is the insured Medical (General) History Medical History History ICD Code hemangioma removed in 1984 craniotomy Measles, Mumps, Chicken Pox Bladder Infections Hernia High Blood Pressure Stroke TIA diverticulosis BPH with LUTS PTSD Surgical History Surgery Date(Month/Year) Umbilical Hernia 2017 craniotomy hemangioma cholecystectomy lithotripsy stent placement 11/2023 Hospitalization History Reason Date(Month/Year) diverticulitis ruptured 08/2023 surgery
--- OUTSIDE RECORDS SUMMARY | 2024-11-27 20:38 | XMS_ITS | Clinical Summary ---
Author Organization [facility] Address [address] 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 Active gabapentin (NEURONTIN) 300 mg capsule Take 900 mg by mouth. 4 Active sildenafiL (VIAGRA) 100 mg tablet Take 100 mg by mouth. 1 Active potassium citrate (UROCIT-K) 10 mEq (1,080 mg) Extended Release tablet Take 10 mEq by mouth. 3 Active oxyBUTYnin (DITROPAN XL) 5 mg Extended Release 24 hour tablet Take 5 mg by mouth daily. 3 Active finasteride (PROSCAR) 5 mg tablet Take 5 mg by mouth daily. 3 Active atorvastatin (LIPITOR) 80 mg tablet Take 40 mg by mouth. 4 Active HYDROcodone-acetami nophen (NORCO) 5-325 mg tabletIndications:U reteral stone with hydronephrosis Take 1-2 Tablets by mouth every 6 hours as needed for Pain. Max Daily Amount: 8 Tablets 30 Tablet 4 Active HYDROcodone-acetami nophen (NORCO) 5-325 mg tabletIndications:U reteral stone with hydronephrosis Take 1-2 Tablets by mouth every 6 hours as needed for Pain. Max Daily Amount: 8 Tablets 4 Tablet Active losartan (COZAAR) 100 mg tablet Take 50 mg by mouth. Active tamsulosin (FLOMAX) 0.4 mg capsule Take 0.4 mg by mouth. Active Active Problems Problem Noted Date Diagnosed Date Abnormal auditory function study 10/21/2023 Age-related macular degeneration 10/21/2023 Age-related nuclear cataract, bilateral 10/21/19 Arcus senilis 10/21/2023 Benign prostatic hyperplasia 10/21/2023 Hypertrophy of prostate with urinary obstruction 10/21/2023 Bradycardia 10/21/2023 Cataract 10/21/2023 Cellulitis 10/21/2023 Central serous chorioretinopathy 10/21/2023 Cervical radiculopathy 10/21/2023 Neck pain 10/21/2023 Chronic back pain 10/21/2023 Diastasis of muscle 10/21/2023 Dysphagia 10/21/2023 Elevated PSA 10/21/2023 Erectile dysfunction 10/21/2023 Gastritis and duodenitis 10/21/2023 Hammertoe, bilateral 10/21/2023 Hearing loss d/t noise 10/21/2023 Hyperlipidemia 10/21/2023 Hyperopia 10/21/2023 Insomnia 10/21/2023 Lower extremity edema 10/21/2023 Meibomian gland dysfunction of unspecified eye, unspecified eyelid 10/21/2023 Memory loss 10/21/2023 Nephrolithiasis 10/21/2023 Urolithiasis 10/21/2023 Neurogenic bladder 10/21/2023 Neuropathy 10/21/2023 Obstructive sleep apnea 10/21/2023 Arthritis of left knee 10/21/2023 Hypermetropia, bilateral 10/21/2023 Pinguecula of both eyes 10/21/2023 Presbyopia 10/21/2023 Proteinuria 10/21/2023 PTSD (post-traumatic stress disorder) 10/21/2023 PVCs (premature ventricular contractions) 2023 Retinal hemorrhage, right eye 10/21/2023 Right flank pain 10/21/2023 Tear film insufficiency 10/21/2023 Hypertension, accelerated 10/21/2023 TIA (transient ischemic attack) 10/21/2023 Tinnitus of both ears 10/21/2023 Urge incontinence of urine 10/21/2023 Acquired mechanical ptosis of both eyelids 10/20 Peripheral visual field defect, bilateral 2023 Sensorineural hearing loss, bilateral 02/03/2016 Mitral valve disorders(424.0) 01/26/2009 Palpitations 01/06/2009 Other chest pain 01/06/2009 Essential hypertension, benign 01/06/2009 Acute pharyngitis 06/16/2004 Herpes zoster without mention of complication Osteoarthrosis, unspecified whether generalized or localized, lower leg 04/18/2004 Anxiety state, unspecified 04/18/2004 Depressive disorder, not elsewhere classified Gout, unspecified 04/18/2004 Encounters Date Type Department Care Team Description 11/26/2024 External Device Data [facility] ABSTRACTION Provider, Abstract 11/25/2024 External Device Data [facility]STRA[facility] Provider, Abstract 11/03/2024 External Device Data [facility]STRACTION Provider, Abstract 11/03/2024 External Device Data [facility]STRACTION Provider, Abstract 11/03/2024 External Device Data [facility] ABSTRACTION Provider, Abstract 10/06/2024 External Device Data [facility] ABSTRACTION Provider, Abstract 10/01/2024 External Device Data [facility] ABSTRACTION Provider, Abstract 10/01/2024 External Device Data [facility] ABSTRACTION Provider, Abstract 09/30/2024 External Device Data [facility] ABSTRACTION Provider, Abstract 09/15/2024 External Device Data [facility] ABSTRACTION Provider, Abstract 09/15/2024 External Device Data [facility] ABSTRACTION Provider, Abstract from Last 3 Months Family History Medical History Relation Name Comments No Known Problems Brother No Known Problems Daughter Heart Disease Father Cancer Mother High Cholesterol Mother Hypertension Mother Relation Name Status Comments Brother Daughter Father Mother Social History Tobacco Use Types Packs/Day Years Used Date Smoking Tobacco: Former Cigarettes Q uit: 07/17/1977 Smokeless Tobacco: Never Tobacco Cessation:Counseling Given: Not Answered Alcohol Use Standard Drinks/Week Comments No 0 (1 standard drink = 0.6 oz pur e alcohol) Sex and Gender Information Value Date Recorded Sex Assigned at Not on file 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 Gender Identity Not on file Sexual Orientation Not on file Last Filed Vital Signs Vital Sign Reading Time Taken Comments Blood Pressure 124/80 02/03/2024 9:12 AM CDT Pulse 53 11/14/2023 12:00 AM CDT Temperature 36 C (96.8 F) 11/13/2023 8:50 PM CDT Respiratory Rate 16 02/03/2024 9:12 AM CDT Oxygen Saturation 97% 11/14/2023 12:00 AM CDT Inhaled Oxygen Concentration - - Weight 91.3 kg (201 lb 3.2 oz) 11/13/2023 8:50 P M CDT Height 177.8 cm (5' 10 ) 11/13/2023 8:50 PM CDT Body Mass Index 28.87 11/13/2023 8:50 PM CDT Plan of Treatment Health Maintenance Due Date Last Done Comments COLORECTAL SCREENING 2001 Colorectal Cancer Screening 2001 FIT-DNA Q 3 years 2001 FIT/FOBT Q 1 year 2001 Flex Sig/CT Colonography Q 5 years 2001 COVID-19 Vaccine (2023-2 5 season) 2024 03/05/2023, 07/25/2022, 09/06/2021, Additional history exists INFLUENZA VACCINE (#1) 2024 , 02/23/2022, 03/09/2021, Additional history exists DTAP/TDAP/TD VACCINES (3 - T d or Tdap) 11/10/2029 11/11/2019, 09/25/2019 RSV VACCINE (60+ or ) (1 - 1-dose 75+ series) 2031 ZOSTER VACCINE Completed 09/04/2021, 02/26/2020 PNEUMOCOCCAL VACCINE 50+ YEARS Completed 11/05/2022 Abdominal Aortic Aneurysm (A AA) Screening Completed 09/06/2023 Procedures Procedure Name Priority Date/Time Associated Diagnosis Comments CT ABDOMEN PELVIS WO CONTRAST Stat 09/06/2023 12:00 PM CDT Appendicitis, unspecified appendicitis type from Last 3 Months or Most Recently Relevant to Health Maintenance Results * CT ABDOMEN PELVIS WO CONTRAST (09/06/2023 12:00 PM CDT) Anatomical Region Laterality Modality Abdomen Computed Tomogra phy 09/06/2023 12:0 0 PM CDT Impressions 09/06/2023 12:37 PM CDT IMPRESSION: 1. Acute diverticulitis of the sigmoid colon with evidence of relatively contained significant perforation and abscess formation. Surgical consultation is recommended. 2. Bilateral nephrolithiasis and other incidental findings as above. The findings and/or imaging diagnoses in the above impression have been deemed a critical result by the interpreting radiologist and immediately reported as such to the ordering physician or appropriate licensed caregiver in accordance with current radiology department policy. [id number] Narrative 09/06/2023 12:[address] ABDOMEN PELVIS WO CONTRAST Reason For Exam: ABD PAIN. Diagnosis: Appendicitis, unspecified appendicitis type. TECHNIQUE: CT of the abdomen and pelvis was performed without the use of IV contrast. CONTRAST: This exam did not utilize IV contrast and therefore subtle abnormalities may be occult. COMPARISON: None. FINDINGS: LIVER AND BILIARY: Liver demonstrates normal attenuation. Multiple hypoattenuating hepatic lesions are seen that are too small to accurately characterize by CT but statistically likely represent cysts in the absence of a known malignancy. No evidence of intrahepatic biliary dilatation. PANCREAS: The pancreas is grossly unremarkable. SPLEEN: The spleen is not enlarged and is otherwise grossly unremarkable. KIDNEYS: Bilateral nephrolithiasis. No hydronephrosis. No perinephric stranding. Exophytic right renal cyst is incidentally noted. ADRENALS: The adrenal glands are unremarkable. LYMPH NODES: No enlarged retroperitoneal lymph nodes are seen. BOWEL: No evidence of a bowel obstruction. However, there is severe stranding seen adjacent to intermediate-length segment of the sigmoid colon where there are numerous diverticula as well as adjacent stranding. A fluid and air collection is seen adjacent to the offending sigmoid colon measuring 7.2 x 1.5 cm on image 93 series 4. PERITONEUM: Extensive localized free air is seen within the pelvis likely secondary to perforation of the inflamed sigmoid colon. URINARY BLADDER/PROSTATE: Urinary bladder is grossly unremarkable. Prostate is moderately enlarged. AORTA/VASCULAR: Abdominal aorta is non-aneurysmal. BONES: Review of bone windows does not reveal a suspicious osseous lesion. INCLUDED LUNG BASES: The included lung bases are unrevealing. Procedure Note Will Diop MD - 09/06/2023 CT ABDOMEN PELVIS WO CONTRAST Reason For Exam: ABD PAIN. Diagnosis: Appendicitis, unspecified appendicitis type. TECHNIQUE: CT of the abdomen and pelvis was performed without the use of IV contrast. CONTRAST: This exam did not utilize IV contrast and therefore subtle abnormalities may be occult. COMPARISON: None. FINDINGS: LIVER AND BILIARY: Liver demonstrates normal attenuation. Multiple hypoattenuating hepatic lesions are seen that are too small to accurately characterize by CT but statistically likely represent cysts in the absence of a known malignancy. No evidence of intrahepatic biliary dilatation. PANCREAS: The pancreas is grossly unremarkable. SPLEEN: The spleen is not enlarged and is otherwise grossly unremarkable. KIDNEYS: Bilateral nephrolithiasis. No hydronephrosis. No perinephric stranding. Exophytic right renal cyst is incidentally noted. ADRENALS: The adrenal glands are unremarkable. LYMPH NODES: No enlarged retroperitoneal lymph nodes are seen. BOWEL: No evidence of a bowel obstruction. However, there is severe stranding seen adjacent to intermediate-length segment of the sigmoid colon where there are numerous diverticula as well as adjacent stranding. A fluid and air collection is seen adjacent to the offending sigmoid colon measuring 7.2 x 1.5 cm on image 93 series 4. PERITONEUM: Extensive localized free air is seen within the pelvis likely secondary to perforation of the inflamed sigmoid colon. URINARY BLADDER/PROSTATE: Urinary bladder is grossly unremarkable. Prostate is moderately enlarged. AORTA/VASCULAR: Abdominal aorta is non-aneurysmal. BONES: Review of bone windows does not reveal a suspicious osseous lesion. INCLUDED LUNG BASES: The included lung bases are unrevealing. IMPRESSION: 1. Acute diverticulitis of the sigmoid colon with evidence of relatively contained significant perforation and abscess formation. Surgical consultation is recommended. 2. Bilateral nephrolithiasis and other incidental findings as above. The findings and/or imaging diagnoses in the above impression have been deemed a critical result by the interpreting radiologist and immediately reported as such to the ordering physician or appropriate licensed caregiver in accordance with current radiology department policy. [id number] Adelita Rod [facility] CT ORDERABLES Final Resul t from Last 3 Months or Most Recently Relevant to Health Maintenance Insurance MEDICARE PART A AND B [employer] FOR LIFE [facility] OFFICE OF COMMUNITY CARE MEDICARE PART A AND B FOR LIFE Advance Directives For more information, please contact: [phone] * Full Code (Latest Code Status on File) Date Activated Date Inactivated Comments 10/21/2023 7:34 AM 10/21/2023 11:18 AM * Default Full Code - Needs Discussion Date Activated Date Inactivated Comments 10/21/2023 6:20 AM 10/21/2023 7:34 AM Care Teams 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
[2024-11-27 20:49] VITALS: BP 134/73; PULSE 79; RESP 16; TEMP 36.7; O2SAT 98; BMI 33.0
[2024-11-27 22:15] LABS: Hematocrit 40.5 % (37-53); Hemoglobin 12.90 g/dL (11.27-16.99); Mean Corpuscular HGB Conc 31.9 g/dL (30-55); Mean Corpuscular Hemoglobin 29.9 pg (27-33); Mean Corpuscular Volume 93.8 fl (82-101); Nucleated Red Blood Cells % 0 %; Platelet Count 150 10^3/cmm (157-399); Red Blood Count 4.32 10^6/uL (3.85-5.65); White Blood Count 7.90 10^3/uL (3.29-11.43)
[2024-11-27 22:36] LABS: Alanine Aminotransferase 17 U/L (0-41); Albumin Level 3.8 g/dL (3.5-5.2); Alkaline Phosphatase 101 U/L (40-130); Anion Gap 14.4 (5-19); Aspartate Amino Transferase 13 U/L (0-40); Blood Urea Nitrogen 13 mg/dL (8-23); Calcium 9.6 mg/dL (8.5-10.5); Carbon Dioxide 27 mmol/L (22-29); Chloride 102 mmol/L (98-107); Creatinine Clr Calc Pharmacy 77.7549; Globulin 2.5 g/dL (1.3-4.6); Glucose 101 mg/dL (65-115); Osmolality Calculated 288 mOsm/kg (285-295); Potassium 4.4 mmol/L (3.5-5.1); Sodium 139 mmol/L (136-145); Total Protein 6.3 g/dL (6.6-8.7)
[2024-11-28 00:29] LABS: Glucose Urine UA Negative (Normal); Nitrate Urine Negative (Negative)
[2024-11-28 00:34] LABS: Add Urine Microscopic? YES
[2024-11-28 00:38] LABS: Specific Gravity, Urine 1.033 (1.005-1.030)
[2024-11-28 02:05] VITALS: BP 137/71; PULSE 62; RESP 18; O2SAT 98
--- NOTE | 2024-11-28 06:03 | W.ED.BACK ---
HPI - Back Pain/Injury General: Chief Complaint: Back Pain/Injury Stated Complaint: Lower Back L side Pain Time Seen by Provider: 11/27/24 23:47 History of Present Illness: 69-year-old male with chronic lower back pain due to a reproducible trigger point presents to the ED because his usual PCP?who administers 2% lidocaine + steroid trigger-point injections?is on vacation for three weeks. Pain is located over a palpable ?bump? in the left lower paraspinal region; prior injections provide rapid relief and enable normal activity. He reports the injections typically involve 5?6 cc of lidocaine with epinephrine plus steroid and last until inflammation subsides. He has tried no other therapies today. Review of the EMR shows no lumbar CT/MRI; only a 2022 CT A/P (no spine comments) and a 2022 KUB showing disc-height loss at L3-4 and L4-5. No recent trauma, limb weakness, bowel/bladder changes, fever, or weight loss were discussed. Related Data Home Medications ?Medication ?Instructions ?Recorded ?Confirmed allopurinol 100 mg tablet 100 mg PO DAILY@0800 05/28/20 09/03/24 atorvastatin 20 mg tablet 20 mg PO BEDTIME 05/28/20 09/03/24 finasteride 5 mg tablet 5 mg PO DAILY@0800 05/28/20 09/03/24 magnesium oxide 400 mg PO DAILY@0800 05/28/20 09/03/24 olopatadine 0.1 % eye drops 1 drp ophthalmic (eye) PRN PRN Dry 05/28/20 09/03/24 Eye(S) potassium citrate 10 mEq (1,080 10 meq PO BID@0800,2200 05/28/20 09/03/24 mg) tablet,extended release tamsulosin 0.4 mg capsule 0.4 mg PO BID@0800,2200 05/28/20 09/03/24 carboxymethylcellulose sodium 1 % 1 drp ophthalmic (eye) BEDTIME 11/19/20 09/03/24 eye gel in a dropperette (Refresh Celluvisc) multivitamin 1 tab PO DAILY 11/19/20 09/03/24 oxybutynin chloride 5 mg 5 mg PO QAM 11/19/20 09/03/24 tablet,extended release 24 hr polyvinyl alcohol-povidone (PF) 1 drp ophthalmic (eye) . DIRECTED 11/19/20 09/03/24 1.4 %-0.6 % eye drops in a dropperette (Refresh Classic (PF)) losartan 25 mg tablet 50 mg PO DAILY 01/16/24 09/03/24 Previous Rx's ?Medication ?Instructions ?Recorded custom molded accomadative #1 ea 10/19/20 orthotic Custom Molded Sole Supports #1 ea 12/01/20 mirtazapine 15 mg tablet 7.5 mg (1/2 x 15 mg) PO .at 01/25/21 bedtime #30 tabs pantoprazole 40 mg tablet,delayed 40 mg PO DAILY 30 days #30 tabs 02/23/22 release (Protonix) ibuprofen 600 mg tablet 600 mg PO Q8H PRN pain #60 tabs 08/29/22 sildenafil 100 mg tablet 100 mg PO PRN PRN Erectile 05/22/23 Dysfunction #30 tabs ondansetron 8 mg disintegrating 8 mg PO Q8H PRN nausea and 08/02/23 tablet vomiting 5 days #15 tabs gabapentin 300 mg capsule 600 mg (2 x 300 mg) PO QID 90 days 09/03/24 #720 caps ropinirole 1 mg tablet 1 mg PO .QPM 90 days #90 tabs 09/03/24 diazepam 5 mg tablet (Valium) 5 mg PO BID PRN low back spasm #10 11/28/24 tabs Allergies Allergy/AdvReac Type Severity Reaction Status Date / Time morphine Allergy Unknown psychotic Verified 11/27/24 20:52 reaction PFSH ED PFSH: Medical History (Updated 11/28/24 @ 01:37 by Héctor Polk MD) PVCs (premature ventricular contractions) Polyneuropathy, peripheral sensorimotor axonal PTSD (post-traumatic stress disorder) Gastroesophageal reflux disease with esophagitis Obstructive sleep apnea Bradycardia Memory loss Erectile dysfunction Hypertrophy of prostate with urinary obstruction Urolithiasis TIA (transient ischemic attack) Hypertension, accelerated Surgical History History of colonoscopy with polypectomy (03/30/21) ascending colon polyp, diverticulosis Hx of brain surgery History of ureter stent Hx of lithotripsy Hx of cholecystectomy Hx of hernia repair Family History Mother , at age 82 Cancer bone Hypertension Father , at age 84 Lung disease Social History Smoking and tobacco/nicotine status: never used tobacco/nicotine Alcohol intake: never Substance/Drug Use: unknown Adopted: No Caregiver/support person: No Lives independently: No Marital status: Current occupational status: retired Current gender identity: Male Physical Exam Const: COMMON NORMALS: no acute distress, patient oriented x3 and alert HENMT: COMMON NORMALS: normocephalic and atraumatic HEAD & SCALP: normocephalic and atraumatic Eye: COMMON NORMALS: Equal, round and reactive pupils present, EOMs intact bilaterally and no scleral icterus PUPIL: Yes Equal, round and reactive pupils present Resp: COMMON NORMALS: normal respiratory effort and No retractions Cardio: COMMON NORMALS: regular rate, regular rhythm and No murmurs present (Cardio) RATE: regular rate RHYTHM: regular rhythm GI: COMMON NORMALS: Normal to inspection, nondistended, normoactive bowel sounds present, Soft to palpation and non-tender PALPATION: Yes Soft to palpation Back/Pelvis: OTHER: Low back pain reproducible to palpation of the left quadratus region where there is a palpable bump lateral to the L4 spinous process. Neuro: COMMON NORMALS: patient oriented x3 SENSORIUM/ORIENTATION: Yes alert Skin: COMMON NORMALS: no rashes or lesions noted GENERAL SKIN EXAM: no rashes or lesions noted Course Vital Signs: Vital signs: Vital Signs Temperature 98.0 F 11/27/24 20:49 Pulse Rate 62 11/28/24 02:05 Respiratory Rate 18 11/28/24 02:05 Blood Pressure 137/71 11/28/24 02:05 Pulse Oximetry 98 11/28/24 02:05 Oxygen Delivery Me thod Room Air 11/27/24 20:49 MDM - Back Pain/Injury Medical Decision Making Patient remained hemodynamically stable 38 course. 2% lidocaine and methylprednisolone was injected into the anterior point and patient states he has not received moderate relief from this. He will also be given a very short course of Valium for muscle spasm to be taken if needed. He will be discharged in stable and improved condition. Procedure: The left lower back was thoroughly cleansed using alcohol wipes and the trigger point was palpated in the left quadratus lumborum region. 0.5 cc of 2% lidocaine and 0.5 cc Messer prednisolone, 20 mg, was injected into the trigger point providing moderate relief of pain. Patient tolerated the procedure well with no immediate deleterious sequelae. A bandage was placed over top. Labs 11/27/24 22:08 11/27/24 22:08 Laboratory Results WBC 7.90 10^3/uL (3.29-11.43) 11/27/24 22:08 RBC 4.32 10^6/uL (3.85-5.65) 11/27/24 22:08 Hgb 12.90 g/dL (11.27-16.99) 11/27/24 22:08 Hct 40.5 % (37-53) 11/27/24 22:08 MCV 93.8 fl (82-101) 11/27/24 22:08 MCH 29.9 pg (27-33) 11/27/24 22:08 MCHC 31.9 g/dL (30-55) 11/27/24 22:08 RDW 14.3 % (12.1-15.1) 11/27/24 22:08 Plt Count 150 10^3/cmm (157-399) L 11/27/24 22:08 MPV 9.7 fL (7.4-10.4) 11/27/24 22:08 Neut % (Auto) 57.7 % 11/27/24 22:08 Lymph % (Auto) 31.1 % 11/27/24 22:08 [place] % (Auto) 7.8 % 11/27/24 22:08 Eos % (Auto) 2.8 % 11/27/24 22:08 Baso % (Auto) 0.3 % 11/27/24 22:08 Neut # (Auto) 4.56 10^3/uL (1.8-7.7) 11/27/24 22:08 Lymph # (Auto) 2.5 10^3/uL (0.8-4.8) 11/27/24 22:08 [place] # (Auto) 0.6 10^3/uL (0.2-0.9) 11/27/24 22:08 Eos # (Auto) 0.2 10^3/uL (0.0-0.8) 11/27/24 22:08 Baso # (Auto) 0.0 10^3/uL (0.0-0.1) 11/27/24 22:08 Nucleated RBC % (auto) 0 % 11/27/24 22:08 Nucleated RBCs # 0.0 /100WBC 11/27/24 22:08 Sodium 139 mmol/L (136-145) 11/27/24 22:08 Potassium 4.4 mmol/L (3.5-5.1) 11/27/24 22:08 Chloride 102 mmol/L (98-107) 11/27/24 22:08 Carbon Dioxide 27 mmol/L (22-29) 11/27/24 22:08 Anion Gap 14.4 (5-19) 11/27/24 22:08 BUN 13 mg/dL (8-23) 11/27/24 22:08 Creatinine 1.1 mg/dL (0.7-1.2) 11/27/24 22:08 GFR Calculation 66.6 mL/min (90-130) L 11/27/24 22:08 Glucose 101 mg/dL (65-115) 11/27/24 22:08 Calculated Osmolality 288 mOsm/kg (285-295) 11/27/24 22:08 Calcium 9.6 mg/dL (8.5-10.5) 11/27/24 22:08 Total Bilirubin 0.2 mg/dL (0.15-1.2) 11/27/24 22:08 AST 13 U/L (0-40) 11/27/24 22:08 ALT 17 U/L (0-41) 11/27/24 22:08 Alkaline Phosphatase 101 U/L (40-130) 11/27/24 22:08 Total Protein 6.3 g/dL (6.6-8.7) L 11/27/24 22:08 Albumin 3.8 g/dL (3.5-5.2) 11/27/24 22:08 Globulin 2.5 g/dL (1.3-4.6) 11/27/24 22:08 Urine Color Yellow (Yellow) 11/28/24 00:17 Urine Appearance Cloudy (CLEAR) A 11/28/24 00:17 Urine pH 5.0 (5-7) 11/28/24 00:17 Ur Specific [place] 1.033 (1.005-1.030) H 11/28/24 00:17 Urine Protein Trace (Negative) A 11/28/24 00:17 Urine Glucose (UA) Negative (Normal) 11/28/24 00:17 Urine Ketones Negative (Negative) 11/28/24 00:17 Urine Blood Negative (Negative) 11/28/24 00:17 Urine Nitrate Negative (Negative) 11/28/24 00:17 Urine Bilirubin Negative (Negative) 11/28/24 00:17 Urine Urobilinogen 1.0 mg/dL (Negative) 11/28/24 00:17 Ur Leukocyte Esterase Negative (Negative) 11/28/24 00:17 Urine RBC 0-2 /hpf (0-2) 11/28/24 00:17 Urine WBC 0-5 /hpf (0-5) 11/28/24 00:17 Ur Squamous Epith Cells 0-5 /hpf (0-5) 11/28/24 00:17 Amorphous Sediment Not Reportable 11/28/24 00:17 Urine Bacteria None seen /hpf (NONE) 11/28/24 00:17 Hyaline Casts 2.46 /lpf 11/28/24 00:17 No radiology studies performed this visit Discharge Plan Discharge Patient Disposition: Home Clinical Impression: Left lumbar pain Condition: Stable Prescriptions: New diazepam [Valium] 5 mg tablet 5 mg PO BID PRN (Reason: low back spasm) Qty: 10 0RF No Action (DME) custom molded accomadative orthotic See Rx Instructions .Route .MEDSUPPLY Qty: 1 0RF Rx Instructions: As directed mirtazapine 15 mg tablet 7.5 mg PO .at bedtime Qty: 30 0RF ibuprofen 600 mg tablet 600 mg PO Q8H PRN (Reason: pain) Qty: 60 0RF ondansetron 8 mg tablet,disintegrating 8 mg PO Q8H PRN (Reason: nausea and vomiting) 5 Days Qty: 15 0RF ropinirole 1 mg tablet 1 mg PO .QPM 90 Days Qty: 90 3RF gabapentin 300 mg capsule 600 mg PO QID 90 Days Qty: 720 3RF Rx Instructions: Take 2 caps four times daily. losartan 25 mg tablet 50 mg PO DAILY (DME) Custom Molded Sole Supports See Rx Instructions .Route .MEDSUPPLY Qty: 1 0RF Rx Instructions: As directed sildenafil 100 mg tablet 100 mg PO PRN PRN (Reason: Erectile Dysfunction) Qty: 30 1RF Rx Instructions: 1 TABLET, 1 hour before intercourse, take on empty stomach, no nitroglycerin.; atorvastatin 20 mg tablet 20 mg PO BEDTIME allopurinol 100 mg tablet 100 mg PO DAILY@0800 tamsulosin 0.4 mg capsule 0.4 mg PO BID@0800,2200 potassium citrate 10 mEq (1,080 mg) tablet extended release 10 meq PO BID@0800,2200 finasteride 5 mg tablet 5 mg PO DAILY@0800 magnesium oxide 400 mg magnesium capsule 400 mg PO DAILY@0800 olopatadine 0.1 % drops 1 drp ophthalmic (eye) PRN PRN (Reason: Dry Eye(S)) Rx Instructions: use as directed prn multivitamin Tablet 1 tab PO DAILY oxybutynin chloride 5 mg tablet extended release 24hr 5 mg PO QAM Refresh Classic (PF) 1.4-0.6 % dropperette 1 drp ophthalmic (eye) . DIRECTED carboxymethylcellulose sodium [Refresh Celluvisc] 1 % dropperette,gel 1 drp ophthalmic (eye) BEDTIME Protonix 40 mg tablet,delayed release (DR/EC) 40 mg PO DAILY 30 Days Qty: 30 3RF Discharge Orders: Discharge ED (Routine); Ordered 11/28/24 Ordered By: Héctor Polk Referrals: Adelita Rod FNP [Primary Care Provider, Family Practice] Patient Instructions: Acute Low Back Pain (ED), Patient Portal & Rebecca Instructions Activity Restrictions/Additional Instructions: Hopefully the trigger point injection you received tonight provides some benefit. If not, please take the prescribed Valium to relax the muscle as prescribed. 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
== END 2024-11-28 02:13 | disposition home or self-care (01) ==
PROVIDERS: Emergency Provider Student in an Organized Health Care Education/Training Program; PCP Registered Nurse
DX: M54.50 Low back pain, unspecified (principal); I10 Essential (primary) hypertension; G47.33 Obstructive sleep apnea (adult) (pediatric); Z79.899 Other long term (current) drug therapy; Z86.73 Personal history of transient ischemic attack (TIA), and cerebral infarction without residual deficits; G89.29 Other chronic pain
CPT/HCPCS: 20552; 36415; 80053; 81001; 85025; 99283

== ENCOUNTER → 2024-12-09 08:32 | Outpatient (BNVA) | payer OTHER, SELFPAY | PROVIDERS: PCP Registered Nurse; Visit Provider Registered Nurse | DX: N39.41 Urge incontinence (principal) | CPT/HCPCS: 81000 ==

== ENCOUNTER 2024-12-21 07:10 | Outpatient (RCR) | payer OTHER, SELFPAY | END 2025-01-10 23:59 | disposition home or self-care (01) | LOC: SPT 07:10 | PROVIDERS: PCP Registered Nurse; Visit Provider Family Medicine | DX: G90.09 Other idiopathic peripheral autonomic neuropathy (principal); R26.89 Other abnormalities of gait and mobility; R53.1 Weakness | CPT/HCPCS: 97110; 97112; 97161; 97530 ==

== ENCOUNTER 2025-01-11 05:00 | Outpatient (RCR) | payer OTHER, SELFPAY | END 2025-02-09 08:25 | disposition home or self-care (01) | LOC: SPT 05:00 | PROVIDERS: PCP Registered Nurse; Visit Provider Family Medicine | DX: G90.09 Other idiopathic peripheral autonomic neuropathy (principal); R26.89 Other abnormalities of gait and mobility; R53.1 Weakness | CPT/HCPCS: 97110; 97112; 97530 ==

== ENCOUNTER 2025-03-10 06:49 | Outpatient (RCR) | payer OTHER, SELFPAY | END 2025-03-12 23:59 | disposition home or self-care (01) | LOC: SPT 06:49 | PROVIDERS: Visit Provider Family Medicine | DX: M25.559 Pain in unspecified hip (principal) | CPT/HCPCS: 97110; 97161 ==

== ENCOUNTER 2025-03-13 05:00 | Outpatient (RCR) | payer OTHER, SELFPAY | END 2025-04-11 23:59 | disposition home or self-care (01) | LOC: SPT 05:00 | PROVIDERS: Visit Provider Family Medicine | DX: M25.559 Pain in unspecified hip (principal) | CPT/HCPCS: 20560; 97110 ==

== ENCOUNTER 2025-04-12 05:00 | Outpatient (RCR) | payer OTHER, SELFPAY | END 2025-05-12 23:59 | disposition home or self-care (01) | LOC: SPT 05:00 | PROVIDERS: Visit Provider Family Medicine | DX: M25.559 Pain in unspecified hip (principal) | CPT/HCPCS: 20560; 97110 ==

== ENCOUNTER → 2025-05-05 07:50 | Outpatient (BNVA) | payer MEDICARE, OTHER, SELFPAY | PROVIDERS: Visit Provider Nurse Practitioner Family | DX: L81.4 Other melanin hyperpigmentation (principal); L82.1 Other seborrheic keratosis; L57.8 Other skin changes due to chronic exposure to nonionizing radiation; X32.XXXA Exposure to sunlight, initial encounter; L73.8 Other specified follicular disorders; Z85.820 Personal history of malignant melanoma of skin; Z08 Encounter for follow-up examination after completed treatment for malignant neoplasm; Z85.828 Personal history of other malignant neoplasm of skin; L82.0 Inflamed seborrheic keratosis; R20.8 Other disturbances of skin sensation; L29.89 Other pruritus; L53.8 Other specified erythematous conditions | CPT/HCPCS: 11102; 17000; 17110; 99213 ==